=== PATIENT | female | born 1980 | race African-American/Black ===

== ENCOUNTER 2016-10-25 11:09 | Emergency (ER) | payer SELFPAY ==
[~2016-10-25] VITALS: Ht 170.2 cm; Wt 54.4 kg
[2016-10-25] MEDS ORDERED: ASPIRIN 81 MG TAB.CHEW PO ONE (11:30)
[2016-10-25 11:36] LABS: BASO % 1 % (0-3); EOS % 1 % (0-3); HEMATOCRIT 39.7 % (36.0-47.0); HEMOGLOBIN 13.3 g/dL (12.0-15.5); LYMPH # 1.5 x10^3/uL (1.0-4.8); LYMPH % 22 % (24-48); MEAN CORPUSCULAR HEMOGLOBIN 30 pg (25-35); MEAN CORPUSCULAR HGB CONC 34 g/dL (31-37); MEAN CORPUSCULAR VOLUME 88 fL (79-100); MONO % 10 % (0-9); NEUT % 66 % (31-73); PLATELET COUNT 262 x10^3/uL (140-400); RED CELL DISTRIBUTION WIDTH 13.9 % (11.5-14.5); WHITE BLOOD COUNT 6.7 x10^3/uL (4.0-11.0)
--- NOTE | 2016-10-25 11:45 | RAD ---
Exam: AP portable chest. History: Chest pain since previous night. Comparison: None. Findings: The heart and mediastinal structures are within normal limits for size. Lungs are without infiltrate. No pneumothorax or pleural effusion is appreciated. Impression: 1. No acute cardiopulmonary process.
[2016-10-25 11:47] LABS: CALCIUM 8.8 mg/dL (8.5-10.1); CREATININE 0.7 mg/dL (0.6-1.0); GFR 95.2; POTASSIUM 4.3 mmol/L (3.5-5.1)
[2016-10-25 11:58] LABS: ALBUMIN 3.7 g/dL (3.4-5.0); DIRECT BILIRUBIN 0.1 mg/dL (0.0-0.2); TOTAL BILIRUBIN 0.9 mg/dL (0.2-1.0); TOTAL PROTEIN 7.2 g/dL (6.4-8.2)
[2016-10-25] MEDS ORDERED: HYDR-2666 PO (12:19)
--- NOTE | 2016-10-25 12:20 | PHYS DOC ---
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 It is sharp mild, intermittent worse with movement and without diaphoresis nausea or vomiting. She denies a history of hypertension diabetes high cholesterol or family history of heart disease. She denies history of blood clotting disorders, family history of blood clotting disorders or dyspnea. She denies hemoptysis. Review of Systems Review of Systems ROS negative for shortness of breath abdominal pain. She denies unilateral leg swelling. All other review of systems is negative unless otherwise noted in history of present illness. Current Medications Current Medications Current Medications Medications (Trade) Dose Ordered Sig/Garrett Start Time Stop Time Status Last Admin Dose Admin Aspirin (Children'S Aspirin) 324 mg 1X ONCE 10/25/16 11:30 10/25/16 11:39 DC 10/25/16 11:57 324 MG Allergies Allergies Allergies Coded Allergies Type Severity Reaction Last Updated Verified No Known Drug Allergies 10/25/16 No Physical Exam Physical Exam Constitutional: Well developed, well nourished, no acute distress, non-toxic appearance. Patient has spasticity of her upper extremities likely secondary to her spinal cerebellar ataxia. HENT: Normocephalic, atraumatic, bilateral external ears normal, oropharynx moist, no oral exudates, nose normal. Eyes: PERRLA, EOMI, conjunctiva normal, no discharge. [] Neck: Normal range of motion, no tenderness, supple, no stridor. Cardiovascular:Heart rate regular rhythm, no murmur [] Lungs & Thorax: Bilateral breath sounds clear to auscultation Abdomen: Bowel sounds normal, soft, no tenderness, no masses, no pulsatile masses. Skin: Warm, dry, no erythema, no rash. [] Back: No tenderness, no CVA tenderness. [] Extremities: No tenderness, no cyanosis, no clubbing, ROM intact, no edema. No evidence of DVT present. No unilateral swelling. Nontender on the venous system. Neurologic: Alert and oriented X 3, normal motor function, normal sensory function, no focal deficits noted. Psychologic: Affect normal, judgement normal, mood normal. [] Current Patient Data Vital Signs Vital Signs Date Time Temp Pulse Resp B/P Pulse Ox O2 Delivery O2 Flow Rate FiO2 10/25/16 12:58 99 123/59 98 10/25/16 11:10 98.9 11 Room Air 98.9 Lab Values Laboratory Tests Test 10/25/16 11:23 White Blood Count 6.7x10^3/uL (4.0-11.0) Red Blood Count 4.50x10^6/uL (3.50-5.40) Hemoglobin 13.3g/dL (12.0-15.5) Hematocrit 39.7% (36.0-47.0) Mean Corpuscular Volume 88fL (79-100) Mean Corpuscular Hemoglobin 30pg (25-35) Mean Corpuscular Hemoglobin Concent 34g/dL (31-37) Red Cell Distribution Width 13.9% (11.5-14.5) Platelet Count 262x10^3/uL (140-400) Neutrophils (%) (Auto) 66% (31-73) Lymphocytes (%) (Auto) 22% (24-48) L Monocytes (%) (Auto) 10% (0-9) H Eosinophils (%) (Auto) 1% (0-3) Basophils (%) (Auto) 1% (0-3) Neutrophils # (Auto) 4.4x10^3uL (1.8-7.7) Lymphocytes # (Auto) 1.5x10^3/uL (1.0-4.8) Monocytes # (Auto) 0.7x10^3/uL (0.0-1.1) Eosinophils # (Auto) 0.1x10^3/uL (0.0-0.7) Basophils # (Auto) 0.0x10^3/uL (0.0-0.2) Sodium Level 140mmol/L (136-145) Potassium Level 4.3mmol/L (3.5-5.1) Chloride Level 107mmol/L (98-107) Carbon Dioxide Level 29mmol/L (21-32) Anion Gap 4 (6-14) L Blood Urea Nitrogen 14mg/dL (7-20) Creatinine 0.7mg/dL (0.6-1.0) Estimated GFR (Cockcroft-Gault) 95.2 Glucose Level 83mg/dL (70-99) Calcium Level 8.8mg/dL (8.5-10.1) Total Bilirubin 0.9mg/dL (0.2-1.0) Direct Bilirubin 0.1mg/dL (0.0-0.2) Aspartate Amino Transferase (AST) 15U/L (15-37) Alanine Aminotransferase (ALT) 14U/L (14-59) Alkaline Phosphatase 37U/L (46-116) L Troponin I Quantitative < 0.017ng/mL (0.000-0.055) FH-Zvp-W-Type Natriuretic Peptide 8pg/mL (0-124) Total Protein 7.2g/dL (6.4-8.2) Albumin 3.7g/dL (3.4-5.0) Lipase 106U/L (73-393) Laboratory Tests 10/25/16 11:23 Laboratory Tests 10/25/16 11:23 EKG EKG []EKG shows sinus rhythm with regular rate. Normal intervals. Normal axis. ST segments are congruent. Not suggestive of ACS. Reviewed by myself. Radiology/Procedures Radiology/Procedures Chest x-ray shows no acute cardiopulmonary process. [] Course & Med Decision Making Course & Med Decision Making Pertinent Labs and Imaging studies reviewed. (See chart for details) 36-year-old female presenting to the emergency department today with chest pain. On evaluation the patient's vital signs were unremarkable other than mild hypertension. The patient is not hypoxic or tachycardic. She has not had a previous surgery recently. She has not had hemoptysis. She is not currently on exogenous estrogen and she does not have unilateral leg swelling. Physical exam was consistent with her diagnosis of spinal cerebellar ataxia. Otherwise unremarkable. EKG unremarkable. Chest x-ray unremarkable. Blood work and remarkable including a negative troponin. Aspirin given at the time of arrival. She was subsequently discharged home to follow up with her PCP over the next 2- 3 days. Heart score of 0 Dragon Disclaimer Dragon Disclaimer This electronic medical record was generated, in whole or in part, using a voice recognition dictation system. Departure Departure Impression: Primary Impression: Chest pain Disposition: 01 HOME, SELF-CARE Admitting Physician: Other Condition: STABLE Referrals: JEAN-PIERRE EDMONDSON MD (PCP) Patient Instructions: Chest Pain (Nonspecific) Additional Instructions: Thank you for allowing us to participate in your care today. Followup with your primary care physician in 3 days if your symptoms do not improve. If you do not have a primary care provider you can ask for a list of our primary care providers. Return to the emergency department you have any new or concerning findings. This should be evaluated by the primary care physician and any necessary consulting services for continued management within a few days after discharge. Return to emergency room if you have any new or concerning symptoms including but not limited to fever, chills, nausea, vomiting, intractable pain, any new rashes, chest pain, shortness of air, uncontrolled bleeding, difficulty breathing, and/or vision loss. You may have been prescribed medication that can change in your level of thinking and ability to operate machinery. These medications include hydrocodone and Ativan. Also, Benadryl has been known to do this as well. Be sure to check with your pharmacist and ask if the medications you've prescribed can affect your level of consciousness. I recommend not operating heavy machinery or driving while on medication such as these. Scripts Hydrocodone Bit/Acetaminophen (Hydrocodone-Apap 5-325 )1 Each Tablet1 Tab PO PRN Q6HRS PRN PAIN #15 TAB Be careful as this medication may cause you to be drowsy or tired. Do not drive on this medication. Prov:BRODY PARRA MD 10/25/16 BRODY PARRA MD Oct 25, 2016 12:19
[2016-10-25 12:58] VITALS: BP 123/59
== END 2016-10-25 12:58 | disposition home or self-care (01) ==
LOC: EDBD 11:09 → MERGE 11:09 → ER 11:09
DX: R07.9 Chest pain, unspecified (principal); I10 Essential (primary) hypertension
CPT/HCPCS: 36415; 71010; 80048; 80076; 83690; 83880; 84484; 85027; 99285

== ENCOUNTER 2017-12-30 23:57 | Emergency (ER) | payer OTHER ==
[2017-12-31 00:41] LABS: ADD MAN DIFF? NO
[2017-12-31 00:43] LABS: BASO % 1 % (0-3); EOS # 0.1 x10^3/uL (0.0-0.7); EOS % 2 % (0-3); HEMATOCRIT 40.3 % (36.0-47.0); HEMOGLOBIN 13.6 g/dL (12.0-15.5); LYMPH # 2.1 x10^3/uL (1.0-4.8); LYMPH % 35 % (24-48); MEAN CORPUSCULAR HEMOGLOBIN 30 pg (25-35); MEAN CORPUSCULAR HGB CONC 34 g/dL (31-37); MEAN CORPUSCULAR VOLUME 90 fL (79-100); MONO # 0.7 x10^3/uL (0.0-1.1); MONO % 11 % (0-9); NEUT # 3.1 x10^3uL (1.8-7.7); NEUT % 52 % (31-73); PLATELET COUNT 327 x10^3/uL (140-400); RED BLOOD COUNT 4.49 x10^6/uL (3.50-5.40); RED CELL DISTRIBUTION WIDTH 13.7 % (11.5-14.5)
[2017-12-31 00:48] LABS: BILIRUBIN,URINE NEGATIVE (NEG); CLARITY,URINE TURBID; COLOR,URINE YELLOW; GLUCOSE,URINE NEGATIVE (NEG); NITRITE,URINE NEGATIVE (NEG); PH,URINE 5.5; PROTEIN,URINE 30 mg/dL (NEG-TRACE); UROBILINOGEN,URINE 0.2 mg/dL (0.2 mg/dL)
[2017-12-31 00:51] LABS: ANION GAP 8 (6-14); BLOOD UREA NITROGEN 15 mg/dL (7-20); CALCIUM 9.5 mg/dL (8.5-10.1); CARBON DIOXIDE 29 mmol/L (21-32); CHLORIDE 104 mmol/L (98-107); CREATININE 0.9 mg/dL (0.6-1.0); GFR 85.7; GLUCOSE 102 mg/dL (70-99); POTASSIUM 4.2 mmol/L (3.5-5.1); SODIUM 141 mmol/L (136-145)
[2017-12-31 00:54] LABS: BACTERIA,URINE MANY /HPF (0-FEW); RBC,URINE OCC /HPF (0-2); SQUAMOUS EPITHELIAL CELL,UR MANY /LPF
[2017-12-31 00:56] LABS: NEG OBC UR NEG; POS OBC UR POS; U PREG PATIENT NEGATIVE (NEG)
== END 2017-12-31 01:46 | disposition home or self-care (01) ==
LOC: ER 23:57
DX: R68.83 Chills (without fever) (principal)
CPT/HCPCS: 36415; 80048; 81001; 81025; 85025; 87086; 99284

== ENCOUNTER 2018-01-01 01:19 | Emergency (ER) | payer OTHER ==
[2018-01-01] MEDS: ONDANSETRON PF 4 MG/2 ML VIAL. IV (01:45)
[2018-01-01] MEDS: IV NORMAL SALINE 1000ML BAG 1,000 ML IV (02:01)
[2018-01-01 02:02] LABS: ADD MAN DIFF? NO
[2018-01-01 02:04] LABS: BASO % 0 % (0-3); EOS # 0.1 x10^3/uL (0.0-0.7); EOS % 1 % (0-3); HEMATOCRIT 38.9 % (36.0-47.0); HEMOGLOBIN 13.2 g/dL (12.0-15.5); LYMPH # 1.7 x10^3/uL (1.0-4.8); LYMPH % 31 % (24-48); MEAN CORPUSCULAR HEMOGLOBIN 30 pg (25-35); MEAN CORPUSCULAR HGB CONC 34 g/dL (31-37); MEAN CORPUSCULAR VOLUME 90 fL (79-100); MONO # 0.7 x10^3/uL (0.0-1.1); MONO % 12 % (0-9); NEUT % 55 % (31-73); PLATELET COUNT 307 x10^3/uL (140-400); RED BLOOD COUNT 4.34 x10^6/uL (3.50-5.40); RED CELL DISTRIBUTION WIDTH 13.6 % (11.5-14.5); WHITE BLOOD COUNT 5.5 x10^3/uL (4.0-11.0)
[2018-01-01 02:12] LABS: ANION GAP 8 (6-14); BLOOD UREA NITROGEN 13 mg/dL (7-20); BUN/CREATININE RATIO 16 (6-20); CALCIUM 9.9 mg/dL (8.5-10.1); CARBON DIOXIDE 28 mmol/L (21-32); CHLORIDE 105 mmol/L (98-107); CREATININE 0.8 mg/dL (0.6-1.0); GFR 98.2; GLUCOSE 103 mg/dL (70-99); POTASSIUM 3.8 mmol/L (3.5-5.1); SODIUM 141 mmol/L (136-145)
[2018-01-01 02:13] LABS: BILIRUBIN,URINE NEGATIVE (NEG); CLARITY,URINE CLEAR; COLOR,URINE YELLOW; GLUCOSE,URINE NEGATIVE (NEG); NITRITE,URINE NEGATIVE (NEG); PH,URINE 5.5; PROTEIN,URINE NEGATIVE (NEG-TRACE); UROBILINOGEN,URINE 0.2 mg/dL (0.2 mg/dL)
[2018-01-01 02:18] LABS: ALBUMIN 3.7 g/dL (3.4-5.0); ALBUMIN/GLOBULIN RATIO 0.9 (1.0-1.7); ALK PHOS 53 U/L (46-116); ALT (SGPT) 22 U/L (14-59); AST (SGOT) 13 U/L (15-37); TOTAL BILIRUBIN 0.7 mg/dL (0.2-1.0); TOTAL PROTEIN 7.6 g/dL (6.4-8.2)
[2018-01-01 02:21] LABS: INFLUENZA A PATIENT NEGATIVE (NEGATIVE); INFLUENZA B PATIENT NEGATIVE (NEGATIVE); OBC FLU VALID
[2018-01-01 02:24] LABS: BACTERIA,URINE 0 /HPF (0-FEW); RBC,URINE OCC /HPF (0-2); SQUAMOUS EPITHELIAL CELL,UR FEW /LPF
== END 2018-01-01 04:45 | disposition home or self-care (01) ==
LOC: ER 01:19
DX: E86.0 Dehydration (principal); R42 Dizziness and giddiness; R53.1 Weakness; R11.2 Nausea with vomiting, unspecified; R30.0 Dysuria
CPT/HCPCS: 36415; 51701; 71045; 80053; 81001; 85025; 87804; 87804-59; 93005; 96360; 96361; 99285-25; J7030

== ENCOUNTER 2018-04-11 07:58 | Emergency (ER) | payer OTHER ==
[2018-04-11 08:54] LABS: URINE HCG POC HCG NEGATIVE (Negative)
[2018-04-11 09:01] LABS: BILIRUBIN,URINE NEGATIVE (NEG); CLARITY,URINE TURBID; COLOR,URINE AMBER; GLUCOSE,URINE NEGATIVE (NEG); NITRITE,URINE NEGATIVE (NEG); PROTEIN,URINE >=300 mg/dL (NEG-TRACE); UROBILINOGEN,URINE 0.2 mg/dL (0.2 mg/dL)
[2018-04-11 09:11] LABS: BACTERIA,URINE MANY /HPF (0-FEW); SQUAMOUS EPITHELIAL CELL,UR MANY /LPF; WBC,URINE TNTC /HPF (0-4)
[2018-04-11 09:12] LABS: RBC,URINE FOBS /HPF (0-2)
[2018-04-11 09:15] LABS: ADD MAN DIFF? NO
[2018-04-11] MEDS ORDERED: CONTRAST GIVEN. MC (09:15)
[2018-04-11 09:20] LABS: BASO % 1 % (0-3); EOS # 0.1 x10^3/uL (0.0-0.7); EOS % 2 % (0-3); HEMATOCRIT 36.9 % (36.0-47.0); HEMOGLOBIN 12.8 g/dL (12.0-15.5); LYMPH # 1.3 x10^3/uL (1.0-4.8); LYMPH % 26 % (24-48); MEAN CORPUSCULAR HEMOGLOBIN 31 pg (25-35); MEAN CORPUSCULAR HGB CONC 35 g/dL (31-37); MEAN CORPUSCULAR VOLUME 91 fL (79-100); MONO # 0.6 x10^3/uL (0.0-1.1); MONO % 12 % (0-9); NEUT % 60 % (31-73); PLATELET COUNT 256 x10^3/uL (140-400); RED BLOOD COUNT 4.08 x10^6/uL (3.50-5.40); RED CELL DISTRIBUTION WIDTH 13.6 % (11.5-14.5); WHITE BLOOD COUNT 5.1 x10^3/uL (4.0-11.0)
[2018-04-11 09:29] LABS: ANION GAP 3 (6-14); BLOOD UREA NITROGEN 12 mg/dL (7-20); BUN/CREATININE RATIO 15 (6-20); CALCIUM 9.2 mg/dL (8.5-10.1); CARBON DIOXIDE 28 mmol/L (21-32); CHLORIDE 106 mmol/L (98-107); CREATININE 0.8 mg/dL (0.6-1.0); GFR 97.7; GLUCOSE 88 mg/dL (70-99); SODIUM 137 mmol/L (136-145)
[2018-04-11 09:37] LABS: ALBUMIN 3.4 g/dL (3.4-5.0); ALK PHOS 44 U/L (46-116); ALT (SGPT) 28 U/L (14-59); AST (SGOT) 13 U/L (15-37); LIPASE 92 U/L (73-393); TOTAL BILIRUBIN 0.7 mg/dL (0.2-1.0); TOTAL PROTEIN 6.9 g/dL (6.4-8.2)
[2018-04-11] MEDS: IOHEXOL 300 MG/ML 100ML VIAL. IV (10:01)
[2018-04-11] MEDS: fentaNYL PF VIAL 100 MCG/2 ML VIAL IV (13:57)
== END 2018-04-11 13:25 | disposition home or self-care (01) ==
LOC: ER 13:25
DX: N83.202 Unspecified ovarian cyst, left side (principal)
CPT/HCPCS: 36415; 74177; 76856; 80053; 81001; 81025; 83690; 85025; 96365; 96375; 99285-25; J0690; J3010; Q9967

== ENCOUNTER 2018-04-29 20:05 | Emergency (ER) | payer OTHER ==
[2018-04-29 20:49] LABS: ADD MAN DIFF? NO
[2018-04-29 20:51] LABS: BASO % 1 % (0-3); EOS # 0.1 x10^3/uL (0.0-0.7); EOS % 1 % (0-3); HEMOGLOBIN 13.2 g/dL (12.0-15.5); LYMPH # 1.9 x10^3/uL (1.0-4.8); LYMPH % 29 % (24-48); MEAN CORPUSCULAR HEMOGLOBIN 31 pg (25-35); MEAN CORPUSCULAR HGB CONC 34 g/dL (31-37); MEAN CORPUSCULAR VOLUME 91 fL (79-100); MONO # 0.8 x10^3/uL (0.0-1.1); MONO % 12 % (0-9); NEUT # 3.8 x10^3uL (1.8-7.7); NEUT % 58 % (31-73); PLATELET COUNT 291 x10^3/uL (140-400); RED CELL DISTRIBUTION WIDTH 13.6 % (11.5-14.5); WHITE BLOOD COUNT 6.6 x10^3/uL (4.0-11.0)
[2018-04-29 21:02] LABS: ANION GAP 7 (6-14); BLOOD UREA NITROGEN 16 mg/dL (7-20); BUN/CREATININE RATIO 23 (6-20); CALCIUM 9.4 mg/dL (8.5-10.1); CARBON DIOXIDE 28 mmol/L (21-32); CHLORIDE 105 mmol/L (98-107); CREATININE 0.7 mg/dL (0.6-1.0); GFR 113.9; GLUCOSE 99 mg/dL (70-99); POTASSIUM 3.8 mmol/L (3.5-5.1); SODIUM 140 mmol/L (136-145)
[2018-04-29 21:08] LABS: ALBUMIN 3.6 g/dL (3.4-5.0); ALK PHOS 50 U/L (46-116); ALT (SGPT) 17 U/L (14-59); AST (SGOT) 12 U/L (15-37); LIPASE 117 U/L (73-393); TOTAL BILIRUBIN 0.7 mg/dL (0.2-1.0); TOTAL PROTEIN 7.1 g/dL (6.4-8.2)
[2018-04-29] MEDS: IV NORMAL SALINE 1000ML BAG 1,000 ML IV (21:26)
[2018-04-29] MEDS: ACETAMINOPHEN 500 MG TABLET PO (21:27)
[2018-04-29] MEDS: ONDANSETRON PF 4 MG/2 ML VIAL. IV (21:27)
[2018-04-29] MEDS: KETOROLAC 30 MG/ML INJ. IV (21:28)
[2018-04-29] MEDS: MORPHINE SULFATE 10 MG/ML VIAL. IV (21:28)
[2018-04-29 21:48] LABS: BILIRUBIN,URINE NEGATIVE (NEG); CLARITY,URINE CLEAR; COLOR,URINE YELLOW; GLUCOSE,URINE NEGATIVE (NEG); NITRITE,URINE NEGATIVE (NEG); PROTEIN,URINE NEGATIVE (NEG-TRACE)
[2018-04-29 21:58] LABS: BACTERIA,URINE 0 /HPF (0-FEW); SQUAMOUS EPITHELIAL CELL,UR MOD /LPF; WBC,URINE OCC /HPF (0-4)
[2018-04-29] MEDS ORDERED: CONTRAST GIVEN. MC (22:00)
[2018-04-29 22:20] LABS: NEG OBC UR NEG; POS OBC UR POS; U PREG PATIENT NEGATIVE (NEG)
[2018-04-29] MEDS: IOHEXOL 300 MG/ML 100ML VIAL. IV (22:45)
[2018-05-02 15:29] LABS: CHLAMYDIA PROBE Negative (Negative); GC PROBE Negative (Negative)
== END 2018-04-29 23:48 | disposition home or self-care (01) ==
LOC: ER 23:48
DX: R10.31 Right lower quadrant pain (principal); N76.0 Acute vaginitis; B96.89 Other specified bacterial agents as the cause of diseases classified elsewhere
CPT/HCPCS: 36415; 74177; 76830; 76856; 80053; 81001; 81025; 83690; 85025; 87491; 87591; 96374; 96375; 99285-25; J1885; J2270; J2405; J7030; Q0111; Q9967

== ENCOUNTER 2018-06-30 04:45 | Emergency (ER) | payer OTHER ==
[~2018-06-30] VITALS: Ht 170.2 cm; Wt 50.8 kg
[~2018-06-30 04:45] MED LIST: HYDR-2758 PO; HYDR-971 PO; METR500T PO; TRAM50TA PO
--- NOTE | 2018-06-30 05:24 | PHYS DOC ---
Past Medical History Past Medical History: Other Additional Past Medical Histor: SPINOCEREBELLAR ATAXIA Past Surgical History: Alcohol Use: None Drug Use: None Adult General Chief Complaint Chief Complaint: BACK PAIN OR INJURY HPI HPI Patient is a 38 year old female with a past medical history of spinal cerebellar ataxia who presents via EMS after acute onset back pain this morning. Patient notes she was in bed at about 2:30 this morning when she had acute onset of constant burning low thoracic midline back pain with the severity of 8 out of 10. Patient denies any radiation of pain. Patient notes that she might have shifted in bed before the onset of pain that she is not completely sure. Patient notes since the onset of the pain she has had increased weakness in her bilateral lower extremities. Patient denies any loss of bowel or bladder function. Patient denies any dysuria, urinary urgency, urinary frequency, or fevers/chills. Patient is somewhat of a poor historian due to not answering all questions fully and mumbling. Review of Systems Review of Systems Constitutional: Denies fever or chills [] Eyes: Denies change in visual acuity, redness, or eye pain [] HENT: Denies nasal congestion or sore throat [] Respiratory: Denies cough or shortness of breath [] Cardiovascular: Denies chest pain or palpitations[] GI: Denies abdominal pain, nausea, vomiting, bloody stools or diarrhea [] : Denies dysuria or hematuria [] Musculoskeletal: Notes back pain; Denies joint pain [] Integument: Denies rash or skin lesions [] Neurologic: Denies headache, focal weakness or sensory changes [] Complete systems were reviewed and found to be within normal limits, except as documented in this note. Current Medications Current Medications Current Medications Medications (Trade) Dose Ordered Sig/[facility] Start Time Stop Time Status Last Admin Dose Admin Acetaminophen/ Hydrocodone Bitart (Lortab 5/325) 1 tab 1X ONCE 06/30/18 06:30 06/30/18 06:31 DC 06/30/18 06:29 1 TAB Ketorolac Tromethamine (Toradol 30mg Vial) 30 mg 1X ONCE 06/30/18 05:30 06/30/18 05:31 DC 06/30/18 05:30 30 MG Orphenadrine Citrate (Norflex) 60 mg 1X ONCE 06/30/18 05:30 06/30/18 05:31 DC 06/30/18 05:30 60 MG Allergies Allergies Allergies Coded Allergies Type Severity Reaction Last Updated Verified No Known Drug Allergies 09/21/13 No Physical Exam Physical Exam Constitutional: Well developed, well nourished, no acute distress, non-toxic appearance. [] HENT: Normocephalic, atraumatic, oropharynx moist, no oral exudates, nose normal. [] Eyes: PERRL, EOMI, conjunctiva normal, no discharge. [] Neck: Normal range of motion, no tenderness, supple, no meningismus. [] Cardiovascular: Heart rate regular rhythm, no murmur [] Lungs & Thorax: Bilateral breath sounds clear to auscultation [] Abdomen: Bowel sounds normal, soft, nondistended, no tenderness, [] Skin: Warm, dry, no erythema, no rash. [] Back: Midline low thoracic tenderness, paraspinal thoracic tenderness, no CVA tenderness. [] Extremities: No tenderness, no edema. Straight leg raise test positive at 80 both on the left and right[] Neurologic: Alert and oriented X 3, normal motor function Psychologic: Affect normal, judgement normal, mood normal. [] Current Patient Data Vital Signs Vital Signs Date Time Temp Pulse Resp B/P (MAP) Pulse Ox O2 Delivery O2 Flow Rate FiO2 06/30/18 06:29 15 98 Room Air 06/30/18 06:18 92 132/90 (104) 06/30/18 04:45 98.4 98.4 Lab Values Laboratory Tests Test 06/30/18 06:00 06/30/18 06:05 Urine Collection Type Void Urine Color Yellow Urine Clarity Clear Urine pH 6.0 Urine Specific [place] 1.025 Urine Protein Negative mg/dL (NEG-TRACE) Urine Glucose (UA) Negative mg/dL (NEG) Urine Ketones (Stick) 15 mg/dL (NEG) Urine Blood Trace (NEG) Urine Nitrite Negative (NEG) Urine Bilirubin Negative (NEG) Urine Urobilinogen Dipstick 1.0 mg/dL (0.2 mg/dL) Urine Leukocyte Esterase Moderate (NEG) Urine RBC 1-2 /HPF (0-2) Urine WBC 11-20 /HPF (0-4) Urine Squamous Epithelial Cells Occ /LPF Urine Bacteria Few /HPF (0-FEW) Urine Mucus Marked /LPF POC Urine HCG, Qualitative Hcg negative (Negative) EKG EKG [] Radiology/Procedures Radiology/Procedures [] Course & Med Decision Making Course & Med Decision Making 38-year-old female with past medical history of spinal cerebellar ataxia presents with acute onset paraspinal lower thoracic back pain. Patient notes pain has a burning quality to it a severity of 8 out of 10 patient denies radiation of the pain. Patient given dose of IM Toradol and Norflex and dose of norco 5/325mg. UA pending. Sign out given to Dr. Morataya for follow up regarding UA results. Rx for pain meds, muscle relaxer, and anti- inflammatories provided. Discussed current findings and plan with patient, who acknowledges understanding and agreement. f/u on UA. + pyuria. Will treat with macrobid x 5 days. patient encouraged to f/u with her PCP or return to the ER for any new or worsening symptoms. DO. Howie Rich Disclaimer Howie Disclaimer This electronic medical record was generated, in whole or in part, using a voice recognition dictation system. Departure Departure Impression: Primary Impression: Thoracic back pain Disposition: HOME, SELF-CARE Condition: STABLE Referrals: JEAN-PIERRE EDMONDSON MD (PCP) Patient Instructions: Back Pain, Adult, [id number] Scripts Nitrofurantoin Monohyd/M-Cryst (MACROBID 100 MG CAPSULE) 100 Mg Capsule 1 CAP PO BID, #10 CAP Prov: PORSCHE MORATAYA DO 06/30/18 Orphenadrine Citrate (ORPHENADRINE CITRATE) 100 Mg Tablet.er 1 TAB PO BID PRN for MUSCLE PAIN, #20 TAB 0 Refills Prov: DAVI KISER DO 06/30/18 Ibuprofen (MOTRIN IB) 200 Mg Tablet 400 MG PO Q8HRS PRN for PAIN, #20 TAB Prov: DAVI KISER DO 06/30/18 Hydrocodone/Apap 5-325 (NORCO 5-325 TABLET) 1 Each Tablet 0.5 TAB PO PRN Q6HRS PRN for PAIN, #10 TAB 0 Refills Prov: DAVI KISER DO 06/30/18 Problem Qualifiers Primary Impression: Thoracic back pain Chronicity: acute Back pain laterality: bilateral Qualified Codes: M54.6 - Pain in thoracic spine DAVI KISER DO Jun 30, 2018 05:24 PORSCHE MORATAYA DO Jun 30, 2018 07:04
[2018-06-30] MEDS ORDERED: KETOROLAC 30 MG/ML VIAL. IM ONE (05:30)
[2018-06-30] MEDS ORDERED: ORPHENADRINE CITRATE 60 MG/2 ML VIAL. IM ONE (05:30)
[2018-06-30] MEDS ORDERED: IBUP200T44 PO (06:23)
[2018-06-30] MEDS ORDERED: HYDR-971 PO (06:23)
[2018-06-30] MEDS ORDERED: ORPH100T PO (06:29)
[2018-06-30] MEDS ORDERED: HYDROcodone/APAP 5/325MG 1 TAB TABLET PO ONE (06:30)
[2018-06-30 06:45] LABS: BILIRUBIN,URINE NEGATIVE (NEG); CLARITY,URINE CLEAR; COLOR,URINE YELLOW; NITRITE,URINE NEGATIVE (NEG); PROTEIN,URINE NEGATIVE (NEG-TRACE)
[2018-06-30 06:58] LABS: BACTERIA,URINE FEW /HPF (0-FEW); SQUAMOUS EPITHELIAL CELL,UR OCC /LPF
[2018-06-30] MEDS ORDERED: NITR100C62 PO (07:02)
[2018-06-30 07:08] VITALS: BP 140/90
== END 2018-06-30 08:14 | disposition home or self-care (01) ==
LOC: ER 04:45
DX: M54.6 Pain in thoracic spine (principal); Z98.890 Other specified postprocedural states
CPT/HCPCS: 81001; 81025; 87086; 96372; 99284; J1885; J2360

== ENCOUNTER 2018-07-26 00:10 | Emergency (ER) | payer OTHER ==
[~2018-07-26] VITALS: Ht 170.2 cm; Wt 50.8 kg
[~2018-07-26 00:10] MED LIST changes: +IBUP200T44 PO; +NITR100C62 PO; +ORPH100T PO
[2018-07-26] MEDS ORDERED: ORPH100T PO (00:49)
[2018-07-26] MEDS ORDERED: HYDR-971 PO (00:49)
--- NOTE | 2018-07-26 00:49 | PHYS DOC ---
Past Medical History Past Medical History: Other Additional Past Medical Histor: SPINOCEREBELLAR ATAXIA Past Surgical History: Alcohol Use: None Drug Use: None Adult General Chief Complaint Chief Complaint: BACK PAIN - NO INJURY HPI HPI 38-year-old female with past medical history of spinocerebellar ataxia presents with report of exacerbation of chronic left sided mid thoracic back pain. Denies known trauma. Denies fever/chills. Denies rash. Patient reports she has had similar pain in the past. Reports tried over the counter Ibuprofen without improvement. Denies dysuria or hematuria. Denies fever/chills. Patient is bed bound at baseline. Review of Systems Review of Systems Constitutional: Denies fever or chills [] Eyes: Denies change in visual acuity, redness, or eye pain [] HENT: Denies nasal congestion or sore throat [] Respiratory: Denies cough or shortness of breath [] Cardiovascular: Denies chest pain or palpitations GI: Denies abdominal pain, nausea, vomiting, or diarrhea [] : Denies dysuria or hematuria [] Musculoskeletal: Reports left-sided thoracic back pain] Integument: Denies rash or skin lesions [] Neurologic: Denies headache or seizure Complete systems were reviewed and found to be within normal limits, except as documented in this note. Current Medications Current Medications Current Medications Medications (Trade) Dose Ordered Sig/Garrett Start Time Stop Time Status Last Admin Dose Admin Dexamethasone (Decadron) 10 mg 1X ONCE 07/26/18 01:00 07/26/18 01:01 DC 07/26/18 00:58 10 MG Ketorolac Tromethamine (Toradol 30mg Vial) 30 mg 1X ONCE 07/26/18 01:00 07/26/18 01:01 DC 07/26/18 00:58 30 MG Orphenadrine Citrate (Norflex) 60 mg 1X ONCE 07/26/18 01:00 07/26/18 01:01 DC 07/26/18 00:57 60 MG Allergies Allergies Allergies Coded Allergies Type Severity Reaction Last Updated Verified No Known Drug Allergies 09/21/13 No Physical Exam Physical Exam Constitutional: No acute distress, non-toxic appearance. [] HENT: Normocephalic, atraumatic, oropharynx moist Eyes: Conjunctiva normal, no discharge. [] Neck: No tenderness, supple[] Cardiovascular: Heart rate regular rhythm, no murmur [] Lungs & Thorax: Bilateral breath sounds clear to auscultation [] Abdomen: Soft, no suprapubic tenderness, no distention Skin: Warm, dry, no erythema, no rash. [] Back: left mid thoracic paraspinal tenderness Extremities: No tenderness, contractures of bilateral feet and legs, some contractures of the hands right greater than left, decreased muscle tone to all 4 extremities Neurologic: Alert and oriented X 3, speech normal Psychologic: Affect normal, judgement normal, mood normal. [] Current Patient Data Vital Signs Vital Signs Date Time Temp Pulse Resp B/P (MAP) Pulse Ox O2 Delivery O2 Flow Rate FiO2 07/26/18 00:12 98.4 108 20 162/95 (117) 97 Room Air 98.4 EKG EKG [] Radiology/Procedures Radiology/Procedures [] Course & Med Decision Making Course & Med Decision Making Pertinent Labs and Imaging studies reviewed. (See chart for details) Patient with chronic back pain presents with exacerbation and report of trouble sleeping this evening. No history of known trauma. No obvious deformity noted. No rash noted. Afebrile. Denies dysuria, increased urinary frequency, or hematuria. Reports is consistent with her chronic pain. Reports ibuprofen she has been taking is not helping. [employer] prescription drug monitoring report viewed and last narcotic prescription for [place] [id number] tabs was obtained on . Symptomatic treatment provided with IM ketorolac and Norflex as well as oral steroid. Will prescribe small amount of pain medication with instructions to follow closely with her PCP. Patient stable for discharge with outpatient follow-up with PCP. Discussed findings and plan with patient and family, who acknowledge understanding and agreement. Dragon Disclaimer Dragon Disclaimer This electronic medical record was generated, in whole or in part, using a voice recognition dictation system. Departure Departure Impression: Primary Impression: Chronic thoracic back pain Disposition: 01 HOME, SELF-CARE Condition: STABLE Referrals: JEAN-PIERRE EDMONDSON MD (PCP) Patient Instructions: Back Pain, Adult, Atpr-[id number], Chronic Back Pain Scripts Hydrocodone/Apap 5-325 (NORCO 5-325 TABLET) 1 Each Tablet 0.5 TAB PO PRN Q6HRS PRN for PAIN, #6 TAB 0 Refills Prov: DAVI KISER DO 07/26/18 Orphenadrine Citrate (ORPHENADRINE CITRATE) 100 Mg Tablet.er 1 TAB PO BID, #14 TAB 0 Refills Prov: DAVI KISER DO 07/26/18 Problem Qualifiers Primary Impression: Chronic thoracic back pain Back pain laterality: left Qualified Codes: M54.6 - Pain in thoracic spine; G89.29 - Other chronic pain DAVI KISER DO Jul 26, 2018 00:49
[2018-07-26] MEDS ORDERED: DEXAMETHASONE 4 MG TABLET PO ONE (01:00)
[2018-07-26] MEDS ORDERED: ORPHENADRINE CITRATE 60 MG/2 ML VIAL. IM ONE (01:00)
[2018-07-26] MEDS ORDERED: KETOROLAC 30 MG/ML VIAL. IM ONE (01:00)
[2018-07-26 01:09] VITALS: BP 135/67
== END 2018-07-26 01:30 | disposition home or self-care (01) ==
LOC: ER 00:10
DX: G89.29 Other chronic pain (principal); M54.6 Pain in thoracic spine
CPT/HCPCS: 96372; 99284; J1885; J2360; J8540

== ENCOUNTER 2018-09-29 23:14 | Emergency (ER) | payer OTHER ==
[~2018-09-29] VITALS: Ht 170.2 cm; Wt 50.8 kg
[~2018-09-29 23:14] MED LIST changes: -HYDR-2758 PO; +HYDR-2761 PO; +HYDR-3164 PO; -HYDR-971 PO
[2018-09-30 00:06] LABS: BASO % 1 % (0-3); EOS # 0.1 x10^3/uL (0.0-0.7); EOS % 2 % (0-3); HEMATOCRIT 37.3 % (36.0-47.0); HEMOGLOBIN 12.9 g/dL (12.0-15.5); LYMPH # 1.6 x10^3/uL (1.0-4.8); LYMPH % 32 % (24-48); MEAN CORPUSCULAR HEMOGLOBIN 31 pg (25-35); MEAN CORPUSCULAR HGB CONC 35 g/dL (31-37); MEAN CORPUSCULAR VOLUME 89 fL (79-100); MONO # 0.7 x10^3/uL (0.0-1.1); MONO % 13 % (0-9); NEUT # 2.6 x10^3uL (1.8-7.7); NEUT % 52 % (31-73); PLATELET COUNT 300 x10^3/uL (140-400); RED BLOOD COUNT 4.17 x10^6/uL (3.50-5.40); RED CELL DISTRIBUTION WIDTH 13.7 % (11.5-14.5)
[2018-09-30 00:14] LABS: BARBITURATES NEG (NEG); BENZODIAZEPINES NEG (NEG); CANNABINOIDS NEG (NEG); COCAINE NEG (NEG); METHADONE NEG (NEG); OPIATES NEG (NEG); PHENCYCLIDINE NEG (NEG)
[2018-09-30] MEDS ORDERED: IV NORMAL SALINE 1000ML BAG 1,000 ML IV ONE (00:30)
[2018-09-30 00:31] LABS: AMPHETAMINE/METHAMPHETAMINE NEG (NEG)
[2018-09-30 00:37] LABS: BILIRUBIN,URINE NEGATIVE (NEG); CLARITY,URINE CLEAR; COLOR,URINE YELLOW; NITRITE,URINE NEGATIVE (NEG); PROTEIN,URINE NEGATIVE (NEG-TRACE)
[2018-09-30 00:40] LABS: BACTERIA,URINE FEW /HPF (0-FEW); SQUAMOUS EPITHELIAL CELL,UR MOD /LPF
[2018-09-30 00:44] LABS: U PREG PATIENT NEGATIVE (NEG)
[2018-09-30 00:52] LABS: CALCIUM 9.1 mg/dL (8.5-10.1); CREATININE 0.8 mg/dL (0.6-1.0); GFR 97.7; POTASSIUM 3.6 mmol/L (3.5-5.1)
[2018-09-30 00:58] LABS: ALBUMIN 3.3 g/dL (3.4-5.0); ALBUMIN/GLOBULIN RATIO 0.9 (1.0-1.7); MAGNESIUM 1.9 mg/dL (1.8-2.4); TOTAL BILIRUBIN 0.6 mg/dL (0.2-1.0)
[2018-09-30] MEDS ORDERED: CEPH500C PO (01:41)
--- NOTE | 2018-09-30 01:59 | PHYS DOC ---
Past Medical History Past Medical History: Other Additional Past Medical Histor: SPINOCEREBELLAR ATAXIA Past Surgical History: Alcohol Use: None Drug Use: None Adult General Chief Complaint Chief Complaint: NAUSEA/VOMITING/DIARRHA HPI HPI Patient is a 38 year old female presents with chief complaint of nausea and decreased by mouth intake having trouble sleeping for the last several days she has urinary frequency denies any vaginal discharge no abdominal pain she does feel some fullness in her left back she tells me. She does not think she have a fever but she does feel warm she says. Review of Systems Review of Systems Constitutional: Feels warm Eyes: Denies change in visual acuity, redness, or eye pain [] Cardiovascular: No additional information not addressed in HPI [] Musculoskeletal: Denies back pain or joint pain [] Integument: Denies rash or skin lesions [] Neurologic All other systems were reviewed and found to be within normal limits, except as documented in this note. Current Medications Current Medications Current Medications Medications (Trade) Dose Ordered Sig/Garrett Start Time Stop Time Status Last Admin Dose Admin Ceftriaxone Sodium (Rocephin) 1 gm 1X ONCE 09/30/18 02:00 09/30/18 02:01 Sodium Chloride 1,000 ml @ 1,000 mls/hr 1X ONCE 09/30/18 00:30 09/30/18 01:29 DC 09/30/18 00:17 1,000 MLS/HR Allergies Allergies Allergies Coded Allergies Type Severity Reaction Last Updated Verified No Known Drug Allergies 09/21/13 No Physical Exam Physical Exam Constitutional: Well developed, well nourished, no acute distress, non-toxic appearance. [] HENT: Normocephalic, atraumatic, bilateral external ears normal, oropharynx moist, no oral exudates, nose normal. [] Eyes: PERRLA, conjunctia slightly injected Neck: Normal range of motion, no tenderness, supple, no stridor. [] Cardiovascular:Heart rate regular rhythm, no murmur [] Lungs & Thorax: Bilateral breath sounds clear to auscultation [] Abdomen: Bowel sounds normal, soft, no tenderness, no masses, no pulsatile masses. [] Skin: Warm, dry, no erythema, no rash. [] Back: No tenderness, no CVA tenderness. [] Extremities: No tenderness, no cyanosis, no clubbing, ROM intact, no edema. [] Neurologic: Consistent with underlying spinal cerebellar degeneration however eyes are open to voice she is able follow commands her speech is somewhat muted but she is able to answer questions appropriately. Current Patient Data Vital Signs Vital Signs Date Time Temp Pulse Resp B/P (MAP) Pulse Ox O2 Delivery O2 Flow Rate FiO2 09/30/18 00:00 86 18 145/92 (109) 98 Room Air 09/29/18 23:15 98.1 98.1 Lab Values Laboratory Tests Test 09/29/18 23:59 09/30/18 00:01 White Blood Count 5.0 x10^3/uL (4.0-11.0) Red Blood Count 4.17 x10^6/uL (3.50-5.40) Hemoglobin 12.9 g/dL (12.0-15.5) Hematocrit 37.3 % (36.0-47.0) Mean Corpuscular Volume 89 fL (79-100) Mean Corpuscular Hemoglobin 31 pg (25-35) Mean Corpuscular Hemoglobin Concent 35 g/dL (31-37) Red Cell Distribution Width 13.7 % (11.5-14.5) Platelet Count 300 x10^3/uL (140-400) Neutrophils (%) (Auto) 52 % (31-73) Lymphocytes (%) (Auto) 32 % (24-48) Monocytes (%) (Auto) 13 % (0-9) H Eosinophils (%) (Auto) 2 % (0-3) Basophils (%) (Auto) 1 % (0-3) Neutrophils # (Auto) 2.6 x10^3uL (1.8-7.7) Lymphocytes # (Auto) 1.6 x10^3/uL (1.0-4.8) Monocytes # (Auto) 0.7 x10^3/uL (0.0-1.1) Eosinophils # (Auto) 0.1 x10^3/uL (0.0-0.7) Basophils # (Auto) 0.0 x10^3/uL (0.0-0.2) Urine Collection Type Unknown Urine Color Yellow Urine Clarity Clear Urine pH 6.0 Urine Specific [place] 1.020 Urine Protein Negative mg/dL (NEG-TRACE) Urine Glucose (UA) Negative mg/dL (NEG) Urine Ketones (Stick) Negative mg/dL (NEG) Urine Blood Small (NEG) Urine Nitrite Negative (NEG) Urine Bilirubin Negative (NEG) Urine Urobilinogen Dipstick 1.0 mg/dL (0.2 mg/dL) Urine Leukocyte Esterase Small (NEG) Urine RBC 1-2 /HPF (0-2) Urine WBC 11-20 /HPF (0-4) Urine Squamous Epithelial Cells Mod /LPF Urine Bacteria Few /HPF (0-FEW) Urine Mucus Marked /LPF Sodium Level 140 mmol/L (136-145) Potassium Level 3.6 mmol/L (3.5-5.1) Chloride Level 107 mmol/L (98-107) Carbon Dioxide Level 25 mmol/L (21-32) Anion Gap 8 (6-14) Blood Urea Nitrogen 12 mg/dL (7-20) Creatinine 0.8 mg/dL (0.6-1.0) Estimated GFR (Cockcroft-Gault) 97.7 BUN/Creatinine Ratio 15 (6-20) Glucose Level 98 mg/dL (70-99) Calcium Level 9.1 mg/dL (8.5-10.1) Magnesium Level 1.9 mg/dL (1.8-2.4) Total Bilirubin 0.6 mg/dL (0.2-1.0) Aspartate Amino Transferase (AST) 14 U/L (15-37) L Alanine Aminotransferase (ALT) 18 U/L (14-59) Alkaline Phosphatase 42 U/L (46-116) L Total Protein 7.0 g/dL (6.4-8.2) Albumin 3.3 g/dL (3.4-5.0) L Albumin/Globulin Ratio 0.9 (1.0-1.7) L Lipase 90 U/L (73-393) Urine Opiates Screen Neg (NEG) Urine Methadone Screen Neg (NEG) Urine Barbiturates Neg (NEG) Urine Phencyclidine Screen Neg (NEG) Urine Amphetamine/Methamphetamine Neg (NEG) Urine Benzodiazepines Screen Neg (NEG) Urine Cocaine Screen Neg (NEG) Urine Cannabinoids Screen Neg (NEG) Ethyl Alcohol Level < 10 mg/dL (0-10) Urine Ethyl Alcohol Neg (NEG) Urine Test Negative (NEG) Laboratory Tests 09/29/18 23:59 Laboratory Tests 09/29/18 23:59 EKG EKG [] Radiology/Procedures Radiology/Procedures [] Course & Med Decision Making Course & Med Decision Making Pertinent Labs and Imaging studies reviewed. (See chart for details) []38-year-old female with history of spinal cerebellar degeneration is presenting to the emergency room with chief complaint of just not feeling well with some nausea and decreased by mouth intake abdomen is nontender and some urinary frequency U /a suggestive of a UTI patient will get ceftriaxone and Keflex diffuse agreeable to the plan she was understanding of instructions. Return precautions were reviewed Dragon Disclaimer Dragon Disclaimer This electronic medical record was generated, in whole or in part, using a voice recognition dictation system. Departure Departure Impression: Primary Impression: Urinary tract infection Disposition: HOME, SELF-CARE Condition: STABLE Patient Instructions: Urinary Tract Infection, [id number] Scripts Cephalexin (CEPHALEXIN) 500 Mg Capsule 1 CAP PO QID, #40 CAP Prov: LOUIS DOSS MD 09/30/18 LOUIS DOSS MD Sep 30, 2018 01:59
[2018-09-30] MEDS ORDERED: cefTRIAXone IV Push 1 GM VIAL. IVP ONE (02:00)
[2018-09-30 02:07] VITALS: BP 114/65
--- NOTE | 2018-09-30 08:13 | RAD ---
EXAM: AP View of the chest DATE: 09/30/2018 12:08 AM INDICATION: chest pain, cough COMPARISON: 01/01/2018 FINDINGS: The heart is not enlarged. Mediastinal and hilar contours are normal. No focal parenchymal airspace opacity. No pleural effusion or pneumothorax. IMPRESSION: 1. No radiographic evidence for acute cardiopulmonary process. Electronically signed by: Tristan Juan MD (09/30/2018 8:10 AM) [facility]
== END 2018-09-30 03:08 | disposition home or self-care (01) ==
LOC: ER 23:14
DX: N39.0 Urinary tract infection, site not specified (principal); R11.0 Nausea
CPT/HCPCS: 36415; 71045; 80053; 80307; 81001; 81025; 83690; 83735; 85025; 87086; 96374; 99284; G0480; J0696; J7030

== ENCOUNTER 2018-10-25 04:15 | Emergency (ER) | payer OTHER ==
[~2018-10-25] VITALS: Ht 170.2 cm; Wt 50.8 kg
[~2018-10-25 04:15] MED LIST changes: +CEPH500C PO
--- NOTE | 2018-10-25 04:26 | PHYS DOC ---
Past Medical History Past Medical History: Other Additional Past Medical Histor: SPINOCEREBELLAR ATAXIA Past Surgical History: Alcohol Use: None Drug Use: None Adult General HPI HPI Patient is a 38-year-old female who presents with complaint of bilateral upper and lower leg pain that started about 6:00 yesterday. Patient states that she has a history of spinocerebellar ataxia and has frequent bouts of pain. She states that she takes a muscle relaxer for the pain but the muscle relaxer has not been helping and she has not been able to sleep tonight. She denies any chest pain or shortness of breath. Review of Systems Review of Systems Constitutional: Denies fever or chills [] Respiratory: Denies cough or shortness of breath [] Cardiovascular: No additional information not addressed in HPI [] Musculoskeletal: Complains of bilateral leg and thigh pain [] Integument: Denies rash or skin lesions [] Current Medications Current Medications Current Medications Medications (Trade) Dose Ordered Sig/Garrett Start Time Stop Time Status Last Admin Dose Admin Ketorolac Tromethamine (Toradol Im) 60 mg 1X ONCE 10/25/18 04:45 10/25/18 04:46 DC 10/25/18 04:52 60 MG Morphine Sulfate (Morphine Sulfate) 5 mg 1X ONCE 10/25/18 04:45 10/25/18 04:46 DC 10/25/18 04:54 5 MG Allergies Allergies Allergies Coded Allergies Type Severity Reaction Last Updated Verified No Known Drug Allergies 09/21/13 No Physical Exam Physical Exam Constitutional: Well developed, well nourished, no acute distress, non-toxic appearance. [] HENT: Normocephalic, atraumatic. [] Eyes: PERRLA, EOMI, conjunctiva normal, no discharge. [] Neck: Normal range of motion, no tenderness, supple, no stridor. [] Cardiovascular: Regular rate and rhythm [] Lungs & Thorax: Bilateral breath sounds clear to auscultation [] Extremities: No tenderness, no cyanosis, no clubbing, ROM intact, no edema. [] Neurologic: Awake and alert, no focal deficits noted. [] Current Patient Data Vital Signs Vital Signs Date Time Temp Pulse Resp B/P (MAP) Pulse Ox O2 Delivery O2 Flow Rate FiO2 10/25/18 04:54 18 100 Room Air 10/25/18 04:15 98.6 105 142/87 (105) 98.6 EKG EKG [] Radiology/Procedures Radiology/Procedures [] Course & Med Decision Making Course & Med Decision Making Pertinent Labs and Imaging studies reviewed. (See chart for details) [] Dragon Disclaimer Dragon Disclaimer This electronic medical record was generated, in whole or in part, using a voice recognition dictation system. Departure Departure Impression: Primary Impression: Bilateral lower extremity pain Disposition: HOME, SELF-CARE Condition: STABLE Referrals: JEAN-PIERRE EDMONDSON MD (PCP) Patient Instructions: Musculoskeletal Pain Scripts Hydrocodone/Apap 5-325 (NORCO 5-325 TABLET) 1 Each Tablet 1 TAB PO PRN Q6HRS PRN for PAIN, #12 TAB 0 Refills Prov: TYLER GU Jr. DO 10/25/18 TYLER GU Jr. DO Oct 25, 2018 04:26
[2018-10-25] MEDS: KETOROLAC 60 MG/2 ML VIAL. IM ONE (04:52)
[2018-10-25] MEDS: MORPHINE SULFATE 10 MG/ML VIAL. IM ONE (04:54)
[2018-10-25] MEDS ORDERED: HYDR-3164 PO (05:17)
[2018-10-25 05:47] VITALS: BP 143/88
== END 2018-10-25 06:02 | disposition home or self-care (01) ==
LOC: ER 04:15
DX: M79.662 Pain in left lower leg (principal); M79.661 Pain in right lower leg; M79.651 Pain in right thigh; M79.652 Pain in left thigh; Z98.890 Other specified postprocedural states
CPT/HCPCS: 96372; 99283; J1885; J2270

== ENCOUNTER 2018-11-09 03:46 | Emergency (ER) | payer OTHER ==
[~2018-11-09] VITALS: Ht 170.2 cm; Wt 50.8 kg
[2018-11-09 03:46] VITALS: BP 145/84
[2018-11-09] MEDS ORDERED: fentaNYL PF VIAL 100 MCG/2 ML VIAL IM ONE (04:15)
[2018-11-09] MEDS ORDERED: KETOROLAC 30 MG/ML VIAL. IM ONE (04:15)
--- NOTE | 2018-11-09 04:27 | PHYS DOC ---
Past Medical History Past Medical History: Other Additional Past Medical Histor: SPINOCEREBELLAR ATAXIA Past Surgical History: Alcohol Use: Rarely Drug Use: None Adult General Chief Complaint Chief Complaint: BACK PAIN - NO INJURY HPI HPI Patient is a 38-year-old female who presents with complaint of back and bilateral flank pain that is chronic in nature. Patient has a history of mild cerebellar ataxia. Patient has been to this facility numerous times for same complaint. Patient states that her typical pain medications are not managing her pain. She denies any fever, loss of bowel or bladder function or urinary discomfort. Review of Systems Review of Systems Constitutional: Denies fever or chills [] Respiratory: Denies cough or shortness of breath [] Cardiovascular: No additional information not addressed in HPI [] GI: Denies abdominal pain, nausea, vomiting or diarrhea [] : Denies dysuria or hematuria [] Musculoskeletal: Complains of mid to lower pain [] Integument: Denies rash or skin lesions [] Neurologic: Denies headache, focal weakness or sensory changes [] Current Medications Current Medications Current Medications Medications (Trade) Dose Ordered Sig/Garrett Start Time Stop Time Status Last Admin Dose Admin Fentanyl Citrate (Fentanyl 2ml Vial) 50 mcg 1X ONCE 11/09/18 04:15 11/09/18 04:16 DC 11/09/18 04:16 50 MCG Ketorolac Tromethamine (Toradol 30mg Vial) 30 mg 1X ONCE 11/09/18 04:15 11/09/18 04:16 DC 11/09/18 04:15 30 MG Allergies Allergies Allergies Coded Allergies Type Severity Reaction Last Updated Verified No Known Drug Allergies 09/21/13 No Physical Exam Physical Exam Constitutional: Well developed, well nourished, no acute distress, non-toxic appearance. [] Neck: Normal range of motion, no tenderness, supple, no stridor. [] Cardiovascular: Regular rate and rhythm [] Lungs & Thorax: Bilateral breath sounds clear to auscultation [] Skin: Warm, dry, no erythema, no rash. [] Back: Patient reports tenderness to palpation in the bilateral paraspinal musculature in the thoracic and lumbar region. [] Extremities: No tenderness, no cyanosis, no clubbing, ROM intact, no edema. [] Neurologic: Alert and oriented X 3, normal motor function, normal sensory function, no focal deficits noted. [] Current Patient Data Vital Signs Vital Signs Date Time Temp Pulse Resp B/P (MAP) Pulse Ox O2 Delivery O2 Flow Rate FiO2 11/09/18 04:16 16 100 Room Air 11/09/18 03:46 97.5 109 145/84 (104) 97.5 EKG EKG [] Radiology/Procedures Radiology/Procedures [] Course & Med Decision Making Course & Med Decision Making Pertinent Labs and Imaging studies reviewed. (See chart for details) [] Dragon Disclaimer Dragon Disclaimer This electronic medical record was generated, in whole or in part, using a voice recognition dictation system. Departure Departure Impression: Primary Impression: Chronic back pain Disposition: HOME, SELF-CARE Condition: STABLE Referrals: JEAN-PIERRE EDMONDSON MD (PCP) Patient Instructions: Chronic Back Pain Problem Qualifiers Primary Impression: Chronic back pain Back pain location: back pain in unspecified location Back pain laterality: unspecified Qualified Codes: M54.9 - Dorsalgia, unspecified; G89.29 - Other chronic pain TYLER GU Jr. DO Nov 09, 2018 04:27
== END 2018-11-09 04:33 | disposition home or self-care (01) ==
LOC: ER 03:46
DX: G89.29 Other chronic pain (principal); M54.5 Low back pain; M54.6 Pain in thoracic spine; G11.9 Hereditary ataxia, unspecified; Z98.890 Other specified postprocedural states
CPT/HCPCS: 96372; 99284; J1885; J3010

== ENCOUNTER 2018-11-18 03:21 | Emergency (ER) | payer OTHER ==
[~2018-11-18] VITALS: Ht 170.2 cm; Wt 52.6 kg
[2018-11-18 03:25] VITALS: BP 124/96
[2018-11-18 03:52] LABS: BILIRUBIN,URINE NEGATIVE (NEG); CLARITY,URINE CLOUDY; COLOR,URINE YELLOW; NITRITE,URINE NEGATIVE (NEG); PROTEIN,URINE NEGATIVE (NEG-TRACE); UROBILINOGEN,URINE 0.2 mg/dL (0.2 mg/dL)
[2018-11-18 04:00] LABS: BACTERIA,URINE MODERATE /HPF (0-FEW); RBC,URINE OCC /HPF (0-2); SQUAMOUS EPITHELIAL CELL,UR MANY /LPF
[2018-11-18] MEDS: HYDROcodone/APAP 5/325MG 1 TAB TABLET PO ONE (04:00)
[2018-11-18] MEDS ORDERED: SULF1TAB24 PO (04:07)
--- NOTE | 2018-11-18 04:14 | PHYS DOC ---
Past Medical History Past Medical History: Other Additional Past Medical Histor: SPINOCEREBELLAR ATAXIA Past Surgical History: Alcohol Use: Rarely Drug Use: None Adult General Chief Complaint Chief Complaint: BACK PAIN - NO INJURY HPI HPI Patient is a 38 year old AA female with history of spinocerebellar ataxia and chronic back pain, who presents with pearly controlled back pain. Pain located it lower thoracic, lumbar lumbar region, no nausea, vomiting, abdominal pain, hematuria, urinary frequency urgency. No history of kidney stones. No fever chills or sweats. Reports normal menstrual periods last month. Additional takes ibuprofen for back pain, which she states this was not controlling her pain. Review of Systems Review of Systems Review symptoms as per history of present illness. All other review symptoms are negative. All other systems were reviewed and found to be within normal limits, except as documented in this note. Current Medications Current Medications Current Medications Medications (Trade) Dose Ordered Sig/Garrett Start Time Stop Time Status Last Admin Dose Admin Acetaminophen/ Hydrocodone Bitart (Lortab 5/325) 1 tab 1X ONCE 11/18/18 04:00 11/18/18 04:01 DC 11/18/18 04:00 1 TAB Trimethoprim/ Sulfamethoxazole (Bactrim Ds) 1 tab 1X ONCE 11/18/18 04:15 11/18/18 04:16 Allergies Allergies Allergies Coded Allergies Type Severity Reaction Last Updated Verified No Known Drug Allergies 09/21/13 No Physical Exam Physical Exam Constitutional: Well developed, well nourished, no acute distress. [] HENT: Normocephalic, atraumatic, bilateral external ears normal, oropharynx moist, no oral exudates, nose normal. [] Eyes: PERRLA, EOMI, conjunctiva normal. [] Neck: Normal range of motion, no tenderness. [] Cardiovascular:Heart rate regular rhythm, no murmur. [] Lungs & Thorax: Bilateral breath sounds clear to auscultation. [] Abdomen: Bowel sounds normal, soft, no tenderness. [] Skin: Warm, dry. [] Back: Lower thoracic, upper lumbar back pain. [] Extremities: No tenderness, no cyanosis, no clubbing, ROM intact, no edema. [] Neurologic: Alert and oriented X 3, ataxia. [] Current Patient Data Vital Signs Vital Signs Date Time Temp Pulse Resp B/P (MAP) Pulse Ox O2 Delivery O2 Flow Rate FiO2 2/8/19 04:00 16 100 Room Air 11/18/18 03:25 98.3 117 124/96 (105) 98.3 Lab Values Laboratory Tests Test 11/18/18 03:40 11/18/18 03:45 Urine Collection Type Unknown Urine Color Yellow Urine Clarity Cloudy Urine pH 6.0 Urine Specific [place] 1.025 Urine Protein Negative mg/dL (NEG-TRACE) Urine Glucose (UA) Negative mg/dL (NEG) Urine Ketones (Stick) Negative mg/dL (NEG) Urine Blood Negative (NEG) Urine Nitrite Negative (NEG) Urine Bilirubin Negative (NEG) Urine Urobilinogen Dipstick 0.2 mg/dL (0.2 mg/dL) Urine Leukocyte Esterase Moderate (NEG) Urine RBC Occ /HPF (0-2) Urine WBC 11-20 /HPF (0-4) Urine Squamous Epithelial Cells Many /LPF Urine Bacteria Moderate /HPF (0-FEW) Urine Mucus Mod /LPF POC Urine HCG, Qualitative Hcg negative (Negative) EKG EKG [] Radiology/Procedures Radiology/Procedures [] Course & Med Decision Making Course & Med Decision Making Pertinent Labs and Imaging studies reviewed. (See chart for details) [Antibiotics, pain medication provided. PCP follow-up recommended.] Dragon Disclaimer Dragon Disclaimer This electronic medical record was generated, in whole or in part, using a voice recognition dictation system. Departure Departure Impression: Primary Impression: Chronic back pain Additional Impression: Urinary tract infection Disposition: HOME, SELF-CARE Condition: GOOD Patient Instructions: Back Pain, Adult, [id number], Urinary Retention, Acute , Female, [id number] Additional Instructions: Please increase fluids, take antibiotics as directed and follow-up with your PCP for urine culture result and management of chronic back pain. Return to the ED if fever, vomiting, abdominal pain, bloody urine or other concerning symptoms. Scripts Sulfamethoxazole/Trimethoprim (BACTRIM DS TABLET) 1 Each Tablet 1 TAB PO BID, #14 TAB Prov: ARLIN CRAIG DO 11/18/18 Problem Qualifiers ARLIN CRAIG DO Nov 18, 2018 04:14
[2018-11-18] MEDS: SMZ/TMP 800/160MG TABLET. PO ONE (04:17)
== END 2018-11-18 04:34 | disposition home or self-care (01) ==
LOC: ER 03:21
DX: N39.0 Urinary tract infection, site not specified (principal); G89.29 Other chronic pain; M54.5 Low back pain; M54.6 Pain in thoracic spine; Z98.890 Other specified postprocedural states
CPT/HCPCS: 81001; 81025; 87086; 99283

== ENCOUNTER 2018-11-19 10:46 | Emergency (ER) | payer MEDICAID, OTHER ==
[~2018-11-19] VITALS: Ht 170.2 cm; Wt 52.6 kg
[~2018-11-19 10:46] MED LIST changes: +SULF1TAB24 PO
[2018-11-19 11:30] VITALS: BP 131/86
--- NOTE | 2018-11-19 11:42 | PHYS DOC ---
Past Medical History Past Medical History: Other Additional Past Medical Histor: SPINOCEREBELLAR ATAXIA Past Surgical History: Alcohol Use: Rarely Drug Use: None Adult General Chief Complaint Chief Complaint: LOWEREXTREMITY INJURY HPI HPI 38-year-old female presents to ER via POV for complaints of ongoing chronic mid lower back pain. Patient was evaluated in the ER yesterday and diagnosed with a UTI and started on Bactrim. Patient states she has been taking prescription as prescribed. Patient states the pain she is experiencing is the same chronic back pain she has had for years associated with hx of mild cerebellar ataxia- denies any acute change from ER evaluation yest. She reports Dr. Gagnon is her primary care physician who handles her pain management. She reports she hasn't taken any medicine today and reports she has Lidoderm patches at home but hasn't placed them on area of pain as she was coming to the ER for treatment. She denies incontinence of bowel or bladder, saddle anesthesia, or change in urinary pattern since evaluation in ER yesterday. She denies any falls or recent injury. She denies fever or chills. She denies abd pain, N/V/D, swelling, or numbness/tingling. Review of Systems Review of Systems Constitutional: Denies fever or chills [] Eyes: Denies change in visual acuity, redness, or eye pain [] HENT: Denies nasal congestion or sore throat [] Respiratory: Denies cough or shortness of breath [] Cardiovascular: No additional information not addressed in HPI [] GI: Denies abdominal pain, nausea, vomiting, bloody stools or diarrhea [] : Denies dysuria or hematuria. Denies incontinence of bowel or bladder Musculoskeletal: Denies joint pain. Reports mid to low back pain- denies acute change. Reports pain goes into rt lower extremity- denies swelling or inability to ambulate. Reports uses w/c mobilization Integument: Denies rash or skin lesions [] Neurologic: Denies headache, focal weakness or sensory changes [] Endocrine: Denies polyuria or polydipsia [] All other systems were reviewed and found to be within normal limits, except as documented in this note. Current Medications Current Medications Current Medications Medications (Trade) Dose Ordered Sig/Garrett Start Time Stop Time Status Last Admin Dose Admin Ibuprofen (Motrin) 600 mg 1X ONCE 11/19/18 11:45 2/9/19 11:46 DC 11/19/18 11:44 600 MG Lidocaine (Lidoderm) 1 patch 1X ONCE 11/19/18 11:45 11/19/18 11:46 DC 11/19/18 11:44 1 PATCH Allergies Allergies Allergies Coded Allergies Type Severity Reaction Last Updated Verified No Known Drug Allergies 09/21/13 No Physical Exam Physical Exam Constitutional: Well developed, well nourished, no acute distress, non-toxic appearance. [] HENT: Normocephalic, atraumatic, oropharynx moist, nose normal. [] Eyes: Pupils equal, conjunctiva normal, no discharge. [] Neck: Normal range of motion, supple, no stridor. [] Cardiovascular: Heart rate regular rhythm, no murmur [] Lungs & Thorax: Bilateral breath sounds clear to auscultation- resp. equal/nonlabored Abdomen: Bowel sounds normal, soft, no tenderness, no masses, no pulsatile masses. [] Skin: Warm, dry, no erythema, no rash. [] Back: Full ROM- diffuse tenderness mid lower thoracic into lumbar area- no palp. deformity/swelling or skin discoloration; no CVA tenderness. [] Extremities: No tenderness on palp, no cyanosis, no clubbing, ROM intact, no edema. 2+ bilat. posterior tibial/dorsalis pedis Neurologic: Alert and oriented X 3, normal motor function, normal sensory function, no focal deficits noted. [] Psychologic: Affect normal, judgement normal, mood normal. [] Current Patient Data Vital Signs EKG EKG [] Radiology/Procedures Radiology/Procedures [] Course & Med Decision Making Course & Med Decision Making Pt presented to ER for c/o ongoing chronic back pain denying any acute change or recent injury/falls. Pt was evaluated in the ER yest. and was dx'd with UTI and started on Bactrim which she reports she has been taking. She came to ER requesting pain control for her ongoing back pain. She had no CVA tenderness and abd exam NL. She was neurovascularly intact all extremities. Pt reported she hadn't taken any medications [id number] to ER and has Rx'd lidoderm patches which she also hadn't applied. Indepth conversation had with pt regarding chronic pain and management needed to be thru PCP and/or pain management. Pt was offered application of lidoderm patch and dose of ibuprofen and she was agreeable with this tx plan. Discussed her Rx'd meds and use of tylenol/ibuprofen as well as heat/ice application. Discussed need for f/u with her PCP and she plans to f/u with Dr. Gagnon on Wednesday. Discharge instructions were discussed and education provided on s&s to return to ER for. [] Dragon Disclaimer Dragon Disclaimer This electronic medical record was generated, in whole or in part, using a voice recognition dictation system. Departure Departure Impression: Primary Impression: Chronic back pain Disposition: HOME, SELF-CARE Condition: STABLE Referrals: JEAN-PIERRE GAGNON MD (PCP) Patient Instructions: Chronic Back Pain Additional Instructions: Take prescribed medications as directed. Usually Lidoderm patches you have prescribed as directed. Follow-up with your primary care physician on Wednesday for reevaluation and further care for your chronic pain. Continue your prescribed medication for your urinary tract infection as directed. BENSON BRADLEY APRN Nov 19, 2018 11:42
[2018-11-19] MEDS ORDERED: LIDOCAINE (700MG/PATCH) PATCH. TD ONE (11:45)
[2018-11-19] MEDS ORDERED: IBUPROFEN 600 MG TABLET. PO ONE (11:45)
[2019-04-04] MEDS ORDERED: HYDR25TA PO (02:16)
== END 2018-11-19 11:59 | disposition home or self-care (01) ==
LOC: ER 10:46
DX: G89.29 Other chronic pain (principal); M54.5 Low back pain; M79.604 Pain in right leg
CPT/HCPCS: 99284

== ENCOUNTER 2018-11-20 00:58 | Emergency (ER) | payer MEDICAID ==
[~2018-11-20] VITALS: Ht 170.2 cm; Wt 52.6 kg
--- NOTE | 2018-11-20 01:27 | PHYS DOC ---
Past Medical History Past Medical History: Other Additional Past Medical Histor: SPINOCEREBELLAR ATAXIA Past Surgical History: Alcohol Use: Rarely Drug Use: None Adult General HPI HPI Patient is a 38 year old female who presents with back pain. Patient has been seen in the emergency department twice in the past 2 days because of back pain. She is supposed to be on pain management by her primary care physician. She was prescribed ibuprofen which has not been filled yesterday. She reports that she is taking the antibiotics for the urinary tract infection that was found to days ago. Patient denies any fever. Patient wants to be able to sleep. She is denying any suicidal or homicidal ideation. Denies any new loss of bowel or bladder control. [] Review of Systems Review of Systems All other systems were reviewed and found to be within normal limits, except as documented in this note. Allergies Allergies Allergies Coded Allergies Type Severity Reaction Last Updated Verified No Known Drug Allergies 09/21/13 No Physical Exam Physical Exam Constitutional: Well developed, well nourished, sleeping, easily awakened, no acute distress, non-toxic appearance. [] HENT: Normocephalic, atraumatic, bilateral external ears normal, oropharynx moist, no oral exudates, nose normal. [] Eyes: PERRLA, EOMI, conjunctiva normal, no discharge. [] Neck: Normal range of motion, no tenderness, supple, no stridor. [] Cardiovascular:Heart rate regular rhythm, no murmur [] Lungs & Thorax: Bilateral breath sounds clear to auscultation [] Abdomen: Not evaluated. [] Skin: Warm, dry, no erythema, no rash. [] Back: No midline tenderness, no CVA tenderness. [] Extremities: No tenderness, no cyanosis, no clubbing, ROM intact, no edema. [] Neurologic: Alert and oriented X 3, normal motor function, normal sensory function, no focal deficits noted. [] Psychologic: Affect normal, judgement normal, mood normal. [] EKG EKG [] Radiology/Procedures Radiology/Procedures [] Course & Med Decision Making Course & Med Decision Making Pertinent Labs and Imaging studies reviewed. (See chart for details) Medical decision making: Patient was sleeping, resting comfortably, will assist her pain with NSAIDs in the emergency department and have patient follow up with her primary care physician for long-term pain management and have patient' s mother obtain the prescription from her last visit.[] Dragon Disclaimer Dragon Disclaimer This electronic medical record was generated, in whole or in part, using a voice recognition dictation system. Departure Departure Impression: Primary Impression: Chronic back pain Disposition: HOME, SELF-CARE Condition: IMPROVED Referrals: JEAN-PIERRE EDMONDSON MD (PCP) Follow-up in 2 days Patient Instructions: Chronic Back Pain, Chronic Pain Management Additional Instructions: Follow-up with your primary care doctor in 2 days. Take your medication as prescribed. Return to the ER if worsening pain, loss of bowel or bladder control , or any other concerns. Problem Qualifiers Primary Impression: Chronic back pain Back pain location: back pain in unspecified location Back pain laterality: unspecified Qualified Codes: M54.9 - Dorsalgia, unspecified; G89.29 - Other chronic pain OC MOON DO Nov 20, 2018 01:27
[2018-11-20] MEDS ORDERED: KETOROLAC 15 MG/ML VIAL. IM ONE (01:30)
[2018-11-20 01:50] VITALS: BP 124/75
[2019-04-04] MEDS ORDERED: HYDR25TA PO (02:16)
== END 2018-11-20 02:00 | disposition home or self-care (01) ==
LOC: ER 00:58
DX: G89.29 Other chronic pain (principal); M54.9 Dorsalgia, unspecified; N39.0 Urinary tract infection, site not specified; Z98.890 Other specified postprocedural states
CPT/HCPCS: 96372; 99284; J1885

== ENCOUNTER 2018-11-20 23:53 | Emergency (ER) | payer MEDICAID ==
[~2018-11-20] VITALS: Ht 170.2 cm; Wt 52.6 kg
[2018-11-21 00:19] VITALS: BP 129/85
--- NOTE | 2018-11-21 00:44 | PHYS DOC ---
Past Medical History Past Medical History: Other Additional Past Medical Histor: SPINOCEREBELLAR ATAXIA Past Surgical History: No Surgical History Alcohol Use: None Drug Use: None Adult General Chief Complaint Chief Complaint: LOWER EXT PAIN HPI HPI Patient is a 38 year old female with a history of cerebellar ataxia who presents to the ED today complaining of chronic bilateral lower extremity pain. Patient rates the pain is 10 out of 10, describes the pain as sharp and constant. Patient states she has history of chronic low back pain as well. She is in the ED with the mother. The mother states patient follows up with the PCP who has patient on ibuprofen, cyclobenzaprine and Lidoderm patches. Mother states patient is supposed to follow-up with the pain clinic but they do not have an appointment until around Dec 08 2018. Mother states patient is currently on antibiotics for UTI. Patient denies any injuries. Denies any loss of bowel bladder function. Off note patient has been seen in the ED 10/25 2018 for chronic bilateral lower extremity pain, November 18, , November 20, and today Nov 2108/2019. I advised mother to follow-up with patient's primary care doctor tomorrow as well as the pain clinic. Patient was discharged back home. I believe from my evaluation both mother and daughter have a hard time understanding information regarding to following up. Review of Systems Review of Systems Constitutional: Denies fever or chills [] GI: Denies abdominal pain, nausea, vomiting, bloody stools or diarrhea [] : Denies dysuria or hematuria [] Musculoskeletal: Reports chronic low back pain, chronic bilateral lower extremity pain Integument: Denies rash or skin lesions [] Neurologic: Denies headache, focal weakness or sensory changes [] All other systems were reviewed and found to be within normal limits, except as documented in this note. Current Medications Current Medications Current Medications Medications (Trade) Dose Ordered Sig/Garrett Start Time Stop Time Status Last Admin Dose Admin Acetaminophen/ Hydrocodone Bitart (Lortab 5/325) 2 tab 1X ONCE 11/21/18 00:45 11/21/18 00:46 Allergies Allergies Allergies Coded Allergies Type Severity Reaction Last Updated Verified No Known Drug Allergies 09/21/13 No Physical Exam Physical Exam Constitutional: Well developed, well nourished, no acute distress, non-toxic appearance. [] Abdomen: Bowel sounds normal, soft, no tenderness, no masses, no pulsatile masses. [] Skin: Warm, dry, no erythema, no rash. [] Back: No tenderness, no CVA tenderness. Positive bilateral straight leg raises at approximately 30 Extremities: No tenderness, no cyanosis, no clubbing, ROM intact, no edema. [] Neurologic: Alert and oriented X 3, normal motor function, normal sensory function, no focal deficits noted. [] Psychologic: flat affect Current Patient Data Vital Signs Vital Signs Date Time Temp Pulse Resp B/P (MAP) Pulse Ox O2 Delivery O2 Flow Rate FiO2 11/21/18 00:19 98.3 122 14 129/85 (100) 100 Room Air 98.3 EKG EKG [] Radiology/Procedures Radiology/Procedures [] Course & Med Decision Making Course & Med Decision Making Pertinent Labs and Imaging studies reviewed. (See chart for details) See history of present illness Dragon Disclaimer Dragon Disclaimer This electronic medical record was generated, in whole or in part, using a voice recognition dictation system. Departure Departure Impression: Primary Impression: Lumbago with sciatica, left side Additional Impression: Lumbago with sciatica, right side Disposition: HOME, SELF-CARE Condition: STABLE Referrals: JEAN-PIERRE EDMONDSON MD (PCP) Follow-up with your primary care doctor as well as the pain clinic as soon as possible PORSCHE VARGAS MD you can follow up with our pain clinic doctor in 1 week Patient Instructions: Back Pain, Adult, [id number], Sciatica Additional Instructions: You were evaluated in the emergency room for chronic bilateral lower extremity pain. Please follow-up with the primary care doctor as well as the pain clinic as soon as possible. Continue taking your pain medicines at home and using Lidoderm patches. Problem Qualifiers Primary Impression: Lumbago with sciatica, left side Chronicity: chronic Back pain laterality: bilateral Qualified Codes: M54.42 - Lumbago with sciatica, left side; G89.29 - Other chronic pain Additional Impression: Lumbago with sciatica, right side Chronicity: chronic Back pain laterality: bilateral Qualified Codes: M54.41 - Lumbago with sciatica, right side; G89.29 - Other chronic pain LIBIA DELVALLE APRN Nov 21, 2018 00:44
[2018-11-21] MEDS: HYDROcodone/APAP 5/325MG 1 TAB TABLET PO ONE (00:52)
== END 2018-11-21 00:55 | disposition home or self-care (01) ==
LOC: ER 23:53
DX: G89.29 Other chronic pain (principal); M54.41 Lumbago with sciatica, right side; M54.42 Lumbago with sciatica, left side
CPT/HCPCS: 99282

== ENCOUNTER 2018-12-16 00:26 | Emergency (ER) | payer OTHER ==
[~2018-12-16] VITALS: Ht 160 cm; Wt 52.6 kg
--- NOTE | 2018-12-16 01:09 | PHYS DOC ---
Past Medical History Past Medical History: Other Additional Past Medical Histor: SPINOCEREBELLAR ATAXIA Past Surgical History: No Surgical History Alcohol Use: None Drug Use: None Adult General Chief Complaint Chief Complaint: LOWER BACK PAIN OR INJURY HPI HPI Patient is a 38 yo female w/ cerebellar ataxia who is wheelchair dependent presents with complaint of midline low back pain and bilateral leg pain. She reports her pain is similar in nature to before but the pain is worse than before. She took a gabapentin around 1700 without symptomatic relief. She reports that she often has UTIs and was last treated with the last time she was in the ED. She denies any recent trauma or loss of bowel/bladder control. Patient denies nausea, vomiting, abdominal pain. She does report she had physical therapy two days prior. Although patient is here alone she is reports she is able to call her mother for a ride home. Review of Systems Review of Systems Constitutional: Denies fever or chills [] Respiratory: Denies cough or shortness of breath [] Cardiovascular: Denies chest pain, denies palpitations GI: Denies abdominal pain, nausea, vomiting, bloody stools or diarrhea [] : Denies dysuria or hematuria [] Musculoskeletal: Admits midline low back pain and bilateral leg pain. Integument: Denies rash or skin lesions [] Neurologic: Denies headache, focal weakness or sensory changes [] Endocrine: Denies polyuria or polydipsia [] All other systems were reviewed and found to be within normal limits, except as documented in this note. Current Medications Current Medications Current Medications Medications (Trade) Dose Ordered Sig/[facility] Start Time Stop Time Status Last Admin Dose Admin Ketorolac Tromethamine (Toradol 30mg Vial) 30 mg 1X ONCE 12/16/18 01:15 12/16/18 01:16 DC 12/16/18 02:24 30 MG Lorazepam (Ativan) 2 mg 1X ONCE 12/16/18 01:15 12/16/18 01:16 DC 12/16/18 02:25 2 MG Allergies Allergies Allergies Coded Allergies Type Severity Reaction Last Updated Verified No Known Drug Allergies 09/21/13 No Physical Exam Physical Exam Constitutional: Thin patient with upper and lower extremity muscle wasting. HENT: Normocephalic, atraumatic, Cardiovascular:Heart rate regular rhythm, no murmur [] Lungs & Thorax: Bilateral breath sounds clear to auscultation [] Abdomen: Soft, no tenderness, no masses Skin: Warm, dry, no erythema, no rash. [] Back: Midline tenderness, no fluctuations, no lesions. [place] seeds and candy wrappers stuck to patient's back.[] Extremities: No tenderness, AROM limited but equal, muscle strength equal bilateral, Extremities very thin. Toes flexed and legs internall rotated. Neurologic: Alert and oriented X 3 Current Patient Data Vital Signs Vital Signs Date Time Temp Pulse Resp B/P (MAP) Pulse Ox O2 Delivery O2 Flow Rate FiO2 12/16/18 00:26 98.3 105 18 168/103 (124) 99 Room Air 98.3 Lab Values Laboratory Tests Test 12/16/18 02:06 12/16/18 02:10 Urine Collection Type Unknown Urine Color Yellow Urine Clarity Clear Urine pH 5.5 Urine Specific [employer] 1.025 Urine Protein Negative mg/dL (NEG-TRACE) Urine Glucose (UA) Negative mg/dL (NEG) Urine Ketones (Stick) Negative mg/dL (NEG) Urine Blood Trace (NEG) Urine Nitrite Negative (NEG) Urine Bilirubin Negative (NEG) Urine Urobilinogen Dipstick 0.2 mg/dL (0.2 mg/dL) Urine Leukocyte Esterase Negative (NEG) Urine RBC 1-2 /HPF (0-2) Urine WBC 1-4 /HPF (0-4) Urine Squamous Epithelial Cells Mod /LPF Urine Bacteria Few /HPF (0-FEW) Urine Mucus Marked /LPF POC Urine HCG, Qualitative Hcg negative (Negative) EKG EKG [] Radiology/Procedures Radiology/Procedures [] Course & Med Decision Making Course & Med Decision Making Patient is 38 yo wheelchair bound female with cerebellar ataxia who presents with complaint of low back pain. Patient is regularly seen in this ED for this complaint. She reports the pain is similar to previous episodes in nature although more severe. Patient reports she had PT two days prior. She denies any trauma or falls. She denies loss of control of bowel or bladder. On physical exam patient has midline lower lumbar spinal tenderness but good muscle strength. Lower extremities have significant muscle wasting. UA negative for UTI. Patient received toradol with symptomatic resolution. Discussed with patient the plan to discharge home and follow up with PCP. Patient voiced agreement and understanding and said that she could call her mother to pick her up from ED. rx flexeril Dragon Disclaimer Dragon Disclaimer This electronic medical record was generated, in whole or in part, using a voice recognition dictation system. Departure Departure Impression: Primary Impression: Chronic back pain Disposition: HOME, SELF-CARE Condition: STABLE Referrals: JEAN-PIERRE EDMONDSON MD (PCP) Scripts Cyclobenzaprine Hcl (CYCLOBENZAPRINE HCL) 5 Mg Tablet 5 MG PO PRN TID PRN for PAIN, #15 TAB Prov: LOUIS DOSS MD 12/16/18 LOUIS DOSS MD Dec 16, 2018 01:09
[2018-12-16] MEDS ORDERED: KETOROLAC 30 MG/ML VIAL. IM ONE (01:15)
[2018-12-16 02:16] LABS: BILIRUBIN,URINE NEGATIVE (NEG); CLARITY,URINE CLEAR; COLOR,URINE YELLOW; NITRITE,URINE NEGATIVE (NEG); PH,URINE 5.5; PROTEIN,URINE NEGATIVE (NEG-TRACE); UROBILINOGEN,URINE 0.2 mg/dL (0.2 mg/dL)
[2018-12-16 02:33] LABS: BACTERIA,URINE FEW /HPF (0-FEW); SQUAMOUS EPITHELIAL CELL,UR MOD /LPF
[2018-12-16] MEDS ORDERED: CYCL5TAB PO (03:13)
[2018-12-16 03:50] VITALS: BP 103/64
== END 2018-12-16 04:08 | disposition home or self-care (01) ==
LOC: ER 00:26
DX: G89.29 Other chronic pain (principal); M54.5 Low back pain; M79.604 Pain in right leg; M79.605 Pain in left leg
CPT/HCPCS: 81001; 81025; 96372; 99284; J1885; J2060

== ENCOUNTER 2018-12-17 01:11 | Emergency (ER) | payer OTHER ==
[~2018-12-17] VITALS: Ht 177.8 cm; Wt 52.6 kg
[2018-12-17 01:11] VITALS: BP 151/95
[~2018-12-17 01:11] MED LIST changes: +CYCL5TAB PO
[2018-12-17] MEDS ORDERED: DEXAMETHASONE SOD PHOS 20 MG/5 ML VIAL. IM ONE (02:30)
[2018-12-17] MEDS ORDERED: HYDROcodone/APAP 5/325MG 1 TAB TABLET PO ONE (02:30)
--- NOTE | 2018-12-17 03:38 | PHYS DOC ---
Past Medical History Past Medical History: Other Additional Past Medical Histor: SPINOCEREBELLAR ATAXIA Past Surgical History: No Surgical History Alcohol Use: None Drug Use: None Adult General Chief Complaint Chief Complaint: LOWER EXT PAIN HPI HPI Patient is 38 yo female with spinocerebellar ataxia who presents via EMS with complaint of low back pain and burning. Patient was in ED yesterday (12/16/18) with same complaint of low back pain. She says she was unable to fill flexeril rx from yesterday's visit as she did not have a ride. She also reports that yesterday EMS took all of her pain medication and did not give it back, so she is unable to use any home medication. Her last dose of pain medication was here in ED yesterday. She describes today's pain as burning, low back pain, worse on the L side. She says the pain radiates down the legs. She denies pain elsewhere. She denies trauma. She change in bowel/bladder control. Her PCP is Radha but patient does not know when her next appointment is. She also says she has a pain doctor but does not know his name. She says that her mother handles the patient's appointments. The patient reports she does not live with her mother which is why her mother did not come with patient to ED. Patient reports she lives with her 3 sons, ages 19, 17, and 12 who take care of her. She says her sons are home sleeping which is why they did not come with her. When asked if someone at home was abusing her patient reported no. Review of Systems Review of Systems Constitutional: Denies fever or chills [] Respiratory: Denies cough or shortness of breath [] Cardiovascular: Denies chest pain, denies palpitations GI: Denies abdominal pain, nausea, vomiting, bloody stools or diarrhea [] : Denies dysuria or hematuria [] Musculoskeletal: Admits R sided low back pain. Denies joint pain. Neurologic: Denies headache, focal weakness or sensory changes [] All other systems were reviewed and found to be within normal limits, except as documented in this note. Current Medications Current Medications Current Medications Medications (Trade) Dose Ordered Sig/[facility] Start Time Stop Time Status Last Admin Dose Admin Acetaminophen/ Hydrocodone Bitart (Lortab 5/325) 2 tab 1X ONCE 12/17/18 02:30 12/17/18 02:31 DC 12/17/18 02:42 2 TAB Dexamethasone Sodium Phosphate (Decadron) 10 mg 1X ONCE 12/17/18 02:30 12/17/18 02:31 DC 12/17/18 02:42 10 MG Allergies Allergies Allergies Coded Allergies Type Severity Reaction Last Updated Verified No Known Drug Allergies 09/21/13 No Physical Exam Physical Exam Constitutional: Thin, disheveled, in same stained tshirt and diaper as yesterday. HENT: Normocephalic, atraumatic Eyes: PERRLA Cardiovascular:Heart regular rhythm, tachycardic. No murmur Lungs & Thorax: Bilateral breath sounds clear to auscultation [] Abdomen: soft, nontender, no masses, no lesions, no scars. Skin: Warm, dry, no erythema, no rash. [] Back: mild tenderness to palpation L sacroilial region. Extremities: No tenderness, no cyanosis, no clubbing, extremities frail, moderate muscle wasting upper and lower extremities. Neurologic: Alert and oriented X 3, AROM bilateral lower extremities intact and symmetric. Muscle strength lower extremities 3/5. Could not elicit patellar reflexes. Achilles reflexes 5/5 bilaterally. Extremities warm and well perfused. Psychologic: Affect normal, judgement normal, mood normal. [] Current Patient Data Vital Signs Vital Signs Date Time Temp Pulse Resp B/P (MAP) Pulse Ox O2 Delivery O2 Flow Rate FiO2 12/17/18 01:11 98.4 112 20 151/95 (113) 100 Room Air 98.4 EKG EKG [] Radiology/Procedures Radiology/Procedures [] Impressions: xrays negative acute Course & Med Decision Making Course & Med Decision Making Patient is 38 yo female with spinocerebellar ataxia who presents with complaint of burning low back pain. Patient was seen in ED yesterday for same complaint, although she does state today's pain is different from yesterday's in that today 's pain is burning in nature. She reports that she did not have a ride to pharmacy yesterday and was unable to fill flexeril rx. She also reports that EMS took all of her pain medication yesterday and she has no mediation at home. On physical exam patient is mildly tachycardic, disheveled, thin and laying on R side with eyes closed in position. She is mildly TTP in L sacroilial region. Remainder of physical exam unremarkable. Xray low back revealed no acute osseous abnormality, Patient's pain treated in ED w/ 2 PO [place] 5/325. Decadron given to address possible inflammatory component to pain. Discussed with patient that she absolutely needs to follow up with PCP this week because we are not able to prescribe prison pain medication in ED. she has not filled flexeril, encouraged her to do this. Patient gave verbal consent to call her mother for transport home and to share the nature of today's visit and the importance of following up with Dr. Gagnon this week. Dragon Disclaimer Dragon Disclaimer This electronic medical record was generated, in whole or in part, using a voice recognition dictation system. Departure Departure Impression: Primary Impression: Chronic back pain Disposition: HOME, SELF-CARE Condition: STABLE Referrals: JEAN-PIERRE GAGNON MD (PCP) LOUIS DOSS MD Dec 17, 2018 03:38
--- NOTE | 2018-12-17 04:22 | RAD ---
Three-view lumbar spine dated 12/17/2018. No comparison available. Clinical data indication: Back pain. FINDINGS: AP, lateral and coned-down views of lumbosacral junction obtained. Sagittal alignment is anatomic. Vertebral body heights are maintained. No significant endplate hypertrophic changes. Mild hypertrophic change of the lower lumbar apophyseal joints. IMPRESSION: 1. No acute radiographic abnormality. 2. Mild lower lumbar spondylosis. Electronically signed by: Andres Squires MD (12/17/2018 4:18 AM) [facility]
== END 2018-12-17 06:00 | disposition home or self-care (01) ==
LOC: ER 01:11
DX: G89.29 Other chronic pain (principal); M54.5 Low back pain; M53.3 Sacrococcygeal disorders, not elsewhere classified
CPT/HCPCS: 72100; 96372; 99284; J1100

== ENCOUNTER 2018-12-20 22:02 | Emergency (ER) | payer OTHER ==
[~2018-12-20] VITALS: Ht 170.2 cm; Wt 52.6 kg
[2018-12-20 22:05] VITALS: BP 150/90
--- NOTE | 2018-12-20 22:28 | PHYS DOC ---
Past Medical History Past Medical History: Other Additional Past Medical Histor: SPINOCEREBELLAR ATAXIA Past Surgical History: No Surgical History Alcohol Use: None Drug Use: None Adult General Chief Complaint Chief Complaint: LOWER EXT PAIN HPI HPI Patient is a 38 year old presents crusting a shot of pain medication for chronic left leg pain. She denies any new falls or injuries. She has been seen multiple times this past week with similar concerns. Review of Systems Review of Systems Constitutional: Denies fever or chills [] Eyes: Denies change in visual acuity, redness, or eye pain [] HENT: Denies nasal congestion or sore throat [] Respiratory: Denies cough or shortness of breath [] Cardiovascular: No additional information not addressed in HPI [] GI: Denies abdominal pain, nausea, vomiting, bloody stools or diarrhea [] : Denies dysuria or hematuria [] Musculoskeletal: Left leg pain] Integument: Denies rash or skin lesions [] Neurologic: Denies headache, focal weakness or sensory changes [] Endocrine: Denies polyuria or polydipsia [] All other systems were reviewed and found to be within normal limits, except as documented in this note. Current Medications Current Medications Current Medications Medications (Trade) Dose Ordered Sig/[facility] Start Time Stop Time Status Last Admin Dose Admin Ketorolac Tromethamine (Toradol 15mg Vial) 15 mg 1X ONCE 12/20/18 22:30 12/20/18 22:31 Allergies Allergies Allergies Coded Allergies Type Severity Reaction Last Updated Verified No Known Drug Allergies 09/21/13 No Physical Exam Physical Exam Constitutional: Underweight female, no acute distress, non-toxic appearance. [] Cardiovascular:Heart rate regular rhythm, no murmur [] Lungs & Thorax: Bilateral breath sounds clear to auscultation [] Skin: Warm, dry, no erythema, no rash. [] Extremities: Tenderness to left thigh, no contusions or erythema, no wounds noted, no deformities or bony tenderness[] Neurologic: Alert and oriented X 3, normal motor function, normal sensory function, Psychologic: Affect normal, judgement normal, mood normal. [] EKG EKG [] Radiology/Procedures Radiology/Procedures [] Course & Med Decision Making Course & Med Decision Making Pertinent Labs and Imaging studies reviewed. (See chart for details) [] Dragon Disclaimer Dragon Disclaimer This electronic medical record was generated, in whole or in part, using a voice recognition dictation system. Departure Departure Impression: Primary Impression: Chronic leg pain Disposition: 01 HOME, SELF-CARE Condition: STABLE Referrals: JEAN-PIERRE EDMONDSON MD (PCP) Patient Instructions: Chronic Pain RAFAEL GARCIA APRN Dec 20, 2018 22:27
[2018-12-20] MEDS ORDERED: KETOROLAC 15 MG/ML VIAL. IM ONE (22:30)
== END 2018-12-20 23:00 | disposition home or self-care (01) ==
LOC: ER 22:02
DX: G89.29 Other chronic pain (principal); M79.605 Pain in left leg
CPT/HCPCS: 96372; 99283; J1885

== ENCOUNTER 2018-12-22 06:57 | Emergency (ER) | payer OTHER ==
[~2018-12-22] VITALS: Ht 177.8 cm; Wt 52.6 kg
[2018-12-22 06:57] VITALS: BP 143/84
[2018-12-22] MEDS ORDERED: KETOROLAC 60 MG/2 ML VIAL. IM ONE (07:30)
[2018-12-22] MEDS ORDERED: DICL50TA4 PO (07:55)
[2018-12-22] MEDS ORDERED: CYCL10TA2 PO (07:55)
--- NOTE | 2018-12-22 07:55 | PHYS DOC ---
Past Medical History Past Medical History: Other Additional Past Medical Histor: SPINOCEREBELLAR ATAXIA Past Surgical History: Alcohol Use: None Drug Use: None Adult General Chief Complaint Chief Complaint: BACK PAIN OR INJURY HPI HPI Patient is a 38-year-old -[place] female who presents to the emergency department via EMS. She complains of pain in her lower back and her legs bilaterally. She has been seen in this emergency department numerous times for this over the past several weeks. She denies any new complaint or recent injury. She did have an x-ray of her lumbar spine done recently as well, which has been reviewed. 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 She has not had any abdominal pain, nausea, vomiting, fevers, or chills. There are no alleviating or exacerbating factors to her symptoms. She has been prescribed a muscle relaxer in the past, but states that she has not taken it. She states that she has not seen her PCP, Dr. Edmondson, despite her numerous ER visits. Review of Systems Review of Systems Constitutional: Denies fever or chills [] Eyes: Denies change in visual acuity, redness, or eye pain [] HENT: Denies nasal congestion or sore throat [] Respiratory: Denies cough or shortness of breath [] Cardiovascular: The patient denies any shortness of breath, chest pain, palpitations, or orthopnea [] GI: Denies abdominal pain, nausea, vomiting, bloody stools or diarrhea [] : Denies dysuria or hematuria [] Musculoskeletal: Denies neck or upper back pain or joint pain, except as noted in the HPI [] Integument: Denies rash or skin lesions [] Neurologic: Denies headache, focal weakness or sensory changes [] Endocrine: Denies polyuria or polydipsia [] All other systems were reviewed and found to be within normal limits, except as documented in this note. Current Medications Current Medications Current Medications Medications (Trade) Dose Ordered Sig/Garrett Start Time Stop Time Status Last Admin Dose Admin Ketorolac Tromethamine (Toradol Im) 60 mg 1X ONCE 12/22/18 07:30 12/22/18 07:31 DC 12/22/18 07:42 60 MG Allergies Allergies Allergies Coded Allergies Type Severity Reaction Last Updated Verified No Known Drug Allergies 09/21/13 No Physical Exam Physical Exam PHYSICAL EXAM: CONSTITUTIONAL: Well developed, well nourished HEAD: normocephalic, atraumatic EENT: PERRL, EOMI. Conjunctivae normal color, sclerae non-icteric; moist mucous membranes. NECK: Supple, non-tender; no meningismus. LUNGS: Lungs CTA, breathing even and unlabored. Normal air movement. HEART: Regular rate and rhythm, no murmur CHEST: No deformity; non-tender ABDOMEN: The abdomen is soft, and non-tender, no masses or bruits. EXTREM: Normal ROM; no deformity, no calf tenderness. Normal pulses palpable in all extremities. There is no pedal edema. There are normal pulses distally, and the legs, there is mild diffuse tenderness to palpation to the musculature of the lower extremities without focal tenderness to palpation. Tissue compartments are soft. There is intermittent hypertonicity noted in the lower extremities, consistent with the patient's diagnosis of cerebellar ataxia. SKIN: No rash; no diaphoresis NEURO: Alert; normal speech and cognition; CN's grossly intact; strength grossly intact without focal deficit. BACK: No CVA TTP. There is no reproducible lumbar spinal tenderness to palpation. Current Patient Data Vital Signs Vital Signs Date Time Temp Pulse Resp B/P (MAP) Pulse Ox O2 Delivery O2 Flow Rate FiO2 12/22/18 06:57 98.2 113 20 143/84 (103) 96 Room Air 98.2 EKG EKG [] Radiology/Procedures Radiology/Procedures [] Course & Med Decision Making Course & Med Decision Making Evaluation in the emergency Department reveals a 38-year-old with recurrent chronic back and leg pain, with numerous ER visits. She has not obtained outpatient follow-up for this, despite her frequent ER visits. I spoke with Dr. Wise, component prep operator for the patient's PCP, to help facilitate had in the office which to the patient to schedule further office based evaluation and treatment. I do not believe that there is any other workup or diagnostic testing required emergency departments time. Dragon Disclaimer Dragon Disclaimer This electronic medical record was generated, in whole or in part, using a voice recognition dictation system. Departure Departure Impression: Primary Impression: Chronic back pain Additional Impression: Lumbago with sciatica, left side Disposition: 01 HOME, SELF-CARE Condition: STABLE Referrals: JEAN-PIERRE EDMONDSON MD (PCP) Patient Instructions: Chronic Back Pain, Chronic Pain Scripts Diclofenac Sodium (DICLOFENAC SODIUM) 50 Mg Tablet.dr 1 TAB PO BID, #20 TAB 0 Refills Prov: JENARO WHEAT MD 12/22/18 Cyclobenzaprine Hcl (CYCLOBENZAPRINE HCL) 10 Mg Tablet 1 TAB PO TID PRN for PAIN, #30 TAB Prov: JENARO WHEAT MD 12/22/18 Problem Qualifiers JENARO WHEAT MD Dec 22, 2018 07:55
== END 2018-12-22 08:25 | disposition home or self-care (01) ==
LOC: ER 06:57
DX: G89.29 Other chronic pain (principal); M54.42 Lumbago with sciatica, left side; Z98.890 Other specified postprocedural states
CPT/HCPCS: 96372; 99283; J1885

== ENCOUNTER 2018-12-24 16:38 | Emergency (ER) | payer OTHER ==
[~2018-12-24] VITALS: Ht 170.2 cm; Wt 52.6 kg
[~2018-12-24 16:38] MED LIST changes: +CYCL10TA2 PO; +DICL50TA4 PO
[2018-12-24 16:49] VITALS: BP 126/86
[2018-12-24 17:11] LABS: BILIRUBIN,URINE NEGATIVE (NEG); CLARITY,URINE CLEAR; COLOR,URINE YELLOW; NITRITE,URINE NEGATIVE (NEG); PH,URINE 6.5; PROTEIN,URINE NEGATIVE (NEG-TRACE)
[2018-12-24] MEDS ORDERED: KETOROLAC 60 MG/2 ML VIAL. IM ONE (17:15)
[2018-12-24] MEDS ORDERED: HYDR-3164 PO (17:17)
--- NOTE | 2018-12-24 17:18 | PHYS DOC ---
Past Medical History Past Medical History: Other Additional Past Medical Histor: SPINOCEREBELLAR ATAXIA (VICTOR HUGO OWEN APRN) Past Surgical History: (VICTOR HUGO OWEN APRN) Alcohol Use: None Drug Use: None (VICTOR HUGO OWEN APRN) Adult General Chief Complaint Chief Complaint: LOWER BACK PAIN OR INJURY [facility] HPI Patient is a 38 year old female who presents with chronic back pain with sciatica. Patient comes in complaining of left sided low back pain that shoots down through the back of her left buttock and into the upper thigh area. Patient was seen here on December 17 of which she had a lumbar spine x-ray that was normal and then again on December 20, and then again , and then again today on December 24. Patient has the same complaints every time she comes in. Patient denies any new injury or new pain. Patient states this is the same pain that she 's had. Patient states that she has taken muscle relaxers and [place] that then states that all she's taken is ibuprofen. She is alert and oriented. Patient states she has not followed up with her doctor on any of her visits but she has a appointment with her primary care on December 27. (VICTOR HUGO OWEN APRN) Review of Systems Review of Systems Constitutional: Denies fever or chills [] Eyes: Denies change in visual acuity, redness, or eye pain [] HENT: Denies nasal congestion or sore throat [] Respiratory: Denies cough or shortness of breath [] Cardiovascular: No additional information not addressed in [facility] [] GI: Denies abdominal pain, nausea, vomiting, bloody stools or diarrhea [] : Denies dysuria or hematuria [] Musculoskeletal: Left low back pain or joint pain [] Integument: Denies rash or skin lesions [] Neurologic: Denies headache, focal weakness or sensory changes [] All other systems were reviewed and found to be within normal limits, except as documented in this note. (VICTOR HUGO OWEN APRN) Current Medications Current Medications Current Medications Medications (Trade) Dose Ordered Sig/Garrett Start Time Stop Time Status Last Admin Dose Admin Ketorolac Tromethamine (Toradol Im) 60 mg 1X ONCE 12/24/18 17:15 12/24/18 17:40 DC 12/24/18 17:47 60 MG (LUOIS DOSS MD) Allergies Allergies Allergies Coded Allergies Type Severity Reaction Last Updated Verified No Known Drug Allergies 09/21/13 No (LOUIS DOSS MD) Physical Exam Physical Exam Constitutional: Well developed, well nourished, no acute distress, non-toxic appearance. [] HENT: Normocephalic, atraumatic, bilateral external ears normal, oropharynx moist, no oral exudates, nose normal. [] Eyes: PERRLA, EOMI, conjunctiva normal, no discharge. [] Neck: Normal range of motion, no tenderness, supple, no stridor. [] Cardiovascular:Heart rate regular rhythm, no murmur [] Lungs & Thorax: Bilateral breath sounds clear to auscultation [] Abdomen: Bowel sounds normal, soft, no tenderness, no masses, no pulsatile masses. [] Skin: Warm, dry, no erythema, no rash. [] Back: Left lumbar into left buttock tenderness, no CVA tenderness. [] Extremities: No tenderness, no cyanosis, no clubbing, ROM intact, no edema. [] Neurologic: Alert and oriented X 3, normal motor function, normal sensory function, no focal deficits noted. [] Psychologic: Affect normal, judgement normal, mood normal. [] (VICTOR HUGO OWEN APRN) Current Patient Data Vital Signs Vital Signs Date Time Temp Pulse Resp B/P (MAP) Pulse Ox O2 Delivery O2 Flow Rate FiO2 12/24/18 16:49 98.9 99 16 126/86 (99) 99 Room Air 98.9 (LOUIS DOSS MD) Lab Values Laboratory Tests Test 12/24/18 17:00 Urine Collection Type U cath Urine Color Yellow Urine Clarity Clear Urine pH 6.5 Urine Specific [place] 1.020 Urine Protein Negative mg/dL (NEG-TRACE) Urine Glucose (UA) Negative mg/dL (NEG) Urine Ketones (Stick) Negative mg/dL (NEG) Urine Blood Trace (NEG) Urine Nitrite Negative (NEG) Urine Bilirubin Negative (NEG) Urine Urobilinogen Dipstick 1.0 mg/dL (0.2 mg/dL) Urine Leukocyte Esterase Negative (NEG) Urine RBC 6-10 /HPF (0-2) Urine WBC 0 /HPF (0-4) Urine Squamous Epithelial Cells Mod /LPF Urine Bacteria 0 /HPF (0-FEW) Urine Mucus Mod /LPF Urine Test Negative (NEG) Urine Opiates Screen Neg (NEG) Urine Methadone Screen Neg (NEG) Urine Barbiturates Neg (NEG) Urine Phencyclidine Screen Neg (NEG) Urine Amphetamine/Methamphetamine Neg (NEG) Urine Benzodiazepines Screen Neg (NEG) Urine Cocaine Screen Neg (NEG) Urine Cannabinoids Screen Neg (NEG) Urine Ethyl Alcohol Neg (NEG) (LOUIS DOSS MD) Lab Values Laboratory Tests Test 12/24/18 17:00 Urine Collection Type U cath Urine Color Yellow Urine Clarity Clear Urine pH 6.5 Urine Specific [place] 1.020 Urine Protein Negative mg/dL (NEG-TRACE) Urine Glucose (UA) Negative mg/dL (NEG) Urine Ketones (Stick) Negative mg/dL (NEG) Urine Blood Trace (NEG) Urine Nitrite Negative (NEG) Urine Bilirubin Negative (NEG) Urine Urobilinogen Dipstick 1.0 mg/dL (0.2 mg/dL) Urine Leukocyte Esterase Negative (NEG) Urine RBC 6-10 /HPF (0-2) Urine WBC 0 /HPF (0-4) Urine Squamous Epithelial Cells Mod /LPF Urine Bacteria 0 /HPF (0-FEW) Urine Mucus Mod /LPF Urine Test Negative (NEG) Urine Opiates Screen Neg (NEG) Urine Methadone Screen Neg (NEG) Urine Barbiturates Neg (NEG) Urine Phencyclidine Screen Neg (NEG) Urine Amphetamine/Methamphetamine Neg (NEG) Urine Benzodiazepines Screen Neg (NEG) Urine Cocaine Screen Neg (NEG) Urine Cannabinoids Screen Neg (NEG) Urine Ethyl Alcohol Neg (NEG) (VICTOR HUGO OWEN HEAD RESIDENT) EKG EKG [] [facility] Radiology/Procedures Radiology/Procedures [] [facility] Course & Med Decision Making Course & Med Decision Making Patient is a 38 year old female who presents with chronic back pain with sciatica. Patient comes in complaining of left sided low back pain that shoots down through the back of her left buttock and into the upper thigh area. Patient was seen here on December 17 of which she had a lumbar spine x-ray that was normal and then seen again on December 20, and then again December 22, and then again today on December 24. Patient has the same complaints every time she comes in. Patient denies any new injury or new pain. Patient states this is the same pain that she's had. Patient states that she has taken muscle relaxers and [place] that then states that all she's taken is ibuprofen. She is alert and oriented. Patient states she has not followed up with her doctor on any of her visits but she has a appointment with her primary care on December 27. Patient denies dysuria, abdominal pain, nausea, vomiting, diarrhea, fever, shortness of air, chest pain. She has no peripheral edema. She has present strong pulses in all extremities. Patient can move her extremities but states she uses a motorized wheelchair and cannot stand or walk on her own. Patient states her mother is her caregiver. She rates her pain 8 out of 10. Patient has not had loss of bowel or bladder. She denies any numbness or tingling. Lungs are clear to auscultation all lobes. Afebrile and vital signs are within normal limits. Skin pink warm and dry. Mucous membranes are moist. PERRLA. Patient has no CVA tenderness but does have some tenderness to palpation to the left lumbar and into the left buttock with palpation. There is no bruising or deformities or abrasions. Patient denies falling or any new injury or pain. Patient will be given a Toradol IM shot and discharged home to follow up with her primary care provider as planned if not sooner if she can. Patient can continue taking her ibuprofen, [place] and muscle relaxers that she states she has been taking. (VICTOR HUGO OWEN APRN) Course & Med Decision Making Staff Physician Addendum: I was working in the ER during the course of this patient's visit. I was available for consultation as needed, but I was not directly involved in the care of this patient. (LOUIS DOSS MD) Dragon Disclaimer Dragon Disclaimer This electronic medical record was generated, in whole or in part, using a voice recognition dictation system. (VICTOR HUGO OWEN APRN) Departure Departure Impression: Primary Impression: Lumbago with sciatica, left side Disposition: HOME, SELF-CARE Condition: STABLE Referrals: JEAN-PIERRE EDMONDSON MD (PCP) Patient Instructions: Back Pain, Adult, Sciatica Additional Instructions: Follow-up with primary care doctor as planned if not earlier. Take medications as they were prescribed to you. Scripts Hydrocodone/Apap 5-325 (NORCO 5-325 TABLET) 1 Each Tablet 1 TAB PO PRN Q6HRS PRN for PAIN, #5 TAB 0 Refills Prov: VICTOR HUGO OWEN APRN 12/24/18 Problem Qualifiers Primary Impression: Lumbago with sciatica, left side Chronicity: chronic Back pain laterality: left Qualified Codes: M54.42 - Lumbago with sciatica, left side; G89.29 - Other chronic pain VICTOR HUGO OWEN APRN Dec 24, 2018 17:18 LOUIS DOSS MD Dec 27, 2018 20:14
[2018-12-24 17:19] LABS: AMPHETAMINE/METHAMPHETAMINE NEG (NEG); BARBITURATES NEG (NEG); BENZODIAZEPINES NEG (NEG); CANNABINOIDS NEG (NEG); COCAINE NEG (NEG); METHADONE NEG (NEG); OPIATES NEG (NEG); PHENCYCLIDINE NEG (NEG)
[2018-12-24 17:23] LABS: BACTERIA,URINE 0 /HPF (0-FEW); SQUAMOUS EPITHELIAL CELL,UR MOD /LPF; WBC,URINE 0 /HPF (0-4)
[2018-12-24 17:31] LABS: U PREG PATIENT NEGATIVE (NEG)
== END 2018-12-24 17:58 | disposition home or self-care (01) ==
LOC: ER 16:38
DX: G89.29 Other chronic pain (principal); M54.42 Lumbago with sciatica, left side
CPT/HCPCS: 51701; 80307; 81001; 81025; 96372; 99283; J1885

== ENCOUNTER 2019-01-09 04:16 | Emergency (ER) | payer OTHER ==
[~2019-01-09] VITALS: Ht 170.2 cm; Wt 52.6 kg
[2019-01-09 04:25] VITALS: BP 129/83
--- NOTE | 2019-01-09 04:35 | PHYS DOC ---
Past Medical History Past Medical History: Other Additional Past Medical Histor: SPINOCEREBELLAR ATAXIA Past Surgical History: Alcohol Use: None Drug Use: None Adult General Chief Complaint Chief Complaint: LOWER EXT PAIN HPI HPI Patient is a 39 year old female with chronic lower back pain and chronic leg pain was brought here by EMS for evaluation of pain in her legs again. Patient has been evaluated here numerous times for her chronic back pain and legs pain. Patient said she was seen by her pain doctor on 12/30/18, had injection done into her lower back. She said the pain in her back improved from the shot but she still has pain in her legs. No fever, no nausea or vomiting, no abdominal pain. Patient denied any recent injury or accident. She had xray of her back done recently already and shown no acute problem. Patient has family doctor but not sure if she ever followed up with for pain management. She has been in and out of this ER numerous times recently. No chest pain, no shortness of air. Review of Systems Review of Systems Constitutional: Denies fever or chills [] Eyes: Denies change in visual acuity, redness, or eye pain [] HENT: Denies nasal congestion or sore throat [] Respiratory: Denies cough or shortness of breath [] Cardiovascular: No additional information not addressed in HPI [] GI: Denies abdominal pain, nausea, vomiting, bloody stools or diarrhea [] : Denies dysuria or hematuria [] Musculoskeletal: Positive for back pain or joint pain [] Integument: Denies rash or skin lesions [] Neurologic: Denies headache, focal weakness or sensory changes [] Endocrine: Denies polyuria or polydipsia [] All other systems were reviewed and found to be within normal limits, except as documented in this note. Current Medications Current Medications Current Medications Medications (Trade) Dose Ordered Sig/[facility] Start Time Stop Time Status Last Admin Dose Admin Ketorolac Tromethamine (Toradol Im) 60 mg 1X ONCE 01/09/19 05:00 01/09/19 05:01 Methylprednisolone Sodium Succinate (SOLU-Medrol 125MG VIAL) 125 mg 1X ONCE 01/09/19 05:00 01/09/19 05:01 Allergies Allergies Allergies Coded Allergies Type Severity Reaction Last Updated Verified No Known Drug Allergies 09/21/13 No Physical Exam Physical Exam Constitutional: Well developed, well nourished, no acute distress, non-toxic appearance. [] HENT: Normocephalic, atraumatic, bilateral external ears normal, oropharynx moist, no oral exudates, nose normal. [] Eyes: PERRLA, EOMI, conjunctiva normal, no discharge. [] Neck: Normal range of motion, no tenderness, supple, no stridor. [] Cardiovascular:Heart rate regular rhythm, no murmur [] Lungs & Thorax: Bilateral breath sounds clear to auscultation [] Abdomen: Bowel sounds normal, soft, no tenderness, no masses, no pulsatile masses. [] Skin: Warm, dry, no erythema, no rash. [] Back: No tenderness, no CVA tenderness. [] Extremities: LOWER EXTREMITIES APPEARED ATROPHIED (CHRONIC APPEARANCE). SHE IS WHEELCHAIR BOUND. Neurologic: patient is awake, alert, talking very slow which is her baseline. NO CHANGE OF SENSATION IN HER LEGS, NO CALF TENDERNESS OR OR SWELLING. Psychologic: Affect normal, judgement normal, mood normal. [] Current Patient Data Vital Signs Vital Signs Date Time Temp Pulse Resp B/P (MAP) Pulse Ox O2 Delivery O2 Flow Rate FiO2 01/09/19 04:25 98.3 71 20 129/83 (98) 97 Room Air 98.3 EKG EKG [] Radiology/Procedures Radiology/Procedures [] Course & Med Decision Making Course & Med Decision Making Pertinent Labs and Imaging studies reviewed. (See chart for details) Patient will need to follow up with her PCP and her pain management doctor for her chronic back pain and legs pain. THERE IS NO NEED FOR FURTHER WORK UP OR EVALUATION IN THE ER. Dragon Disclaimer Dragon Disclaimer This electronic medical record was generated, in whole or in part, using a voice recognition dictation system. Departure Departure Impression: Primary Impression: Chronic leg pain Additional Impression: Chronic back pain Disposition: 01 HOME, SELF-CARE Condition: STABLE Referrals: JEAN-PIERRE EDMONDSON MD (PCP) FOLLOW UP WITH YOUR DOCTOR FOR FURTHER PAIN TREATMENT Patient Instructions: Chronic Back Pain, Chronic Pain Scripts Tramadol Hcl (TRAMADOL HCL) 50 Mg Tablet 50 MG PO Q6HRS PRN for PAIN, #10 TAB Prov: BENJAMIN DAVIS DO 01/09/19 Problem Qualifiers BENJAMIN DAVIS DO Jan 09, 2019 04:35
[2019-01-09] MEDS ORDERED: TRAM50TA PO (04:39)
[2019-01-09] MEDS ORDERED: KETOROLAC 60 MG/2 ML VIAL. IM ONE (05:00)
[2019-01-09] MEDS ORDERED: methylPREDNISolone SOD SUCC PF 125 MG/2 ML VIAL. IM ONE (05:00)
== END 2019-01-09 06:16 | disposition home or self-care (01) ==
LOC: ER 04:16
DX: G89.29 Other chronic pain (principal); M54.5 Low back pain; M79.604 Pain in right leg; M79.605 Pain in left leg
CPT/HCPCS: 96372; 99283; J1885; J2930

== ENCOUNTER 2019-01-10 05:37 | Emergency (ER) | payer OTHER ==
[~2019-01-10] VITALS: Ht 162.6 cm; Wt 52.6 kg
[2019-01-10 05:49] VITALS: BP 137/82
--- NOTE | 2019-01-10 06:03 | PHYS DOC ---
Past Medical History Past Medical History: Other Additional Past Medical Histor: SPINOCEREBELLAR ATAXIA Past Surgical History: Alcohol Use: None Drug Use: None Adult General Chief Complaint Chief Complaint: LOWER EXT PAIN HPI HPI Patient is a 39 year old female who presents with left upper leg pain. Patient states she is having this pain for multiple years and is taking gabapentin for it. However the gabapentin is not working. As the pain as sharp in nature with no radiation located in her left upper thigh. Patient was seen here yesterday and received steroids and pain medication. Patient states that it has helped but has worn off this morning. Patient is scheduled to follow-up with pain management on January 30. Denies any trauma or injury to the leg.[] Review of Systems Review of Systems Constitutional: Denies fever or chills [] Eyes: Denies redness, or eye pain [] HENT: Denies nasal congestion or sore throat [] Respiratory: Denies cough or shortness of breath [] Cardiovascular: Denies chest pain or palpitations[] GI: Denies abdominal pain, nausea, vomiting.[] : Denies dysuria or hematuria [] Musculoskeletal: Reports left thigh pain, denies back pain or joint pain [] Integument: Denies rash or skin lesions [] Neurologic: Denies headache, focal weakness or sensory changes [] Complete systems were reviewed and found to be within normal limits, except as documented in note. Current Medications Current Medications Current Medications Medications (Trade) Dose Ordered Sig/Garrett Start Time Stop Time Status Last Admin Dose Admin Dexamethasone Sodium Phosphate (Decadron) 10 mg 1X ONCE 01/10/19 06:30 01/10/19 06:31 01/10/19 06:08 10 MG Ketorolac Tromethamine (Toradol 30mg Vial) 30 mg 1X ONCE 01/10/19 06:30 01/10/19 06:31 01/10/19 06:09 30 MG Allergies Allergies Allergies Coded Allergies Type Severity Reaction Last Updated Verified No Known Drug Allergies 09/21/13 No Physical Exam Physical Exam Constitutional: No acute distress, non-toxic appearance. [] HENT: Normocephalic, atraumatic.[] Eyes: EOMI, conjunctiva normal, no discharge. [] Neck: Normal range of motion, no tenderness. [] Cardiovascular:Heart rate regular rhythm, no murmur [] Lungs & Thorax: Bilateral breath sounds clear to auscultation [] Abdomen: Bowel sounds normal, soft, no tenderness. [] Skin: Warm, dry, no erythema, no rash. [] Back: No tenderness, no CVA tenderness. [] Extremities: Left upper leg tenderness to palpation, no weakness, full range of motion. [] Neurologic: Alert and oriented X 3, no focal deficits noted. [] Psychologic: Affect normal, mood normal. [] Current Patient Data Vital Signs Vital Signs Date Time Temp Pulse Resp B/P (MAP) Pulse Ox O2 Delivery O2 Flow Rate FiO2 01/10/19 05:49 98.4 113 20 137/82 (100) 100 Room Air 98.4 EKG EKG [] Radiology/Procedures Radiology/Procedures [] Course & Med Decision Making Course & Med Decision Making 39-year-old female presented with left upper leg pain via EMS. Patient was seen here yesterday and received steroid and pain medication. She states she wants same pain medication today as it provided her relief. Steroid and ketorolac provided with interval improvement. Encouraged patient to keep appointment with pain management. Patient stable for discharge with outpatient follow-up with PCP. Discussed findings and plan with patient and family, who acknowledge understanding and agreement. (See chart for details) [] Dragon Disclaimer Dragon Disclaimer This electronic medical record was generated, in whole or in part, using a voice recognition dictation system. 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 Problem Qualifiers Primary Impression: Chronic leg pain Laterality: left Qualified Codes: M79.605 - Pain in left leg; G89.29 - Other chronic pain DAVI KISER DO Jan 10, 2019 06:03
[2019-01-10] MEDS ORDERED: KETOROLAC 30 MG/ML VIAL. IM ONE (06:30)
[2019-01-10] MEDS ORDERED: DEXAMETHASONE SOD PHOS 20 MG/5 ML VIAL. IM ONE (06:30)
== END 2019-01-10 08:05 | disposition home or self-care (01) ==
LOC: ER 05:37
DX: G89.29 Other chronic pain (principal); M79.605 Pain in left leg; M79.652 Pain in left thigh
CPT/HCPCS: 96372; 99283; J1100; J1885

== ENCOUNTER 2019-02-03 20:37 | Emergency (ER) | payer OTHER ==
[~2019-02-03] VITALS: Ht 170.2 cm; Wt 54.4 kg
[2019-02-03 21:10] VITALS: BP 12/67
[2019-02-03] MEDS ORDERED: MORPHINE SULFATE 10 MG/ML VIAL. SQ ONE (21:15)
--- NOTE | 2019-02-03 21:28 | PHYS DOC ---
Past Medical History Past Medical History: Other Additional Past Medical Histor: SPINOCEREBELLAR ATAXIA Past Surgical History: Alcohol Use: None Drug Use: None Adult General Chief Complaint Chief Complaint: PAIN CONTROL HPI HPI Patient is a 39 year old bed ridden female who was in by EMS because of chronic extremity pain with increasing pain in left thigh. Patient has had frequent emergency room visits with the same complaint and states her pain is worse than her usual today and they sent her pain 10 over 10. Patient denies fever and chills. Review of Systems Review of Systems Constitutional: Denies fever or chills [] Eyes: Denies change in visual acuity, redness, or eye pain [] HENT: Denies nasal congestion or sore throat [] Respiratory: Denies cough or shortness of breath [] Cardiovascular: No additional information not addressed in HPI [] GI: Denies abdominal pain, nausea, vomiting, bloody stools or diarrhea [] : Denies dysuria or hematuria [] Musculoskeletal: Denies back pain or joint pain [] Integument: Denies rash or skin lesions [] Neurologic: Denies headache,new focal weakness or sensory changes [] Endocrine: Denies polyuria or polydipsia [] All other systems were reviewed and found to be within normal limits, except as documented in this note. Current Medications Current Medications Current Medications Medications (Trade) Dose Ordered Sig/Garrett Start Time Stop Time Status Last Admin Dose Admin Morphine Sulfate (Morphine Sulfate) 5 mg 1X ONCE 02/03/19 21:15 02/03/19 21:16 DC 02/03/19 21:24 5 MG Allergies Allergies Allergies Coded Allergies Type Severity Reaction Last Updated Verified No Known Drug Allergies 09/21/13 No Physical Exam Physical Exam Constitutional: Mild distress, non-toxic appearance. [] HENT: Normocephalic, atraumatic Eyes: PERRLA, EOMI, conjunctiva normal, no discharge. [] Neck: Normal range of motion, no tenderness, supple, no stridor. [] Cardiovascular:Heart rate regular rhythm, no murmur [] Lungs & Thorax: Bilateral breath sounds clear to auscultation [] Skin: Warm, dry, no erythema, no rash. [] Back: No tenderness, no CVA tenderness. [] Extremities: Atraumatic Neurologic: Alert and oriented X 3, Current Patient Data Vital Signs Vital Signs Date Time Temp Pulse Resp B/P (MAP) Pulse Ox O2 Delivery O2 Flow Rate FiO2 02/03/19 21:24 18 97 Room Air 02/03/19 21:10 107 02/03/19 20:37 98.6 128/86 (100) 98.6 EKG EKG [] Radiology/Procedures Radiology/Procedures [] Course & Med Decision Making Course & Med Decision Making discharge: I've spoken with the patient and/or caregivers. I've explained the patient's condition, diagnosis and treatment plan based on information available to me at this time. I've answered the patient's and/or caregivers questions and addressed any concerns. The patient and/or caregivers have a good understanding the patient's diagnosis, condition and treatment plan as can be expected at this point. Vital signs have been stabilized. The patient's condition is stable for discharge from the emergency department. The patient will pursue further outpatient evaluation with her primary care provider or other designated consulting physician as outlined in the discharge instructions. Patient and/or caregivers are agreeable to this plan of care and follow-up instructions have been explained in detail. The patient and/or caregivers have received these instructions in written format and expressed understanding of these discharge instructions. The patient and her caregivers are aware that if any significant change in condition or worsening of symptoms should prompt him to immediately return to this of the closest emergency department. If an emergent department is not readily available I would encour age him to call 911. Dragon Disclaimer Dragon Disclaimer This electronic medical record was generated, in whole or in part, using a voice recognition dictation system. Departure Departure Impression: Primary Impression: Chronic leg pain Additional Impression: Spinocerebellar ataxia Disposition: HOME, SELF-CARE (at 2126) Condition: IMPROVED Referrals: JEAN-PIERRE EDMONDSON MD (PCP) Patient Instructions: Chronic Pain, Chronic Pain Management Additional Instructions: Continue home medication Follow-up with your primary care physician in 3-5 days Return to ER if not getting better Problem Qualifiers TULIO SOLANO MD Feb 03, 2019 21:27
[2019-02-04] MEDS ORDERED: CEPH-264 PO (22:45)
== END 2019-02-03 21:35 | disposition home or self-care (01) ==
LOC: ER 20:37
DX: G89.29 Other chronic pain (principal); M79.652 Pain in left thigh; G11.1 Early-onset cerebellar ataxia
CPT/HCPCS: 96372; 99284; J2270

== ENCOUNTER 2019-02-04 20:46 | Emergency (ER) | payer OTHER ==
[~2019-02-04] VITALS: Ht 170.2 cm; Wt 54.4 kg
[2019-02-04 21:46] LABS: BILIRUBIN,URINE NEGATIVE (NEG); CLARITY,URINE CLOUDY; COLOR,URINE YELLOW; NITRITE,URINE NEGATIVE (NEG); PROTEIN,URINE NEGATIVE (NEG-TRACE)
[2019-02-04 21:52] LABS: BACTERIA,URINE MANY /HPF (0-FEW); SQUAMOUS EPITHELIAL CELL,UR MOD /LPF; TRICHOMONAS,URINE PRESENT; U PREG PATIENT NEGATIVE (NEG); WBC,URINE TNTC /HPF (0-4)
[2019-02-04] MEDS ORDERED: HYDROcodone/APAP 5/325MG 1 TAB TABLET PO ONE (22:30)
[2019-02-04] MEDS ORDERED: CEPHALEXIN 250 MG CAPSULE. PO ONE (22:30)
[2019-02-04] MEDS ORDERED: CEPH-264 PO (22:45)
--- NOTE | 2019-02-04 22:46 | PHYS DOC ---
Past Medical History Past Medical History: Other Additional Past Medical Histor: SPINOCEREBELLAR ATAXIA Past Surgical History: Alcohol Use: None Drug Use: None Adult General Chief Complaint Chief Complaint: BACK PAIN OR INJURY HPI HPI Patient is a 39 year old Stateless female with history of paraplegia well-known to this emergency department who presents with usual complain of chronic bilateral leg pain and peripheral neuropathy. Patient was last seen in the emergency department last night for the same. Denies any symptoms or complaints, and states medications unaffected. No fever chills, nausea vomiting or sweats. Previous imaging studies of L-spine CT abdomen pelvis has been been performed in the emergency department the past 6 months. No fever chills, nausea vomiting or sweats. No urinary frequency urgency or dysuria. No other acute symptoms or complaints. Patient is resting comfortably on initial evaluation. [] Review of Systems Review of Systems Review of symptoms as per history of present illness. All other systems were reviewed and found to be within normal limits, except as documented in this note. Current Medications Current Medications Current Medications Medications (Trade) Dose Ordered Sig/Garrett Start Time Stop Time Status Last Admin Dose Admin Acetaminophen/ Hydrocodone Bitart (Lortab 5/325) 1 tab 1X ONCE 02/04/19 22:30 02/04/19 22:31 DC 02/04/19 22:15 1 TAB Cephalexin HCl (Keflex) 500 mg 1X ONCE 02/04/19 22:30 02/04/19 22:31 DC 02/04/19 22:14 500 MG Allergies Allergies Allergies Coded Allergies Type Severity Reaction Last Updated Verified No Known Drug Allergies 09/21/13 No Physical Exam Physical Exam Constitutional: Well developed, well nourished, no acute distress, non-toxic appearance. [] HENT: Normocephalic, atraumatic, bilateral external ears normal, oropharynx moist. [] Eyes: PERRLA, EOMI, conjunctiva normal. [] Neck: Normal range of motion, no tenderness. [] Cardiovascular:Heart rate regular rhythm, no murmur [] Lungs & Thorax: Bilateral breath sounds clear to auscultation [] Abdomen: Bowel sounds normal, soft, no tenderness. [] Skin: Warm, dry. [] Back: No tenderness. [] Extremities: No tenderness, no edema. [] Neurologic: Alert and oriented. [) Current Patient Data Vital Signs Vital Signs Date Time Temp Pulse Resp B/P (MAP) Pulse Ox O2 Delivery O2 Flow Rate FiO2 02/04/19 22:15 16 97 Room Air 02/04/19 21:41 104 117/70 (86) 02/04/19 20:54 98.4 98.4 Lab Values Laboratory Tests Test 02/04/19 21:36 Urine Collection Type U cath Urine Color Yellow Urine Clarity Cloudy Urine pH 6.0 Urine Specific [place] >=1.030 Urine Protein Negative mg/dL (NEG-TRACE) Urine Glucose (UA) Negative mg/dL (NEG) Urine Ketones (Stick) Negative mg/dL (NEG) Urine Blood Small (NEG) Urine Nitrite Negative (NEG) Urine Bilirubin Negative (NEG) Urine Urobilinogen Dipstick 1.0 mg/dL (0.2 mg/dL) Urine Leukocyte Esterase Large (NEG) Urine RBC 3-5 /HPF (0-2) Urine WBC Tntc /HPF (0-4) Urine Squamous Epithelial Cells Mod /LPF Urine Bacteria Many /HPF (0-FEW) Urine Mucus Mod /LPF Urine Trichomonas Present Urine Test Negative (NEG) EKG EKG [] Radiology/Procedures Radiology/Procedures [] Course & Med Decision Making Course & Med Decision Making Pertinent Labs and Imaging studies reviewed. (See chart for details) [Physical exam benign. Vital signs stable. Possible UTI. Antibiotics and single dose oral pain medication given. Case discussed with PCP who are recommends not prescribing home narcotic pain medications.] Dragon Disclaimer Dragon Disclaimer This electronic medical record was generated, in whole or in part, using a voice recognition dictation system. Departure Departure Impression: Primary Impression: Lumbago with sciatica, left side Disposition: 01 HOME, SELF-CARE Condition: GOOD Referrals: JEAN-PIERRE EDMONDSON MD (PCP) Patient Instructions: Chronic Back Pain, Urinary Tract Infection, [id number] Additional Instructions: Please increase fluids, take antibiotics as directed and follow-up with your PCP in 5-7 days for reevaluation Scripts Cephalexin (KEFLEX) 500 Mg Capsule 1 CAP PO TID, #21 CAP Prov: ARLIN CRAIG DO 02/04/19 ARLIN CRAIG DO Feb 04, 2019 22:46
[2019-02-04 22:48] VITALS: BP 88/52
== END 2019-02-05 00:19 | disposition home or self-care (01) ==
LOC: ER 20:46
DX: M54.42 Lumbago with sciatica, left side (principal); G89.29 Other chronic pain; M79.604 Pain in right leg; M79.605 Pain in left leg; G62.89 Other specified polyneuropathies; Z98.890 Other specified postprocedural states
CPT/HCPCS: 81001; 81025; 87086; 99284

== ENCOUNTER 2019-02-17 22:58 | Emergency (ER) | payer OTHER ==
[~2019-02-17] VITALS: Ht 170.2 cm; Wt 52.6 kg
[~2019-02-17 22:58] MED LIST changes: +CEPH-264 PO
[2019-02-17 23:08] VITALS: BP 155/82
--- NOTE | 2019-02-17 23:11 | PHYS DOC ---
Past Medical History Past Medical History: Other Additional Past Medical Histor: SPINOCEREBELLAR ATAXIA Past Surgical History: Alcohol Use: None Drug Use: None Adult General Chief Complaint Chief Complaint: BACK PAIN - NO INJURY HPI HPI Patient is a 39 year old female with history of Cerebellar ataxia with muscle weakness and deterioration of muscles especially lower extremities that presents today with chronic low back pain radiating to the left lower extremity. Patient denies any known injury. She states she has tried taking her gabapentin with no relief. Denies any urgency, frequency or dysuria. Denies any chance she is . Denies any fever. Denies any loss of bowel bladder function. Review of Systems Review of Systems Constitutional: Denies fever or chills [] Eyes: Denies change in visual acuity, redness, or eye pain [] HENT: Denies nasal congestion or sore throat [] Respiratory: Denies cough or shortness of breath [] Cardiovascular: No additional information not addressed in HPI [] GI: Denies abdominal pain, nausea, vomiting, bloody stools or diarrhea [] : Denies dysuria or hematuria [] Musculoskeletal: Reports chronic low back pain radiating to the left lower extremity Integument: Denies rash or skin lesions [] Neurologic: Denies headache, focal weakness or sensory changes [] All other systems were reviewed and found to be within normal limits, except as documented in this note. Current Medications Current Medications Current Medications Medications (Trade) Dose Ordered Sig/Garrett Start Time Stop Time Status Last Admin Dose Admin Acetaminophen/ Hydrocodone Bitart (Lortab 5/325) 1 tab 1X ONCE 02/17/19 23:30 02/17/19 23:31 DC 02/17/19 23:20 1 TAB Prednisone (Prednisone) 60 mg 1X ONCE 02/17/19 23:30 02/17/19 23:31 DC 02/17/19 23:20 60 MG Allergies Allergies Allergies Coded Allergies Type Severity Reaction Last Updated Verified No Known Drug Allergies 09/21/13 No Physical Exam Physical Exam Constitutional: Well developed, well nourished, no acute distress, non-toxic appearance. [] HENT: Normocephalic, atraumatic, bilateral external ears normal, oropharynx moist, no oral exudates, nose normal. [] Eyes: PERRLA, EOMI, conjunctiva normal, no discharge. [] Neck: Normal range of motion, no tenderness, supple, no stridor. [] Cardiovascular:Heart rate regular rhythm, no murmur [] Lungs & Thorax: Bilateral breath sounds clear to auscultation [] Abdomen: Bowel sounds normal, soft, no tenderness, no masses, no pulsatile masses. [] Skin: Warm, dry, no erythema, no rash. [] Back: Diffuse paraspinal muscle tenderness to bilateral lumbar spine, no midline tenderness, no CVA tenderness. [] Extremities: No tenderness, no cyanosis, no clubbing, ROM intact, no edema. Neurologic: Alert and oriented X 3, normal motor function, normal sensory function, no focal deficits noted. [] Psychologic: Affect normal, judgement normal, mood normal. [] Current Patient Data Vital Signs Vital Signs Date Time Temp Pulse Resp B/P (MAP) Pulse Ox O2 Delivery O2 Flow Rate FiO2 02/17/19 23:20 99 02/17/19 23:08 98.3 101 16 155/82 (106) Room Air 98.3 Lab Values Laboratory Tests Test 02/17/19 23:30 Urine Collection Type U cath Urine Color Yellow Urine Clarity Clear Urine pH 5.5 Urine Specific [place] >=1.030 Urine Protein Negative mg/dL (NEG-TRACE) Urine Glucose (UA) Negative mg/dL (NEG) Urine Ketones (Stick) Negative mg/dL (NEG) Urine Blood Small (NEG) Urine Nitrite Negative (NEG) Urine Bilirubin Small (NEG) Urine Urobilinogen Dipstick 1.0 mg/dL (0.2 mg/dL) Urine Leukocyte Esterase Negative (NEG) Urine RBC 0 /HPF (0-2) Urine WBC Occ /HPF (0-4) Urine Squamous Epithelial Cells Few /LPF Urine Bacteria 0 /HPF (0-FEW) Urine Mucus Marked /LPF EKG EKG [] Radiology/Procedures Radiology/Procedures [] Course & Med Decision Making Course & Med Decision Making Pertinent Labs and Imaging studies reviewed. (See chart for details) This is a 39-year-old female patient well known to this ED for Cerebellar ataxia presenting to the ED today for chronic back pain. No known injury. There is nothing unusual about patient's back pain today. Urine analysis is negative for infection, patient was given pain relief in the ED. Previous documentation states patient should not be given any narcotic pain medicine at discharge per PCPs request. She was discharged to home and instructed to continue taking her gabapentin [id number] pain relievers. Dragon Disclaimer Diyaon Disclaimer This electronic medical record was generated, in whole or in part, using a voice recognition dictation system. Departure Departure Impression: Primary Impression: Lumbago with sciatica, left side Additional Impression: Chronic back pain Disposition: HOME, SELF-CARE Condition: STABLE Referrals: JEAN-PIERRE EDMONDSON MD (PCP) Follow up next week Patient Instructions: Back Pain, Adult, Sciatica with Rehab[facility] Additional Instructions: You were evaluated in the emergency room for chronic back pain/leg pain. Continue taking your pain medicines at home. You can also take Tylenol or Motrin as needed for pain. Follow-up with your doctor next week. Problem Qualifiers Primary Impression: Lumbago with sciatica, left side Chronicity: chronic Back pain laterality: left Qualified Codes: M54.42 - Lumbago with sciatica, left side; G89.29 - Other chronic pain Additional Impression: Chronic back pain Back pain location: low back pain Back pain laterality: bilateral Sciatica presence: with sciatica Sciatica laterality: sciatica of left side Qualified Codes: M54.42 - Lumbago with sciatica, left side; G89.29 - Other chronic pain LIBIA DELVALLE APRN February 17, 2019 23:11
[2019-02-17] MEDS ORDERED: predniSONE 20 MG TABLET PO ONE (23:30)
[2019-02-17] MEDS ORDERED: HYDROcodone/APAP 5/325MG 1 TAB TABLET PO ONE (23:30)
[2019-02-17 23:39] LABS: BILIRUBIN,URINE SMALL (NEG); CLARITY,URINE CLEAR; COLOR,URINE YELLOW; NITRITE,URINE NEGATIVE (NEG); PH,URINE 5.5; PROTEIN,URINE NEGATIVE (NEG-TRACE)
[2019-02-17 23:46] LABS: RBC,URINE 0 /HPF (0-2); WBC,URINE OCC /HPF (0-4)
[2019-02-17 23:47] LABS: BACTERIA,URINE 0 /HPF (0-FEW); SQUAMOUS EPITHELIAL CELL,UR FEW /LPF
== END 2019-02-18 00:45 | disposition home or self-care (01) ==
LOC: ER 02-18 00:01
DX: G89.29 Other chronic pain (principal); M54.42 Lumbago with sciatica, left side; G11.9 Hereditary ataxia, unspecified; M62.81 Muscle weakness (generalized)
CPT/HCPCS: 81001; 99284; J7512

== ENCOUNTER 2019-02-19 02:19 | Emergency (ER) | payer OTHER ==
[~2019-02-19] VITALS: Ht 170.2 cm; Wt 52.6 kg
[2019-02-19 02:19] VITALS: BP 127/82
[2019-02-19] MEDS ORDERED: HYDROcodone/APAP 10/325 1 TAB TABLET PO ONE (03:30)
--- NOTE | 2019-02-19 04:12 | PHYS DOC ---
Past Medical History Past Medical History: Other Additional Past Medical Histor: SPINOCEREBELLAR ATAXIA Past Surgical History: Alcohol Use: Occasionally Drug Use: None Adult General Chief Complaint Chief Complaint: LOWER EXT PAIN HPI HPI Patient is a 39 year old Vincentian female with history of pallor ataxia and chronic leg pain who is well-known to this facility has been treated multiple times including last evening for chronic leg pain who presents with complaints of chronic leg pain. Patient denies complaint. No urinary frequency urgency or dysuria. No other acute symptoms or complaints. Patient arrives by EMS and is sleeping upon entering the room. Review of Systems Review of Systems Review of symptoms as per history of present illness. All other review symptoms are negative. All other systems were reviewed and found to be within normal limits, except as documented in this note. Current Medications Current Medications Current Medications Medications (Trade) Dose Ordered Sig/Garrett Start Time Stop Time Status Last Admin Dose Admin Acetaminophen/ Hydrocodone Bitart (Lortab 10/325) 1 tab 1X ONCE 02/19/19 03:30 02/19/19 03:30 DC 02/19/19 03:24 1 TAB Allergies Allergies Allergies Coded Allergies Type Severity Reaction Last Updated Verified No Known Drug Allergies 09/21/13 No Physical Exam Physical Exam Constitutional: Well developed, well nourished, no acute distress. [] HENT: Normocephalic, atraumatic, bilateral external ears normal, nose normal. [] Eyes: PERRLA, EOMI, conjunctiva normal, no discharge. [] Neck: Normal range of motion, no midline tenderness. [] Cardiovascular:Heart rate regular rhythm. [] Lungs & Thorax: Bilateral breath sounds clear to auscultation [] Abdomen: Bowel sounds normal. [] Skin: Warm, dry, no erythema. [] Back: No CVA tenderness. [] Extremities: No tenderness. [] Neurologic: Alert and oriented X 3, lower ext weakness . [] Psychologic: Affect flat, judgement normal, mood normal. [] Current Patient Data Vital Signs Vital Signs Date Time Temp Pulse Resp B/P (MAP) Pulse Ox O2 Delivery O2 Flow Rate FiO2 02/19/19 03:24 16 100 Room Air 02/19/19 02:19 98.2 114 127/82 (97) 98.2 EKG EKG [] Radiology/Procedures Radiology/Procedures [] Course & Med Decision Making Course & Med Decision Making Pertinent Labs and Imaging studies reviewed. (See chart for details) [Chronic back pain. PCP follow up. ] Dragon Disclaimer Dragon Disclaimer This electronic medical record was generated, in whole or in part, using a voice recognition dictation system. Departure Departure Impression: Primary Impression: Lumbago with sciatica, left side Disposition: HOME, SELF-CARE Condition: GOOD Referrals: JEAN-PIERRE EDMONDSON MD (PCP) Patient Instructions: Chronic Back Pain Additional Instructions: Please with your PCP for management of chronic back pain. ARLIN CRAIG DO February 19, 2019 04:12
== END 2019-02-19 03:27 | disposition home or self-care (01) ==
LOC: ER 02:19
DX: M54.42 Lumbago with sciatica, left side (principal); G89.29 Other chronic pain; Z98.890 Other specified postprocedural states
CPT/HCPCS: 99284

== ENCOUNTER 2019-02-22 19:39 | Emergency (ER) | payer OTHER ==
[~2019-02-22] VITALS: Ht 170.2 cm; Wt 52.6 kg
[2019-02-22 19:43] VITALS: BP 129/83
[2019-02-22] MEDS ORDERED: KETOROLAC 30 MG/ML VIAL. ONE (20:13)
[2019-02-22] MEDS ORDERED: KETOROLAC 30 MG/ML VIAL. IM ONE (20:15)
--- NOTE | 2019-02-22 21:41 | PHYS DOC ---
Past Medical History Past Medical History: Other Additional Past Medical Histor: SPINOCEREBELLAR ATAXIA; chronic back pain Past Surgical History: Additional Information: pt denies 02/22/19 Alcohol Use: Occasionally Drug Use: None Adult General Chief Complaint Chief Complaint: BACK PAIN - NO INJURY HPI HPI Patient is a 39 year old female who presents with back pain chronic pain every day worse last couple days she requested a Toradol shot in triage no fever no change in neurologic function she doesn't have any numbness or tingling she told me. She was dropped off by her mother and will get him transported home similar to previous ER visits. No trauma, NO Bowel or bladder incontinence. Review of Systems Review of Systems Constitutional: Denies fever or chills [] Eyes: Denies change in visual acuity, redness, or eye pain [] HENT: Denies nasal congestion or sore throat [] Respiratory: Denies cough or shortness of breath [] Integument: Denies rash or skin lesions [] Neurologic: Denies headache, focal weakness or sensory changes [] Endocrine: Denies polyuria or polydipsia [] All other systems were reviewed and found to be within normal limits, except as documented in this note. Current Medications Current Medications Current Medications Medications (Trade) Dose Ordered Sig/Garrett Start Time Stop Time Status Last Admin Dose Admin Ketorolac Tromethamine (Toradol 30mg Vial) 30 mg STK-MED ONCE 02/22/19 20:13 02/22/19 20:14 DC Allergies Allergies Allergies Coded Allergies Type Severity Reaction Last Updated Verified No Known Drug Allergies 09/21/13 No Physical Exam Physical Exam Constitutional: Well developed, stigmata of cerebellar degeneration at baseline HENT: Normocephalic, atraumatic, bilateral external ears normal, oropharynx moist, no oral exudates, nose normal. [] Eyes: PERRLA, EOMI, conjunctiva normal, no discharge. [] Neck: Normal range of motion, no tenderness, supple, no stridor. [] Pulmonary: Normal respiratory effort no increased work of breathing no obvious chest wall trauma Abdomen: Bowel sounds normal, soft, no tenderness, no masses, no pulsatile masses. [] Skin: Warm, dry, no erythema, no rash. [] Extremities: No tenderness, no cyanosis, no clubbing, ROM intact, no edema. [] Neurologic: Alert and oriented X 3, evidence of cerebellar degeneration ot herwise distal strength is grossly intact sensation is intact to light touch. Psychologic: Affect normal, judgement normal, mood normal. [] Current Patient Data Vital Signs Vital Signs Date Time Temp Pulse Resp B/P (MAP) Pulse Ox O2 Delivery O2 Flow Rate FiO2 02/22/19 19:43 98.8 106 16 129/83 (98) 97 Room Air 98.8 EKG EKG [] Radiology/Procedures Radiology/Procedures [] Course & Med Decision Making Course & Med Decision Making Pertinent Labs and Imaging studies reviewed. (See chart for details) []Toradol was given follow-up with primary doctor BACK PAIN SIMILAR TO MULTIPLE PRIOR ER VISITS NO RED FLAGS Dragon Disclaimer Dragon Disclaimer This electronic medical record was generated, in whole or in part, using a voice recognition dictation system. Departure Departure Impression: Primary Impression: Chronic back pain Disposition: 01 HOME, SELF-CARE Condition: STABLE Referrals: JEAN-PIERRE EDMONDSON MD (PCP) Patient Instructions: Back Pain, Adult, [id number] LOUIS DOSS MD February 22, 2019 21:41
[2019-02-23] MEDS ORDERED: PRED20TA PO (07:57)
== END 2019-02-22 20:19 | disposition home or self-care (01) ==
LOC: ER 19:39
DX: G89.29 Other chronic pain (principal); M54.9 Dorsalgia, unspecified; G31.9 Degenerative disease of nervous system, unspecified
CPT/HCPCS: 96372; 99283; J1885

== ENCOUNTER 2019-02-23 05:22 | Emergency (ER) | payer OTHER ==
[~2019-02-23] VITALS: Ht 170.2 cm; Wt 52.6 kg
[2019-02-23] MEDS ORDERED: PRED20TA PO (07:57)
--- NOTE | 2019-02-23 07:57 | PHYS DOC ---
Past Medical History Past Medical History: Other Additional Past Medical Histor: SPINOCEREBELLAR ATAXIA; chronic back pain Past Surgical History: Alcohol Use: Occasionally Drug Use: None Adult General Chief Complaint Chief Complaint: BACK PAIN - NO INJURY HPI HPI Patient is a 39 year old female with PMH of spinocerebellar ataxia and chronic pain who presents with thoracic back and bilateral, proximal, leg pain that woke her up this morning at approximately 5 AM. The pain is sharp and shoots from her back down the lateral aspect of her legs b/l. Patient was seen here at approximately 1 AM this morning. She received a shot of Toradol at that time which she states helped with the pain but now wore off. She reports chronic urinary incontinence. Patient denies any nausea, vomiting, fever, or chills. No other complaints at this time. Review of Systems Review of Systems Constitutional: Denies fever or chills [] Eyes: Denies change in visual acuity, redness, or eye pain [] HENT: Denies nasal congestion or sore throat [] Respiratory: Reports cough present for 1-2 weeks. No SOB. Cardiovascular: Denies any chest pain or palpitations. GI: Denies abdominal pain, nausea, vomiting, or diarrhea [] : Chronic urinary incontinence. Musculoskeletal: Thoracic back pain. B/L proximal leg pain. Integument: Denies rash or skin lesions [] Neurologic: Denies headache, reports b/l hand numbness. Complete systems were reviewed and found to be within normal limits, except as documented in this note. Current Medications Current Medications Current Medications Medications (Trade) Dose Ordered Sig/[facility] Start Time Stop Time Status Last Admin Dose Admin Ketorolac Tromethamine (Toradol 30mg Vial) 30 mg 1X ONCE 02/23/19 08:30 02/23/19 08:31 DC 02/23/19 08:26 30 MG Allergies Allergies Allergies Coded Allergies Type Severity Reaction Last Updated Verified No Known Drug Allergies 09/21/13 No Physical Exam Physical Exam Constitutional: Mild somnolence. no acute distress, non-toxic appearance. [] HENT: Normocephalic, atraumatic, oropharynx moist Eyes: EOMI, conjunctiva normal, no discharge. [] Cardiovascular: Heart rate regular rhythm, no murmur [] Lungs & Thorax: Bilateral breath sounds clear to auscultation [] Abdomen: Soft, no tenderness Skin: Warm, dry, no erythema, no rash. [] Back: Mild tenderness thoracic spine. [] Extremities: Mild tenderness to both legs on proximal, lateral portions; muscle atrophy noted to bilateral legs (chronic) Neurologic: Impaired ambulation, strength. decreased sensory in hands b/l. normal sensation in both legs. [] Psychologic: Flat affect, judgement normal, mood normal. [] Current Patient Data Vital Signs Vital Signs Date Time Temp Pulse Resp B/P (MAP) Pulse Ox O2 Delivery O2 Flow Rate FiO2 02/23/19 08:45 86 16 110/74 (86) 99 Room Air 02/23/19 05:30 98.4 98.4 EKG EKG [] Radiology/Procedures Radiology/Procedures [] Course & Med Decision Making Course & Med Decision Making Mrs. Craven is a 39-year-old female with past medical history of spinal cerebellar ataxia and chronic pain. She was seen here at 1 AM and administered a shot of Toradol. She returns with increased pain again this morning. Pt requesting another shot of Toradol. No red flag symptoms were identified. Imaging was deemed unnecessary. 30mg 1x IM dose of Toradol was administered and follow-up with pain specialist advised. Patient stable for discharge with outpatient follow-up with PCP. Rx for empiric steroid burst provided. Discussed findings and plan with patient, who acknowledges understanding and agreement. Dragon Disclaimer Dragon Disclaimer This electronic medical record was generated, in whole or in part, using a voice recognition dictation system. Departure Departure Impression: Primary Impression: Chronic back pain Disposition: 01 HOME, SELF-CARE Condition: STABLE Referrals: JEAN-PIERRE EDMONDSON MD (PCP) Patient Instructions: Chronic Back Pain, Chronic Pain Management, Sciatica, [id number] Scripts Prednisone (PREDNISONE) 20 Mg Tablet 2 TAB PO DAILY, #10 TAB Prov: DAVI KISER DO 02/23/19 Problem Qualifiers Primary Impression: Chronic back pain Back pain location: low back pain Back pain laterality: bilateral Sciatica presence: with sciatica Sciatica laterality: bilateral sciatica Qualified Codes: M54.42 - Lumbago with sciatica, left side; M54.41 - Lumbago with sciatica, right side; G89.29 - Other chronic pain DAVI KISER DO February 23, 2019 07:57
[2019-02-23] MEDS ORDERED: KETOROLAC 30 MG/ML VIAL. IM ONE (08:30)
[2019-02-23 08:45] VITALS: BP 110/74
== END 2019-02-23 09:00 | disposition home or self-care (01) ==
LOC: ER 05:22
DX: G89.29 Other chronic pain (principal); M54.41 Lumbago with sciatica, right side; M54.42 Lumbago with sciatica, left side; M54.6 Pain in thoracic spine; R32 Unspecified urinary incontinence
CPT/HCPCS: 96372; 99284; J1885

== ENCOUNTER 2019-02-25 11:26 | Emergency (ER) | payer OTHER ==
[~2019-02-25] VITALS: Ht 170.2 cm; Wt 52.6 kg
[~2019-02-25 11:26] MED LIST changes: +PRED20TA PO
[2019-02-25 11:36] VITALS: BP 134/78
--- NOTE | 2019-02-25 11:50 | PHYS DOC ---
Past Medical History Past Medical History: Other Additional Past Medical Histor: SPINOCEREBELLAR ATAXIA; chronic back pain Past Surgical History: Alcohol Use: None Drug Use: None Adult General Chief Complaint Chief Complaint: LOWER EXT PAIN HPI HPI Patient is a 39 year old female with history of spinocerebellar ataxia, chronic low back pain and chronic bilateral lower extremity pain who presents with 10 out of 10 bilateral low back pain radiating to bilateral lower extremities that began this morning. She states the pain is consistent with her regular pain. She is currently on her cellphone playing on the phone. She is in no distress. Denies anything specifically exacerbating or relieving the pain. She is well known to this ED for chronic pain. Patient denies any known injury. Denies any loss of bowel bladder function. PCP Dr. Garcia Review of Systems Review of Systems Constitutional: Denies fever or chills [] GI: Denies abdominal pain, nausea, vomiting, bloody stools or diarrhea [] : Denies dysuria or hematuria [] Musculoskeletal: Reports bilateral low back pain radiating to bilateral lower extremities Integument: Denies rash or skin lesions [] Neurologic: Denies headache, focal weakness or sensory changes [] All other systems were reviewed and found to be within normal limits, except as documented in this note. Current Medications Current Medications Current Medications Medications (Trade) Dose Ordered Sig/[facility] Start Time Stop Time Status Last Admin Dose Admin Ketorolac Tromethamine (Toradol Im) 60 mg 1X ONCE 02/25/19 12:00 02/25/19 12:01 UNV Prednisone (Prednisone) 50 mg 1X ONCE 02/25/19 12:00 02/25/19 12:01 UNV Allergies Allergies Allergies Coded Allergies Type Severity Reaction Last Updated Verified No Known Drug Allergies 09/21/13 No Physical Exam Physical Exam Constitutional: Well developed, well nourished, no acute distress, non-toxic appearance. [] Abdomen: Bowel sounds normal, soft, no tenderness, no masses, no pulsatile masses. [] Skin: Warm, dry, no erythema, no rash. [] Back: Tenderness diffusely to bilateral lower mild, no midline lumbar spine tenderness, no CVA tenderness. [] Extremities: No tenderness, no cyanosis, no clubbing, ROM intact, no edema. [] Neurologic: Alert and oriented X 3, normal motor function, normal sensory function, no focal deficits noted. [] Psychologic: Affect normal, judgement normal, mood normal. [] Current Patient Data Vital Signs Vital Signs Date Time Temp Pulse Resp B/P (MAP) Pulse Ox O2 Delivery O2 Flow Rate FiO2 02/25/19 11:36 98.2 109 18 134/78 (96) 98 98.2 EKG EKG [] Radiology/Procedures Radiology/Procedures [] Course & Med Decision Making Course & Med Decision Making Pertinent Labs and Imaging studies reviewed. (See chart for details) This is a 39-year-old female patient presented to the ED today with chronic low back pain radiating to bilateral lower extremities. Patient has history of spinocerebellar ataxia, chronic low back pain and chronic bilateral lower ex tremity pain and is well known to this ED. She is given a shot of Toradol and 50 mg of prednisone and discharged. From previous documentations her PCP has requested we do not give this patient a prescription narcotic medications. Dragon Disclaimer Dragon Disclaimer This electronic medical record was generated, in whole or in part, using a voice recognition dictation system. Departure Departure Impression: Primary Impression: Chronic leg pain Additional Impressions: Lumbago with sciatica, right side Lumbago with sciatica, left side Disposition: HOME, SELF-CARE Condition: STABLE Referrals: JEAN-PIERRE EDMONDSON MD (PCP) follow up in 1 week Patient Instructions: Back Pain, Adult Additional Instructions: You were evaluated in the emergency room for chronic pain. Please follow-up with your doctor on Wednesday. Problem Qualifiers Primary Impression: Chronic leg pain Laterality: bilateral Qualified Codes: M79.604 - Pain in right leg; M79 .605 - Pain in left leg; G89.29 - Other chronic pain Additional Impressions: Lumbago with sciatica, right side Chronicity: chronic Back pain laterality: bilateral Qualified Codes: M54.41 - Lumbago with sciatica, right side; G89.29 - Other chronic pain Lumbago with sciatica, left side Chronicity: chronic Back pain laterality: bilateral Qualified Codes: M54.42 - Lumbago with sciatica, left side; G89.29 - Other chronic pain LIBIA DELVALLE APRN February 25, 2019 11:50
[2019-02-25] MEDS ORDERED: predniSONE 10 MG TABLET PO ONE (12:00)
[2019-02-25] MEDS ORDERED: KETOROLAC 60 MG/2 ML VIAL. IM ONE (12:00)
== END 2019-02-25 12:04 | disposition home or self-care (01) ==
LOC: ER 11:26
DX: G89.29 Other chronic pain (principal); M54.41 Lumbago with sciatica, right side; M54.42 Lumbago with sciatica, left side; M79.605 Pain in left leg; M79.604 Pain in right leg
CPT/HCPCS: 96372; 99284; J1885; J7512

== ENCOUNTER 2019-03-10 23:07 | Emergency (ER) | payer OTHER ==
[~2019-03-10] VITALS: Ht 170.2 cm; Wt 52.6 kg
[2019-03-10] MEDS ORDERED: KETOROLAC 30 MG/ML VIAL. IM ONE (23:30)
[2019-03-11] MEDS ORDERED: NAPR-695 PO (00:17)
--- NOTE | 2019-03-11 00:17 | PHYS DOC ---
Past Medical History Past Medical History: Other Additional Past Medical Histor: SPINOCEREBELLAR ATAXIA; chronic back pain Past Surgical History: Alcohol Use: None Drug Use: None Adult General Chief Complaint Chief Complaint: LOWER EXT PAIN HPI HPI Patient is a 39 year old [f__sex] who presents with [] Review of Systems Review of Systems Constitutional: Denies fever or chills [] Eyes: Denies change in visual acuity, redness, or eye pain [] HENT: Denies nasal congestion or sore throat [] Respiratory: Denies cough or shortness of breath [] Cardiovascular: No additional information not addressed in HPI [] GI: Denies abdominal pain, nausea, vomiting, bloody stools or diarrhea [] : Denies dysuria or hematuria [] Musculoskeletal: Denies back pain or joint pain [] Integument: Denies rash or skin lesions [] Neurologic: Denies headache, focal weakness or sensory changes [] Endocrine: Denies polyuria or polydipsia [] All other systems were reviewed and found to be within normal limits, except as documented in this note. Current Medications Current Medications Current Medications Medications (Trade) Dose Ordered Sig/Garrett Start Time Stop Time Status Last Admin Dose Admin Ketorolac Tromethamine (Toradol 30mg Vial) 30 mg 1X ONCE 03/10/19 23:30 03/10/19 23:31 DC 03/10/19 23:37 30 MG Allergies Allergies Allergies Coded Allergies Type Severity Reaction Last Updated Verified No Known Drug Allergies 09/21/13 No Physical Exam Physical Exam Constitutional: Well developed, well nourished, no acute distress, non-toxic appearance. [] HENT: Normocephalic, atraumatic, bilateral external ears normal, oropharynx moist, no oral exudates, nose normal. [] Eyes: PERRLA, EOMI, conjunctiva normal, no discharge. [] Neck: Normal range of motion, no tenderness, supple, no stridor. [] Cardiovascular:Heart rate regular rhythm, no murmur [] Lungs & Thorax: Bilateral breath sounds clear to auscultation [] Abdomen: Bowel sounds normal, soft, no tenderness, no masses, no pulsatile masses. [] Skin: Warm, dry, no erythema, no rash. [] Back: No tenderness, no CVA tenderness. [] Extremities: No tenderness, no cyanosis, no clubbing, ROM intact, no edema. [] Neurologic: Alert and oriented X 3, normal motor function, normal sensory function, no focal deficits noted. [] Psychologic: Affect normal, judgement normal, mood normal. [] Current Patient Data Vital Signs Vital Signs Date Time Temp Pulse Resp B/P (MAP) Pulse Ox O2 Delivery O2 Flow Rate FiO2 03/10/19 23:13 97.9 92 14 128/93 (105) 99 Room Air 97.9 EKG EKG [] Radiology/Procedures Radiology/Procedures [] Course & Med Decision Making Course & Med Decision Making Pertinent Labs and Imaging studies reviewed. (See chart for details) [] Dragon Disclaimer Dragon Disclaimer This electronic medical record was generated, in whole or in part, using a voice recognition dictation system. Departure Departure Impression: Primary Impression: Chronic leg pain Disposition: HOME, SELF-CARE Condition: STABLE Referrals: JEAN-PIERRE EDMONDSON MD (PCP) PORSCHE VARGAS MD Patient Instructions: Chronic Pain, Chronic Pain Management Scripts Naproxen (NAPROXEN) 375 Mg Tablet 375 MG PO TID PRN PRN for PAIN, #60 TAB Prov: DAVI KISER DO 03/11/19 Problem Qualifiers Primary Impression: Chronic leg pain Laterality: bilateral Qualified Codes: M79.604 - Pain in right leg; M79.605 - Pain in left leg; G89.29 - Other chronic pain DAVI KISER DO Mar 11, 2019 00:17
== END 2019-03-11 00:23 | disposition home or self-care (01) ==
LOC: ER 23:07
DX: G89.29 Other chronic pain (principal); M79.604 Pain in right leg; M79.605 Pain in left leg
CPT/HCPCS: 96372; 99284; J1885

== ENCOUNTER 2019-03-17 00:33 | Emergency (ER) | payer OTHER ==
[~2019-03-17] VITALS: Ht 170.2 cm; Wt 52.6 kg
[~2019-03-17 00:33] MED LIST changes: +NAPR-695 PO
[2019-03-17 00:35] VITALS: BP 137/88
--- NOTE | 2019-03-17 00:48 | PHYS DOC ---
Past Medical History Past Medical History: Other Additional Past Medical Histor: SPINOCEREBELLAR ATAXIA; chronic back/leg pain Past Surgical History: Alcohol Use: None Drug Use: None Adult General Chief Complaint Chief Complaint: LOWER EXTREMITY SWELLING HPI HPI Patient is a 39-year-old female with history of spine are cerebellar ataxia who is wheelchair-bound. She has chronic pain for which she takes pain medicine at home. She presents tonight because both lower extremities are showing increased swelling and have more pain. She denies any fever chills or sweats. She states she took her pain medicine at home but it did not help.[] Review of Systems Review of Systems Constitutional: Denies fever or chills [] Eyes: Denies change in visual acuity, redness, or eye pain [] HENT: Denies nasal congestion or sore throat [] Respiratory: Denies cough or shortness of breath [] Cardiovascular: No additional information not addressed in HPI [] GI: Denies abdominal pain, nausea, vomiting, bloody stools or diarrhea [] : Denies dysuria or hematuria [] Musculoskeletal: Reports chronic back pain and leg swelling[] Integument: Denies rash or skin lesions [] Neurologic: Neurologic deficits associated with spinal cerebellar[] Endocrine: Denies polyuria or polydipsia [] All other systems were reviewed and found to be within normal limits, except as documented in this note. Allergies Allergies Allergies Coded Allergies Type Severity Reaction Last Updated Verified No Known Drug Allergies 09/21/13 No Physical Exam Physical Exam Constitutional: Well developed, well nourished, no acute distress, non-toxic appearance. [] HENT: Normocephalic, atraumatic, bilateral external ears normal, oropharynx moist, no oral exudates, nose normal. [] Eyes: PERRLA, EOMI, conjunctiva normal, no discharge. [] Neck: Normal range of motion, no tenderness, supple, no stridor. [] Cardiovascular:Heart rate regular rhythm, no murmur [] Lungs & Thorax: Bilateral breath sounds clear to auscultation [] Abdomen: Bowel sounds normal, soft, no tenderness, no masses, no pulsatile masses. [] Skin: Warm, dry, no erythema, no rash. [] Back: No tenderness, no CVA tenderness. [] Extremities: No tenderness, no cyanosis, no clubbing, ROM intact, no edema. [] Neurologic: Alert and oriented X 3, normal motor function, normal sensory function, no focal deficits noted. [] Psychologic: Affect normal, judgement normal, mood normal. [] Current Patient Data Vital Signs Vital Signs Date Time Temp Pulse Resp B/P (MAP) Pulse Ox O2 Delivery O2 Flow Rate FiO2 03/17/19 00:35 98.3 90 18 137/88 (104) 97 Room Air 98.3 EKG EKG [] Radiology/Procedures Radiology/Procedures [] Impressions: REASON: B/L LE Swelling/Pain PROCEDURE: VENOUS LOWER EXT BILATERAL INDICATION: Leg swelling COMPARISON: None. TECHNIQUE: Grayscale, color and doppler ultrasound images were obtained of the bilateral lower extremity venous vasculature. RIGHT: No thrombus identified in the common femoral vein, femoral vein, popliteal vein or visualized calf veins. LEFT: No thrombus identified in the common femoral vein, femoral vein, popliteal vein or visualized calf veins. IMPRESSION: 1. No thrombus identified in deep venous system of bilateral lower extremities. Course & Med Decision Making Course & Med Decision Making Pertinent Labs and Imaging studies reviewed. (See chart for details) [] Dragon Disclaimer Dragon Disclaimer This electronic medical record was generated, in whole or in part, using a voice recognition dictation system. Departure Departure Impression: Primary Impression: Swelling of lower extremity Additional Impression: Chronic back pain Disposition: 01 HOME, SELF-CARE Condition: STABLE Referrals: JEAN-PIERRE EDMONDSON MD (PCP) Patient Instructions: Peripheral Edema Additional Instructions: Follow with her primary care physician this week for recheck. Return to the emergency department with any new or concerning symptoms Problem Qualifiers Additional Impression: Chronic back pain Back pain location: low back pain Back pain laterality: bilateral Sciatica presence: without sciatica Qualified Codes: M54.5 - Low back pain; G89.29 - Other chronic pain RYAN MARIE DO Mar 17, 2019 00:48
--- NOTE | 2019-03-17 02:03 | RAD ---
INDICATION: Leg swelling COMPARISON: None. TECHNIQUE: Grayscale, color and doppler ultrasound images were obtained of the bilateral lower extremity venous vasculature. RIGHT: No thrombus identified in the common femoral vein, femoral vein, popliteal vein or visualized calf veins. LEFT: No thrombus identified in the common femoral vein, femoral vein, popliteal vein or visualized calf veins. IMPRESSION: 1. No thrombus identified in deep venous system of bilateral lower extremities. Electronically signed by: Rom Morris MD (03/17/2019 2:00 AM) [facility] [place]
== END 2019-03-17 04:00 | disposition home or self-care (01) ==
LOC: ER 00:33
DX: G89.29 Other chronic pain (principal); M79.89 Other specified soft tissue disorders; R29.818 Other symptoms and signs involving the nervous system; M54.5 Low back pain; Z98.890 Other specified postprocedural states
CPT/HCPCS: 93970; 99284-25

== ENCOUNTER 2019-04-19 03:58 | Emergency (ER) | payer OTHER ==
[~2019-04-19] VITALS: Ht 170.2 cm; Wt 52.6 kg
[2019-04-19 03:58] VITALS: BP 144/67
[~2019-04-19 03:58] MED LIST changes: +HYDR25TA PO
--- NOTE | 2019-04-19 04:38 | PHYS DOC ---
Past Medical History Past Medical History: Other Additional Past Medical Histor: SPINOCEREBELLAR ATAXIA; chronic back/leg pain Past Surgical History: Alcohol Use: None Drug Use: None Adult General Chief Complaint Chief Complaint: LOWER EXT PAIN HPI HPI Patient is a 39-year-old female with chronic back and leg pain presents with leg pain. She's been seen here 30+ times this year already. Patient states the pain is very typical of her previous chronic pain. She states the Neurontin that she takes is not helping.[] Review of Systems Review of Systems Constitutional: Denies fever or chills [] Eyes: Denies change in visual acuity, redness, or eye pain [] HENT: Denies nasal congestion or sore throat [] Respiratory: Denies cough or shortness of breath [] Cardiovascular: No additional information not addressed in HPI [] GI: Denies abdominal pain, nausea, vomiting, bloody stools or diarrhea [] : Denies dysuria or hematuria [] Musculoskeletal: Complains of back and leg pain[] Integument: Denies rash or skin lesions [] Neurologic: Denies headache, focal weakness or sensory changes [] Endocrine: Denies polyuria or polydipsia [] All other systems were reviewed and found to be within normal limits, except as documented in this note. Allergies Allergies Allergies Coded Allergies Type Severity Reaction Last Updated Verified No Known Drug Allergies 09/21/13 No Physical Exam Physical Exam Constitutional: Well developed, well nourished, moderate distress, non-toxic appearance. [] HENT: Normocephalic, atraumatic, bilateral external ears normal, oropharynx moist, no oral exudates, nose normal. [] Eyes: PERRLA, EOMI, conjunctiva normal, no discharge. [] Neck: Normal range of motion, no tenderness, supple, no stridor. [] Cardiovascular:Heart rate regular rhythm, no murmur [] Lungs & Thorax: Bilateral breath sounds clear to auscultation [] Abdomen: Bowel sounds normal, soft, no tenderness, no masses, no pulsatile masses. [] Skin: Warm, dry, no erythema, no rash. [] Back: No tenderness, no CVA tenderness. [] Extremities: No tenderness, no cyanosis, no clubbing, ROM intact, no edema. [] [] Psychologic: Anxious with depressed affect. [] Current Patient Data Vital Signs Vital Signs Date Time Temp Pulse Resp B/P (MAP) Pulse Ox O2 Delivery O2 Flow Rate FiO2 04/19/19 03:58 98.4 113 16 144/67 (92) 97 Room Air 98.4 EKG EKG [] Radiology/Procedures Radiology/Procedures [] Course & Med Decision Making Course & Med Decision Making Pertinent Labs and Imaging studies reviewed. (See chart for details) [] Dragon Disclaimer Dragon Disclaimer This electronic medical record was generated, in whole or in part, using a voice recognition dictation system. Departure Departure Impression: Primary Impression: Chronic leg pain Additional Impression: Narcotic dependency, continuous Disposition: 01 HOME, SELF-CARE Condition: STABLE Referrals: JEAN-PIERRE EDMONDSON MD (PCP) Patient Instructions: Chronic Back Pain, Chronic Pain Management Additional Instructions: Return emergency department with any new or concerning symptoms Problem Qualifiers Primary Impression: Chronic leg pain Laterality: unspecified laterality Qualified Codes: M79.606 - Pain in leg, unspecified; G89.29 - Other chronic pain RYAN MARIE DO Apr 19, 2019 04:38
[2019-04-19] MEDS ORDERED: HYDROcodone/APAP 5/325MG 1 TAB TABLET PO ONE (05:00)
[2019-04-19] MEDS ORDERED: NAPR-695 PO (12:29)
== END 2019-04-19 05:15 | disposition home or self-care (01) ==
LOC: ER 03:58
DX: G89.29 Other chronic pain (principal); M79.604 Pain in right leg; M79.605 Pain in left leg; F11.20 Opioid dependence, uncomplicated; M54.9 Dorsalgia, unspecified; F41.9 Anxiety disorder, unspecified; F32.9 Major depressive disorder, single episode, unspecified
CPT/HCPCS: 99282; 99284

== ENCOUNTER 2019-04-19 12:02 | Emergency (ER) | payer OTHER ==
[~2019-04-19] VITALS: Ht 162.6 cm; Wt 52.6 kg
[2019-04-19 12:09] VITALS: BP 128/82
[2019-04-19] MEDS ORDERED: NAPR-695 PO (12:29)
--- NOTE | 2019-04-19 12:29 | PHYS DOC ---
Past Medical History Past Medical History: Other Additional Past Medical Histor: SPINOCEREBELLAR ATAXIA; chronic back/leg pain Past Surgical History: Alcohol Use: None Drug Use: Other Social History Narrative: Narcotic dependent Adult General Chief Complaint Chief Complaint: PAIN CONTROL HPI HPI Patient is a 39 year old [f__sex] who presents with [] Review of Systems Review of Systems Constitutional: Denies fever or chills [] Eyes: Denies change in visual acuity, redness, or eye pain [] HENT: Denies nasal congestion or sore throat [] Respiratory: Denies cough or shortness of breath [] Cardiovascular: No additional information not addressed in HPI [] GI: Denies abdominal pain, nausea, vomiting, bloody stools or diarrhea [] : Denies dysuria or hematuria [] Musculoskeletal: Denies back pain or joint pain [] Integument: Denies rash or skin lesions [] Neurologic: Denies headache, focal weakness or sensory changes [] Endocrine: Denies polyuria or polydipsia [] All other systems were reviewed and found to be within normal limits, except as documented in this note. Allergies Allergies Allergies Coded Allergies Type Severity Reaction Last Updated Verified No Known Drug Allergies 09/21/13 No Physical Exam Physical Exam Constitutional: Well developed, well nourished, no acute distress, non-toxic appearance. [] HENT: Normocephalic, atraumatic, bilateral external ears normal, oropharynx mo ist, no oral exudates, nose normal. [] Eyes: PERRLA, EOMI, conjunctiva normal, no discharge. [] Neck: Normal range of motion, no tenderness, supple, no stridor. [] Cardiovascular:Heart rate regular rhythm, no murmur [] Lungs & Thorax: Bilateral breath sounds clear to auscultation [] Abdomen: Bowel sounds normal, soft, no tenderness, no masses, no pulsatile masses. [] Skin: Warm, dry, no erythema, no rash. [] Back: No tenderness, no CVA tenderness. [] Extremities: No tenderness, no cyanosis, no clubbing, ROM intact, no edema. [] Neurologic: Alert and oriented X 3, normal motor function, normal sensory function, no focal deficits noted. [] Psychologic: Affect normal, judgement normal, mood normal. [] Current Patient Data Vital Signs Vital Signs Date Time Temp Pulse Resp B/P (MAP) Pulse Ox O2 Delivery O2 Flow Rate FiO2 04/19/19 12:09 98.7 109 12 128/82 (97) 98 Room Air 98.7 EKG EKG [] Radiology/Procedures Radiology/Procedures [] Course & Med Decision Making Course & Med Decision Making Pertinent Labs and Imaging studies reviewed. (See chart for details) [] Dragon Disclaimer Dragon Disclaimer This electronic medical record was generated, in whole or in part, using a voice recognition dictation system. Departure Departure Impression: Primary Impression: Chronic leg pain Disposition: HOME, SELF-CARE Condition: STABLE Referrals: JEAN-PIERRE EDMONDSON MD (PCP) Patient Instructions: Chronic Pain Management-Brief Additional Instructions: Please follow with your doctor for further pain management. Scripts Naproxen (NAPROXEN) 375 Mg Tablet 1 TAB PO BID PRN for PAIN, #30 TAB Prov: DAVI KISER DO 04/19/19 Problem Qualifiers Primary Impression: Chronic leg pain Laterality: unspecified laterality Qualified Codes: M79.606 - Pain in leg, unspecified; G89.29 - Other chronic pain DAVI KISER DO Apr 19, 2019 12:29
[2019-04-19] MEDS ORDERED: KETOROLAC 30 MG/ML VIAL. IM ONE (12:30)
[2019-04-19] MEDS ORDERED: DEXAMETHASONE 4 MG TABLET PO ONE (13:00)
== END 2019-04-19 12:59 | disposition home or self-care (01) ==
LOC: ER 12:02
DX: G89.29 Other chronic pain (principal); M79.605 Pain in left leg; F11.20 Opioid dependence, uncomplicated
CPT/HCPCS: 96372; 99284; J1885; J8540; 99283

== ENCOUNTER 2019-04-23 00:41 | Emergency (ER) | payer OTHER ==
[~2019-04-23] VITALS: Ht 162.6 cm; Wt 52.6 kg
[2019-04-23 00:48] VITALS: BP 134/80
[2019-04-23] MEDS ORDERED: HYDROcodone/APAP 5/325MG 1 TAB TABLET PO ONE (01:00)
--- NOTE | 2019-04-23 01:12 | PHYS DOC ---
Past Medical History Past Medical History: Other Additional Past Medical Histor: SPINOCEREBELLAR ATAXIA; chronic back/leg pain Past Surgical History: Alcohol Use: None Drug Use: Other Adult General Chief Complaint Chief Complaint: BACK PAIN OR INJURY HPI HPI Patient is a 39 year old -K[place] female with history of polysubstance abuse, chronic narcotic dependence and chronic back pain is well-known to this ED who presents by ambulance complaining of chronic back pain. Denies radicular symptoms, pain complaints motor or loss of sensation Patient's emergency department multiple times for the same in the past month. She has not follow-up with her primary care physician. Patient smells heavily of marijuana and ED arrival.[] Review of Systems Review of Systems Review symptoms as per history of present illness. All other systems were reviewed and found to be within normal limits, except as documented in this note. Current Medications Current Medications Current Medications Medications (Trade) Dose Ordered Sig/Garrett Start Time Stop Time Status Last Admin Dose Admin Acetaminophen/ Hydrocodone Bitart (Lortab 5/325) 1 tab 1X ONCE 04/23/19 01:00 04/23/19 01:01 DC 04/23/19 01:04 1 TAB Allergies Allergies Allergies Coded Allergies Type Severity Reaction Last Updated Verified No Known Drug Allergies 09/21/13 No Physical Exam Physical Exam Constitutional: Well developed, well nourished, no acute distress. [] HENT: Normocephalic, atraumatic, bilateral external ears normal, oropharynx moist, no oral exudates, nose normal. [] Eyes: PERRLA, EOMI, conjunctiva normal, no discharge. [] Neck: Normal range of motion, no tenderness, supple, no stridor. [] Back: No lung pain, diffuse low back pain. [] Neurologic: Alert and oriented X 3, normal motor function, normal sensory function, no focal deficits noted. [] Psychologic: Affect normal, judgement normal, mood normal. [] Current Patient Data Vital Signs Vital Signs Date Time Temp Pulse Resp B/P (MAP) Pulse Ox O2 Delivery O2 Flow Rate FiO2 04/23/19 01:04 18 98 04/23/19 00:48 98.5 91 134/80 (98) Room Air 98.5 EKG EKG [] Radiology/Procedures Radiology/Procedures [] Course & Med Decision Making Course & Med Decision Making Pertinent Labs and Imaging studies reviewed. (See chart for details) [Patient instructed not to the ED for treatment of chronic back pain. Patient gi yanelis single oral dose of pain medication discharge to waiting area for family members.] Dragon Disclaimer Dragon Disclaimer This electronic medical record was generated, in whole or in part, using a voice recognition dictation system. Departure Departure Impression: Primary Impression: Marijuana use, continuous Additional Impression: Narcotic dependency, continuous Disposition: 01 HOME, SELF-CARE Condition: GOOD Patient Instructions: Chronic Back Pain Additional Instructions: Please alternate PCP for management of chronic back pain. Problem Qualifiers ARLIN CRAIG DO Apr 23, 2019 01:12
== END 2019-04-23 01:10 | disposition home or self-care (01) ==
LOC: ER 01:02
DX: F11.20 Opioid dependence, uncomplicated (principal); F12.90 Cannabis use, unspecified, uncomplicated; G89.29 Other chronic pain; M54.5 Low back pain
CPT/HCPCS: 99284

== ENCOUNTER 2019-04-27 13:02 | Emergency (ER) | payer OTHER ==
[~2019-04-27] VITALS: Ht 170.2 cm; Wt 52.6 kg
[2019-04-27 14:23] LABS: HEMATOCRIT 39.6 % (36.0-47.0); HEMOGLOBIN 13.2 g/dL (12.0-15.5); MEAN CORPUSCULAR HEMOGLOBIN 31 pg (25-35); MEAN CORPUSCULAR HGB CONC 33 g/dL (31-37); MEAN CORPUSCULAR VOLUME 92 fL (79-100); RED CELL DISTRIBUTION WIDTH 14.9 % (11.5-14.5); WHITE BLOOD COUNT 4.8 x10^3/uL (4.0-11.0)
[2019-04-27 14:24] LABS: BASO % 1 % (0-3); EOS # 0.1 x10^3/uL (0.0-0.7); EOS % 1 % (0-3); LYMPH # 1.3 x10^3/uL (1.0-4.8); LYMPH % 27 % (24-48); MONO # 0.6 x10^3/uL (0.0-1.1); MONO % 13 % (0-9); NEUT # 2.8 x10^3/uL (1.8-7.7); NEUT % 58 % (31-73); PLATELET COUNT 303 x10^3/uL (140-400); RED BLOOD COUNT 4.32 x10^6/uL (3.50-5.40)
[2019-04-27 14:43] LABS: TOTAL PROTEIN 7.4 g/dL (6.4-8.2)
[2019-04-27 14:44] LABS: ALBUMIN 3.8 g/dL (3.4-5.0); ALBUMIN/GLOBULIN RATIO 1.1 (1.0-1.7); CALCIUM 9.7 mg/dL (8.5-10.1); CREATININE 0.8 mg/dL (0.6-1.0); GFR 97.1; POTASSIUM 4.1 mmol/L (3.5-5.1); TOTAL BILIRUBIN 0.6 mg/dL (0.2-1.0)
[2019-04-27 14:49] LABS: BACTERIA,URINE 0 /HPF (0-FEW); BILIRUBIN,URINE NEGATIVE (NEG); CLARITY,URINE CLOUDY; COLOR,URINE YELLOW; NITRITE,URINE NEGATIVE (NEG); PH,URINE 7.5; PROTEIN,URINE NEGATIVE (NEG-TRACE)
[2019-04-27 14:50] LABS: AMORPHOUS SEDIMENT,UR PRESENT /HPF; SQUAMOUS EPITHELIAL CELL,UR OCC /LPF
[2019-04-27 14:52] LABS: AMPHETAMINE/METHAMPHETAMINE NEG (NEG); BARBITURATES NEG (NEG)
--- NOTE | 2019-04-27 14:52 | RAD ---
PQRS Compliance statement: One or more of the following individualized dose reduction techniques were utilized for this examination: 1. Automated exposure control. 2. Adjustment of the mA and/or kV according to patient size. 3. Use of iterative reconstruction technique. Indication:Numbness. TECHNIQUE: CT head without IV contrast COMPARISON:12/22/2012. FINDINGS: No pathologic extra-axial or intra-axial fluid collection. The ventricles and basal cisterns are within normal limits. No acute intracranial bleed. Mild cerebellar atrophy. No focal loss of quintero-white differentiation. Visualized Orbits are within normal limits. No suspicious calvarial lesion. Visualized paranasal sinuses and mastoid air cells are clear. IMPRESSION: No acute intracranial bleed. If concern for acute ischemic stroke is high, please consider MRI brain. Electronically signed by: Jose R Anderson DO (04/27/2019 2:49 PM) [facility]
[2019-04-27 14:53] LABS: BENZODIAZEPINES NEG (NEG); CANNABINOIDS NEG (NEG); COCAINE NEG (NEG); METHADONE NEG (NEG); OPIATES NEG (NEG); PHENCYCLIDINE NEG (NEG)
--- NOTE | 2019-04-27 15:53 | PHYS DOC ---
Past Medical History Past Medical History: Other Additional Past Medical Histor: SPINOCEREBELLAR ATAXIA; chronic back/leg pain Past Surgical History: Alcohol Use: None Drug Use: Other Adult General Chief Complaint Chief Complaint: OVERDOSE HPI HPI Patient is a 39 year old AA female well known to the department, who presents to the ER via EMS after calling 911 because she felt like her whole body was numb after taking 2 baclofen, 1.5 naproxen, and a gabapentin this morning. Pt denies any shortness of breath, chest pain, nausea, vomiting, diarrhea, or head pain. She states that she takes the medications for relief of her chronic back and leg pain. She currently rated her pain as a 10/10 on the pain scale to nursing staff but denies any pain complaints to myself. PT is noted to have bilateral foot swelling with moderate erythema no warmth of right foot, and chronic foot drop. Pt states that the swelling and redness began over a month ago. Review of Systems Review of Systems Constitutional: Denies fever or chills [] Eyes: Denies change in visual acuity, redness, or eye pain [] HENT: Denies nasal congestion or sore throat [] Respiratory: Denies cough or shortness of breath [] Cardiovascular: No additional information not addressed in HPI [] GI: Denies abdominal pain, nausea, vomiting, bloody stools or diarrhea [] : Denies dysuria or hematuria [] Musculoskeletal: Denies back pain or joint pain; see HPI [] Integument: see HPI [] Neurologic: Denies headache or focal weakness; see HPI Endocrine: Denies polyuria or polydipsia [] Complete systems were reviewed and found to be within normal limits, except as documented in this note. Allergies Allergies Allergies Coded Allergies Type Severity Reaction Last Updated Verified No Known Drug Allergies 09/21/13 No Physical Exam Physical Exam Constitutional: Well developed, well nourished, no acute distress, non-toxic appearance. [] HENT: Normocephalic, atraumatic, bilateral external ears normal, nose normal. [] Eyes: PERRLA, conjunctiva normal, no discharge. [] Neck: Normal range of motion, no stridor. [] Cardiovascular:Heart rate regular rhythm, no murmur [] Lungs & Thorax: Bilateral breath sounds clear to auscultation [] Abdomen: Bowel sounds normal, soft, no tenderness, no masses, no pulsatile masses. [] Skin: Warm, dry, no rash; moderate erythema noted to R foot and R ankle, no weeping, no warmth Extremities: No cyanosis; 1+ edema of bilateral feet with foot drop noted, no deformity, no signs of trauma Neurologic: Alert and oriented X 3, no focal deficits noted. [] Psychologic: Affect normal, judgement normal, mood normal. [] Current Patient Data Vital Signs Vital Signs Date Time Temp Pulse Resp B/P (MAP) Pulse Ox O2 Delivery O2 Flow Rate FiO2 04/27/19 16:02 91 17 140/78 (98) 96 Room Air 04/27/19 13:02 99.1 99.1 Lab Values Laboratory Tests Test 04/27/19 14:09 04/27/19 14:20 04/27/19 14:24 White Blood Count 4.8 x10^3/uL (4.0-11.0) Red Blood Count 4.32 x10^6/uL (3.50-5.40) Hemoglobin 13.2 g/dL (12.0-15.5) Hematocrit 39.6 % (36.0-47.0) Mean Corpuscular Volume 92 fL (79-100) Mean Corpuscular Hemoglobin 31 pg (25-35) Mean Corpuscular Hemoglobin Concent 33 g/dL (31-37) Red Cell Distribution Width 14.9 % (11.5-14.5) H Platelet Count 303 x10^3/uL (140-400) Neutrophils (%) (Auto) 58 % (31-73) Lymphocytes (%) (Auto) 27 % (24-48) Monocytes (%) (Auto) 13 % (0-9) H Eosinophils (%) (Auto) 1 % (0-3) Basophils (%) (Auto) 1 % (0-3) Neutrophils # (Auto) 2.8 x10^3/uL (1.8-7.7) Lymphocytes # (Auto) 1.3 x10^3/uL (1.0-4.8) Monocytes # (Auto) 0.6 x10^3/uL (0.0-1.1) Eosinophils # (Auto) 0.1 x10^3/uL (0.0-0.7) Basophils # (Auto) 0.0 x10^3/uL (0.0-0.2) Sodium Level 141 mmol/L (136-145) Potassium Level 4.1 mmol/L (3.5-5.1) Chloride Level 105 mmol/L (98-107) Carbon Dioxide Level 30 mmol/L (21-32) Anion Gap 6 (6-14) Blood Urea Nitrogen 18 mg/dL (7-20) Creatinine 0.8 mg/dL (0.6-1.0) Estimated GFR (Cockcroft-Gault) 97.1 BUN/Creatinine Ratio 23 (6-20) H Glucose Level 89 mg/dL (70-99) Calcium Level 9.7 mg/dL (8.5-10.1) Total Bilirubin 0.6 mg/dL (0.2-1.0) Aspartate Amino Transferase (AST) 15 U/L (15-37) Alanine Aminotransferase (ALT) 30 U/L (14-59) Alkaline Phosphatase 47 U/L (46-116) Total Protein 7.4 g/dL (6.4-8.2) Albumin 3.8 g/dL (3.4-5.0) Albumin/Globulin Ratio 1.1 (1.0-1.7) Urine Collection Type Unknown Urine Color Yellow Urine Clarity Cloudy Urine pH 7.5 Urine Specific [place] 1.020 Urine Protein Negative mg/dL (NEG-TRACE) Urine Glucose (UA) Negative mg/dL (NEG) Urine Ketones (Stick) Negative mg/dL (NEG) Urine Blood Large (NEG) Urine Nitrite Negative (NEG) Urine Bilirubin Negative (NEG) Urine Urobilinogen Dipstick 1.0 mg/dL (0.2 mg/dL) Urine Leukocyte Esterase Negative (NEG) Urine RBC 6-10 /HPF (0-2) Urine WBC 1-4 /HPF (0-4) Urine Squamous Epithelial Cells Occ /LPF Urine Amorphous Sediment Present /HPF Urine Bacteria 0 /HPF (0-FEW) Urine Opiates Screen Neg (NEG) Urine Methadone Screen Neg (NEG) Urine Barbiturates Neg (NEG) Urine Phencyclidine Screen Neg (NEG) Urine Amphetamine/Methamphetamine Neg (NEG) Urine Benzodiazepines Screen Neg (NEG) Urine Cocaine Screen Neg (NEG) Urine Cannabinoids Screen Neg (NEG) Urine Ethyl Alcohol Neg (NEG) POC Urine HCG, Qualitative Hcg negative (Negative) Laboratory Tests 04/27/19 14:09 Laboratory Tests 04/27/19 14:09 EKG EKG [] Radiology/Procedures Radiology/Procedures PROCEDURE: CT HEAD WO CONTRAST PQRS Compliance statement: One or more of the following individualized dose reduction techniques were utilized for this examination: 1. Automated exposure control. 2. Adjustment of the mA and/or kV according to patient size. 3. Use of iterative reconstruction technique. Indication:Numbness. TECHNIQUE: CT head without IV contrast COMPARISON:12/22/2012. FINDINGS: No pathologic extra-axial or intra-axial fluid collection. The ventricles and basal cisterns are within normal limits. No acute intracranial bleed. Mild cerebellar atrophy. No focal loss of quintero-white differentiation. Visualized Orbits are within normal limits. No suspicious calvarial lesion. Visualized paranasal sinuses and mastoid air cells are clear. IMPRESSION: No acute intracranial bleed. If concern for acute ischemic stroke is high, please consider MRI brain. [] Course & Med Decision Making Course & Med Decision Making Pertinent Labs and Imaging studies reviewed. (See chart for details) dx: encounter for medical screening exam, medication side effect ddx: cellulitis, overdose, CBC unremarkable, CMP unremarkable, UDS negative for drugs of abuse, UA 6-10 RBCs 1-4 WBCs pt denies any urinary sx or complaints CT head was negative for any acute findings. Pt reports feeling better after observation in the ER and states she would like to go home. She was advised that she needs to take her medications as directed and notified that the sx experienced today are likely due to a medication side effect. Pt verbalized an understanding of findings, instructions, follow-up, and return to ER instructions and was in agreement with POC. [] Dragon Disclaimer Dragon Disclaimer This electronic medical record was generated, in whole or in part, using a voice recognition dictation system. Departure Departure Impression: Primary Impression: Encounter for medical screening examination Additional Impression: Medication side effect Disposition: HOME, SELF-CARE Condition: STABLE Referrals: JEAN-PIERRE EDMONDSON MD (PCP) Patient Instructions: Medical Screening Exam Additional Instructions: YOUR TEST RESULTS TODAY ARE NORMAL. FOLLOW UP WITH YOUR PRIMARY CARE DOCTOR IF SYMPTOMS PERSIST, RETURN TO THE ER IF SYMPTOMS WORSEN. Problem Qualifiers DEE HAMMER [employer]EM[employer] Apr 27, 2019 15:53
[2019-04-27 16:02] VITALS: BP 140/78
== END 2019-04-27 16:15 | disposition home or self-care (01) ==
LOC: ER 13:02
DX: T42.8X5A Adverse effect of antiparkinsonism drugs and other central muscle-tone depressants, initial encounter (principal); T39.315A Adverse effect of propionic acid derivatives, initial encounter; T42.6X5A Adverse effect of other antiepileptic and sedative-hypnotic drugs, initial encounter; Z00.00 Encounter for general adult medical examination without abnormal findings; G89.29 Other chronic pain; R20.0 Anesthesia of skin; R60.0 Localized edema; M79.604 Pain in right leg; M79.605 Pain in left leg; M54.9 Dorsalgia, unspecified; R51 Headache; Y92.89 Other specified places as the place of occurrence of the external cause
CPT/HCPCS: 36415; 70450; 80053; 80307; 81001; 81025; 85025; 99285-25

== ENCOUNTER 2019-06-04 17:11 | Inpatient (IN) | payer OTHER ==
[~2019-06-04] VITALS: Ht 170.2 cm; Wt 49.4 kg
--- NOTE | 2019-06-04 17:55 | PHYS DOC ---
Past Medical History Past Medical History: Other Additional Past Medical Histor: SPINOCEREBELLAR ATAXIA; chronic back/leg pain (DAVI BRIONES APRN) Past Surgical History: (DAVI BRIONES APRN) Alcohol Use: None Drug Use: Other (DAVI BRIONES APRN) Adult General Chief Complaint Chief Complaint: ABDOMINAL PAIN HPI HPI Patient is a 39 year old female that presents with generalized body aches has been ongoing for years. Also states she has been having diarrhea for several weeks. The patient states her pain is 10 out of 10 in severity. Patient has not taken any medicine prior to arrival. (DAVI BRIONES APRN) Review of Systems Review of Systems Constitutional: Denies fever or chills [] Eyes: Denies change in visual acuity, redness, or eye pain [] HENT: Denies nasal congestion or sore throat [] Respiratory: Denies cough or shortness of breath [] Cardiovascular: No additional information not addressed in HPI [] GI: Denies abdominal pain, nausea, vomiting, bloody stools or diarrhea [] : Denies dysuria or hematuria [] Musculoskeletal: reports generalized pain. Integument: Denies rash or skin lesions [] Neurologic: Denies headache, focal weakness or sensory changes [] Endocrine: Denies polyuria or polydipsia [] Complete systems were reviewed and found to be within normal limits, except as documented in this note. (DAVI BRIONES APRN) Current Medications Current Medications Current Medications Medications (Trade) Dose Ordered Sig/Garrett Start Time Stop Time Status Last Admin Dose Admin Clindamycin Phosphate 50 ml @ 100 mls/hr 1X ONCE 06/04/19 20:15 06/04/19 20:44 DC 06/04/19 20:28 100 MLS/HR Ketorolac Tromethamine (Toradol 15mg Vial) 15 mg 1X ONCE 06/04/19 18:00 06/04/19 18:01 DC 06/04/19 18:27 15 MG Lorazepam (Ativan Inj) 2 mg 1X ONCE 06/04/19 20:15 06/04/19 20:24 DC Morphine Sulfate (Morphine Sulfate) 4 mg 1X ONCE 06/04/19 20:15 06/04/19 20:35 DC 06/04/19 20:38 4 MG Sodium Chloride 1,000 ml @ 1,000 mls/hr 1X ONCE 06/04/19 19:00 06/04/19 19:59 DC 06/04/19 21:58 1,000 MLS/HR (DAVI KISER DO) Allergies Allergies Allergies Coded Allergies Type Severity Reaction Last Updated Verified No Known Drug Allergies 09/21/13 No (DAVI KISER DO) Physical Exam Physical Exam Constitutional: Well developed, well nourished, no acute distress, non-toxic appearance. [] HENT: Normocephalic, atraumatic, bilateral external ears normal, oropharynx moist, no oral exudates, nose normal. [] Eyes: PERRLA, EOMI, conjunctiva normal, no discharge. [] Neck: Normal range of motion, no tenderness, supple, no stridor. [] Cardiovascular:Heart rate regular rhythm, no murmur [] Lungs & Thorax: Bilateral breath sounds clear to auscultation [] Abdomen: Bowel sounds normal, soft, no tenderness, no masses, no pulsatile masses. [] Skin: Warm, dry, no erythema, no rash. [] Back: No tenderness, no CVA tenderness. [] Extremities: Bilateral tenderness lower extremity, hot to touch with edema and erythema. Neurologic: Alert and oriented X 3, normal motor function, normal sensory function, no focal deficits noted. [] Psychologic: Affect normal, judgement normal, mood normal. [] (DAVI BRIONES APRN) Current Patient Data Vital Signs Vital Signs Date Time Temp Pulse Resp B/P (MAP) Pulse Ox O2 Delivery O2 Flow Rate FiO2 06/04/19 20:19 118 18 138/74 (95) 97 Nasal Cannula 06/04/19 17:40 98.5 98.5 (DAVI KISER DO) Lab Values Laboratory Tests Test 06/04/19 18:10 06/04/19 18:25 White Blood Count 6.9 x10^3/uL (4.0-11.0) Red Blood Count 4.22 x10^6/uL (3.50-5.40) Hemoglobin 12.9 g/dL (12.0-15.5) Hematocrit 38.5 % (36.0-47.0) Mean Corpuscular Volume 91 fL (79-100) Mean Corpuscular Hemoglobin 31 pg (25-35) Mean Corpuscular Hemoglobin Concent 33 g/dL (31-37) Red Cell Distribution Width 14.1 % (11.5-14.5) Platelet Count 290 x10^3/uL (140-400) Neutrophils (%) (Auto) 78 % (31-73) H Lymphocytes (%) (Auto) 12 % (24-48) L Monocytes (%) (Auto) 10 % (0-9) H Eosinophils (%) (Auto) 1 % (0-3) Basophils (%) (Auto) 0 % (0-3) Neutrophils # (Auto) 5.4 x10^3/uL (1.8-7.7) Lymphocytes # (Auto) 0.8 x10^3/uL (1.0-4.8) L Monocytes # (Auto) 0.7 x10^3/uL (0.0-1.1) Eosinophils # (Auto) 0.0 x10^3/uL (0.0-0.7) Basophils # (Auto) 0.0 x10^3/uL (0.0-0.2) Sodium Level 143 mmol/L (136-145) Potassium Level 3.9 mmol/L (3.5-5.1) Chloride Level 106 mmol/L (98-107) Carbon Dioxide Level 27 mmol/L (21-32) Anion Gap 10 (6-14) Blood Urea Nitrogen 11 mg/dL (7-20) Creatinine 0.8 mg/dL (0.6-1.0) Estimated GFR (Cockcroft-Gault) 97.1 BUN/Creatinine Ratio 14 (6-20) Glucose Level 106 mg/dL (70-99) H Calcium Level 9.5 mg/dL (8.5-10.1) Total Bilirubin 0.6 mg/dL (0.2-1.0) Aspartate Amino Transferase (AST) 13 U/L (15-37) L Alanine Aminotransferase (ALT) 16 U/L (14-59) Alkaline Phosphatase 50 U/L (46-116) Total Protein 7.4 g/dL (6.4-8.2) Albumin 3.9 g/dL (3.4-5.0) Albumin/Globulin Ratio 1.1 (1.0-1.7) Thyroid Stimulating Hormone (TSH) 0.491 uIU/mL (0.358-3.74) Free Thyroxine 1.01 ng/dL (0.76-1.46) Ethyl Alcohol Level < 10 mg/dL (0-10) Urine Collection Type Unknown Urine Color Yellow Urine Clarity Clear Urine pH 6.0 Urine Specific [place] 1.025 Urine Protein Negative mg/dL (NEG-TRACE) Urine Glucose (UA) Negative mg/dL (NEG) Urine Ketones (Stick) Negative mg/dL (NEG) Urine Blood Negative (NEG) Urine Nitrite Negative (NEG) Urine Bilirubin Small (NEG) Urine Urobilinogen Dipstick 1.0 mg/dL (0.2 mg/dL) Urine Leukocyte Esterase Negative (NEG) Urine RBC 3-5 /HPF (0-2) Urine WBC 1-4 /HPF (0-4) Urine Squamous Epithelial Cells Many /LPF Urine Bacteria Few /HPF (0-FEW) Urine Mucus Marked /LPF Urine Opiates Screen Neg (NEG) Urine Methadone Screen Neg (NEG) Urine Barbiturates Neg (NEG) Urine Phencyclidine Screen Neg (NEG) Urine Amphetamine/Methamphetamine Neg (NEG) Urine Benzodiazepines Screen Neg (NEG) Urine Cocaine Screen Neg (NEG) Urine Cannabinoids Screen Neg (NEG) Urine Ethyl Alcohol Neg (NEG) Laboratory Tests 06/04/19 18:10 Laboratory Tests 06/04/19 18:10 (DAVI KISER DO) Lab Values Laboratory Tests Test 06/04/19 18:10 06/04/19 18:25 White Blood Count 6.9 x10^3/uL (4.0-11.0) Red Blood Count 4.22 x10^6/uL (3.50-5.40) Hemoglobin 12.9 g/dL (12.0-15.5) Hematocrit 38.5 % (36.0-47.0) Mean Corpuscular Volume 91 fL (79-100) Mean Corpuscular Hemoglobin 31 pg (25-35) Mean Corpuscular Hemoglobin Concent 33 g/dL (31-37) Red Cell Distribution Width 14.1 % (11.5-14.5) Platelet Count 290 x10^3/uL (140-400) Neutrophils (%) (Auto) 78 % (31-73) H Lymphocytes (%) (Auto) 12 % (24-48) L Monocytes (%) (Auto) 10 % (0-9) H Eosinophils (%) (Auto) 1 % (0-3) Basophils (%) (Auto) 0 % (0-3) Neutrophils # (Auto) 5.4 x10^3/uL (1.8-7.7) Lymphocytes # (Auto) 0.8 x10^3/uL (1.0-4.8) L Monocytes # (Auto) 0.7 x10^3/uL (0.0-1.1) Eosinophils # (Auto) 0.0 x10^3/uL (0.0-0.7) Basophils # (Auto) 0.0 x10^3/uL (0.0-0.2) Sodium Level 143 mmol/L (136-145) Potassium Level 3.9 mmol/L (3.5-5.1) Chloride Level 106 mmol/L (98-107) Carbon Dioxide Level 27 mmol/L (21-32) Anion Gap 10 (6-14) Blood Urea Nitrogen 11 mg/dL (7-20) Creatinine 0.8 mg/dL (0.6-1.0) Estimated GFR (Cockcroft-Gault) 97.1 BUN/Creatinine Ratio 14 (6-20) Glucose Level 106 mg/dL (70-99) H Calcium Level 9.5 mg/dL (8.5-10.1) Total Bilirubin 0.6 mg/dL (0.2-1.0) Aspartate Amino Transferase (AST) 13 U/L (15-37) L Alanine Aminotransferase (ALT) 16 U/L (14-59) Alkaline Phosphatase 50 U/L (46-116) Total Protein 7.4 g/dL (6.4-8.2) Albumin 3.9 g/dL (3.4-5.0) Albumin/Globulin Ratio 1.1 (1.0-1.7) Urine Collection Type Unknown Urine Color Yellow Urine Clarity Clear Urine pH 6.0 Urine Specific [place] 1.025 Urine Protein Negative mg/dL (NEG-TRACE) Urine Glucose (UA) Negative mg/dL (NEG) Urine Ketones (Stick) Negative mg/dL (NEG) Urine Blood Negative (NEG) Urine Nitrite Negative (NEG) Urine Bilirubin Small (NEG) Urine Urobilinogen Dipstick 1.0 mg/dL (0.2 mg/dL) Urine Leukocyte Esterase Negative (NEG) Urine RBC 3-5 /HPF (0-2) Urine WBC 1-4 /HPF (0-4) Urine Squamous Epithelial Cells Many /LPF Urine Bacteria Few /HPF (0-FEW) Urine Mucus Marked /LPF Laboratory Tests 06/04/19 18:10 Laboratory Tests 06/04/19 18:10 (DAVI BRIONES APRN) EKG EKG [] (DAVI BRIONES APRN) Radiology/Procedures Radiology/Procedures [] (DAVI BRIONES APRN) Radiology/Procedures PROCEDURE: VENOUS LOWER EXT BILATERAL EXAM: Bilateral lower extremity venous Doppler. HISTORY: Bilateral lower extremity redness, pain and swelling. COMPARISON: None. FINDINGS: Grayscale and Doppler analysis of the both lower extremity deep venous systems was performed with graded compression and augmentation. The common femoral, greater saphenous, superficial femoral, popliteal and calf veins were assessed. There is no evidence of deep venous thrombosis. IMPRESSION: 1. No evidence of deep venous thrombosis. Electronically signed by: Juan Luis Blue MD (06/04/2019 8:50 PM) [facility] (DAVI KISER DO) Course & Med Decision Making Course & Med Decision Making Pertinent Labs and Imaging studies reviewed. (See chart for details) Patient is well known to me and come frequently for pain management. Will give Toradol. Patient has been having diarrhea for several weeks and her HR is 116. Will get labs and give 1 L of fluids. Nursing asked for pain medication for patient and anxiety medication to help complete ultrasound. Ordered 4 mg of morphine and Ativan. Labs are unremarkable will get c-diff, venous bilateral ultrasound (bilateral legs are edematous and hot to touch) and admit to Dr. Gagnon. Discussed with Dr. Gagnon who agrees to admission (2029). Dr. Gagnon requests no narcotics. Went to nursing to ask not to give morphine and Ativan that had been ordered and I will cancel however nursing states it had already given morphine. Cancelled Ativan as it had not been given. Discussed with nursing patient is to have no more narcotics. (DAVI BRIONES APRN) Dragon Disclaimer Dragon Disclaimer This electronic medical record was generated, in whole or in part, using a voice recognition dictation system. (DAVI BRIONES APRN) Departure Departure Impression: Primary Impression: Cellulitis Additional Impression: Diarrhea Disposition: 09 ADMITTED INPATIENT Admitting Physician: Dede Gagnon (DAVI BRIONES APRN) Condition: STABLE Referrals: DEDE GAGNON MD (PCP) Attending Signature Attending Signature I have reviewed the PA/SHUTTLER CAR's note and plan of care. I was available for consultation as needed during the patient's visit in the emergency department. I agree with the clinical impression, plan, and disposition. (DAVI KISER DO) Problem Qualifiers Primary Impression: Cellulitis Site of cellulitis: extremity Site of cellulitis of extremity: lower extremity Laterality: unspecified laterality Qualified Codes: L03.119 - Cellulitis of unspecified part of limb DAVI BRIONES APRN Jun 04, 2019 17:55 DAVI KISER DO Jun 05, 2019 21:31
[2019-06-04] MEDS ORDERED: IV NORMAL SALINE 1000ML BAG 1,000 ML IV ONE ×2 (18:00→19:00)
[2019-06-04] MEDS ORDERED: KETOROLAC 15 MG/ML VIAL. IV ONE (18:00)
[2019-06-04 18:30] LABS: BASO % 0 % (0-3); EOS % 1 % (0-3); HEMATOCRIT 38.5 % (36.0-47.0); HEMOGLOBIN 12.9 g/dL (12.0-15.5); LYMPH # 0.8 x10^3/uL (1.0-4.8); LYMPH % 12 % (24-48); MEAN CORPUSCULAR HEMOGLOBIN 31 pg (25-35); MEAN CORPUSCULAR HGB CONC 33 g/dL (31-37); MEAN CORPUSCULAR VOLUME 91 fL (79-100); MONO # 0.7 x10^3/uL (0.0-1.1); MONO % 10 % (0-9); NEUT # 5.4 x10^3/uL (1.8-7.7); NEUT % 78 % (31-73); PLATELET COUNT 290 x10^3/uL (140-400); RED BLOOD COUNT 4.22 x10^6/uL (3.50-5.40); RED CELL DISTRIBUTION WIDTH 14.1 % (11.5-14.5); WHITE BLOOD COUNT 6.9 x10^3/uL (4.0-11.0)
[2019-06-04 18:37] LABS: CALCIUM 9.5 mg/dL (8.5-10.1); CREATININE 0.8 mg/dL (0.6-1.0); GFR 97.1; POTASSIUM 3.9 mmol/L (3.5-5.1)
[2019-06-04 18:44] LABS: ALBUMIN 3.9 g/dL (3.4-5.0); ALBUMIN/GLOBULIN RATIO 1.1 (1.0-1.7); TOTAL BILIRUBIN 0.6 mg/dL (0.2-1.0); TOTAL PROTEIN 7.4 g/dL (6.4-8.2)
[2019-06-04 18:55] LABS: BILIRUBIN,URINE SMALL (NEG); CLARITY,URINE CLEAR; COLOR,URINE YELLOW; NITRITE,URINE NEGATIVE (NEG); PROTEIN,URINE NEGATIVE (NEG-TRACE)
[2019-06-04 19:01] LABS: BACTERIA,URINE FEW /HPF (0-FEW); SQUAMOUS EPITHELIAL CELL,UR MANY /LPF
[2019-06-04] MEDS ORDERED: CLINDAMYCIN 600MG PREMIX 50 ML IV ONE (20:15)
[2019-06-04] MEDS ORDERED: MORPHINE SULFATE 4 MG/ML VIAL. IV ONE ×2 (20:15)
[2019-06-04] MEDS ORDERED: ONDANSETRON PF 4 MG/2 ML VIAL. IV PRN (20:30)
[2019-06-04] MEDS ORDERED: ACETAMINOPHEN 325 MG TABLET. PO PRN (20:30)
[2019-06-04 20:43] LABS: AMPHETAMINE/METHAMPHETAMINE NEG (NEG); BARBITURATES NEG (NEG); BENZODIAZEPINES NEG (NEG); CANNABINOIDS NEG (NEG); COCAINE NEG (NEG); METHADONE NEG (NEG); OPIATES NEG (NEG); PHENCYCLIDINE NEG (NEG)
--- NOTE | 2019-06-04 20:53 | RAD ---
EXAM: Bilateral lower extremity venous Doppler. HISTORY: Bilateral lower extremity redness, pain and swelling. COMPARISON: None. FINDINGS: Grayscale and Doppler analysis of the both lower extremity deep venous systems was performed with graded compression and augmentation. The common femoral, greater saphenous, superficial femoral, popliteal and calf veins were assessed. There is no evidence of deep venous thrombosis. IMPRESSION: 1. No evidence of deep venous thrombosis. Electronically signed by: Juan Luis Blue MD (06/04/2019 8:50 PM) [facility]
[2019-06-04] MEDS ORDERED: CLONAZEPAM1 MG PO (23:04)
[2019-06-04] MEDS ORDERED: DULO60CA45 PO (23:04)
[2019-06-04] MEDS ORDERED: DICL100G18 TP (23:04)
[2019-06-04] MEDS ORDERED: LIDO700A21 TP (23:04)
[2019-06-04] MEDS ORDERED: GABA300C18 PO (23:04)
[2019-06-04] MEDS ORDERED: BACL10TA PO (23:04)
[2019-06-04] MEDS ORDERED: PREG75CA PO (23:04)
[2019-06-04] MEDS ORDERED: IBUP-1007 PO (23:04)
[2019-06-04 23:53] VITALS: BP 111/63
[2019-06-05] MEDS: clonazePAM 0.5 MG TABLET PO SCH ×2 (00:29→21:11)
[2019-06-05] MEDS: CYCLOBENZAPRINE 10 MG TABLET. PO SCH ×4 (00:30→21:12)
[2019-06-05] MEDS: IBUPROFEN 200 MG TABLET. PO SCH ×3 (00:30→21:11)
[2019-06-05 03:29] VITALS: BP 122/85
[2019-06-05 07:52] VITALS: BP 137/95
--- NOTE | 2019-06-05 08:20 | PDOC ---
PROGRESS NOTES Subjective Subjective Patient denies abdominal pain at this time, hungry for breakfast. Objective Objective Vital Signs Date Time Temp Pulse Resp B/P (MAP) Pulse Ox O2 Delivery O2 Flow Rate FiO2 06/05/19 07:52 97.6 98 18 137/95 (109) 100 Nasal Cannula 2.0 97.6 Intake and Output 06/05/19 07:00 Intake Total 1050 ml Output Total 250 ml Balance 800 ml Intake Oral 0 ml IV Total 1050 ml Output Urine Total 250 ml Physical Exam Abdomen: Normal bowel sounds, Soft, No tenderness Heart: Regular rate (mildly tachycardic) Extremities: Other (scant edema and erythema bilateral LE's below knees. Small shallow scabbed wound on L knee, skin otherwise intact) General: Alert, Oriented X3, No acute distress Lungs: Clear to auscultation Neuro: Other (spasticity throughout extremeties) Assessment Assessment Problems Medical Problems: (1) Cellulitis Status: Acute (2) Diarrhea Status: Acute Plan Plan of Care 1. Cellulitis bilateral LE's - patient apparently had significant erythema of legs in ER yesterday. Venous dopplers negative. Exam improved today after Clindamycin x1. Will start Keflex and follow. 2. diarrhea - patient reports she had been experiencing this for several weeks. None since admission, C diff ordered. 3. tachycardia - patient with intermittent sinus tachycardia. No CP. Has had this on office chart at times but not consistently. UDS negative. Not hypoxic or anemic. Check thyroid lab. Patient not symptomatic. 4. 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 Continue pain medications and Cymbalta. Avoiding narcotic pain medication due to risk of habituation for her and also not indicated for this type of pain. Comment Review of Relevant I have reviewed the following items filemon (where applicable) has been applied. Labs Laboratory Tests Test 06/04/19 18:10 06/04/19 18:25 White Blood Count 6.9 x10^3/uL (4.0-11.0) Red Blood Count 4.22 x10^6/uL (3.50-5.40) Hemoglobin 12.9 g/dL (12.0-15.5) Hematocrit 38.5 % (36.0-47.0) Mean Corpuscular Volume 91 fL (79-100) Mean Corpuscular Hemoglobin 31 pg (25-35) Mean Corpuscular Hemoglobin Concent 33 g/dL (31-37) Red Cell Distribution Width 14.1 % (11.5-14.5) Platelet Count 290 x10^3/uL (140-400) Neutrophils (%) (Auto) 78 % (31-73) Lymphocytes (%) (Auto) 12 % (24-48) Monocytes (%) (Auto) 10 % (0-9) Eosinophils (%) (Auto) 1 % (0-3) Basophils (%) (Auto) 0 % (0-3) Neutrophils # (Auto) 5.4 x10^3/uL (1.8-7.7) Lymphocytes # (Auto) 0.8 x10^3/uL (1.0-4.8) Monocytes # (Auto) 0.7 x10^3/uL (0.0-1.1) Eosinophils # (Auto) 0.0 x10^3/uL (0.0-0.7) Basophils # (Auto) 0.0 x10^3/uL (0.0-0.2) Sodium Level 143 mmol/L (136-145) Potassium Level 3.9 mmol/L (3.5-5.1) Chloride Level 106 mmol/L (98-107) Carbon Dioxide Level 27 mmol/L (21-32) Anion Gap 10 (6-14) Blood Urea Nitrogen 11 mg/dL (7-20) Creatinine 0.8 mg/dL (0.6-1.0) Estimated GFR (Cockcroft-Gault) 97.1 BUN/Creatinine Ratio 14 (6-20) Glucose Level 106 mg/dL (70-99) Calcium Level 9.5 mg/dL (8.5-10.1) Total Bilirubin 0.6 mg/dL (0.2-1.0) Aspartate Amino Transf (AST/SGOT) 13 U/L (15-37) Alanine Aminotransferase (ALT/SGPT) 16 U/L (14-59) Alkaline Phosphatase 50 U/L (46-116) Total Protein 7.4 g/dL (6.4-8.2) Albumin 3.9 g/dL (3.4-5.0) Albumin/Globulin Ratio 1.1 (1.0-1.7) Ethyl Alcohol Level < 10 mg/dL (0-10) Urine Collection Type Unknown Urine Color Yellow Urine Clarity Clear Urine pH 6.0 Urine Specific [place] 1.025 Urine Protein Negative mg/dL (NEG-TRACE) Urine Glucose (UA) Negative mg/dL (NEG) Urine Ketones (Stick) Negative mg/dL (NEG) Urine Blood Negative (NEG) Urine Nitrite Negative (NEG) Urine Bilirubin Small (NEG) Urine Urobilinogen Dipstick 1.0 mg/dL (0.2 mg/dL) Urine Leukocyte Esterase Negative (NEG) Urine RBC 3-5 /HPF (0-2) Urine WBC 1-4 /HPF (0-4) Urine Squamous Epithelial Cells Many /LPF Urine Bacteria Few /HPF (0-FEW) Urine Mucus Marked /LPF Urine Opiates Screen Neg (NEG) Urine Methadone Screen Neg (NEG) Urine Barbiturates Neg (NEG) Urine Phencyclidine Screen Neg (NEG) Urine Amphetamine/Methamphetamine Neg (NEG) Urine Benzodiazepines Screen Neg (NEG) Urine Cocaine Screen Neg (NEG) Urine Cannabinoids Screen Neg (NEG) Urine Ethyl Alcohol Neg (NEG) Laboratory Tests Test 06/04/19 18:10 06/04/19 18:25 White Blood Count 6.9 x10^3/uL (4.0-11.0) Red Blood Count 4.22 x10^6/uL (3.50-5.40) Hemoglobin 12.9 g/dL (12.0-15.5) Hematocrit 38.5 % (36.0-47.0) Mean Corpuscular Volume 91 fL (79-100) Mean Corpuscular Hemoglobin 31 pg (25-35) Mean Corpuscular Hemoglobin Concent 33 g/dL (31-37) Red Cell Distribution Width 14.1 % (11.5-14.5) Platelet Count 290 x10^3/uL (140-400) Neutrophils (%) (Auto) 78 % (31-73) Lymphocytes (%) (Auto) 12 % (24-48) Monocytes (%) (Auto) 10 % (0-9) Eosinophils (%) (Auto) 1 % (0-3) Basophils (%) (Auto) 0 % (0-3) Neutrophils # (Auto) 5.4 x10^3/uL (1.8-7.7) Lymphocytes # (Auto) 0.8 x10^3/uL (1.0-4.8) Monocytes # (Auto) 0.7 x10^3/uL (0.0-1.1) Eosinophils # (Auto) 0.0 x10^3/uL (0.0-0.7) Basophils # (Auto) 0.0 x10^3/uL (0.0-0.2) Sodium Level 143 mmol/L (136-145) Potassium Level 3.9 mmol/L (3.5-5.1) Chloride Level 106 mmol/L (98-107) Carbon Dioxide Level 27 mmol/L (21-32) Anion Gap 10 (6-14) Blood Urea Nitrogen 11 mg/dL (7-20) Creatinine 0.8 mg/dL (0.6-1.0) Estimated GFR (Cockcroft-Gault) 97.1 BUN/Creatinine Ratio 14 (6-20) Glucose Level 106 mg/dL (70-99) Calcium Level 9.5 mg/dL (8.5-10.1) Total Bilirubin 0.6 mg/dL (0.2-1.0) Aspartate Amino Transf (AST/SGOT) 13 U/L (15-37) Alanine Aminotransferase (ALT/SGPT) 16 U/L (14-59) Alkaline Phosphatase 50 U/L (46-116) Total Protein 7.4 g/dL (6.4-8.2) Albumin 3.9 g/dL (3.4-5.0) Albumin/Globulin Ratio 1.1 (1.0-1.7) Ethyl Alcohol Level < 10 mg/dL (0-10) Urine Collection Type Unknown Urine Color Yellow Urine Clarity Clear Urine pH 6.0 Urine Specific [place] 1.025 Urine Protein Negative mg/dL (NEG-TRACE) Urine Glucose (UA) Negative mg/dL (NEG) Urine Ketones (Stick) Negative mg/dL (NEG) Urine Blood Negative (NEG) Urine Nitrite Negative (NEG) Urine Bilirubin Small (NEG) Urine Urobilinogen Dipstick 1.0 mg/dL (0.2 mg/dL) Urine Leukocyte Esterase Negative (NEG) Urine RBC 3-5 /HPF (0-2) Urine WBC 1-4 /HPF (0-4) Urine Squamous Epithelial Cells Many /LPF Urine Bacteria Few /HPF (0-FEW) Urine Mucus Marked /LPF Urine Opiates Screen Neg (NEG) Urine Methadone Screen Neg (NEG) Urine Barbiturates Neg (NEG) Urine Phencyclidine Screen Neg (NEG) Urine Amphetamine/Methamphetamine Neg (NEG) Urine Benzodiazepines Screen Neg (NEG) Urine Cocaine Screen Neg (NEG) Urine Cannabinoids Screen Neg (NEG) Urine Ethyl Alcohol Neg (NEG) Medications Current Medications Ketorolac Tromethamine (Toradol 15mg Vial) 15 mg 1X ONCE IV Last administered on 06/04/19at 18:27; Start 06/04/19 at 18:00; Stop 06/04/19 at 18:01; Status DC Sodium Chloride 1,000 ml @ 1,000 mls/hr 1X ONCE IV Last administered on 06/04/19at 18:27; Start 06/04/19 at 18:00; Stop 06/04/19 at 18:59; Status DC Sodium Chloride 1,000 ml @ 1,000 mls/hr 1X ONCE IV Last administered on 06/04/19at 21:58; Start 06/04/19 at 19:00; Stop 06/04/19 at 19:59; Status DC Morphine Sulfate (Morphine Sulfate) 4 mg 1X ONCE IV ; Start 06/04/19 at 20:15; Stop 06/04/19 at 20:22; Status DC Lorazepam (Ativan Inj) 2 mg 1X ONCE IV ; Start 06/04/19 at 20:15; Stop 06/04/19 at 20:24; Status DC Clindamycin Phosphate 50 ml @ 100 mls/hr 1X ONCE IV Last administered on 06/04/19at 20:28; Start 06/04/19 at 20:15; Stop 06/04/19 at 20:44; Status DC Ondansetron HCl (Zofran) 4 mg PRN Q8HRS PRN IV NAUSEA/VOMITING; Start 06/04/19 at 20:30; Stop 06/05/19 at 20:29 Acetaminophen (Tylenol) 650 mg PRN Q4HRS PRN PO FEVER; Start 06/04/19 at 20:30; Stop 06/05/19 at 20:29 Morphine Sulfate (Morphine Sulfate) 4 mg 1X ONCE IV Last administered on 06/04/19at 20:38; Start 06/04/19 at 20:15; Stop 06/04/19 at 20:35; Status DC Diclofenac Sodium (Voltaren) 1 óscar QID TP ; Start 06/05/19 at 09:00 Lidocaine (Lidoderm) 1 patch DAILY TP ; Start 06/05/19 at 09:00 Cyclobenzaprine HCl (Flexeril) 10 mg TID PO Last administered on 06/05/19at 00:35; Start 06/04/19 at 23:30 Clonazepam (KlonoPIN) 1 mg QHS PO Last administered on 06/05/19at 00:35; Start 06/04/19 at 23:30 Duloxetine HCl (Cymbalta) 60 mg DAILY PO ; Start 06/05/19 at 09:00 Ibuprofen (Motrin) 600 mg BID PO Last administered on 06/05/19at 00:35; Start 06/04/19 at 23:30 Miscellaneous (Lidoderm Patch Removal) 1 ea QHS MC ; Start 06/05/19 at 21:00 Active Scripts Active Naproxen 375 Mg Tablet 1 Tab PO BID PRN Reported Gabapentin (Gabapentin) 300 Mg Capsule 300 Mg PO Q8HRS Baclofen 10 Mg Tablet 1 Tab PO TID Voltaren (Diclofenac Sodium) 100 Gm Gel..gram. 1 Gm TP QID Duloxetine Hcl 60 Mg Capsule.dr 60 Mg PO DAILY Lidocaine PATCH (Lidocaine) 1 Each Adh..patch 1 Each TP DAILY REMOVE AFTER 12 HOURS Ibuprofen 600 Mg Tablet 600 Mg PO BID Lyrica (Pregabalin) 75 Mg Capsule 1 Cap PO DAILY tapering dose; pt has not picked up medication waiting for prior authorization 75mg daily for 5 days 75mg BID for 5days then 75mg three times a day Clonazepam 1 Mg Tablet 1 Tab PO QHS Vitals/I & O Vital Sign - Last 24 Hours 06/04/19 06/04/19 06/04/19 06/04/19 17:40 19:50 20:19 20:38 Temp 98.5 98.5 Pulse 117 112 118 Resp 18 19 18 18 B/P (MAP) 136/79 (98) 130/80 (97) 138/74 (95) Pulse Ox 96 97 97 98 O2 Delivery Room Air Nasal Cannula Nasal Cannula Room Air 06/04/19 06/04/19 06/05/19 06/05/19 20:55 23:53 03:29 06:13 Temp 98.6 97.8 98.6 97.8 Pulse 119 112 91 Resp 19 18 20 B/P (MAP) 142/70 (94) 111/63 (79) 122/85 (97) Pulse Ox 97 97 100 O2 Delivery Nasal Cannula Nasal Cannula Nasal Cannula O2 Flow Rate 2.0 2.0 06/05/19 07:52 Temp 97.6 97.6 Pulse 98 Resp 18 B/P (MAP) 137/95 (109) Pulse Ox 100 O2 Delivery Nasal Cannula O2 Flow Rate 2.0 Intake and Output 06/04/19 06/04/19 06/05/19 15:00 23:00 07:00 Intake Total 1050 ml 0 ml Output Total 250 ml Balance 1050 ml -250 ml JEAN-PIERRE EDMONDSON MD Jun 05, 2019 08:20
[2019-06-05] MEDS: LIDOCAINE (700MG/PATCH) PATCH. TP SCH (08:30)
[2019-06-05] MEDS: DULoxetine HCL 30 MG CAPSULE.DR PO SCH (08:31)
[2019-06-05] MEDS: CEPHALEXIN 250 MG CAPSULE. PO SCH ×2 (08:36→21:12)
[2019-06-05] MEDS: DICLOFENAC SODIUM 1% TOPICAL GEL 100GM TUBE. TP SCH ×4 (08:37→21:58)
--- NOTE | 2019-06-05 09:00 | HP ---
ADMIT DATE: CHIEF COMPLAINT: Abdominal pain and diarrhea. HISTORY OF PRESENT ILLNESS: The patient is a 39-year-old female with a history of spinal cerebellar ataxia, who is seen in our Emergency Room frequently for complaints of chronic back and extremity pain. She came to the Emergency Room yesterday reporting abdominal pain and diarrhea. She stated she had been having diarrhea for several weeks. Evaluation showed that she was mildly tachycardic with a heart rate of 117 on presentation. Lab was unremarkable, but the patient's legs were found to be edematous and erythematous. Treatment was started and she was admitted for further care. 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 PAST SURGICAL HISTORY: . ALLERGIES: The patient has no known drug allergies. HOME MEDICATIONS: Baclofen 10 mg t.i.d., clonazepam 1 mg at bedtime, Voltaren gel p.r.n., duloxetine 60 mg daily, gabapentin 300 mg every 8 hours, ibuprofen 600 mg b.i.d., lidocaine patch p.r.n. The patient's medication list includes Lyrica, but she had not picked this prescription up from the pharmacy so is apparently not taking this. FAMILY HISTORY: Positive for spinal cerebellar ataxia in at least 2 other family members. SOCIAL HISTORY: The patient is single. She is disabled and lives with her mother. She does not smoke cigarettes or drink alcohol to excess. REVIEW OF SYSTEMS: The patient has not had fever or chills. She denies cough or shortness of breath. She denies chest pain or palpitations. She has some intermittent lower abdominal pain with the diarrhea. She is chronically incontinent of urine. She has chronic pain in her legs and her back and has been taking the medication from Neurology for this, but states that her pain is never well controlled. PHYSICAL EXAMINATION: GENERAL: The patient is alert and oriented, resting in bed, in no acute distress. HEENT: PERRL, EOMI, sclerae clear. Oropharynx: Mucous membranes moist. NECK: Supple, without lymphadenopathy. CHEST: Clear to auscultation. CARDIOVASCULAR: Regular rhythm, mildly tachycardic. ABDOMEN: Soft, nontender, normoactive bowel sounds are present. LOWER EXTREMITIES: There is scant edema and erythema to the bilateral lower extremities below the knee. There is one small scabbed healing wound on the left knee without erythema or exudate, skin is otherwise intact. NEUROLOGIC: The patient has spasticity throughout her extremities and her speech is slurred, which is usual for her. ASSESSMENT AND PLAN: 1. Cellulitis, bilateral lower extremities. The patient's exam has apparently improved overnight after receiving one dose of clindamycin in the Emergency Room. Venous Dopplers were negative for deep vein thrombosis. We will start the patient on Keflex and follow this. 2. Diarrhea. The patient has not had a stool since admission. Lab for Clostridium difficile is ordered. 3. Tachycardia. The patient has had intermittent sinus tachycardia since admission. She does not have chest pain or other symptoms with this. She has had a mildly elevated heart rate on her office visits at times, but not consistently. The patient's urine drug screen is negative. She is not hypoxic or anemic and does not appear to be in significant discomfort. We will check her thyroid lab and follow her on telemetry. 4. Spinal cerebellar ataxia. The patient is followed by Dr. Keith at Neurology for this. We will continue pain medications and Cymbalta per his recommendations. We are avoiding narcotic pain medication due to the risk of habituation for her and also the lack of indication for this type of pain. She has been referred to physical therapy in the past, but states that it only made her back pain worse. JEAN-PIERRE EDMONDSON MD DR: JESSI/magui JOB#: [id number] / [id number] ERIN
[2019-06-05 09:17] LABS: FREE T4 1.01 ng/dL (0.76-1.46); THYROID STIM HORMONE (TSH) 0.491 uIU/mL (0.358-3.74)
[2019-06-05 11:37] VITALS: BP 123/81
[2019-06-05 15:59] VITALS: BP 121/83
[2019-06-05 19:05] VITALS: BP 127/95
[2019-06-05] MEDS ORDERED: PATCH REMOVAL. MC SCH (21:00)
[2019-06-05 23:31] VITALS: BP 116/72
[2019-06-06 03:10] VITALS: BP 137/97
[2019-06-06 07:30] VITALS: BP 152/102
--- NOTE | 2019-06-06 07:39 | PDOC ---
PROGRESS NOTES Subjective Subjective Patient reports some back pain this AM, no other complaint. Objective Objective Vital Signs Date Time Temp Pulse Resp B/P (MAP) Pulse Ox O2 Delivery O2 Flow Rate FiO2 06/06/19 03:10 97.6 103 16 137/97 (110) 97 Room Air 97.6 06/05/19 15:59 2.0 Intake and Output 06/06/19 06:59 Intake Total 400 ml Balance 400 ml Intake Oral 400 ml # Voids 11 Physical Exam Abdomen: Normal bowel sounds, Soft, No tenderness Heart: Regular rate Extremities: No edema (, no erythema) General: Alert, Oriented X3, No acute distress Lungs: Clear to auscultation Assessment Assessment Problems Medical Problems: (1) Cellulitis Status: Acute (2) Cellulitis of both lower extremities Status: Acute (3) Cerebellar ataxia Status: Chronic (4) Diarrhea Status: Acute (5) Tachycardia Status: Acute Plan Plan of Care 1. Cellulitis bilateral LE's - resolved, home today, no further abx presently indicated. 2. diarrhea - apparently resolved, no stools since admission so C diff very unlikely. 3. spinal cerebellar ataxia with chronic pain - stable, patient at baseline. Continue medication per Neurology. 4. depression - stable, continue Cymbalta. 5. Tachycardia - patient's heart rate remains mildly elevated at times. Asymptomatic. Thyroid lab WNL. No tx presently indicated. BP good without medication. Comment Review of Relevant I have reviewed the following items filemon (where applicable) has been applied. Labs Laboratory Tests Test 06/04/19 18:10 06/04/19 18:25 White Blood Count 6.9 x10^3/uL (4.0-11.0) Red Blood Count 4.22 x10^6/uL (3.50-5.40) Hemoglobin 12.9 g/dL (12.0-15.5) Hematocrit 38.5 % (36.0-47.0) Mean Corpuscular Volume 91 fL (79-100) Mean Corpuscular Hemoglobin 31 pg (25-35) Mean Corpuscular Hemoglobin Concent 33 g/dL (31-37) Red Cell Distribution Width 14.1 % (11.5-14.5) Platelet Count 290 x10^3/uL (140-400) Neutrophils (%) (Auto) 78 % (31-73) Lymphocytes (%) (Auto) 12 % (24-48) Monocytes (%) (Auto) 10 % (0-9) Eosinophils (%) (Auto) 1 % (0-3) Basophils (%) (Auto) 0 % (0-3) Neutrophils # (Auto) 5.4 x10^3/uL (1.8-7.7) Lymphocytes # (Auto) 0.8 x10^3/uL (1.0-4.8) Monocytes # (Auto) 0.7 x10^3/uL (0.0-1.1) Eosinophils # (Auto) 0.0 x10^3/uL (0.0-0.7) Basophils # (Auto) 0.0 x10^3/uL (0.0-0.2) Sodium Level 143 mmol/L (136-145) Potassium Level 3.9 mmol/L (3.5-5.1) Chloride Level 106 mmol/L (98-107) Carbon Dioxide Level 27 mmol/L (21-32) Anion Gap 10 (6-14) Blood Urea Nitrogen 11 mg/dL (7-20) Creatinine 0.8 mg/dL (0.6-1.0) Estimated GFR (Cockcroft-Gault) 97.1 BUN/Creatinine Ratio 14 (6-20) Glucose Level 106 mg/dL (70-99) Calcium Level 9.5 mg/dL (8.5-10.1) Total Bilirubin 0.6 mg/dL (0.2-1.0) Aspartate Amino Transf (AST/SGOT) 13 U/L (15-37) Alanine Aminotransferase (ALT/SGPT) 16 U/L (14-59) Alkaline Phosphatase 50 U/L (46-116) Total Protein 7.4 g/dL (6.4-8.2) Albumin 3.9 g/dL (3.4-5.0) Albumin/Globulin Ratio 1.1 (1.0-1.7) Thyroid Stimulating Hormone (TSH) 0.491 uIU/mL (0.358-3.74) Free Thyroxine 1.01 ng/dL (0.76-1.46) Ethyl Alcohol Level < 10 mg/dL (0-10) Urine Collection Type Unknown Urine Color Yellow Urine Clarity Clear Urine pH 6.0 Urine Specific [place] 1.025 Urine Protein Negative mg/dL (NEG-TRACE) Urine Glucose (UA) Negative mg/dL (NEG) Urine Ketones (Stick) Negative mg/dL (NEG) Urine Blood Negative (NEG) Urine Nitrite Negative (NEG) Urine Bilirubin Small (NEG) Urine Urobilinogen Dipstick 1.0 mg/dL (0.2 mg/dL) Urine Leukocyte Esterase Negative (NEG) Urine RBC 3-5 /HPF (0-2) Urine WBC 1-4 /HPF (0-4) Urine Squamous Epithelial Cells Many /LPF Urine Bacteria Few /HPF (0-FEW) Urine Mucus Marked /LPF Urine Opiates Screen Neg (NEG) Urine Methadone Screen Neg (NEG) Urine Barbiturates Neg (NEG) Urine Phencyclidine Screen Neg (NEG) Urine Amphetamine/Methamphetamine Neg (NEG) Urine Benzodiazepines Screen Neg (NEG) Urine Cocaine Screen Neg (NEG) Urine Cannabinoids Screen Neg (NEG) Urine Ethyl Alcohol Neg (NEG) Medications Current Medications Ketorolac Tromethamine (Toradol 15mg Vial) 15 mg 1X ONCE IV Last administered on 06/04/19at 18:27; Start 06/04/19 at 18:00; Stop 06/04/19 at 18:01; Status DC Sodium Chloride 1,000 ml @ 1,000 mls/hr 1X ONCE IV Last administered on 06/04/19at 18:27; Start 06/04/19 at 18:00; Stop 06/04/19 at 18:59; Status DC Sodium Chloride 1,000 ml @ 1,000 mls/hr 1X ONCE IV Last administered on 06/04/19at 21:58; Start 06/04/19 at 19:00; Stop 06/04/19 at 19:59; Status DC Morphine Sulfate (Morphine Sulfate) 4 mg 1X ONCE IV ; Start 06/04/19 at 20:15; Stop 06/04/19 at 20:22; Status DC Lorazepam (Ativan Inj) 2 mg 1X ONCE IV ; Start 06/04/19 at 20:15; Stop 06/04/19 at 20:24; Status DC Clindamycin Phosphate 50 ml @ 100 mls/hr 1X ONCE IV Last administered on 06/04/19at 20:28; Start 06/04/19 at 20:15; Stop 06/04/19 at 20:44; Status DC Ondansetron HCl (Zofran) 4 mg PRN Q8HRS PRN IV NAUSEA/VOMITING; Start 06/04/19 at 20:30; Stop 06/05/19 at 20:29; Status DC Acetaminophen (Tylenol) 650 mg PRN Q4HRS PRN PO FEVER; Start 06/04/19 at 20:30; Stop 06/05/19 at 20:29; Status DC Morphine Sulfate (Morphine Sulfate) 4 mg 1X ONCE IV Last administered on 06/04/19 20:38; Start 06/04/19 at 20:15; Stop 06/04/19 at 20:35; Status DC Diclofenac Sodium (Voltaren) 1 óscar QID TP Last administered on 06/05/19 21:58; Start 06/05/19 at 09:00 Lidocaine (Lidoderm) 1 patch DAILY TP Last administered on 06/05/19 08:37; Start 06/05/19 at 09:00 Cyclobenzaprine HCl (Flexeril) 10 mg TID PO Last administered on 06/05/19 21:12; Start 06/04/19 at 23:30 Clonazepam (KlonoPIN) 1 mg QHS PO Last administered on 06/05/19 21:12; Start 06/04/19 at 23:30 Duloxetine HCl (Cymbalta) 60 mg DAILY PO Last administered on 06/05/19 08:37; Start 06/05/19 at 09:00 Ibuprofen (Motrin) 600 mg BID PO Last administered on 06/05/19 21:12; Start 06/04/19 at 23:30 Miscellaneous (Lidoderm Patch Removal) 1 ea QHS MC Last administered on 06/05/19 21:12; Start 06/05/19 at 21:00 Cephalexin HCl (Keflex) 1,000 mg BID PO Last administered on 06/05/19 21:12; Start 06/05/19 at 09:00 Active Scripts Active Naproxen 375 Mg Tablet 1 Tab PO BID PRN Reported Gabapentin (Gabapentin) 300 Mg Capsule 300 Mg PO Q8HRS Baclofen 10 Mg Tablet 1 Tab PO TID Voltaren (Diclofenac Sodium) 100 Gm Gel..gram. 1 Gm TP QID Duloxetine Hcl 60 Mg Capsule.dr 60 Mg PO DAILY Lidocaine PATCH (Lidocaine) 1 Each Adh..patch 1 Each TP DAILY REMOVE AFTER 12 HOURS Ibuprofen 600 Mg Tablet 600 Mg PO BID Lyrica (Pregabalin) 75 Mg Capsule 1 Cap PO DAILY tapering dose; pt has not picked up medication waiting for prior authorization 75mg daily for 5 days 75mg BID for 5days then 75mg three times a day Clonazepam 1 Mg Tablet 1 Tab PO QHS Vitals/I & O Vital Sign - Last 24 Hours 06/05/19 06/05/19 06/05/19 06/05/19 07:52 08:00 11:37 15:59 Temp 97.6 98.2 98.3 97.6 98.2 98.3 Pulse 98 108 100 Resp 18 18 18 B/P (MAP) 137/95 (109) 123/81 (95) 121/83 (96) Pulse Ox 100 99 95 O2 Delivery Nasal Cannula Room Air Nasal Cannula Nasal Cannula O2 Flow Rate 2.0 2.0 2.0 06/05/19 06/05/19 06/05/19 06/06/19 19:05 20:00 23:31 03:10 Temp 98.6 98.3 97.6 98.6 98.3 97.6 Pulse 106 96 103 Resp 16 16 16 B/P (MAP) 127/95 (106) 116/72 (87) 137/97 (110) Pulse Ox 97 98 97 O2 Delivery Room Air Room Air Room Air Room Air Intake and Output 06/05/19 06/05/19 06/06/19 14:59 22:59 06:59 Intake Total 200 ml 200 ml Balance 200 ml 200 ml JEAN-PIERRE EDMONDSON MD Jun 06, 2019 07:39
[2019-06-06] MEDS ORDERED: ACET500T68 PO (07:42)
[2019-06-06] MEDS ORDERED: ACETAMINOPHEN 500 MG TABLET PO PRN (07:45)
--- NOTE | 2019-06-06 08:01 | DS ---
DATE OF DISCHARGE: 06/06/2019 CHIEF COMPLAINT: Abdominal pain and diarrhea. HISTORY OF PRESENT ILLNESS: The patient is a 37-year-old female with a history of spinal cerebellar ataxia, who is seen in our Emergency Room frequently for complaints of chronic back and extremity pain. She came to the Emergency Room on the day of admission with complaint of abdominal pain and diarrhea. She stated that she had been having diarrhea for several weeks. Evaluation showed that she was mildly tachycardic with a heart rate of 117 on presentation. Lab was unremarkable, but the patient's legs were found to be edematous and erythematous. Treatment was started and she was admitted for further care. HOSPITAL COURSE: The patient was admitted and placed on telemetry where she remained in sinus rhythm. She continued to have a mildly elevated heart rate intermittently, but was without chest pain or shortness of breath. The patient was started on antibiotics for treatment of her lower extremity cellulitis. Venous Dopplers were without acute DVT bilaterally. The patient had a prompt improvement in her exam and the erythema and edema have now completely resolved. No further antibiotic treatment is needed at this time. The patient had also complained of diarrhea, which had been occurring for the past several weeks. Stool for Clostridium difficile toxin was ordered, but the patient has had no bowel movement since admission, and therefore, C. difficile is highly unlikely at this time. She does have intermittent mild sinus tachycardia and this had been seen on her office visits also. Her urine drug screen was negative. She was not hypoxic or anemic and did not appear to be in significant discomfort; therefore, tachycardia did not appear to be due to these conditions. Her thyroid lab was checked and was normal. The patient has spinal cerebellar ataxia and has significant debility due to this. She sees Dr. Vickers at Neurology and the medications that she is on are per his recommendations. He has also started her on Cymbalta for some chronic depression and the patient is certainly advised to continue this and to follow up with him. She has been referred to physical therapy in the past, but stated it only made her back pain worse and therefore therapy was not ordered during this stay. The patient is agreeable to discharge home today. She is presently staying with her mother. FINAL DIAGNOSES: 1. Cellulitis, bilateral lower extremities. 2. History of diarrhea. 3. Spinal cerebellar ataxia with chronic pain. 4. Depression. 5. Sinus tachycardia. DISCHARGE MEDICATIONS: Remain the same as at admission. The patient is also advised Tylenol p.r.n. pain. FOLLOWUP: Follow up is with Dr. Edmondson as needed. Follow up with Neurology as advised. JEAN-PIERRE EDMONDSON MD DR: JESSI/magui JOB#: [id number] / [id number] ERIN
--- NOTE | 2019-06-06 08:53 | NUR ---
SW following pt for dc planning. Chart reviewed and pt lives at home with family, is self pay. Pt discharging with self care today.
[2019-06-06] MEDS: IBUPROFEN 200 MG TABLET. PO SCH (09:35)
[2019-06-06] MEDS: CEPHALEXIN 250 MG CAPSULE. PO SCH (09:36)
[2019-06-06] MEDS: DULoxetine HCL 30 MG CAPSULE.DR PO SCH (09:36)
[2019-06-06] MEDS: CYCLOBENZAPRINE 10 MG TABLET. PO SCH ×2 (09:36→12:35)
[2019-06-06] MEDS: DICLOFENAC SODIUM 1% TOPICAL GEL 100GM TUBE. TP SCH ×2 (09:36→12:35)
[2019-06-06] MEDS: LIDOCAINE (700MG/PATCH) PATCH. TP SCH (09:36)
[2019-06-06 11:04] VITALS: BP 139/93
--- NOTE | 2019-06-06 13:30 | NUR ---
Discharge Note: SANCHEZ BULLOCK [facility] Discharge instructions and discharge home medications reviewed with Patient and a copy given. All questions have been answered and understanding verbalized. The following instructions and handouts were given: F/U with Dr. Garcia as needed. Patient discharged to Home or Self Care with Family Member via Wheelchair.
== END 2019-06-06 13:30 | disposition home or self-care (01) | DRG 603 ==
LOC: ER 17:11 → 6 SOUTH 20:20
PROVIDERS: ADMIT Family Medicine; ATTEND Family Medicine
DX: L03.115 Cellulitis of right lower limb (principal); G11.9 Hereditary ataxia, unspecified; L03.116 Cellulitis of left lower limb; R19.7 Diarrhea, unspecified; F32.9 Major depressive disorder, single episode, unspecified; G89.29 Other chronic pain; Z98.891 History of uterine scar from previous surgery; G47.00 Insomnia, unspecified; R00.0 Tachycardia, unspecified
CPT/HCPCS: 36415; 80053; 80307; 81001; 84439; 84443; 85025; 93970; 96361; 96374; 96375; G0480; J1885; J2270; J3490; J7030; 99285-25; G0378

== ENCOUNTER 2019-06-08 18:22 | Emergency (ER) | payer OTHER ==
[~2019-06-08] VITALS: Ht 172.7 cm; Wt 49.4 kg
[~2019-06-08 18:22] MED LIST changes: +ACET500T68 PO; +BACL10TA PO; +CLONAZEPAM1 MG PO; +DICL100G18 TP; +DULO60CA45 PO; +GABA300C18 PO; +IBUP-1007 PO; +LIDO700A21 TP; +PREG75CA PO
--- NOTE | 2019-06-08 20:53 | PHYS DOC ---
Past Medical History Past Medical History: Other Additional Past Medical Histor: SPINOCEREBELLAR ATAXIA; chronic back/leg pain Past Surgical History: No Surgical History, Alcohol Use: Occasionally Drug Use: Other Adult General Chief Complaint Chief Complaint: MULTIPLE COMPLAINTS HPI HPI Patient is a 39-year-old female who presents with complaint of lower back pain as well as lower extremity pain and swelling. Patient was admitted the day before yesterday and discharged home yesterday after being admitted for the same complaints. 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 She states that she continues to have the pain and is looking for pain relief.[] Review of Systems Review of Systems Constitutional: Denies fever or chills [] Respiratory: Denies cough or shortness of breath [] Cardiovascular: No additional information not addressed in HPI [] GI: Denies abdominal pain, nausea or vomiting.[] Musculoskeletal: Edison of chronic lower back pain [] All other systems were reviewed and found to be within normal limits, except as documented in this note. Current Medications Current Medications Current Medications Medications (Trade) Dose Ordered Sig/Garrett Start Time Stop Time Status Last Admin Dose Admin Fentanyl Citrate (Fentanyl 2ml Vial) 50 mcg 1X ONCE 06/08/19 21:15 06/08/19 21:16 DC 06/08/19 21:14 50 MCG Allergies Allergies Allergies Coded Allergies Type Severity Reaction Last Updated Verified No Known Drug Allergies 09/21/13 No Physical Exam Physical Exam Constitutional: Well developed, well nourished, no acute distress, non-toxic appearance. [] HENT: Normocephalic, atraumatic, bilateral external ears normal, oropharynx moist, no oral exudates, nose normal. [] Eyes: PERRLA, EOMI, conjunctiva normal, no discharge. [] Neck: Normal range of motion, no tenderness, supple, no stridor. [] Cardiovascular:Heart rate regular rhythm, no murmur [] Lungs & Thorax: Bilateral breath sounds clear to auscultation [] Abdomen: Bowel sounds normal, soft, no tenderness. [] Skin: Warm, dry, no erythema, no rash. [] Extremities: No tenderness, no cyanosis, no clubbing, ROM intact, with 1+ pitting edema. [] Neurologic: Awake and alert, no focal deficits noted. [] Current Patient Data Vital Signs Vital Signs Date Time Temp Pulse Resp B/P (MAP) Pulse Ox O2 Delivery O2 Flow Rate FiO2 06/08/19 20:15 97.9 101 18 124/89 (101) 99 Room Air 97.9 Lab Values Laboratory Tests Test 06/08/19 21:10 06/08/19 21:20 White Blood Count 5.8 x10^3/uL (4.0-11.0) Red Blood Count 4.46 x10^6/uL (3.50-5.40) Hemoglobin 13.7 g/dL (12.0-15.5) Hematocrit 40.8 % (36.0-47.0) Mean Corpuscular Volume 91 fL (79-100) Mean Corpuscular Hemoglobin 31 pg (25-35) Mean Corpuscular Hemoglobin Concent 34 g/dL (31-37) Red Cell Distribution Width 14.4 % (11.5-14.5) Platelet Count 263 x10^3/uL (140-400) Neutrophils (%) (Auto) 54 % (31-73) Lymphocytes (%) (Auto) 29 % (24-48) Monocytes (%) (Auto) 13 % (0-9) H Eosinophils (%) (Auto) 2 % (0-3) Basophils (%) (Auto) 1 % (0-3) Neutrophils # (Auto) 3.1 x10^3/uL (1.8-7.7) Lymphocytes # (Auto) 1.7 x10^3/uL (1.0-4.8) Monocytes # (Auto) 0.8 x10^3/uL (0.0-1.1) Eosinophils # (Auto) 0.1 x10^3/uL (0.0-0.7) Basophils # (Auto) 0.1 x10^3/uL (0.0-0.2) Sodium Level 140 mmol/L (136-145) Potassium Level 4.7 mmol/L (3.5-5.1) Chloride Level 105 mmol/L (98-107) Carbon Dioxide Level 30 mmol/L (21-32) Anion Gap 5 (6-14) L Blood Urea Nitrogen 25 mg/dL (7-20) H Creatinine 0.9 mg/dL (0.6-1.0) Estimated GFR (Cockcroft-Gault) 84.8 BUN/Creatinine Ratio 28 (6-20) H Glucose Level 87 mg/dL (70-99) Calcium Level 9.9 mg/dL (8.5-10.1) Total Bilirubin 0.5 mg/dL (0.2-1.0) Aspartate Amino Transferase (AST) 16 U/L (15-37) Alanine Aminotransferase (ALT) 20 U/L (14-59) Alkaline Phosphatase 47 U/L (46-116) BH-Qdm-Y-Type Natriuretic Peptide 5 pg/mL (0-124) Total Protein 7.5 g/dL (6.4-8.2) Albumin 3.7 g/dL (3.4-5.0) Albumin/Globulin Ratio 1.0 (1.0-1.7) Urine Collection Type Void Urine Color Yellow Urine Clarity Clear Urine pH 5.5 Urine Specific [place] 1.020 Urine Protein Negative mg/dL (NEG-TRACE) Urine Glucose (UA) Negative mg/dL (NEG) Urine Ketones (Stick) Negative mg/dL (NEG) Urine Blood Negative (NEG) Urine Nitrite Negative (NEG) Urine Bilirubin Negative (NEG) Urine Urobilinogen Dipstick 1.0 mg/dL (0.2 mg/dL) Urine Leukocyte Esterase Negative (NEG) Urine RBC Occ /HPF (0-2) Urine WBC Occ /HPF (0-4) Urine Squamous Epithelial Cells Mod /LPF Urine Bacteria Moderate /HPF (0-FEW) Urine Mucus Marked /LPF Laboratory Tests 06/08/19 21:10 Laboratory Tests 06/08/19 21:10 EKG EKG [] Radiology/Procedures Radiology/Procedures [] Course & Med Decision Making Course & Med Decision Making Pertinent Labs and Imaging studies reviewed. (See chart for details) [] Dragon Disclaimer Dragon Disclaimer This electronic medical record was generated, in whole or in part, using a voice recognition dictation system. Departure Departure Impression: Primary Impression: Chronic back pain Additional Impressions: Chronic leg pain Lower leg edema Disposition: 01 HOME, SELF-CARE Condition: STABLE Referrals: JEAN-PIERRE EDMONDSON MD (PCP) Patient Instructions: Chronic Back Pain, Edema Scripts Hydrocodone/Apap 5-325 (NORCO 5-325 TABLET) 1 Each Tablet 1-2 EACH PO PRN Q6HRS PRN for PAIN, #12 as needed for pain Prov: TYLER GU Jr. DO 06/08/19 Problem Qualifiers Primary Impression: Chronic back pain Back pain location: back pain in unspecified location Back pain laterality: unspecified Qualified Codes: M54.9 - Dorsalgia, unspecified; G89.29 - Other chronic pain Additional Impressions: Chronic leg pain Laterality: unspecified laterality Qualified Codes: M79.606 - Pain in leg, unspecified; G89.29 - Other chronic pain TYLER GU Jr. DO Jun 08, 2019 20:53
[2019-06-08] MEDS ORDERED: fentaNYL PF VIAL 100 MCG/2 ML VIAL IV ONE (21:15)
[2019-06-08 21:20] LABS: BASO # 0.1 x10^3/uL (0.0-0.2); BASO % 1 % (0-3); EOS # 0.1 x10^3/uL (0.0-0.7); EOS % 2 % (0-3); HEMATOCRIT 40.8 % (36.0-47.0); HEMOGLOBIN 13.7 g/dL (12.0-15.5); LYMPH # 1.7 x10^3/uL (1.0-4.8); LYMPH % 29 % (24-48); MEAN CORPUSCULAR HEMOGLOBIN 31 pg (25-35); MEAN CORPUSCULAR HGB CONC 34 g/dL (31-37); MEAN CORPUSCULAR VOLUME 91 fL (79-100); MONO # 0.8 x10^3/uL (0.0-1.1); MONO % 13 % (0-9); NEUT # 3.1 x10^3/uL (1.8-7.7); NEUT % 54 % (31-73); PLATELET COUNT 263 x10^3/uL (140-400); RED BLOOD COUNT 4.46 x10^6/uL (3.50-5.40); RED CELL DISTRIBUTION WIDTH 14.4 % (11.5-14.5); WHITE BLOOD COUNT 5.8 x10^3/uL (4.0-11.0)
[2019-06-08 21:28] LABS: CALCIUM 9.9 mg/dL (8.5-10.1); CREATININE 0.9 mg/dL (0.6-1.0); GFR 84.8; POTASSIUM 4.7 mmol/L (3.5-5.1)
[2019-06-08 21:31] LABS: BILIRUBIN,URINE NEGATIVE (NEG); CLARITY,URINE CLEAR; COLOR,URINE YELLOW; NITRITE,URINE NEGATIVE (NEG); PH,URINE 5.5; PROTEIN,URINE NEGATIVE (NEG-TRACE)
[2019-06-08 21:34] LABS: ALBUMIN 3.7 g/dL (3.4-5.0); TOTAL BILIRUBIN 0.5 mg/dL (0.2-1.0); TOTAL PROTEIN 7.5 g/dL (6.4-8.2)
[2019-06-08 21:41] LABS: BACTERIA,URINE MODERATE /HPF (0-FEW); RBC,URINE OCC /HPF (0-2); SQUAMOUS EPITHELIAL CELL,UR MOD /LPF; WBC,URINE OCC /HPF (0-4)
[2019-06-08] MEDS ORDERED: HYDR-3164 PO (21:53)
[2019-06-08 21:55] VITALS: BP 109/63
== END 2019-06-08 22:04 | disposition home or self-care (01) ==
LOC: ER 18:22
DX: G89.29 Other chronic pain (principal); M54.5 Low back pain; R60.0 Localized edema; Z98.890 Other specified postprocedural states
CPT/HCPCS: 36415; 80053; 81001; 83880; 85025; 87086; 96374; 99284; J3010

== ENCOUNTER 2019-06-10 16:01 | Emergency (ER) | payer OTHER ==
[~2019-06-10] VITALS: Ht 167.6 cm; Wt 48.5 kg
--- NOTE | 2019-06-10 16:28 | PHYS DOC ---
Past Medical History Past Medical History: Other Additional Past Medical Histor: SPINOCEREBELLAR ATAXIA; chronic back/leg pain Past Surgical History: No Surgical History, Alcohol Use: Occasionally Drug Use: Other Adult General Chief Complaint Chief Complaint: ABDOMINAL PAIN HPI HPI Patient is a 39 year old [female] who presents with [pain to her bilateral feet. Patient reports she has a history of spinal cerebellar ataxia, had been seen at this facility 2 days prior, had been admitted to the hospital 2 days prior to that, for continued pain to her feet, saline. Patient had been prescribed Keflex for her sialitis and has reported she has not been able to fill it because the pharmacy will not let her. States she continues to have pain in her feet. Reports she always has pain in her feet. Also reports she is concerned she has an STD, as she reports she had unprotected intercourse 2 days ago. ] Review of Systems Review of Systems Constitutional: Denies fever or chills [] Eyes: Denies change in visual acuity, redness, or eye pain [] HENT: Denies nasal congestion or sore throat [] Respiratory: Denies cough or shortness of breath [] Cardiovascular: No additional information not addressed in HPI [] GI: Denies abdominal pain, nausea, vomiting, bloody stools or diarrhea reports she is concerned she might have an STD[] : Denies dysuria or hematuria [] Musculoskeletal: Denies back pain or joint pain. Reports continued pain to his feet [] Integument: Denies rash or skin lesions [] Neurologic: Denies headache, focal weakness or sensory changes [] Endocrine: Denies polyuria or polydipsia [] All other systems were reviewed and found to be within normal limits, except as documented in this note. Allergies Allergies Allergies Coded Allergies Type Severity Reaction Last Updated Verified No Known Drug Allergies 09/21/13 No Physical Exam Physical Exam Constitutional: Well developed, well nourished, no acute distress, non-toxic appearance. [] HENT: Normocephalic, atraumatic, bilateral external ears normal, oropharynx moist, no oral exudates, nose normal. [] Eyes: PERRLA, EOMI, conjunctiva normal, no discharge. [] Neck: Normal range of motion, no tenderness, supple, no stridor. [] Cardiovascular:Heart rate regular rhythm, no murmur [] Lungs & Thorax: Bilateral breath sounds clear to auscultation [] Abdomen: Bowel sounds normal, soft, no tenderness, no masses, no pulsatile masses. [] Skin: Warm, dry, no erythema, no rash. [] Back: No tenderness, no CVA tenderness. [] Extremities: No tenderness, no cyanosis, no clubbing, ROM intact, no edema. Minimal erythema noted to the, minimal swelling noted to bilateral feet. No lesions noted.[] Neurologic: Alert and oriented X 3, normal motor function, normal sensory function, no focal deficits noted. [] Psychologic: Affect normal, judgement normal, mood normal. [] Current Patient Data Vital Signs Vital Signs Date Time Temp Pulse Resp B/P (MAP) Pulse Ox O2 Delivery O2 Flow Rate FiO2 06/10/19 16:47 98 18 140/91 (107) 97 Room Air 06/10/19 16:04 98.4 98.4 EKG EKG [] Radiology/Procedures Radiology/Procedures [] Course & Med Decision Making Course & Med Decision Making Pertinent Labs and Imaging studies reviewed. (See chart for details) [] Dragon Disclaimer Dragon Disclaimer This electronic medical record was generated, in whole or in part, using a voice recognition dictation system. Departure Departure Impression: Primary Impression: Chronic leg pain Additional Impression: Concern about sexually transmitted disease in female without diagnosis Disposition: 01 HOME, SELF-CARE Condition: STABLE Referrals: JEAN-PIERRE EDMONDSON MD (PCP) Patient Instructions: Chronic Pain, Sexually Transmitted Disease, [id number] Problem Qualifiers Primary Impression: Chronic leg pain Laterality: bilateral Qualified Codes: M79.604 - Pain in right leg; M79.605 - Pain in left leg; G89.29 - Other chronic pain DAVY LANTIGUA APRN Jun 10, 2019 16:27
[2019-06-10 16:47] VITALS: BP 140/91
== END 2019-06-10 16:50 | disposition home or self-care (01) ==
LOC: ER 16:01
DX: G89.29 Other chronic pain (principal); M79.604 Pain in right leg; M79.605 Pain in left leg; Z20.2 Contact with and (suspected) exposure to infections with a predominantly sexual mode of transmission
CPT/HCPCS: 87491; 87591; 99284

== ENCOUNTER 2019-06-13 16:32 | Emergency (ER) | payer OTHER ==
[~2019-06-13] VITALS: Ht 170.2 cm; Wt 48.5 kg
[2019-06-13 17:50] VITALS: BP 131/75
[2019-06-13] MEDS ORDERED: KETOROLAC 60 MG/2 ML VIAL. IM ONE (18:15)
--- NOTE | 2019-06-13 18:26 | PHYS DOC ---
Past Medical History Past Medical History: Other Additional Past Medical Histor: SPINOCEREBELLAR ATAXIA; chronic back/leg pain Past Surgical History: No Surgical History, Alcohol Use: Occasionally Drug Use: Other Adult General Chief Complaint Chief Complaint: PAIN CONTROL HPI HPI Patient is a 39 year old AA female who presents to the emergency room with complaints of needing pain control. Patient has a history of chronic leg and back pain. She admits to being to the emergency room several times recently for pain medication prescriptions. She denies any new injury, numbness, tingling, weakness, or falls. Currently her pain is a 10 out of 10 on the pain scale and nothing helps to reduce the pain. Review of Systems Review of Systems Constitutional: Denies fever or chills [] Eyes: Denies change in visual acuity, redness, or eye pain [] HENT: Denies nasal congestion or sore throat [] Respiratory: Denies cough or shortness of breath [] Cardiovascular: No additional information not addressed in HPI [] GI: Denies abdominal pain, nausea, vomiting, bloody stools or diarrhea [] Musculoskeletal: Reports chronic leg and knee pain Integument: Denies rash or skin lesions [] Neurologic: Denies headache, focal weakness or sensory changes [] Complete systems were reviewed and found to be within normal limits, except as documented in this note. Current Medications Current Medications Current Medications Medications (Trade) Dose Ordered Sig/Garrett Start Time Stop Time Status Last Admin Dose Admin Ketorolac Tromethamine (Toradol Im) 30 mg 1X ONCE 06/13/19 18:15 06/13/19 18:16 Allergies Allergies Allergies Coded Allergies Type Severity Reaction Last Updated Verified No Known Drug Allergies 09/21/13 No Physical Exam Physical Exam Constitutional: Well developed, well nourished, no acute distress, non-toxic appearance. [] HENT: Normocephalic, atraumatic, bilateral external ears normal, nose normal. [] Eyes: conjunctiva normal, no discharge. [] Neck: Normal range of motion, no stridor. [] Cardiovascular:Heart rate regular rhythm Lungs & Thorax: Respirations even and unlabored, no retractions, no respiratory distress Skin: Warm, dry, no erythema, no rash. [] Extremities: No tenderness, no cyanosis, no clubbing, ROM intact, 1+ edema.to bilateral feet Neurologic: Alert and oriented X 3, no focal deficits noted. [] Psychologic: Affect normal, judgement normal, mood normal. [] Current Patient Data Vital Signs Vital Signs Date Time Temp Pulse Resp B/P (MAP) Pulse Ox O2 Delivery O2 Flow Rate FiO2 06/13/19 17:50 98.9 58 16 131/75 (93) 97 Room Air 98.9 EKG EKG [] Radiology/Procedures Radiology/Procedures [] Course & Med Decision Making Course & Med Decision Making Pertinent Labs and Imaging studies reviewed. (See chart for details) Dx: Chronic pain. Discussed chronic pain with patient advised that no hydrocodone will be prescribed. Offered patient an IM injection of toradol. Pt agrees with plan. Advised pt to follow up with her pain management doctor for chronic pain management. Patient verbalized an understanding of home care, medications, follow-up, and return to ED instructions and was in agreement with the plan of care. [] Dragon Disclaimer Dragon Disclaimer This electronic medical record was generated, in whole or in part, using a voice recognition dictation system. Departure Departure Impression: Primary Impression: Chronic leg pain Disposition: 01 HOME, SELF-CARE Condition: STABLE Referrals: JEAN-PIERRE EDMONDSON MD (PCP) PORSCHE MCKINNEY MD Patient Instructions: Chronic Pain Management-Brief Additional Instructions: Follow up with your pain management doctor or Dr. Mckinney for further pain management. Problem Qualifiers Primary Impression: Chronic leg pain Laterality: bilateral Qualified Codes: M79.604 - Pain in right leg; M79.605 - Pain in left leg; G89.29 - Other chronic pain DEE HAMMER APRN Jun 13, 2019 18:26
== END 2019-06-13 18:36 | disposition home or self-care (01) ==
LOC: ER 16:32
DX: G89.29 Other chronic pain (principal); M79.605 Pain in left leg; M79.604 Pain in right leg; M25.561 Pain in right knee; M25.562 Pain in left knee; Z98.890 Other specified postprocedural states
CPT/HCPCS: 96372; 99283; J1885

== ENCOUNTER 2019-07-06 00:25 | Emergency (ER) | payer OTHER ==
[~2019-07-06] VITALS: Ht 170.2 cm; Wt 54.4 kg
[2019-07-06] MEDS ORDERED: METR500T PO (00:37)
--- NOTE | 2019-07-06 00:57 | PHYS DOC ---
Past Medical History Past Medical History: Other Additional Past Medical Histor: SPINOCEREBELLAR ATAXIA; chronic back/leg pain Past Surgical History: No Surgical History, Alcohol Use: Occasionally Drug Use: Other Adult General Chief Complaint Chief Complaint: BACK INJURY HPI HPI Patient is a 39 year old [female brought in by ambulance with a chief complaint of she says she passed out while she was watching TV she has a long history of chronic back pain she has spinal cerebellar ataxia she has had frequent ER visits she actually was seen earlier today for dysuria noted to have a urinary tract infection prescribed Bactrim also noted to have bacterial vaginosis as well as not clear whether or not she received prescription for Flagyl but also Trichomonas was noted on the urinalysis to. Patient states that she just basically either almost passed out or passed out she is not exactly sure while watching TV. She says this has happened before. She denies fever she denies drinking alcohol she states that she started back pain similar to previous she takes baclofen as well as Advil with minimal relief of her symptoms. She did not have any new trauma today she tells me. Review of Systems Review of Systems Constitutional: Denies fever or chills [] Eyes: Denies change in visual acuity, redness, or eye pain [] HENT: Denies nasal congestion or sore throat [] Respiratory: Denies cough or shortness of breath [] Cardiovascular: No additional information not addressed in HPI [] Musculoskeletal Integument: Denies rash or skin lesions [] Neurologic: All other systems were reviewed and found to be within normal limits, except as documented in this note. Current Medications Current Medications Current Medications Medications (Trade) Dose Ordered Sig/[facility] Start Time Stop Time Status Last Admin Dose Admin Ceftriaxone Sodium (Rocephin Im) 1 gm 1X ONCE 07/06/19 01:00 07/06/19 01:01 Allergies Allergies Allergies Coded Allergies Type Severity Reaction Last Updated Verified No Known Drug Allergies 09/21/13 No Physical Exam Physical Exam Constitutional: Well developed, chronically ill appearing mild cachexia HENT: Normocephalic, atraumatic, bilateral external ears normal, oropharynx moist, no oral exudates, nose normal. [] Eyes: PERRLA, EOMI, conjunctiva normal, no discharge. [] Neck: Normal range of motion, no tenderness, supple, no stridor. [] Cardiovascular:Heart rate regular rhythm, no murmur [] Lungs & Thorax: Bilateral breath sounds clear to auscultation [] Abdomen: Bowel sounds normal, soft, no tenderness, no masses, no pulsatile masses. [] Skin: Warm, dry, no erythema, no rash. [] Backdiffuse nonfocal ttp noted Extremities: contracture stable similar to prior Neurologic: Alert and oriented X 3, normal motor function, normal sensory function, no focal deficits noted. [] except for significant ataxia and some muscle wasting known baselien Psychologic: Affect normal, judgement normal, mood normal. [] EKG EKG [] Radiology/Procedures Radiology/Procedures [] Course & Med Decision Making Course & Med Decision Making Pertinent Labs and Imaging studies reviewed. (See chart for details) []39-year-old female with a history of chronic pain spinal cerebellar ataxia multiple ER visits frequent urinary tract infections presenting with a self- reported history of possible syncope while watching television. His ejection unclear whether she had a near syncope or an actual syncope but here in the e mergency room her vital signs are normal she was given a prescription for Bactrim earlier today I will add a perception for Flagyl for the bacterial vaginosis and Trichomonas that was seen earlier. Also dose of IM ceftriaxone as I'm not sure of her recent compliance with a prescription given earlier today. EKG will be done patient is observed in the emergency room appears to be at baseline neurologic status and my evaluation given multiple previous evaluations as well. At this point in time given her presentation and the chronicity of complaints I do not think that she warrants a significant lab workup or further evaluation. Dragon Disclaimer Dragon Disclaimer This electronic medical record was generated, in whole or in part, using a voice recognition dictation system. Departure Departure Impression: Primary Impression: Chronic back pain Disposition: HOME, SELF-CARE Condition: STABLE Referrals: JEAN-PIERRE EDMONDSON MD (PCP) Patient Instructions: Bacterial Vaginosis, [id number] Scripts Metronidazole (FLAGYL) 500 Mg Tablet 1 TAB PO BID, #14 TAB Prov: LOUIS DOSS MD 07/06/19 LOUIS DOSS MD Jul 06, 2019 00:57
[2019-07-06 01:00] VITALS: BP 152/74
[2019-07-06] MEDS ORDERED: cefTRIAXone IM 1 GM VIAL IM ONE (01:00)
[2019-07-06] MEDS ORDERED: traMADol 50 MG TABLET PO ONE (02:30)
--- NOTE | 2019-07-06 07:44 | EKG ---
[facility] [address] [place] [address] Test Date: 2019-07-06 Test Time: 00:57:04 Pat Name: SANCHEZ BULLOCK Department: Room: Gender: F Radiology Manager: : 1980 Requested By: LOUIS DOSS Order Number: [id number] Reading MD: Hayden Miller MD Measurements Intervals [place] Rate: 104 P: 64 ID: 96 QRS: 2 QRSD: 74 T: 35 QT: 324 QTc: 426 Interpretive Statements SINUS TACHYCARDIA Electronically Signed On 07-17-2019 14:23:32 CDT by Hayden Miller MD
== END 2019-07-06 01:32 | disposition home or self-care (01) ==
LOC: ER 00:25
DX: G89.29 Other chronic pain (principal); M54.89 Other dorsalgia; R30.0 Dysuria; R00.0 Tachycardia, unspecified
CPT/HCPCS: 93005; 96372; 99284; J0696

== ENCOUNTER 2019-09-20 14:54 | Emergency (ER) | payer OTHER ==
[~2019-09-20] VITALS: Ht 170.2 cm; Wt 52.2 kg
[2019-09-20] MEDS ORDERED: ACETAMINOPHEN 500 MG TABLET PO ONE (15:45)
[2019-09-20] MEDS ORDERED: CYCLOBENZAPRINE 10 MG TABLET. PO ONE (15:45)
[2019-09-20 15:57] VITALS: BP 164/104
[2019-09-20] MEDS ORDERED: BACL10TA PO (16:14)
--- NOTE | 2019-09-20 16:14 | PHYS DOC ---
Past Medical History Past Medical History: Other Additional Past Medical Histor: SPINOCEREBELLAR ATAXIA; chronic back/leg pain Past Surgical History: No Surgical History, Alcohol Use: Occasionally Drug Use: None Adult General Chief Complaint Chief Complaint: BACK PAIN - NO INJURY HPI HPI Patient is a 39 year old female with history of cerebellar ataxia with upper and lower extremity deformities who presents to the ED today complaining of intermittent mild low back pain that has been going on since Wednesday but states she has chronic back pain. Patient denies any known injury. Patient reports pain radiating to bilateral lower extremities which is chronic. Denies any loss of alexy wel bladder function. She has been seen in our ED multiple times for her pain. Today she is requesting something for pain and also something to help her sleep. Today patient denies any urgency, frequency, dysuria, or any vaginal discharge. Review of Systems Review of Systems Constitutional: Denies fever or chills [] Eyes: Denies change in visual acuity, redness, or eye pain [] HENT: Denies nasal congestion or sore throat [] Respiratory: Denies cough or shortness of breath [] Cardiovascular: No additional information not addressed in HPI [] GI: Denies abdominal pain, nausea, vomiting, bloody stools or diarrhea [] : Denies dysuria or hematuria [] Musculoskeletal: Reports low back pain Integument: Denies rash or skin lesions [] Neurologic: Denies headache, focal weakness or sensory changes [] All other systems were reviewed and found to be within normal limits, except as documented in this note. Current Medications Current Medications Current Medications Medications (Trade) Dose Ordered Sig/[facility] Start Time Stop Time Status Last Admin Dose Admin Acetaminophen (Tylenol) 1,000 mg 1X ONCE 09/20/19 15:45 09/20/19 15:46 DC Cyclobenzaprine HCl (Flexeril) 10 mg 1X ONCE 09/20/19 15:45 09/20/19 15:46 DC Allergies Allergies Allergies Coded Allergies Type Severity Reaction Last Updated Verified No Known Drug Allergies 09/21/13 No Physical Exam Physical Exam Constitutional: Well developed, well nourished, no acute distress, non-toxic appearance. [] HENT: Normocephalic, atraumatic, bilateral external ears normal, oropharynx moist, no oral exudates, nose normal. [] Eyes: PERRLA, EOMI, conjunctiva normal, no discharge. [] Neck: Normal range of motion, no tenderness, supple, no stridor. [] Cardiovascular:Heart rate regular rhythm, no murmur [] Lungs & Thorax: Bilateral breath sounds clear to auscultation [] Abdomen: Bowel sounds normal, soft, no tenderness, no masses, no pulsatile masses. [] Skin: Warm, dry, no erythema, no rash. [] Back: No tenderness, no CVA tenderness. [] Extremities: Contracted upper and lower extremities, no tenderness, no cyanosis, no clubbing, ROM intact for her condition, no edema. [] Neurologic: Alert and oriented X 3, normal motor function, normal sensory function, no focal deficits noted. [] Psychologic: Flat affect Current Patient Data Vital Signs Vital Signs Date Time Temp Pulse Resp B/P (MAP) Pulse Ox O2 Delivery O2 Flow Rate FiO2 09/20/19 14:58 98.2 88 16 159/110 (126) 98 Room Air 98.2 EKG EKG [] Radiology/Procedures Radiology/Procedures [] Course & Med Decision Making Course & Med Decision Making Pertinent Labs and Imaging studies reviewed. (See chart for details) This is a 39-year-old female patient well known to this ED presenting today complaining of chronic mid and low back pain since Wednesday and requesting something for pain and something to help her sleep. Patient has no injury. Given prescription for baclofen. Follow-up with PCP next week. Dragon Disclaimer Dragon Disclaimer This electronic medical record was generated, in whole or in part, using a voice recognition dictation system. Departure Departure Impression: Primary Impression: Chronic back pain Disposition: 01 HOME, SELF-CARE Condition: STABLE Referrals: JEAN-PIERRE EDMONDSON MD (PCP) follow up in 1-3 days Patient Instructions: Back Pain, Adult Additional Instructions: You were seen for chronic back pain. Take the prescribed medication as ordered. Follow-up with your doctor in the next 1-3 days. Scripts Baclofen (BACLOFEN) 10 Mg Tablet 1 TAB PO TID, #15 TAB 0 Refills Prov: LIBIA DELVALLE CONDEMNATION ENGINEER 09/20/19 Problem Qualifiers Primary Impression: Chronic back pain Back pain location: low back pain Back pain laterality: bilateral Sciatica presence: with sciatica Sciatica laterality: bilateral sciatica Qualified Codes: M54.42 - Lumbago with sciatica, left side; M54.41 - Lumbago with sciatica, right side; G89.29 - Other chronic pain LIBIA DELVALLE APRN Sep 20, 2019 16:14
== END 2019-09-20 16:42 | disposition home or self-care (01) ==
LOC: ER 14:54
DX: G89.29 Other chronic pain (principal); M54.41 Lumbago with sciatica, right side; M54.42 Lumbago with sciatica, left side
CPT/HCPCS: 99284

== ENCOUNTER 2019-09-23 02:23 | Emergency (ER) | payer OTHER ==
[~2019-09-23] VITALS: Ht 170.2 cm; Wt 52.2 kg
--- NOTE | 2019-09-23 02:49 | PHYS DOC ---
Past Medical History Past Medical History: Other Additional Past Medical Histor: SPINOCEREBELLAR ATAXIA; chronic back/leg pain Past Surgical History: No Surgical History, Alcohol Use: Occasionally Drug Use: None Adult General Chief Complaint Chief Complaint: LOWER EXT PAIN HPI HPI 39-year-old female with underlying history of some spinal cerebellar ataxia. Patient states she was here on the with acute on chronic pain at that time she was given baclofen prescription per the nurse practitioner. She states she never received prescription however clearly documented in chart. Patient has acute on chronic pain she complains primarily today of back pain. Patient denies any fever, nausea, vomiting. She states she has had some diarrhea. Review of Systems Review of Systems Constitutional: Denies fever or chills [] Respiratory: Denies cough or shortness of breath [] Cardiovascular: No additional information not addressed in HPI [] GI: Denies abdominal pain, nausea, vomiting, bloody stools, + diarrhea [] : Denies dysuria or hematuria [] Musculoskeletal: back pain, leg pain Integument: Denies rash or skin lesions [] Neurologic: Denies headache, focal weakness or sensory changes [] All other systems were reviewed and found to be within normal limits, except as documented in this note. Current Medications Current Medications Current Medications Medications (Trade) Dose Ordered Sig/[facility] Start Time Stop Time Status Last Admin Dose Admin Cyclobenzaprine HCl (Flexeril) 5 mg 1X ONCE 09/23/19 03:00 09/23/19 03:01 DC 09/23/19 03:01 5 MG Ketorolac Tromethamine (Toradol Im) 60 mg 1X ONCE 09/23/19 03:00 09/23/19 03:01 DC 09/23/19 03:02 60 MG Allergies Allergies Allergies Coded Allergies Type Severity Reaction Last Updated Verified No Known Drug Allergies 09/21/13 No Physical Exam Physical Exam Constitutional: Well developed, well nourished, no acute distress, non-toxic appearance. [] HENT: Normocephalic, atraumatic, bilateral external ears normal, oropharynx moist, no oral exudates, nose normal. [] Eyes: PERRLA, EOMI, conjunctiva normal, no discharge. [] Cardiovascular: tachycardia Lungs & Thorax: Bilateral breath sounds clear to auscultation [] Abdomen: Bowel sounds normal, soft, no tenderness, no masses, no pulsatile masses. [] Skin: Warm, dry, no erythema, no rash. [] Back: No tenderness, no CVA tenderness. [] Extremities: No tenderness, no edema. [] Neurologic: Alert and oriented X 3, no focal deficits noted. [] Psychologic: Affect normal, judgement normal, mood normal. [] Current Patient Data Vital Signs Vital Signs Date Time Temp Pulse Resp B/P (MAP) Pulse Ox O2 Delivery O2 Flow Rate FiO2 09/23/19 02:23 98.0 98 16 148/74 (98) 98 Room Air 98.0 EKG EKG [] Radiology/Procedures Radiology/Procedures [] Course & Med Decision Making Course & Med Decision Making Pertinent Labs and Imaging studies reviewed. (See chart for details) []39-year-old female with underlying history of some spinal cerebellar ataxia. Patient states she was here on the with acute on chronic pain at that time she was given baclofen prescription per the nurse practitioner. She states she never received prescription however clearly documented in chart. Patient has acute on chronic pain she complains primarily today of back pain. Patient denies any fever, nausea, vomiting. She states she has had some diarrhea. Toradol 60mg IM Flexeril 5mg po x 1 Recommend dc home and follow up with PCP as outpatient Patient needs to establish care with pain management for continued monitoring of chronic pain No narcotics given in the ER Dragon Disclaimer Dragon Disclaimer This electronic medical record was generated, in whole or in part, using a voice recognition dictation system. Departure Departure Impression: Primary Impression: Chronic leg pain Additional Impression: Cerebellar ataxia Disposition: HOME, SELF-CARE Condition: STABLE Referrals: JEAN-PIERRE EDMONDSON MD (PCP) Patient Instructions: Chronic Pain Additional Instructions: Recommend follow up with PCP 3 - 5 days Return to the ER with worsening symptoms, intractable pain, fever, altered mental status Tylenol/Motrin as needed for pain Problem Qualifiers Primary Impression: Chronic leg pain Laterality: bilateral Qualified Codes: M79.604 - Pain in right leg; M79.605 - Pain in left leg; G89.29 - Other chronic pain RUDDY LOCKE MD Sep 23, 2019 02:49
[2019-09-23 02:58] VITALS: BP 147/86
[2019-09-23] MEDS ORDERED: CYCLOBENZAPRINE 10 MG TABLET. PO ONE (03:00)
[2019-09-23] MEDS ORDERED: KETOROLAC 60 MG/2 ML VIAL. IM ONE (03:00)
== END 2019-09-23 03:20 | disposition home or self-care (01) ==
LOC: ER 02:23
DX: G89.29 Other chronic pain (principal); M79.605 Pain in left leg; M79.604 Pain in right leg; G11.9 Hereditary ataxia, unspecified; M54.9 Dorsalgia, unspecified; R19.7 Diarrhea, unspecified
CPT/HCPCS: 96372; 99284; J1885

== ENCOUNTER 2019-09-29 06:16 | Emergency (ER) | payer OTHER ==
[~2019-09-29] VITALS: Ht 170.2 cm; Wt 53.1 kg
[2019-09-29 06:16] VITALS: BP 156/86
--- NOTE | 2019-09-29 06:45 | PHYS DOC ---
Past Medical History Past Medical History: Other Additional Past Medical Histor: SPINOCEREBELLAR ATAXIA; chronic back/leg pain Past Surgical History: No Surgical History, Alcohol Use: Occasionally Drug Use: None Adult General Chief Complaint Chief Complaint: [facility] PA[facility] HPI Patient is a 39 year old wheelchair bound female patient with history of spinal cerebellar ataxia and chronic back pain and frequent emergency room visits who presents per EMS with complaining of back pain and leg pain. Patient complaining of sudden supple of increasing chronic low back pain about 2 hours ago with left leg pain without new focal neuro deficit, nausea and vomiting, fever and chills. Patient states the pain is the same as her previous episodes of acute pain. Patient was seen in this emergency room in 2 other occasions in the last 1 week with the same complaint. Review of Systems Review of Systems Constitutional: Denies fever or chills [] Eyes: Denies change in visual acuity, redness, or eye pain [] HENT: Denies nasal congestion or sore throat [] Respiratory: Denies cough or shortness of breath [] Cardiovascular: No additional information not addressed in HPI [] GI: Denies abdominal pain, nausea, vomiting, bloody stools or diarrhea [] : Denies dysuria or hematuria [] Musculoskeletal: Back pain and neck pain Integument: Denies rash or skin lesions [] Neurologic: Denies headache, focal weakness or sensory changes [] Endocrine: Denies polyuria or polydipsia [] All other systems were reviewed and found to be within normal limits, except as documented in this note. Current Medications Current Medications Current Medications Medications (Trade) Dose Ordered Sig/[facility] Start Time Stop Time Status Last Admin Dose Admin Ketorolac Tromethamine (Toradol Im) 60 mg 1X ONCE 09/29/19 07:00 09/29/19 07:01 DC 09/29/19 06:45 60 MG Orphenadrine Citrate (Norflex) 60 mg 1X ONCE 09/29/19 07:00 09/29/19 07:01 DC 09/29/19 06:45 60 MG Allergies Allergies Allergies Coded Allergies Type Severity Reaction Last Updated Verified No Known Drug Allergies 09/21/13 No Physical Exam Physical Exam Constitutional: Thin patient , mild distress, non-toxic appearance. [] HENT: Normocephalic, atraumatic. Eyes: PERRLA, EOMI, conjunctiva normal, no discharge. [] Neck: Normal range of motion, no tenderness, supple, no stridor. [] Cardiovascular:Heart rate regular rhythm, no murmur [] Lungs & Thorax: Bilateral breath sounds clear to auscultation [] Abdomen: Bowel sounds normal, soft, no tenderness, no masses, no pulsatile masses. [] Skin: Warm, dry, no erythema, no rash. [] Back: No midline tenderness, no CVA tenderness. [] Extremities: Spastic upper and lower extremity movement and deformity of hands and foot decrease of movement Neurologic: Alert and oriented X 3, no focal deficits noted. [] Current Patient Data Vital Signs Vital Signs Date Time Temp Pulse Resp B/P (MAP) Pulse Ox O2 Delivery O2 Flow Rate FiO2 09/29/19 06:16 98.5 105 16 156/86 (109) 97 Room Air 98.5 EKG EKG [] Radiology/Procedures Radiology/Procedures [] Course & Med Decision Making Course & Med Decision Making Evaluation of patient in ER showed 39-year-old female patient with history of chronic low back pain and several ataxia and frequent emergency room visits brought in to ER with chronic low back pain exacerbation. Patient treated with Toradol and Norflex IM and felt better and discharged home and was advised to follow-up with her primary care physician and continue home medication. Dragon Disclaimer Dragon Disclaimer This electronic medical record was generated, in whole or in part, using a voice recognition dictation system. Departure Departure Impression: Primary Impression: Acute exacerbation of chronic low back pain Additional Impression: Cerebral ataxia Disposition: 01 HOME, SELF-CARE (at 0 644) Condition: IMPROVED Referrals: JEAN-PIERRE EDMONDSON MD (PCP) Patient Instructions: Chronic Back Pain Additional Instructions: Continue current medication Follow-up with your primary care physician in 2-3 days Return to ER if not getting better Problem Qualifiers TULIO SOLANO MD Sep 29, 2019 06:45
[2019-09-29] MEDS ORDERED: KETOROLAC 60 MG/2 ML VIAL. IM ONE (07:00)
[2019-09-29] MEDS ORDERED: ORPHENADRINE CITRATE 60 MG/2 ML VIAL. IM ONE (07:00)
[2019-09-29] MEDS ORDERED: DICLOFENAC SODIUM 25 MG TABLET.DR PO ONE (08:15)
== END 2019-09-29 08:21 | disposition home or self-care (01) ==
LOC: ER 06:16
DX: G89.29 Other chronic pain (principal); M54.5 Low back pain; G11.9 Hereditary ataxia, unspecified
CPT/HCPCS: 96372; 99284; J1885; J2360

== ENCOUNTER 2019-10-23 17:43 | Emergency (ER) | payer OTHER ==
[~2019-10-23] VITALS: Ht 165.1 cm; Wt 53.1 kg
[2019-10-23 17:58] VITALS: BP 122/80
[2019-10-23] MEDS ORDERED: NAPROXEN 500 MG TABLET PO STA (18:29)
[2019-10-23] MEDS ORDERED: CYCLOBENZAPRINE 10 MG TABLET. PO ONE (18:30)
--- NOTE | 2019-10-23 18:43 | PHYS DOC ---
Past Medical History Past Medical History: Other Additional Past Medical Histor: SPINOCEREBELLAR ATAXIA; chronic back/leg pain Past Surgical History: No Surgical History, Alcohol Use: Occasionally Drug Use: None Adult General Chief Complaint Chief Complaint: LOWER EXT PAIN HPI HPI Patient is a 39 year old female with history of cerebellar takes with chronic lower extremity muscle wasting who presents to the ED today complaining of chronic bilateral lower extremity pain as well as lower extremity pain that has gotten worse in the last 3 hours. Patient denies any known injury. She is well known to this ED for the symptoms. Denies any exacerbating or relieving factors. Review of Systems Review of Systems Constitutional: Denies fever or chills [] GI: Denies abdominal pain, nausea, vomiting, bloody stools or diarrhea [] : Denies dysuria or hematuria [] Musculoskeletal: Reports chronic bilateral lower extremity pain and low back pain Integument: Denies rash or skin lesions [] Neurologic: Denies headache, focal weakness or sensory changes [] All other systems were reviewed and found to be within normal limits, except as documented in this note. Current Medications Current Medications Current Medications Medications (Trade) Dose Ordered Sig/[facility] Start Time Stop Time Status Last Admin Dose Admin Cyclobenzaprine HCl (Flexeril) 10 mg 1X ONCE 10/23/19 18:30 10/23/19 18:31 DC Naproxen (Naprosyn) 500 mg 1X STAT 10/23/19 18:29 10/23/19 18:31 DC Allergies Allergies Allergies Coded Allergies Type Severity Reaction Last Updated Verified No Known Drug Allergies 09/21/13 No Physical Exam Physical Exam Constitutional: Well developed, well nourished, no acute distress, non-toxic appearance. [] Abdomen: Bowel sounds normal, soft, no tenderness, no masses, no pulsatile masses. [] Skin: Warm, dry, no erythema, no rash. [] Back: No tenderness, no CVA tenderness. [] Extremities: No tenderness, no cyanosis, no clubbing, ROM intact, no edema. Muscle wasting noted to bilateral lower extremities Neurologic: Alert and oriented X 3, normal motor function, normal sensory function, no focal deficits noted. [] Psychologic: Affect normal, judgement normal, mood normal. [] Current Patient Data Vital Signs Vital Signs Date Time Temp Pulse Resp B/P (MAP) Pulse Ox O2 Delivery O2 Flow Rate FiO2 10/23/19 17:58 98.9 110 14 122/80 (94) 95 Room Air 98.9 EKG EKG [] Radiology/Procedures Radiology/Procedures [] Course & Med Decision Making Course & Med Decision Making Pertinent Labs and Imaging studies reviewed. (See chart for details) This is a 39-year-old female patient well known to this ED for chronic Celebrex ataxia presented for chronic back pain and lower extremity pain. Patient will be given cyclobenzaprine and naproxen and discharged to home. Dragon Disclaimer Dragon Disclaimer This electronic medical record was generated, in whole or in part, using a voice recognition dictation system. Departure Departure Impression: Primary Impression: Chronic back pain Additional Impression: Lower extremity pain, bilateral Disposition: 01 HOME, SELF-CARE Condition: STABLE Referrals: JEAN-PIERRE EDMONDSON MD (PCP) follow up in the course of this week Patient Instructions: Back Pain, Adult, [id number] Additional Instructions: You were evaluated in the emergency room for chronic back pain and lower extremity pain. Follow-up with your doctor in the course of this week. Problem Qualifiers Primary Impression: Chronic back pain Back pain location: low back pain Back pain laterality: bilateral Sciatica presence: without sciatica Qualified Codes: M54.5 - Low back pain; G89.29 - Other chronic pain LIBIA DELVALLE APRN Oct 23, 2019 18:43
== END 2019-10-23 18:49 | disposition home or self-care (01) ==
LOC: ER 17:43
DX: G89.29 Other chronic pain (principal); M54.5 Low back pain; M79.604 Pain in right leg; M79.605 Pain in left leg
CPT/HCPCS: 99283

== ENCOUNTER 2019-10-26 20:17 | Emergency (ER) | payer OTHER ==
[~2019-10-26] VITALS: Ht 170.2 cm; Wt 53.1 kg
[2019-10-26 20:30] VITALS: BP 122/80
[2019-10-26] MEDS ORDERED: NAPROXEN 500 MG TABLET PO STA (20:35)
[2019-10-26] MEDS ORDERED: CYCLOBENZAPRINE 10 MG TABLET. PO ONE (20:45)
[2019-10-26] MEDS ORDERED: ACETAMINOPHEN 500 MG TABLET PO ONE (20:45)
--- NOTE | 2019-10-26 20:49 | PHYS DOC ---
Past Medical History Past Medical History: Other Additional Past Medical Histor: SPINOCEREBELLAR ATAXIA; chronic back/leg pain Past Surgical History: No Surgical History, Alcohol Use: Occasionally Drug Use: None Adult General Chief Complaint Chief Complaint: PAIN CONTROL HPI HPI Patient is a 39 year old with history of cerebellar ataxia presenting to the ED today complaining of chronic bilateral lower extremity pain since this evening. Patient denies any injury. She is requesting pain medicine. Patient was in the ED a couple days ago for the same complaint. Review of Systems Review of Systems Constitutional: Denies fever or chills [] : Denies dysuria or hematuria [] Musculoskeletal: Reports lower extremity pain Integument: Denies rash or skin lesions [] Neurologic: Denies headache, focal weakness or sensory changes [] All other systems were reviewed and found to be within normal limits, except as documented in this note. Current Medications Current Medications Current Medications Medications (Trade) Dose Ordered Sig/[facility] Start Time Stop Time Status Last Admin Dose Admin Acetaminophen (Tylenol) 500 mg 1X ONCE 10/26/19 20:45 10/26/19 20:46 10/26/19 20:41 500 MG Cyclobenzaprine HCl (Flexeril) 10 mg 1X ONCE 10/26/19 20:45 10/26/19 20:46 10/26/19 20:41 10 MG Naproxen (Naprosyn) 500 mg 1X STAT 10/26/19 20:35 10/26/19 20:39 DC 10/26/19 20:35 500 MG Allergies Allergies Allergies Coded Allergies Type Severity Reaction Last Updated Verified No Known Drug Allergies 09/21/13 No Physical Exam Physical Exam Constitutional: Well developed, well nourished, no acute distress, non-toxic appearance. [] Skin: Warm, dry, no erythema, no rash. [] Back: No tenderness, no CVA tenderness. [] Extremities: No tenderness, no cyanosis, no clubbing, ROM intact, no edema. Muscle wasting noted to bilateral lower extremities with contractures Neurologic: Alert and oriented X 3, normal motor function, normal sensory function, no focal deficits noted. [] Psychologic: Affect normal, judgement normal, mood normal. [] Current Patient Data Vital Signs Vital Signs Date Time Temp Pulse Resp B/P (MAP) Pulse Ox O2 Delivery O2 Flow Rate FiO2 10/26/19 20:30 98.6 71 16 122/80 (94) 99 Room Air 98.6 EKG EKG [] Radiology/Procedures Radiology/Procedures [] Course & Med Decision Making Course & Med Decision Making Pertinent Labs and Imaging studies reviewed. (See chart for details) This is a 39-year-old female patient with history of cerebellar ataxia presenting to the ED today with chronic lower extremity pain. No known injury. Patient is well known to this ED for similar complaints. Was discharged to home and encouraged to follow up with her own PCP. Dragon Disclaimer Dragon Disclaimer This electronic medical record was generated, in whole or in part, using a voice recognition dictation system. Departure Departure Impression: Primary Impression: Lower extremity pain, bilateral Disposition: 01 HOME, SELF-CARE Condition: STABLE Referrals: JEAN-PIERRE EDMONDSON MD (PCP) Follow up in the next 1-2 weeks Patient Instructions: Musculoskeletal Pain Additional Instructions: You were evaluated in the emergency room for chronic lower extremity pain. Please follow-up with your own doctor in the next 1-2 weeks. LIBIA DELVALLE APRN Oct 26, 2019 20:49
== END 2019-10-26 20:56 | disposition home or self-care (01) ==
LOC: ER 20:17
DX: G89.29 Other chronic pain (principal); M79.604 Pain in right leg; M79.605 Pain in left leg
CPT/HCPCS: 99284

== ENCOUNTER 2019-11-06 14:26 | Emergency (ER) | payer OTHER ==
[~2019-11-06] VITALS: Ht 170.2 cm; Wt 55.0 kg
[2019-11-06] MEDS ORDERED: KETOROLAC 60 MG/2 ML VIAL. IM ONE (14:45)
--- NOTE | 2019-11-06 14:48 | PHYS DOC ---
Past Medical History Past Medical History: Other Additional Past Medical Histor: SPINOCEREBELLAR ATAXIA; chronic back/leg pain Past Surgical History: No Surgical History, Alcohol Use: Occasionally Drug Use: None Adult General Chief Complaint Chief Complaint: BACK PAIN - NO INJURY HPI HPI Patient is a 39 year old wheelchair-bound female with history of spinal several ataxia and chronic back and neck pain and frequent emergency room visits who presents EMS with complaining of left leg pain. Patient complaining of left leg pain that started an hour ago as a constant pain and rated her pain a 10 over 10 like her previous episodes of leg pain.Patient denies new focal neuro deficit, fever, chills, injury. Review of Systems Review of Systems Constitutional: Denies fever or chills [] Eyes: Denies change in visual acuity, redness, or eye pain [] HENT: Denies nasal congestion or sore throat [] Respiratory: Denies cough or shortness of breath [] Cardiovascular: No additional information not addressed in HPI [] GI: Denies abdominal pain, nausea, vomiting, bloody stools or diarrhea [] : Denies dysuria or hematuria [] Musculoskeletal: Reports back pain, reports joint pain [] Integument: Denies rash or skin lesions [] Neurologic: Denies headache Endocrine: Denies polyuria or polydipsia [] All other systems were reviewed and found to be within normal limits, except as documented in this note. Current Medications Current Medications Current Medications Medications (Trade) Dose Ordered Sig/[facility] Start Time Stop Time Status Last Admin Dose Admin Ketorolac Tromethamine (Toradol Im) 60 mg 1X ONCE 11/06/19 14:45 11/06/19 14:46 DC 11/06/19 14:56 60 MG Orphenadrine Citrate (Norflex) 60 mg 1X ONCE 11/06/19 15:00 11/06/19 15:01 DC 11/06/19 14:55 60 MG Allergies Allergies Allergies Coded Allergies Type Severity Reaction Last Updated Verified No Known Drug Allergies 09/21/13 No Physical Exam Physical Exam Constitutional: Well nourished, no distress, non-toxic appearance, patient texing on her but rated her pain 10 over 10. [] HENT: Normocephalic, atraumatic. Eyes: PERRLA, EOMI, conjunctiva normal, no discharge. [] Neck: Normal range of motion, no tenderness, supple, no stridor. [] Cardiovascular:Heart rate regular rhythm, no murmur [] Lungs & Thorax: Bilateral breath sounds clear to auscultation [] Extremities: No tenderness or deformity, holding left lower extremity in flexion position, normal range of motion, no edema. [] Neurologic: Alert and oriented X 3 Psychologic: Affect normal, mood normal. [] Current Patient Data Vital Signs Vital Signs Date Time Temp Pulse Resp B/P (MAP) Pulse Ox O2 Delivery O2 Flow Rate FiO2 11/06/19 14:26 99.3 105 16 137/83 (101) 98 99.3 EKG EKG [] Radiology/Procedures Radiology/Procedures [] Course & Med Decision Making Course & Med Decision Making Evaluation of patient in ER of patient in ER showed 39-year-old male patient with frequent emergency room visits by ambulance, complaining of leg pain that started an hour prior to arrival. Patient treated with Toradol and Norflex and was advised to continue her home medication. Dragon Disclaimer Dragon Disclaimer This electronic medical record was generated, in whole or in part, using a voice recognition dictation system. Departure Departure Impression: Primary Impression: Pain of left lower extremity Disposition: HOME, SELF-CARE (at 1522) Condition: STABLE Referrals: JEAN-PIERRE EDMONDSON MD (PCP) Patient Instructions: Leg Cramps Additional Instructions: Continue current medication Follow-up with your primary care physician in 3-5 days Return to ER if not getting better Thank you for visiting [facility]. We appreciate you trusting us with your care. If any additional problems come up don't hesitate to return to visit us. Please follow up with your primary care provider so they can plan additional care if needed and know about the problem that you had. If symptoms worsen come back to the Emergency Department. Any concerning symptoms that start such as chest pain, shortness of air, weakness or numbness on one side of the body, running high fevers or any other concerning symptoms return to the ER. TULIO SOLANO MD Nov 06, 2019 14:48
[2019-11-06] MEDS ORDERED: ORPHENADRINE CITRATE 60 MG/2 ML VIAL. IM ONE (15:00)
[2019-11-06 15:57] VITALS: BP 151/82
== END 2019-11-06 16:22 | disposition home or self-care (01) ==
LOC: ER 14:26
DX: M79.605 Pain in left leg (principal); G89.29 Other chronic pain; M54.9 Dorsalgia, unspecified; M54.2 Cervicalgia
CPT/HCPCS: 96372; 99284; J1885; J2360

== ENCOUNTER 2019-11-12 19:01 | Emergency (ER) | payer OTHER ==
[~2019-11-12] VITALS: Ht 170.2 cm; Wt 54.5 kg
[2019-11-12 19:43] VITALS: BP 110/76
--- NOTE | 2019-11-12 20:08 | PHYS DOC ---
Past Medical History Past Medical History: Other Additional Past Medical Histor: SPINOCEREBELLAR ATAXIA; chronic back/leg pain Past Surgical History: No Surgical History, Alcohol Use: Occasionally Drug Use: None Adult General Chief Complaint Chief Complaint: PAIN CONTROL HPI HPI Patient is a 39 year old female with history of spinal cerebellar ataxia and chronic back and leg pain and frequent emergency room visits who presents via EMS with complaint of left leg pain. Patient complaining of left leg pain that started 3 hours ago as a constant and sharp pain and rated her pain 10 over 10. Patient denies taking any pain medication. Patient has frequent emergency room with the same complaint usually asking for a shot of Toradol. Review of Systems Review of Systems Constitutional: Denies fever or chills [] Eyes: Denies change in visual acuity, redness, or eye pain [] HENT: Denies nasal congestion or sore throat [] Respiratory: Denies cough or shortness of breath [] Cardiovascular: No additional information not addressed in HPI [] GI: Denies abdominal pain, nausea, vomiting, bloody stools or diarrhea [] : Denies dysuria or hematuria [] Musculoskeletal: Reports back pain and joint pain Integument: Denies rash or skin lesions [] Neurologic: Denies headache, focal weakness or sensory changes [] Endocrine: Denies polyuria or polydipsia [] All other systems were reviewed and found to be within normal limits, except as documented in this note. Current Medications Current Medications Current Medications Medications (Trade) Dose Ordered Sig/Garrett Start Time Stop Time Status Last Admin Dose Admin Acetaminophen (Tylenol) 1,000 mg 1X ONCE 11/12/19 20:15 11/12/19 20:16 DC 11/12/19 20:12 1,000 MG Cyclobenzaprine HCl (Flexeril) 10 mg 1X ONCE 11/12/19 20:15 11/12/19 20:16 DC 11/12/19 20:11 10 MG Allergies Allergies Allergies Coded Allergies Type Severity Reaction Last Updated Verified No Known Drug Allergies 09/21/13 No Physical Exam Physical Exam Constitutional: Mild distress, non-toxic appearance. [] HENT: Normocephalic, atraumatic. Eyes: PERRLA, EOMI, conjunctiva normal, no discharge. [] Neck: Normal range of motion, no tenderness, supple, no stridor. [] Cardiovascular:Heart rate regular rhythm, no murmur [] Lungs & Thorax: Bilateral breath sounds clear to auscultation [] Back: No tenderness, no CVA tenderness. [] Extremities: No tenderness, no cyanosis, no clubbing, ROM intact, no edema. [] Neurologic: Alert , moves all extremities] Psychologic: Affect anxious, mood normal. [] Current Patient Data Vital Signs Vital Signs Date Time Temp Pulse Resp B/P (MAP) Pulse Ox O2 Delivery O2 Flow Rate FiO2 11/12/19 19:43 98.2 89 14 110/76 (87) 98 Room Air 98.2 EKG EKG [] Radiology/Procedures Radiology/Procedures [] Course & Med Decision Making Course & Med Decision Making discharge: I've spoken with the patient and/or caregivers. I've explained the patient's condition, diagnosis and treatment plan based on information available to me at this time. I've answered the patient's and/or caregivers questions and addressed any concerns. The patient and/or caregivers have a good understanding the patient's diagnosis, condition and treatment plan as can be expected at this point. Vital signs have been stabilized. The patient's condition is stable for discharge from the emergency department. The patient will pursue further outpatient evaluation with her primary care provider or other designated consulting physician as outlined in the discharge instructions. Patient and/or caregivers are agreeable to this plan of care and follow-up instructions have been explained in detail. The patient and/or caregivers have received these instructions in written format and expressed understanding of these discharge instructions. The patient and her caregivers are aware that if any significant change in condition or worsening of symptoms should prompt him to immediately return to this of the closest emergency department. If an emergent department is not readily available I would encourage him to call 911. Howei Disclaimer Dragon Disclaimer This electronic medical record was generated, in whole or in part, using a voice recognition dictation system. Departure Departure Impression: Primary Impression: Chronic leg pain Additional Impression: Cerebellar ataxia Disposition: HOME, SELF-CARE (at 2019) Condition: STABLE Referrals: JEAN-PIERRE EDMONDSON MD (PCP) Patient Instructions: Chronic Pain, Chronic Pain Management Additional Instructions: Continue current medication Follow-up with your primary care physician in 3-5 days Return to ER if not getting better Thank you for visiting [facility]. We appreciate you trusting us with your care. If any additional problems come up don't hesitate to return to visit us. Please follow up with your primary care provider so they can plan additional care if needed and know about the problem that you had. If symptoms worsen come back to the Emergency Department. Any concerning symptoms that start such as chest pain, shortness of air, weakness or numbness on one side of the body, running high fevers or any other concerning symptoms return to the ER. Problem Qualifiers Primary Impression: Chronic leg pain Laterality: left Qualified Codes: M79.605 - Pain in left leg; G89.29 - Other chronic pain TULIO SOLANO MD Nov 12, 2019 20:08
[2019-11-12] MEDS ORDERED: CYCLOBENZAPRINE 10 MG TABLET. PO ONE (20:15)
[2019-11-12] MEDS ORDERED: ACETAMINOPHEN 500 MG TABLET PO ONE (20:15)
== END 2019-11-12 21:45 | disposition home or self-care (01) ==
LOC: ER 19:01
DX: G89.29 Other chronic pain (principal); M79.605 Pain in left leg; G11.9 Hereditary ataxia, unspecified; M54.5 Low back pain
CPT/HCPCS: 99284

== ENCOUNTER 2019-11-15 00:15 | Emergency (ER) | payer OTHER ==
[~2019-11-15] VITALS: Ht 170.2 cm; Wt 120.0 kg
[2019-11-15 00:20] VITALS: BP 150/94
--- NOTE | 2019-11-15 00:39 | PHYS DOC ---
Past Medical History Past Medical History: Other Additional Past Medical Histor: SPINOCEREBELLAR ATAXIA; chronic back/leg pain Past Surgical History: No Surgical History, Alcohol Use: Occasionally Drug Use: None Adult General Chief Complaint Chief Complaint: BACK PAIN - NO INJURY HPI HPI Patient is a 39 year old AA female with history of cerebellar ataxia and chronic back and leg pain who is well-known to this emergency department who presents with chronic leg and back pain. Denies fall, injury or new pain complaint. No abdominal pain, urinary frequency or burning Patient is prescribed baclofen, Lyrica, and Lidoderm patches. She has been seen here multiple, multiple times in the past 12 months for the same. No change in the patient's condition. Patient did take lorazepam along with a sleep aid to 3 hours prior to ED arrival and is having difficulty staying awake with residual sternum words. [] Review of Systems Review of Systems History of symptoms as per history of present illness. All other review symptoms are negative. All other systems were reviewed and found to be within normal limits, except as documented in this note. Allergies Allergies Allergies Coded Allergies Type Severity Reaction Last Updated Verified No Known Drug Allergies 09/21/13 No Physical Exam Physical Exam Constitutional: Moderate, alerts to voice. [] HENT: Normocephalic, atraumatic, bilateral external ears normal, oropharynx moist, nose normal. [] Eyes: PERRLA, EOMI, conjunctiva normal, no discharge. [] Neck: Normal range of motion, no tenderness, supple. [] Cardiovascular:Heart rate regular rhythm, no murmur [] Lungs & Thorax: Bilateral breath sounds clear to auscultation [] Abdomen: Bowel sounds normal, soft, no tenderness. [] Skin: Warm, dry [] Back: No tenderness, no CVA tenderness. [] Extremities: No tenderness, no edema. [] Neurologic: Alert and oriented X 3, dysarthria, cranial nerves II through XII otherwise intact, bilateral lower extremity weakness.. [] Psychologic: Affect flatl, judgement normal, mood normal. [] EKG EKG [] Radiology/Procedures Radiology/Procedures [] Course & Med Decision Making Course & Med Decision Making Pertinent Labs and Imaging studies reviewed. (See chart for details) [Patient difficulty staying alert during exam. Will discharge from the ED instructions to follow-up with PCP for chronic pain management.] Dragon Disclaimer Dragon Disclaimer This electronic medical record was generated, in whole or in part, using a voice recognition dictation system. 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 Problem Qualifiers ARLIN CRAIG DO Nov 15, 2019 00:39
== END 2019-11-15 01:00 | disposition home or self-care (01) ==
LOC: ER 00:15
DX: G89.29 Other chronic pain (principal); M54.9 Dorsalgia, unspecified; M79.604 Pain in right leg; M79.605 Pain in left leg; Z98.890 Other specified postprocedural states
CPT/HCPCS: 99284

== ENCOUNTER 2019-11-22 22:45 | Emergency (ER) | payer OTHER ==
[~2019-11-22] VITALS: Ht 170.2 cm; Wt 54.5 kg
--- NOTE | 2019-11-23 00:05 | PHYS DOC ---
Past Medical History Past Medical History: Other Additional Past Medical Histor: SPINOCEREBELLAR ATAXIA; chronic back/leg pain Past Surgical History: No Surgical History, Smoking Status: Never Smoker Alcohol Use: Occasionally Drug Use: None Adult General Chief Complaint Chief Complaint: PAIN CONTROL HPI HPI Patient is a 39 year old female presents with the chief complaint of bilateral lower extremity pain. Patient denies any falls. States home medication--- naprosyn not helping. Per nursing staff-- patient well known. Mental status baseline. Review of Systems Review of Systems Constitutional: Denies fever or chills [] Eyes: Denies change in visual acuity, redness, or eye pain [] HENT: Denies nasal congestion or sore throat [] Respiratory: Denies cough or shortness of breath [] Cardiovascular: No additional information not addressed in HPI [] GI: Denies abdominal pain, nausea, vomiting, bloody stools or diarrhea [] : Denies dysuria or hematuria [] Musculoskeletal: leg pain Integument: Denies rash or skin lesions [] Neurologic: Denies headache, focal weakness or sensory changes [] Endocrine: Denies polyuria or polydipsia [] All other systems were reviewed and found to be within normal limits, except as documented in this note. Current Medications Current Medications Current Medications Medications (Trade) Dose Ordered Sig/Garrett Start Time Stop Time Status Last Admin Dose Admin Oxycodone/ Acetaminophen (Percocet 5/325) 1 tab 1X ONCE 11/23/19 00:15 11/23/19 00:16 DC 11/23/19 00:12 1 TAB Allergies Allergies Allergies Coded Allergies Type Severity Reaction Last Updated Verified No Known Drug Allergies 09/21/13 No Physical Exam Physical Exam Constitutional: Well developed, well nourished, no acute distress, non-toxic appearance. [] HENT: Normocephalic, atraumatic, bilateral external ears normal, oropharynx moist, no oral exudates, nose normal. [] Eyes: PERRLA, EOMI, conjunctiva normal, no discharge. [] Neck: Normal range of motion, no tenderness, supple, no stridor. [] Cardiovascular:Heart rate regular rhythm, no murmur [] Lungs & Thorax: Bilateral breath sounds clear to auscultation [] Abdomen: Bowel sounds normal, soft, no tenderness, no masses, no pulsatile masses. [] Skin: Warm, dry, no erythema, no rash. [] Back: No tenderness, no CVA tenderness. [] Extremities: No tenderness, no cyanosis, no clubbing, ROM intact, no edema. [] Neurologic: Alert and oriented X 3, normal motor function, normal sensory function, no focal deficits noted. [] Psychologic: Affect normal, judgement normal, mood normal. [] Current Patient Data Vital Signs Vital Signs Date Time Temp Pulse Resp B/P (MAP) Pulse Ox O2 Delivery O2 Flow Rate FiO2 11/22/19 22:50 98.5 105 18 136/99 (111) 95 Room Air 98.5 EKG EKG [] Radiology/Procedures Radiology/Procedures [] Course & Med Decision Making Course & Med Decision Making Pertinent Labs and Imaging studies reviewed. (See chart for details) [] Dragon Disclaimer Dragon Disclaimer This electronic medical record was generated, in whole or in part, using a voice recognition dictation system. Departure Departure Impression: Primary Impression: Chronic leg pain Disposition: HOME, SELF-CARE Referrals: JEAN-PIERRE EDMONDSON MD (PCP) Patient Instructions: Musculoskeletal Pain TAMMIE CORDOVA DO Nov 23, 2019 00:05
[2019-11-23] MEDS ORDERED: oxyCODONE/APAP 5/325 1 TAB TABLET PO ONE (00:15)
[2019-11-23 01:47] VITALS: BP 116/69
== END 2019-11-23 01:50 | disposition home or self-care (01) ==
LOC: ER 22:45
DX: G89.29 Other chronic pain (principal); M79.604 Pain in right leg; M79.605 Pain in left leg
CPT/HCPCS: 99283

== ENCOUNTER 2019-11-27 03:47 | Emergency (ER) | payer OTHER ==
[~2019-11-27] VITALS: Ht 172.7 cm; Wt 63.6 kg
[2019-11-27 03:50] VITALS: BP 145/101
--- NOTE | 2019-11-27 04:04 | PHYS DOC ---
Past Medical History Past Medical History: Other Additional Past Medical Histor: SPINOCEREBELLAR ATAXIA; chronic back/leg pain Past Surgical History: No Surgical History, Smoking Status: Never Smoker Alcohol Use: Occasionally Drug Use: None Adult General Chief Complaint Chief Complaint: LOWER EXT PAIN HPI HPI 39-year-old female presents to emergency department with chronic leg pain. Patient has Naprosyn at home however states is not working. She was just here 4 days ago with same complaints. Her primary care physician does not want to have narcotic medications or prescriptions for narcotic medications. She is at baseline for her mental status. Patient denies any fever, chest pain, shortness of breath. No new injury appreciated. This is chronic pain All other ROS negative unless documented in HPI Review of Systems Review of Systems See Above Allergies Allergies Allergies Coded Allergies Type Severity Reaction Last Updated Verified No Known Drug Allergies 09/21/13 No Physical Exam Physical Exam See Above Constitutional: Well developed, well nourished, no acute distress, non-toxic appearance. [] Cardiovascular:Heart rate regular rhythm, no murmur [] Lungs & Thorax: Bilateral breath sounds clear to auscultation [] Abdomen: Bowel sounds normal, soft, no tenderness, no masses, no pulsatile masses. [] Skin: Warm, dry, no erythema, no rash. [] Extremities: No tenderness, no edema. [] Neurologic: Alert and oriented X 3 [] Psychologic: Affect normal, judgement normal, mood normal. [] EKG EKG [] Radiology/Procedures Radiology/Procedures [] Course & Med Decision Making Course & Med Decision Making Pertinent Labs and Imaging studies reviewed. (See chart for details) []39-year-old female presents to emergency department with chronic leg pain. Patient has Naprosyn at home however states is not working. She was just here 4 days ago with same complaints. Her primary care physician does not want to have narcotic medications or prescriptions for narcotic medications. She is at baseline for her mental status. Patient denies any fever, chest pain, shortness of breath. No new injury appreciated. This is chronic pain Tylenol/Flexeril provided in ER No narcotic medications per patient's PCP Patient planned for dc home and follow up with her PCP Recommend addressing pain control with PCP Howie Disclaimer Dragon Disclaimer This electronic medical record was generated, in whole or in part, using a voice recognition dictation system. Departure Departure Impression: Primary Impression: Chronic leg pain Disposition: HOME, SELF-CARE Condition: STABLE Referrals: JEAN-PIERRE EDMONDSON MD (PCP) Patient Instructions: Chronic Pain Additional Instructions: Recommend following up with PCP regarding pain management PCP does not want narcotic medications prescribed No imaging obtained given chronic pain Problem Qualifiers Primary Impression: Chronic leg pain Laterality: left Qualified Codes: M79.605 - Pain in left leg; G89.29 - Other chronic pain RUDDY LOCKE MD Nov 27, 2019 04:04
[2019-11-27] MEDS ORDERED: ACETAMINOPHEN 500 MG TABLET PO ONE (04:30)
[2019-11-27] MEDS ORDERED: CYCLOBENZAPRINE 10 MG TABLET. PO ONE (04:30)
== END 2019-11-27 04:40 | disposition home or self-care (01) ==
LOC: ER 03:47
DX: G89.29 Other chronic pain (principal); M79.605 Pain in left leg
CPT/HCPCS: 99284

== ENCOUNTER 2019-12-07 00:01 | Emergency (ER) | payer OTHER ==
[~2019-12-07] VITALS: Ht 172.7 cm; Wt 55.0 kg
[2019-12-07] MEDS ORDERED: CYCL10TA2 PO (00:11)
--- NOTE | 2019-12-07 00:11 | PHYS DOC ---
Past Medical History Past Medical History: Other Additional Past Medical Histor: SPINOCEREBELLAR ATAXIA; chronic back/leg pain Past Surgical History: No Surgical History, Smoking Status: Never Smoker Alcohol Use: Occasionally Drug Use: None Adult General Chief Complaint Chief Complaint: LOWER EXT PAIN HPI HPI 39-year-old female presents emergency department chronic leg pain. Patient states she's in pain. Nothing is new based upon her complaints. She is bedridden, wheelchair-bound. Patient has noted his pain, shortness breath, na usea, vomiting, abdominal pain. This patient has multiple is to the emergency department with similar complaints, her primary care physician as instructed no narcotic medications to be administered. All other ROS negative unless documented in HPI Review of Systems Review of Systems See Above Allergies Allergies Allergies Coded Allergies Type Severity Reaction Last Updated Verified No Known Drug Allergies 09/21/13 No Physical Exam Physical Exam See Above Constitutional: Well developed, well nourished, no acute distress, non-toxic appearance. [] Cardiovascular:Heart rate regular rhythm, no murmur [] Lungs & Thorax: Bilateral breath sounds clear to auscultation [] Abdomen: Bowel sounds normal, soft, no tenderness, no masses, no pulsatile masses. [] Skin: Warm, dry, no erythema, no rash. [] Extremities: No tenderness, no edema. [] Neurologic: Alert and oriented X 3, [] Psychologic: Affect normal, judgement normal, mood normal. [] EKG EKG [] Radiology/Procedures Radiology/Procedures [] Course & Med Decision Making Course & Med Decision Making Pertinent Labs and Imaging studies reviewed. (See chart for details) [] 39-year-old female presents emergency department chronic leg pain. Patient states she's in pain. Nothing is new based upon her complaints. She is bedridden, wheelchair-bound. Patient has noted his pain, shortness breath, nausea, vomiting, abdominal pain. This patient has multiple is to the emergency department with similar complaints, her primary care physician as instructed no narcotic medications to be administered. Tylenol and flexeril provided in the ER Flexeril prescription provided which will hopefully help prevent her multiple visits to the ER weekly Recommend dc home Dragon Disclaimer Dragon Disclaimer This electronic medical record was generated, in whole or in part, using a voice recognition dictation system. Departure Departure Impression: Primary Impression: Chronic leg pain Disposition: HOME, SELF-CARE Condition: STABLE Referrals: JEAN-PIERRE EDMONDSON MD (PCP) Patient Instructions: Chronic Pain Management-Brief Additional Instructions: Tylenol/Motrin as needed for pain Flexeril rx provided upon discharge which may help prevent frequent ER visits NO imaging given this is chronic Scripts Cyclobenzaprine Hcl (CYCLOBENZAPRINE HCL) 10 Mg Tablet 1 TAB PO TID PRN for PAIN, #21 TAB Prov: RUDDY LOCKE MD 12/07/19 Problem Qualifiers Primary Impression: Chronic leg pain Laterality: unspecified laterality Qualified Codes: M79.606 - Pain in leg, unspecified; G89.29 - Other chronic pain RUDDY LOCKE MD Dec 07, 2019 00:11
[2019-12-07 00:27] VITALS: BP 141/97
[2019-12-07] MEDS ORDERED: CYCLOBENZAPRINE 10 MG TABLET. PO ONE (00:30)
[2019-12-07] MEDS ORDERED: ACETAMINOPHEN 500 MG TABLET PO ONE (00:30)
== END 2019-12-07 00:29 | disposition home or self-care (01) ==
LOC: ER 00:01
DX: G89.29 Other chronic pain (principal); M79.604 Pain in right leg; M79.605 Pain in left leg; R11.2 Nausea with vomiting, unspecified; R06.02 Shortness of breath; Z98.890 Other specified postprocedural states
CPT/HCPCS: 99284

== ENCOUNTER 2019-12-17 04:27 | Emergency (ER) | payer OTHER ==
[~2019-12-17] VITALS: Ht 170.2 cm; Wt 54.5 kg
[2019-12-17] MEDS ORDERED: HYDROcodone/APAP 10/325 1 TAB TABLET PO ONE (04:45)
--- NOTE | 2019-12-17 05:13 | PHYS DOC ---
Past Medical History Past Medical History: Other Additional Past Medical Histor: SPINOCEREBELLAR ATAXIA; chronic back/leg pain Past Surgical History: No Surgical History, Smoking Status: Never Smoker Alcohol Use: Occasionally Drug Use: None Adult General Chief Complaint Chief Complaint: LOWER EXT PAIN HPI HPI Patient is a 39 year old female with history of SPINOCEREBELLAR ATAXIA; chronic back/leg pain, EMS were called to take her here for leg cramping. Patient is on baclofen and [place] at home for chronic leg pain. Patient states she forgot to take her medication tonight so she started having leg cramping this morning. Patient has been evaluated here multiple times for the same thing. No report of injury. Review of Systems Review of Systems Constitutional: Denies fever or chills [] Eyes: Denies change in visual acuity, redness, or eye pain [] HENT: Denies nasal congestion or sore throat [] Respiratory: Denies cough or shortness of breath [] Cardiovascular: No additional information not addressed in HPI [] GI: Denies abdominal pain, nausea, vomiting, bloody stools or diarrhea [] : Denies dysuria or hematuria [] Musculoskeletal: Denies back pain, Positive for legs pain. Integument: Denies rash or skin lesions [] Neurologic: Denies headache, focal weakness or sensory changes [] Endocrine: Denies polyuria or polydipsia [] All other systems were reviewed and found to be within normal limits, except as documented in this note. Current Medications Current Medications Current Medications Medications (Trade) Dose Ordered Sig/Garrett Start Time Stop Time Status Last Admin Dose Admin Acetaminophen/ Hydrocodone Bitart (Lortab 10/325) 1 tab 1X ONCE 12/17/19 04:45 12/17/19 04:46 DC 12/17/19 04:50 1 TAB Allergies Allergies Allergies Coded Allergies Type Severity Reaction Last Updated Verified No Known Drug Allergies 09/21/13 No Physical Exam Physical Exam Constitutional: Well developed, well nourished, no acute distress, non-toxic appearance. [] HENT: Normocephalic, atraumatic, bilateral external ears normal, oropharynx moist, no oral exudates, nose normal. [] Eyes: PERRLA, EOMI, conjunctiva normal, no discharge. [] Neck: Normal range of motion, no tenderness, supple, no stridor. [] Cardiovascular:Heart rate regular rhythm, no murmur [] Lungs & Thorax: Bilateral breath sounds clear to auscultation [] Abdomen: Bowel sounds normal, soft, no tenderness, no masses, no pulsatile masses. [] Skin: Warm, dry, no erythema, no rash. [] Back: No tenderness, no CVA tenderness. [] Extremities: No tenderness, no cyanosis, no clubbing, ROM intact, no edema. [] Neurologic: awake, alert. ] Psychologic: Affect normal, judgement normal, mood normal. [] Current Patient Data Vital Signs Vital Signs Date Time Temp Pulse Resp B/P (MAP) Pulse Ox O2 Delivery O2 Flow Rate FiO2 12/17/19 04:50 16 98 Room Air EKG EKG [] Radiology/Procedures Radiology/Procedures [] Course & Med Decision Making Course & Med Decision Making Pertinent Labs and Imaging studies reviewed. (See chart for details) [] Dragon Disclaimer Dragon Disclaimer This electronic medical record was generated, in whole or in part, using a voice recognition dictation system. Departure Departure Impression: Primary Impression: Chronic leg pain Disposition: HOME, SELF-CARE Condition: STABLE Referrals: JEAN-PIERRE EDMONDSON MD (PCP) follow up with your doctor next week Patient Instructions: Leg Cramps BENJAMIN DAVIS DO Dec 17, 2019 05:13
[2019-12-17 06:02] VITALS: BP 133/77
== END 2019-12-17 06:36 | disposition home or self-care (01) ==
LOC: ER 04:27
DX: G89.29 Other chronic pain (principal); M79.604 Pain in right leg; M79.605 Pain in left leg
CPT/HCPCS: 99285-25

== ENCOUNTER 2019-12-17 22:50 | Emergency (ER) | payer OTHER ==
[~2019-12-17] VITALS: Ht 170.2 cm; Wt 54.5 kg
[2019-12-17] MEDS ORDERED: KETOROLAC 60 MG/2 ML VIAL. IM ONE (23:30)
[2019-12-17] MEDS ORDERED: HYDROcodone/APAP 5/325MG 1 TAB TABLET PO ONE (23:30)
[2019-12-17] MEDS ORDERED: diazePAM 5 MG TABLET PO ONE (23:30)
--- NOTE | 2019-12-18 | PHYS DOC ---
Past Medical History Past Medical History: Other Additional Past Medical Histor: SPINOCEREBELLAR ATAXIA; chronic back/leg pain Past Surgical History: No Surgical History, Smoking Status: Never Smoker Alcohol Use: Occasionally Drug Use: None Adult General Chief Complaint Chief Complaint: MUSCLE SPASM/CR[facility] HPI Patient is a 39 year old female with a history of cerebellar ataxia, contractures of upper and lower extremities, chronic back pain, chronic upper and lower extremity pain with muscle spasms, who presents to the ED today complaining of 10 out of 10 muscle spasms with pain to bilateral upper and lower extremities. Patient reports symptoms have been going on since this morning. Patient denies any injury. She arrives in the ED by EMS and crying out loud Review of Systems Review of Systems Constitutional: Denies fever or chills [] Eyes: Denies change in visual acuity, redness, or eye pain [] HENT: Denies nasal congestion or sore throat [] Respiratory: Denies cough or shortness of breath [] Cardiovascular: No additional information not addressed in HPI [] GI: Denies abdominal pain, nausea, vomiting, bloody stools or diarrhea [] : Denies dysuria or hematuria [] Musculoskeletal: Reports spasms to upper and lower extremities, pain to upper and lower extremities Integument: Denies rash or skin lesions [] Neurologic: Denies headache, focal weakness or sensory changes [] All other systems were reviewed and found to be within normal limits, except as documented in this note. Current Medications Current Medications Current Medications Medications (Trade) Dose Ordered Sig/[facility] Start Time Stop Time Status Last Admin Dose Admin Acetaminophen/ Hydrocodone Bitart (Lortab 5/325) 1 tab 1X ONCE 12/17/19 23:30 12/17/19 23:31 DC 12/17/19 23:28 1 TAB Diazepam (Valium) 5 mg 1X ONCE 12/17/19 23:30 12/17/19 23:31 DC 12/17/19 23:28 5 MG Ketorolac Tromethamine (Toradol Im) 60 mg 1X ONCE 12/17/19 23:30 12/17/19 23:31 DC 12/17/19 23:29 60 MG Allergies Allergies Allergies Coded Allergies Type Severity Reaction Last Updated Verified No Known Drug Allergies 09/21/13 No Physical Exam Physical Exam Constitutional: Well developed, well nourished, no acute distress, non-toxic appearance. [] HENT: Normocephalic, atraumatic, bilateral external ears normal, oropharynx moist, no oral exudates, nose normal. [] Eyes: PERRLA, EOMI, conjunctiva normal, no discharge. [] Neck: Normal range of motion, no tenderness, supple, no stridor. [] Cardiovascular: Tachycardic Lungs & Thorax: Bilateral breath sounds clear to auscultation [] Abdomen: Bowel sounds normal, soft, no tenderness, no masses, no pulsatile masses. [] Skin: Warm, dry, no erythema, no rash. [] Back: No tenderness, no CVA tenderness. [] Extremities: Contracted upper and lower extremities Neurologic: Alert and oriented X 3, normal motor function, normal sensory function, no focal deficits noted. [] Psychologic: Flat affect and crying out loud Current Patient Data Vital Signs Vital Signs Date Time Temp Pulse Resp B/P (MAP) Pulse Ox O2 Delivery O2 Flow Rate FiO2 12/17/19 23:28 18 96 Room Air 12/17/19 22:50 98.0 118 158/98 (118) 98.0 EKG EKG [] Radiology/Procedures Radiology/Procedures [] Course & Med Decision Making Course & Med Decision Making Pertinent Labs and Imaging studies reviewed. (See chart for details) This is a 39-year-old female patient well-known to this ED presenting today complaining of spasms and pain to bilateral upper and lower extremities. Symptoms have been going on since this morning. Patient was seen earlier in the ED and discharge. She states she has not taken any of her muscle relaxers. She took Tylenol and tramadol sometime today. She arrives in the ED crying out loud which is unusual for most of us, she typically is quiet. She denies any abuse at home. She is denying any abdominal pain, urgency frequency dysuria. Patient was given Valium, Toradol injection and 1 hydrocodone. She calmed down and was discharged via EMS. Dragon Disclaimer Dragon Disclaimer This electronic medical record was generated, in whole or in part, using a voice recognition dictation system. Departure Departure Impression: Primary Impression: Cerebellar ataxia Additional Impressions: Lower extremity pain, bilateral Muscle spasm Disposition: 01 HOME, SELF-CARE Condition: STABLE Referrals: JEAN-PIERRE EDMONDSON MD (PCP) follow up in the course of this week Patient Instructions: Musculoskeletal Pain Additional Instructions: You were evaluated in the emergency room for muscle spasms and pain. Continue taking your muscle relaxers and pain medicine at home. Please follow-up with your own doctor in the course of this week. Problem Qualifiers LIBIA DELVALLE APRN Dec 18, 2019 00:00
[2019-12-18 00:22] VITALS: BP 135/79
== END 2019-12-18 00:36 | disposition home or self-care (01) ==
LOC: ER 22:50
DX: G11.9 Hereditary ataxia, unspecified (principal); M79.604 Pain in right leg; M79.605 Pain in left leg; M62.838 Other muscle spasm; G89.29 Other chronic pain; Z98.890 Other specified postprocedural states
CPT/HCPCS: 96372; 99284; J1885

== ENCOUNTER 2019-12-18 04:01 | Emergency (ER) | payer OTHER ==
[~2019-12-18] VITALS: Ht 167.6 cm; Wt 54.5 kg
--- NOTE | 2019-12-18 04:43 | PHYS DOC ---
Past Medical History Past Medical History: Other Additional Past Medical Histor: SPINOCEREBELLAR ATAXIA; chronic back/leg pain Past Surgical History: No Surgical History, Smoking Status: Never Smoker Alcohol Use: Occasionally Drug Use: None Adult General Chief Complaint Chief Complaint: LOWER EXT PAIN [facility] HPI Patient is a 39 year old female with history of spinal cerebellar ataxia, chronic back and neck pain, frequent emergency room visits who presents via EMS for details time in the last 24 hours with straining of back pain. Patient complaining of right flank and back pain that started prior to arrival to ER as a constant sharp pain without radiation. Patient denies nausea and vomiting, urinary symptoms, fever and chills, injury. Patient was seen in this emergency room regarding pain in her leg and states that her leg pain resolved. Review of Systems Review of Systems Constitutional: Denies fever or chills [] Eyes: Denies change in visual acuity, redness, or eye pain [] HENT: Denies nasal congestion or sore throat [] Respiratory: Denies cough or shortness of breath [] Cardiovascular: No additional information not addressed in HPI [] GI: Denies abdominal pain, nausea, vomiting, bloody stools or diarrhea [] : Denies dysuria or hematuria [] Musculoskeletal: Reports back pain and neck pain] Integument: Denies rash or skin lesions [] Neurologic: Denies headache, focal weakness or sensory changes [] Endocrine: Denies polyuria or polydipsia [] All other systems were reviewed and found to be within normal limits, except as documented in this note. Current Medications Current Medications Current Medications Medications (Trade) Dose Ordered Sig/[facility] Start Time Stop Time Status Last Admin Dose Admin Orphenadrine Citrate (Norflex) 60 mg 1X ONCE 12/18/19 04:45 12/18/19 04:46 DC 12/18/19 04:52 60 MG Allergies Allergies Allergies Coded Allergies Type Severity Reaction Last Updated Verified No Known Drug Allergies 09/21/13 No Physical Exam Physical Exam Constitutional: Mild distress, non-toxic appearance. [] HENT: Normocephalic, atraumatic. Eyes: PERRLA, EOMI, conjunctiva normal, no discharge. [] Neck: Normal range of motion, no tenderness, supple, no stridor. [] Cardiovascular:Heart rate regular rhythm, no murmur [] Lungs & Thorax: Bilateral breath sounds clear to auscultation [] Abdomen: Bowel sounds normal, soft, no tenderness, no masses, no pulsatile masses. [] Skin: Warm, dry, no erythema, no rash. [] Back: No midline tenderness, no CVA tenderness. [] Extremities: Atrophic muscle and flexed position of lower extremities and upper extremities No tenderness, no cyanosis, no clubbing, ROM intact, no edema. [] Neurologic: Alert and oriented Psychologic: Affect anxious Current Patient Data Vital Signs Vital Signs Date Time Temp Pulse Resp B/P (MAP) Pulse Ox O2 Delivery O2 Flow Rate FiO2 12/18/19 04:02 98.6 112 12 163/103 (123) 98 Room Air 98.6 Lab Values Laboratory Tests Test 12/18/19 04:45 White Blood Count 8.1 x10^3/uL (4.0-11.0) Red Blood Count 4.09 x10^6/uL (3.50-5.40) Hemoglobin 12.1 g/dL (12.0-15.5) Hematocrit 36.4 % (36.0-47.0) Mean Corpuscular Volume 89 fL (79-100) Mean Corpuscular Hemoglobin 30 pg (25-35) Mean Corpuscular Hemoglobin Concent 33 g/dL (31-37) Red Cell Distribution Width 13.7 % (11.5-14.5) Platelet Count 246 x10^3/uL (140-400) Neutrophils (%) (Auto) 73 % (31-73) Lymphocytes (%) (Auto) 13 % (24-48) L Monocytes (%) (Auto) 13 % (0-9) H Eosinophils (%) (Auto) 1 % (0-3) Basophils (%) (Auto) 0 % (0-3) Neutrophils # (Auto) 5.9 x10^3/uL (1.8-7.7) Lymphocytes # (Auto) 1.1 x10^3/uL (1.0-4.8) Monocytes # (Auto) 1.0 x10^3/uL (0.0-1.1) Eosinophils # (Auto) 0.1 x10^3/uL (0.0-0.7) Basophils # (Auto) 0.0 x10^3/uL (0.0-0.2) Prothrombin Time 13.9 SEC (11.7-14.0) Prothrombin Time INR 1.1 (0.8-1.1) Urine Color Yellow Urine Clarity Clear Urine pH 5.5 Urine Specific [place] 1.025 Urine Protein Negative mg/dL (NEG-TRACE) Urine Glucose (UA) Negative mg/dL (NEG) Urine Ketones (Stick) 15 mg/dL (NEG) Urine Blood Small (NEG) Urine Nitrite Negative (NEG) Urine Bilirubin Negative (NEG) Urine Urobilinogen Dipstick 0.2 mg/dL (0.2 mg/dL) Urine Leukocyte Esterase Negative (NEG) Urine RBC 11-20 /HPF (0-2) Urine WBC 1-4 /HPF (0-4) Urine Squamous Epithelial Cells Many /LPF Urine Bacteria 0 /HPF (0-FEW) Urine Mucus Marked /LPF Urine Test Negative (NEG) Sodium Level 137 mmol/L (136-145) Potassium Level 4.0 mmol/L (3.5-5.1) Chloride Level 101 mmol/L (98-107) Carbon Dioxide Level 27 mmol/L (21-32) Anion Gap 9 (6-14) Blood Urea Nitrogen 14 mg/dL (7-20) Creatinine 0.8 mg/dL (0.6-1.0) Estimated GFR (Cockcroft-Gault) 97.1 BUN/Creatinine Ratio 18 (6-20) Glucose Level 84 mg/dL (70-99) Calcium Level 9.4 mg/dL (8.5-10.1) Total Bilirubin 0.9 mg/dL (0.2-1.0) Aspartate Amino Transferase (AST) 21 U/L (15-37) Alanine Aminotransferase (ALT) 25 U/L (14-59) Alkaline Phosphatase 52 U/L (46-116) Creatine Kinase 268 U/L (26-192) H Total Protein 7.4 g/dL (6.4-8.2) Albumin 3.9 g/dL (3.4-5.0) Albumin/Globulin Ratio 1.1 (1.0-1.7) Lipase 43 U/L (73-393) L Urine Opiates Screen Pos (NEG) Urine Methadone Screen Neg (NEG) Urine Barbiturates Neg (NEG) Urine Phencyclidine Screen Neg (NEG) Urine Amphetamine/Methamphetamine Neg (NEG) Urine Benzodiazepines Screen Pos (NEG) Urine Cocaine Screen Neg (NEG) Urine Cannabinoids Screen Neg (NEG) Urine Ethyl Alcohol Neg (NEG) Laboratory Tests 12/18/19 04:45 Laboratory Tests 12/18/19 04:45 EKG EKG [] Radiology/Procedures Radiology/Procedures [][facility] [address] [place] [address] IMAGING REPORT Signed PATIENT: SANCHEZ BULLOCK PACCOUNT: [id number] : 1980 LOCATION: ER AGE: 39 SEX: F EXAM STATUS: REG ER ORD. PHYSICIAN: TULIO SOLANO MD REASON: flank pain PROCEDURE: CT ABDOMEN PELVIS WO CONTRAST CT abdomen pelvis without contrast. HISTORY: Flank pain CT scan the abdomen pelvis was done without contrast. There are mild infiltrates in the lung bases. There is no effusion. Liver is normal in appearance. Gallbladder is distended but without a calcified gallstone or gallbladder wall thickening. Spleen is unremarkable. Adrenal glands are normal. There is no mass or hydronephrosis or calculus in the kidneys. There is no small bowel obstruction. There is increased stool and gas in the colon and rectum. Appendix is normal. There are phleboliths in the pelvis. IMPRESSION: 1. No intrarenal calculus or hydronephrosis noted. 2. Increased gas and stool in the colon rectum. 3. No bowel obstruction. 4. Mild basilar infiltrates. PQRS Compliance Statement: One or more of the following individualized dose reduction techniques were utilized for this examination: 1. Automated exposure control 2. Adjustment of the mA and/or kV according to patient size 3. Use of iterative reconstruction technique Electronically signed by: Ti Rosa MD (12/18/2019 5:48 AM) [id number] DICTATED and SIGNED BY: TI ROSA MD DATE: 12/18/19 0548 Course & Med Decision Making Course & Med Decision Making Pertinent Labs and Imaging studies reviewed. (See chart for details) discharge: I've spoken with the patient and/or caregivers. I've explained the patient's condition, diagnosis and treatment plan based on information available to me at this time. I've answered the patient's and/or caregivers questions and addressed any concerns. The patient and/or caregivers have a good understanding the patient's diagnosis, condition and treatment plan as can be expected at this point. Vital signs have been stabilized. The patient's condition is stable for discharge from the emergency department. The patient will pursue further outpatient evaluation with her primary care provider or other designated consulting physician as outlined in the discharge instructions. Patient and/or caregivers are agreeable to this plan of care and follow-up instructions have been explained in detail. The patient and/or caregivers have received these instructions in written format and expressed understanding of these discharge instructions. The patient and her caregivers are aware that if any significant change in condition or worsening of symptoms should prompt him to immediately return to this of the closest emergency department. If an emergent department is not readily available I would encourage him to call 911. Dragon Disclaimer Dragon Disclaimer This electronic medical record was generated, in whole or in part, using a voice recognition dictation system. Departure Departure Impression: Primary Impression: Exacerbation of chronic back pain Disposition: HOME, SELF-CARE (at 0559) Condition: IMPROVED Referrals: JEAN-PIERRE EDMONDSON MD (PCP) Patient Instructions: Chronic Back Pain Additional Instructions: Continue current medication Follow-up with your primary care physician in 3-5 days Return to ER if not getting better TULIO SOLANO MD Dec 18, 2019 04:42
[2019-12-18] MEDS ORDERED: ORPHENADRINE CITRATE 60 MG/2 ML VIAL. IV ONE (04:45)
[2019-12-18 04:52] LABS: BASO % 0 % (0-3); EOS # 0.1 x10^3/uL (0.0-0.7); EOS % 1 % (0-3); HEMATOCRIT 36.4 % (36.0-47.0); HEMOGLOBIN 12.1 g/dL (12.0-15.5); LYMPH # 1.1 x10^3/uL (1.0-4.8); LYMPH % 13 % (24-48); MEAN CORPUSCULAR HEMOGLOBIN 30 pg (25-35); MEAN CORPUSCULAR HGB CONC 33 g/dL (31-37); MEAN CORPUSCULAR VOLUME 89 fL (79-100); MONO % 13 % (0-9); NEUT # 5.9 x10^3/uL (1.8-7.7); NEUT % 73 % (31-73); PLATELET COUNT 246 x10^3/uL (140-400); RED BLOOD COUNT 4.09 x10^6/uL (3.50-5.40); RED CELL DISTRIBUTION WIDTH 13.7 % (11.5-14.5); WHITE BLOOD COUNT 8.1 x10^3/uL (4.0-11.0)
[2019-12-18 04:55] LABS: BILIRUBIN,URINE NEGATIVE (NEG); CLARITY,URINE CLEAR; COLOR,URINE YELLOW; NITRITE,URINE NEGATIVE (NEG); PH,URINE 5.5; PROTEIN,URINE NEGATIVE (NEG-TRACE); UROBILINOGEN,URINE 0.2 mg/dL (0.2 mg/dL)
[2019-12-18 04:59] LABS: CALCIUM 9.4 mg/dL (8.5-10.1); CREATININE 0.8 mg/dL (0.6-1.0); GFR 97.1
[2019-12-18 05:01] LABS: PROTHROMBIN TIME PATIENT 13.9 SEC (11.7-14.0)
[2019-12-18 05:02] LABS: BARBITURATES NEG (NEG); BENZODIAZEPINES POS (NEG); CANNABINOIDS NEG (NEG); COCAINE NEG (NEG); METHADONE NEG (NEG); OPIATES POS (NEG); PHENCYCLIDINE NEG (NEG)
[2019-12-18 05:04] LABS: AMPHETAMINE/METHAMPHETAMINE NEG (NEG)
[2019-12-18 05:06] LABS: ALBUMIN 3.9 g/dL (3.4-5.0); ALBUMIN/GLOBULIN RATIO 1.1 (1.0-1.7); TOTAL BILIRUBIN 0.9 mg/dL (0.2-1.0); TOTAL PROTEIN 7.4 g/dL (6.4-8.2)
[2019-12-18 05:17] LABS: SQUAMOUS EPITHELIAL CELL,UR MANY /LPF
[2019-12-18 05:18] LABS: BACTERIA,URINE 0 /HPF (0-FEW)
[2019-12-18 05:21] LABS: U PREG PATIENT NEGATIVE (NEG)
--- NOTE | 2019-12-18 05:51 | RAD ---
CT abdomen pelvis without contrast. HISTORY: Flank pain CT scan the abdomen pelvis was done without contrast. There are mild infiltrates in the lung bases. There is no effusion. Liver is normal in appearance. Gallbladder is distended but without a calcified gallstone or gallbladder wall thickening. Spleen is unremarkable. Adrenal glands are normal. There is no mass or hydronephrosis or calculus in the kidneys. There is no small bowel obstruction. There is increased stool and gas in the colon and rectum. Appendix is normal. There are phleboliths in the pelvis. IMPRESSION: 1. No intrarenal calculus or hydronephrosis noted. 2. Increased gas and stool in the colon rectum. 3. No bowel obstruction. 4. Mild basilar infiltrates. PQRS Compliance Statement: One or more of the following individualized dose reduction techniques were utilized for this examination: 1. Automated exposure control 2. Adjustment of the mA and/or kV according to patient size 3. Use of iterative reconstruction technique Electronically signed by: Ti Rosa MD (12/18/2019 5:48 AM) [id number]
[2019-12-18 06:35] VITALS: BP 170/102
== END 2019-12-18 06:07 | disposition home or self-care (01) ==
LOC: ER 04:01
DX: G89.29 Other chronic pain (principal); M54.9 Dorsalgia, unspecified; M54.2 Cervicalgia; F41.9 Anxiety disorder, unspecified
CPT/HCPCS: 36415; 74176; 80053; 80307; 81001; 81025; 82550; 83690; 85025; 85610; 96374; 99285; J2360

== ENCOUNTER 2019-12-24 14:06 | Emergency (ER) | payer OTHER ==
[~2019-12-24] VITALS: Ht 167.6 cm; Wt 65.0 kg
[2019-12-24 14:15] LABS: BILIRUBIN,URINE SMALL (NEG); CLARITY,URINE CLEAR; COLOR,URINE AMBER; NITRITE,URINE NEGATIVE (NEG); PH,URINE 5.5 (<5.0-8.0); PROTEIN,URINE 30 mg/dL (NEG-TRACE)
[2019-12-24 14:23] LABS: SQUAMOUS EPITHELIAL CELL,UR FEW /LPF
[2019-12-24 14:24] LABS: BACTERIA,URINE 0 /HPF (0-FEW); WBC,URINE 0 /HPF (0-4)
[2019-12-24 14:25] VITALS: BP 186/118
[2019-12-24] MEDS ORDERED: ORPHENADRINE CITRATE 60 MG/2 ML VIAL. IM ONE (14:30)
--- NOTE | 2019-12-24 14:34 | PHYS DOC ---
Past Medical History Past Medical History: Other Additional Past Medical Histor: SPINOCEREBELLAR ATAXIA; chronic back/leg pain Past Surgical History: No Surgical History, Smoking Status: Never Smoker Alcohol Use: Occasionally Drug Use: None Adult General Chief Complaint Chief Complaint: PAIN ON URINATION HPI HPI Patient is a 39 year old female well-known to this ED with history of Celebra ataxia who presents to the ED today complaining of chronic spasms to the lower extremities and upper extremities as well as chronic back and lower extremity pain. Patient is also requesting to be tested for UTI. Patient denies any fever. Review of Systems Review of Systems Constitutional: Denies fever or chills [] Eyes: Denies change in visual acuity, redness, or eye pain [] HENT: Denies nasal congestion or sore throat [] Respiratory: Denies cough or shortness of breath [] Cardiovascular: No additional information not addressed in HPI [] GI: Denies abdominal pain, nausea, vomiting, bloody stools or diarrhea [] :Request UTI testing. Denies dysuria or hematuria [] Musculoskeletal: Reports chronic lower extremity spasms, chronic back pain Integument: Denies rash or skin lesions [] Neurologic: Denies headache, focal weakness or sensory changes [] All other systems were reviewed and found to be within normal limits, except as documented in this note. Current Medications Current Medications Current Medications Medications (Trade) Dose Ordered Sig/[facility] Start Time Stop Time Status Last Admin Dose Admin Orphenadrine Citrate (Norflex) 60 mg 1X ONCE 12/24/19 14:30 12/24/19 14:31 DC Allergies Allergies Allergies Coded Allergies Type Severity Reaction Last Updated Verified No Known Drug Allergies 09/21/13 No Physical Exam Physical Exam Constitutional: Well developed, well nourished, no acute distress, non-toxic appearance. [] HENT: Normocephalic, atraumatic, bilateral external ears normal, oropharynx moist, no oral exudates, nose normal. [] Eyes: PERRLA, EOMI, conjunctiva normal, no discharge. [] Neck: Normal range of motion, no tenderness, supple, no stridor. [] Cardiovascular:Heart rate regular rhythm, no murmur [] Lungs & Thorax: Bilateral breath sounds clear to auscultation [] Abdomen: Bowel sounds normal, soft, no tenderness, no masses, no pulsatile masses. [] Skin: Warm, dry, no erythema, no rash. [] Back: No tenderness, no CVA tenderness. [] Extremities: No tenderness, no cyanosis, no clubbing, ROM intact, no edema. Chronic contractures upper and lower extremities. Neurologic: Alert and oriented X 3, normal motor function, normal sensory function, no focal deficits noted. [] Psychologic: Flat affect Current Patient Data Vital Signs Vital Signs Date Time Temp Pulse Resp B/P (MAP) Pulse Ox O2 Delivery O2 Flow Rate FiO2 12/24/19 14:25 98.4 64 16 186/118 (140) 98 Room Air 98.4 Lab Values Laboratory Tests Test 12/24/19 14:05 Urine Collection Type U cath Urine Color Nicky Urine Clarity Clear Urine pH 5.5 (<5.0-8.0) Urine Specific [place] >=1.030 (1.000-1.030) Urine Protein 30 mg/dL (NEG-TRACE) Urine Glucose (UA) Negative mg/dL (NEG) Urine Ketones (Stick) 40 mg/dL (NEG) Urine Blood Negative (NEG) Urine Nitrite Negative (NEG) Urine Bilirubin Small (NEG) Urine Urobilinogen Dipstick 1.0 mg/dL (0.2 mg/dL) Urine Leukocyte Esterase Negative (NEG) Urine RBC 1-2 /HPF (0-2) Urine WBC 0 /HPF (0-4) Urine Squamous Epithelial Cells Few /LPF Urine Bacteria 0 /HPF (0-FEW) Urine Mucus Marked /LPF EKG EKG [] Radiology/Procedures Radiology/Procedures [] Course & Med Decision Making Course & Med Decision Making Pertinent Labs and Imaging studies reviewed. (See chart for details) This is a 39-year-old female patient with a history of cerebellar ataxia presenting to the ED today complaining of chronic back pain, chronic lower extremity pain with spasms. Urine analysis is negative, given Norflex and discharged back to home. Dragon Disclaimer Dragon Disclaimer This electronic medical record was generated, in whole or in part, using a voice recognition dictation system. Departure Departure Impression: Primary Impression: Cerebellar ataxia Additional Impression: Lower extremity pain, bilateral Disposition: HOME, SELF-CARE Condition: STABLE Referrals: JEAN-PIERRE EDMONDSON MD (PCP) follow up in 1-2 weeks Patient Instructions: Back Pain, Adult, [id number] Additional Instructions: Your urine was negative for infection Please follow up with your doctor in the course of this week Problem Qualifiers LIBIA DELVALLE APRN Dec 24, 2019 14:34
== END 2019-12-24 15:40 | disposition home or self-care (01) ==
LOC: ER 14:06
DX: M79.604 Pain in right leg (principal); M79.605 Pain in left leg; G11.9 Hereditary ataxia, unspecified; G89.29 Other chronic pain; M54.9 Dorsalgia, unspecified; M24.542 Contracture, left hand; M24.541 Contracture, right hand
CPT/HCPCS: 81001; 96372; 99283; J2360

== ENCOUNTER 2020-01-16 07:16 | Emergency (ER) | payer OTHER ==
[~2020-01-16] VITALS: Ht 170.2 cm; Wt 55.0 kg
[2020-01-16] MEDS ORDERED: HYDROcodone/APAP 5/325MG 1 TAB TABLET PO ONE (07:45)
[2020-01-16 07:51] VITALS: BP 162/90
--- NOTE | 2020-01-16 07:57 | PHYS DOC ---
Past Medical History Past Medical History: No Pertinent History, Other Additional Past Medical Histor: SPINOCEREBELLAR ATAXIA; chronic back/leg pain Past Surgical History: No Surgical History, Smoking Status: Never Smoker Alcohol Use: Occasionally Drug Use: None Adult General Chief Complaint Chief Complaint: LOWER EXT PAIN HPI HPI Patient is a 40 year old female who is well-known to this department, was taken by EMS here due to pain in her left leg. Patient has chronic leg pain. Patient has been evaluated multiple times for the same problem. Patient denies any trauma. Patient denies any chest pain or any trouble breathing, no leg swelling, no leg numbness. Review of Systems Review of Systems Constitutional: Denies fever or chills [] Eyes: Denies change in visual acuity, redness, or eye pain [] HENT: Denies nasal congestion or sore throat [] Respiratory: Denies cough or shortness of breath [] Cardiovascular: No additional information not addressed in HPI [] GI: Denies abdominal pain, nausea, vomiting, bloody stools or diarrhea [] : Denies dysuria or hematuria [] Musculoskeletal: Denies back pain or joint pain. Positive for left leg pain Integument: Denies rash or skin lesions [] Neurologic: Denies headache, focal weakness or sensory changes [] Endocrine: Denies polyuria or polydipsia [] All other systems were reviewed and found to be within normal limits, except as documented in this note. Current Medications Current Medications Current Medications Medications (Trade) Dose Ordered Sig/[facility] Start Time Stop Time Status Last Admin Dose Admin Acetaminophen/ Hydrocodone Bitart (Lortab 5/325) 1 tab 1X ONCE 01/16/20 07:45 01/16/20 07:46 DC 01/16/20 07:44 1 TAB Allergies Allergies Allergies Coded Allergies Type Severity Reaction Last Updated Verified No Known Drug Allergies 09/21/13 No Physical Exam Physical Exam Constitutional: Well developed, well nourished, no acute distress, non-toxic appearance. [] HENT: Normocephalic, atraumatic, bilateral external ears normal, oropharynx moist, no oral exudates, nose normal. [] Eyes: PERRLA, EOMI, conjunctiva normal, no discharge. [] Neck: Normal range of motion, no tenderness, supple, no stridor. [] Cardiovascular:Heart rate regular rhythm, no murmur [] Lungs & Thorax: Bilateral breath sounds clear to auscultation [] Abdomen: Bowel sounds normal, soft, no tenderness, no masses, no pulsatile mas ses. [] Skin: Warm, dry, no erythema, no rash. [] Back: No tenderness, no CVA tenderness. [] Extremities: No tenderness, no cyanosis, no clubbing, ROM intact, no edema. [] Neurologic: Alert and oriented X 3, moving all extremities, chronic extremities contracture Psychologic: Affect normal, judgement normal, mood normal. [] Current Patient Data Vital Signs Vital Signs Date Time Temp Pulse Resp B/P (MAP) Pulse Ox O2 Delivery O2 Flow Rate FiO2 01/16/20 07:23 98.4 103 16 170/109 (129) 97 Room Air 98.4 EKG EKG [] Radiology/Procedures Radiology/Procedures [] Course & Med Decision Making Course & Med Decision Making Pertinent Labs and Imaging studies reviewed. (See chart for details) [] Dragon Disclaimer Dragon Disclaimer This electronic medical record was generated, in whole or in part, using a voice recognition dictation system. Departure Departure Impression: Primary Impression: Chronic leg pain Disposition: HOME, SELF-CARE Condition: STABLE Referrals: JEAN-PIERRE EDMONDSON MD (PCP) follow up with your doctor as needed for pain Patient Instructions: Chronic Pain, Chronic Pain Management-Brief BENJAMIN DAVIS DO Jan 16, 2020 07:57
== END 2020-01-16 08:49 | disposition home or self-care (01) ==
LOC: ER 07:16
DX: G89.29 Other chronic pain (principal); M79.672 Pain in left foot; Z98.890 Other specified postprocedural states
CPT/HCPCS: 99283

== ENCOUNTER 2020-01-17 06:35 | Emergency (ER) | payer OTHER ==
[~2020-01-17] VITALS: Ht 177.8 cm; Wt 54.5 kg
[2020-01-17 06:35] VITALS: BP 155/107
[2020-01-17] MEDS ORDERED: ORPHENADRINE CITRATE 60 MG/2 ML VIAL. IM ONE (07:00)
--- NOTE | 2020-01-17 07:09 | PHYS DOC ---
Past Medical History Past Medical History: Other Additional Past Medical Histor: SPINOCEREBELLAR ATAXIA; chronic back/leg pain Past Surgical History: No Surgical History, Smoking Status: Never Smoker Alcohol Use: Occasionally Drug Use: None General Adult EDM: Chief Complaint: BACK PAIN - NO INJURY HPI: HPI: Patient is a 40 year old female with history of spinocerebellar ataxia, chronic back and leg pain, frequent emergency room visit who presents via EMS with complaining of buttock pain. Patient complaining of left lower back and hip pain since this morning likely previous episode of back pain and leg pain and rated her pain 10/10. Patient denies fever and chills, new focal neuro deficit, urinary symptoms, injury. Patient was seen in this emergency room yesterday for the same problem and treated with [place]. Review of Systems: Review of Systems: Constitutional: Denies fever or chills. [] Eyes: Denies change in visual acuity. [] HENT: Denies nasal congestion or sore throat. [] Respiratory: Denies cough or shortness of breath. [] Cardiovascular: Denies chest pain or edema. [] GI: Denies abdominal pain, nausea, vomiting, bloody stools or diarrhea. [] : Denies dysuria. [] Musculoskeletal: Reports back and joint pain Integument: Denies rash. [] Neurologic: Denies headache, new focal weakness or sensory changes. [] Endocrine: Denies polyuria or polydipsia. [] Lymphatic: Denies swollen glands. [] Psychiatric: Denies depression or anxiety. [] Heart Score: Risk Factors: Risk Factors: DM, Current or recent (<one month) smoker, HTN, HLP, family history of CAD, obesity. Risk Scores: Score 0 - 3: 2.5% MACE over next 6 weeks - Discharge Home Score 4 - 6: 20.3% MACE over next 6 weeks - Admit for Clinical Observation Score 7 - 10: 72.7% MACE over next 6 weeks - Early Invasive Strategies Current Medications: Current Medications Medications (Trade) Dose Ordered Sig/Garrett Start Time Stop Time Status Last Admin Dose Admin Orphenadrine Citrate (Norflex) 60 mg 1X ONCE 01/17/20 07:00 01/17/20 07:01 DC 01/17/20 07:03 60 MG Allergies: Allergies: Allergies Coded Allergies Type Severity Reaction Last Updated Verified No Known Drug Allergies 09/21/13 No Physical Exam: PE: Constitutional: Well nourished, mild distress, non-toxic appearance. [] HENT: Normocephalic, atraumatic. Eyes: PERRLA, EOMI, conjunctiva normal, no discharge. [] Neck: Normal range of motion, no tenderness, supple, no stridor. [] Cardiovascular: Tachycardia (chronic), no murmur [] Lungs & Thorax: Bilateral breath sounds clear to auscultation [] Abdomen: Bowel sounds normal, soft, no tenderness, no masses, no pulsatile masses. [] Skin: Warm, dry. Back: No midline tenderness, no CVA tenderness. [] Extremities: Decrease of movement of bilateral lower extremities related to cerebral spinal ataxia, grade 1 pressure sore in sacral area,no edema. [] Neurologic: Alert and oriented X 3 Psychologic: Anxious, mood normal. [] Current Patient Data: Vital Signs: Vital Signs Date Time Temp Pulse Resp B/P (MAP) Pulse Ox O2 Delivery O2 Flow Rate FiO2 01/17/20 06:35 98.5 108 18 155/107 (123) 100 Room Air 98.5 EKG: EKG: [] Radiology/Procedures: Radiology/Procedures: [] Course & Med Decision Making: Course & Med Decision Making Evaluation of patient inertial 40-year-old bedridden female patient with cerebrospinal ataxia and frequent emergency room visit for muscle spasm and back and leg pain presented with EMS with complaining of increasing pain in left hip without injury. Patient was able to move her extremities. Patient treated w ith Norflex and felt better. Patient was advised to follow-up with her primary care physician for chronic pain management. Dragon Disclaimer: Howie Disclaimer: This electronic medical record was generated, in whole or in part, using a voice recognition dictation system. Departure Departure Impression: Primary Impression: Chronic leg pain Qualified Codes: M79.605 - Pain in left leg; G89.29 - Other chronic pain Additional Impressions: Chronic back pain Qualified Codes: M54.9 - Dorsalgia, unspecified; G89.29 - Other chronic pain Muscle spasm Disposition: HOME, SELF-CARE (At 0708) Condition: STABLE Referrals: JEAN-PIERRE EDMONDSON MD (PCP) Patient Instructions: Chronic Pain, Chronic Pain Management Additional Instructions: Continue current medication Follow-up with your primary care physician in 3-5 days Return to ER if not getting better Thank you for visiting [facility]. We appreciate you trusting us with your care. If any additional problems come up don't hesitate to return to visit us. Please follow up with your primary care provider so they can plan additional care if needed and know about the problem that you had. If symptoms worsen come back to the Emergency Department. Any concerning symptoms that start such as chest pain, shortness of air, weakness or numbness on one side of the body, running high fevers or any other concerning symptoms return to the ER. TULIO SOLANO MD Jan 17, 2020 07:09
== END 2020-01-17 08:50 | disposition home or self-care (01) ==
LOC: ER 06:35
DX: G89.29 Other chronic pain (principal); M79.605 Pain in left leg; M54.5 Low back pain; M25.552 Pain in left hip; Z98.890 Other specified postprocedural states
CPT/HCPCS: 96372; 99284; J2360

== ENCOUNTER 2020-01-18 05:52 | Emergency (ER) | payer OTHER ==
[~2020-01-18] VITALS: Ht 165.1 cm; Wt 55.0 kg
[2020-01-18 06:24] VITALS: BP 142/86
[2020-01-18] MEDS ORDERED: ORPHENADRINE CITRATE 60 MG/2 ML VIAL. IM ONE (07:00)
--- NOTE | 2020-01-18 07:09 | PHYS DOC ---
Past Medical History Past Medical History: No Pertinent History, Other Additional Past Medical Histor: SPINOCEREBELLAR ATAXIA; chronic back/leg pain Past Surgical History: No Surgical History, Smoking Status: Never Smoker Alcohol Use: Occasionally Drug Use: None General Adult EDM: Chief Complaint: PAIN CONTROL HPI: HPI: Patient is a 40 year old female with history of spinocerebellar ataxia and frequent emergency room visit for muscle spasm who presents via EMS with complaint of left leg pain. Patient states she has had left leg and hip pain for the last 10 hours as a sharp pain and rated her pain 10/10. Patient denies injury and fall and states she had the same pain previously. Patient was seen in this emergency room about 24 hours ago with the same complaint and treated with Norflex injection with improvement of her condition. Review of Systems: Review of Systems: Constitutional: Denies fever or chills. [] Eyes: Denies change in visual acuity. [] HENT: Denies nasal congestion or sore throat. [] Respiratory: Denies cough or shortness of breath. [] Cardiovascular: Denies chest pain or edema. [] GI: Denies abdominal pain, nausea, vomiting, bloody stools or diarrhea. [] : Denies dysuria. [] Musculoskeletal: Reports back and joint pain Integument: Denies rash. [] Neurologic: Denies headache, new focal weakness or sensory changes. [] Endocrine: Denies polyuria or polydipsia. [] Lymphatic: Denies swollen glands. [] Psychiatric: Denies depression or anxiety. [] Heart Score: Risk Factors: Risk Factors: DM, Current or recent (<one month) smoker, HTN, HLP, family history of CAD, obesity. Risk Scores: Score 0 - 3: 2.5% MACE over next 6 weeks - Discharge Home Score 4 - 6: 20.3% MACE over next 6 weeks - Admit for Clinical Observation Score 7 - 10: 72.7% MACE over next 6 weeks - Early Invasive Strategies Current Medications: Current Medications Medications (Trade) Dose Ordered Sig/Garrett Start Time Stop Time Status Last Admin Dose Admin Orphenadrine Citrate (Norflex) 60 mg 1X ONCE 01/18/20 07:00 01/18/20 07:01 DC 01/18/20 06:44 60 MG Allergies: Allergies: Allergies Coded Allergies Type Severity Reaction Last Updated Verified No Known Drug Allergies 09/21/13 No Physical Exam: PE: Constitutional: Mild distress, non-toxic appearance. [] HENT: Normocephalic, atraumatic. Eyes: PERRLA, EOMI, conjunctiva normal, no discharge. [] Neck: Normal range of motion, no tenderness, supple, no stridor. [] Cardiovascular:Heart rate regular rhythm, no murmur [] Lungs & Thorax: Bilateral breath sounds clear to auscultation [] Back: No tenderness, no CVA tenderness. [] Extremities: No tenderness, no cyanosis, no clubbing, no edema. [] Neurologic: Alert and oriented, decrease of movement of upper and lower extremities with some contracture Psychologic: Affect anxious Current Patient Data: Vital Signs: Vital Signs Date Time Temp Pulse Resp B/P (MAP) Pulse Ox O2 Delivery O2 Flow Rate FiO2 01/18/20 06:24 109 01/18/20 05:55 98.8 14 147/96 (113) 96 Room Air 98.8 EKG: EKG: [] Radiology/Procedures: Radiology/Procedures: [] Course & Med Decision Making: Course & Med Decision Making Evaluation of patient inertial 40-year-old female patient with history of spinocerebellar ataxia and frequent emergency room visit for muscle spasm brought in by EMS with complaining of left leg pain and muscle spasm. Patient had Norflex shot with improvement of her condition. Patient was advised to follow-up with her primary care physician for chronic problem. I've spoken with the patient and/or caregivers. I've explained the patient's condition, diagnosis and treatment plan based on information available to me at this time. I've answered the patient's and/or caregivers questions and addressed any concerns. The patient and/or caregivers have a good understanding the patient's diagnosis, condition and treatment plan as can be expected at this point. Vital signs have been stabilized. The patient's condition is stable for discharge from the emergency department. The patient will pursue further outpatient evaluation with her primary care provider or other designated consulting physician as outlined in the discharge instructions. Patient and/or caregivers are agreeable to this plan of care and follow-up instructions have been explained in detail. The patient and/or caregivers have received these instructions in written format and expressed understanding of these discharge instructions. The patient and her caregivers are aware that if any significant change in condition or worsening of symptoms should prompt him to immediately return to this of the closest emergency department. If an emergent department is not readily available I would encou rage him to call 911. Howie Disclaimer: Howie Disclaimer: This electronic medical record was generated, in whole or in part, using a voice recognition dictation system. Departure Departure Impression: Primary Impression: Chronic leg pain Qualified Codes: M79.605 - Pain in left leg; G89.29 - Other chronic pain Additional Impressions: Muscle spasm Cerebellar ataxia Disposition: 01 HOME, SELF-CARE (At 0706) Condition: STABLE Referrals: JEAN-PIERRE EDMONDSON MD (PCP) Patient Instructions: Chronic Back Pain Additional Instructions: Continue current medication Follow-up with your primary care physician in 3-5 days Return to ER if not getting better TULIO SOLANO MD Jan 18, 2020 07:09
[2020-01-19] MEDS ORDERED: POLY119P4 PO (05:57)
[2020-01-19] MEDS ORDERED: DOCU-109 PO (05:57)
== END 2020-01-18 07:52 | disposition home or self-care (01) ==
LOC: ER 05:52
DX: G89.29 Other chronic pain (principal); M79.605 Pain in left leg; M62.838 Other muscle spasm; G11.9 Hereditary ataxia, unspecified
CPT/HCPCS: 96372; 99283; J2360

== ENCOUNTER 2020-01-19 05:30 | Emergency (ER) | payer OTHER ==
[~2020-01-19] VITALS: Ht 157.5 cm; Wt 46.0 kg
[2020-01-19 05:39] VITALS: BP 163/87
--- NOTE | 2020-01-19 05:40 | PHYS DOC ---
Past Medical History Past Medical History: No Pertinent History, Other Additional Past Medical Histor: SPINOCEREBELLAR ATAXIA; chronic back/leg pain Past Surgical History: No Surgical History, Smoking Status: Never Smoker Alcohol Use: Occasionally Drug Use: None General Adult EDM: Chief Complaint: CONSTIPATION HPI: HPI: Patient is a 40 year old -[place] female who presents secondary to complaint of constipation and is brought by EMS. She reports no bowel movement x8 days. Complains of some lower abdominal discomfort that appears to be mild on examination. She has not tried anything for her constipation. Of note the patient has been in the ER the last 3 days with chronic leg pain. Review of Systems: Review of Systems: All other systems negative except as documented in HPI Heart Score: Risk Factors: Risk Factors: DM, Current or recent (<one month) smoker, HTN, HLP, family history of CAD, obesity. Risk Scores: Score 0 - 3: 2.5% MACE over next 6 weeks - Discharge Home Score 4 - 6: 20.3% MACE over next 6 weeks - Admit for Clinical Observation Score 7 - 10: 72.7% MACE over next 6 weeks - Early Invasive Strategies Allergies: Allergies: Allergies Coded Allergies Type Severity Reaction Last Updated Verified No Known Drug Allergies 09/21/13 No Physical Exam: PE: Constitutional: No acute distress, non-toxic appearance. [] HENT: Normocephalic, atraumatic, bilateral external ears normal, oropharynx moist, no oral exudates, nose normal. [] Eyes: PERRLA, EOMI, conjunctiva normal, no discharge. [] Neck: Normal range of motion, no tenderness, supple, no stridor. [] Cardiovascular:Heart rate regular rhythm, no murmur [] Lungs & Thorax: Bilateral breath sounds clear to auscultation [] Abdomen: Bowel sounds normal, soft, mild lower abdominal tenderness, no masses, no pulsatile masses. [] Skin: Warm, dry, no erythema, no rash. [] Back: No tenderness, no CVA tenderness. [] Extremities: No acute changes Neurologic: No acute changes EKG: EKG: [] Radiology/Procedures: Radiology/Procedures: Abdominal x-ray shows a large amount of fecal matter without overt obstruction [] Course & Med Decision Making: Course & Med Decision Making Pertinent Labs and Imaging studies reviewed. (See chart for details) Patient seen for constipation. Will give abdominal x-ray for further evaluatio n. She is in no acute distress at this time and her abdomen is soft with normal bowel sounds. 0555: Abdominal x-ray shows constipation. Patient reports that she is unable to fill prescriptions so she will be given magnesium citrate in the ER. I will al so recommend that she get Colace and MiraLAX and will write prescriptions for these and hopefully she can get them filled. Dragon Disclaimer: Dragon Disclaimer: This electronic medical record was generated, in whole or in part, using a voice recognition dictation system. Departure Departure Impression: Primary Impression: Constipation Disposition: HOME, SELF-CARE Condition: STABLE Referrals: JEAN-PIERRE EDMONDSON MD (PCP) Patient Instructions: Constipation, Adult Scripts Docusate Sodium (COLACE) 100 Mg Capsule 1 CAP PO BID for 15 Days, #30 CAP 0 Refills Prov: SUDHEER CHACKO DO 01/19/20 Polyethylene Glycol 3350 (MIRALAX) 119 Gm Powder 17 GM PO BID for constipation, #255 GM 0 Refills dissolve in water Prov: SUDHEER CHACKO DO 01/19/20 SUDHEER CHACKO DO Jan 19, 2020 05:40
[2020-01-19] MEDS ORDERED: DOCU-109 PO (05:57)
[2020-01-19] MEDS ORDERED: POLY119P4 PO (05:57)
--- NOTE | 2020-01-19 06:15 | RAD ---
EXAM: ABDOMEN ONE VIEW. HISTORY: Constipation. COMPARISON: None. FINDINGS: A frontal view of the abdomen is obtained. There are no distended small bowel loops. There is gas distally. Stool throughout right colon is consistent with mild constipation. IMPRESSION: 1. Findings consistent with mild constipation. No evidence of obstruction. Electronically signed by: Juan Luis Blue MD (01/19/2020 6:12 AM) [facility]
[2020-01-19] MEDS ORDERED: MAGNESIUM CITRATE 296 ML SOLUTION. PO ONE (06:30)
== END 2020-01-19 06:04 | disposition home or self-care (01) ==
LOC: ER 05:30
DX: K59.00 Constipation, unspecified (principal); G89.29 Other chronic pain
CPT/HCPCS: 74018; 99284

== ENCOUNTER 2020-02-11 14:29 | Emergency (ER) | payer OTHER ==
[~2020-02-11] VITALS: Ht 170.2 cm; Wt 56.0 kg
[~2020-02-11 14:29] MED LIST changes: -DICL100G18 TP; +DICL100G54 TP; +DOCU-109 PO; +POLY119P4 PO; +PREG-9 PO; -PREG75CA PO
[2020-02-11 14:33] VITALS: BP 143/95
[2020-02-11] MEDS ORDERED: HYDROcodone/APAP 5/325MG 1 TAB TABLET PO ONE (15:15)
--- NOTE | 2020-02-11 16:00 | PHYS DOC ---
Past Medical History Past Medical History: Other Additional Past Medical Histor: SPINOCEREBELLAR ATAXIA; chronic back/leg pain Past Surgical History: No Surgical History, Smoking Status: Never Smoker Alcohol Use: None Drug Use: None General Adult EDM: Chief Complaint: LOWER EXT PAIN HPI: HPI: Patient is a 40 year old female who is well-known to this department and this physician, was brought here by EMS due to chronic left leg pain. Patient has history of SPINOCEREBELLAR ATAXIA; chronic back/leg pain. She came here every week for the same pain. Patient denies any injury. Patient denies any cough or fever, no chest pain, no trouble breathing. Review of Systems: Review of Systems: Constitutional: Denies fever or chills. [] Eyes: Denies change in visual acuity. [] HENT: Denies nasal congestion or sore throat. [] Respiratory: Denies cough or shortness of breath. [] Cardiovascular: Denies chest pain or edema. [] GI: Denies abdominal pain, nausea, vomiting, bloody stools or diarrhea. [] : Denies dysuria. [] Musculoskeletal: Denies back pain , positive for left leg pain. Integument: Denies rash. [] Neurologic: Denies headache, focal weakness or sensory changes. [] Endocrine: Denies polyuria or polydipsia. [] Lymphatic: Denies swollen glands. [] Psychiatric: Denies depression or anxiety. [] Heart Score: Risk Factors: Risk Factors: DM, Current or recent (<one month) smoker, HTN, HLP, family history of CAD, obesity. Risk Scores: Score 0 - 3: 2.5% MACE over next 6 weeks - Discharge Home Score 4 - 6: 20.3% MACE over next 6 weeks - Admit for Clinical Observation Score 7 - 10: 72.7% MACE over next 6 weeks - Early Invasive Strategies Current Medications: Current Medications Medications (Trade) Dose Ordered Sig/Garrett Start Time Stop Time Status Last Admin Dose Admin Acetaminophen/ Hydrocodone Bitart (Lortab 5/325) 1 tab 1X ONCE 02/11/20 15:15 02/11/20 15:16 DC 02/11/20 15:15 1 TAB Allergies: Allergies: Allergies Coded Allergies Type Severity Reaction Last Updated Verified No Known Drug Allergies 09/21/13 No Physical Exam: PE: Constitutional: Well developed, well nourished, no acute distress, non-toxic appearance. [] HENT: Normocephalic, atraumatic, bilateral external ears normal, oropharynx moist, no oral exudates, nose normal. [] Eyes: PERRLA, EOMI, conjunctiva normal, no discharge. [] Neck: Normal range of motion, no tenderness, supple, no stridor. [] Cardiovascular:Heart rate regular rhythm, no murmur [] Lungs & Thorax: Bilateral breath sounds clear to auscultation [] Abdomen: Bowel sounds normal, soft, no tenderness, no masses, no pulsatile masses. [] Skin: Warm, dry, no erythema, no rash. [] Back: No tenderness, no CVA tenderness. [] Extremities: There is no swelling or evidence of injury to the left leg. There is no redness. Neurologic: Alert and oriented X 3, Psychologic: Affect normal, judgement normal, mood normal. [] Current Patient Data: Vital Signs: Vital Signs Date Time Temp Pulse Resp B/P (MAP) Pulse Ox O2 Delivery O2 Flow Rate FiO2 02/11/20 15:15 16 99 02/11/20 14:33 98.4 80 143/95 (111) Room Air 95.0 98.4 EKG: EKG: [] Radiology/Procedures: Radiology/Procedures: [] Course & Med Decision Making: Course & Med Decision Making Pertinent Labs and Imaging studies reviewed. (See chart for details) [] Dragon Disclaimer: Dragon Disclaimer: This electronic medical record was generated, in whole or in part, using a voice recognition dictation system. Departure Departure Impression: Primary Impression: Chronic leg pain Disposition: HOME, SELF-CARE Condition: STABLE Referrals: JEAN-PIERRE EDMONDSON MD (PCP) Follow-up with your doctor Patient Instructions: Chronic Pain BENJAMIN DAVIS DO February 11, 2020 16:00
== END 2020-02-11 16:47 | disposition home or self-care (01) ==
LOC: ER 14:29
DX: G89.29 Other chronic pain (principal); M79.605 Pain in left leg
CPT/HCPCS: 99284

== ENCOUNTER 2020-05-30 19:48 | Emergency (ER) | payer OTHER ==
[2020-05-31] MEDS ORDERED: NITR100C62 PO (03:53)
== END 2020-05-30 21:47 | disposition left against medical advice (07) ==
LOC: ER 19:48
DX: M54.9 Dorsalgia, unspecified (principal); Z53.21 Procedure and treatment not carried out due to patient leaving prior to being seen by health care provider

== ENCOUNTER 2020-05-31 03:00 | Emergency (ER) | payer OTHER ==
[~2020-05-31] VITALS: Ht 200.7 cm; Wt 56.0 kg
[2020-05-31 03:36] LABS: BILIRUBIN,URINE NEGATIVE (NEG); CLARITY,URINE CLOUDY; COLOR,URINE AMBER; NITRITE,URINE NEGATIVE (NEG); PH,URINE 5.5 (<5.0-8.0); PROTEIN,URINE NEGATIVE (NEG-TRACE)
--- NOTE | 2020-05-31 03:40 | PHYS DOC ---
Past Medical History Past Medical History: Other Additional Past Medical Histor: SPINOCEREBELLAR ATAXIA; chronic back/leg pain Past Surgical History: No Surgical History, Smoking Status: Never Smoker Alcohol Use: None Drug Use: None General Adult EDM: Chief Complaint: LOWER EXT PAIN HPI: HPI: Patient is a 40-year-old female who presents the emergency room complaining of chronic leg pain. This is very similar to her leg pain she has had in the past. She states it feels exactly like previous time she has been to the emergency room. She denies any injury. She is requesting something for pain. She has not tried anything for pain at home. History is very limited as patient is playing a game on her phone during history and examination. Review of Systems: Review of Systems: General: Denies fever, chills, sweats, fatigue Eyes: Denies drainage, blurred vision, eye redness HENT: Denies rhinorrhea, sore throat, earache Respiratory: Denies cough, shortness of breath, wheezing Cardiac: Denies edema, palpitations, chest pain GI: Denies abdominal pain, Nausea, vomiting MSK: Denies back pain, neck pain Skin: Denies rash, jaundice Neuro: Denies headache, dizziness Psychiatric: Denies SI/HI Heart Score: Risk Factors: Risk Factors: DM, Current or recent (<one month) smoker, HTN, HLP, family history of CAD, obesity. Risk Scores: Score 0 - 3: 2.5% MACE over next 6 weeks - Discharge Home Score 4 - 6: 20.3% MACE over next 6 weeks - Admit for Clinical Observation Score 7 - 10: 72.7% MACE over next 6 weeks - Early Invasive Strategies Current Medications: Current Medications Medications (Trade) Dose Ordered Sig/Garrett Start Time Stop Time Status Last Admin Dose Admin Methocarbamol (Robaxin) 750 mg 1X ONCE 05/31/20 03:45 05/31/20 03:46 UNV Allergies: Allergies: Allergies Coded Allergies Type Severity Reaction Last Updated Verified No Known Drug Allergies 09/21/13 No Physical Exam: PE: General: Awake, alert, NAD. Well Nourished, well hydrated. Cooperative HEENT: Atraumatic, airway patent, moist oral mucosa Neck: Supple, trachea midline Respiratory: CTA bilaterally, normal effort, no wheezing/crackles CV: Tachycardic, no murmur, cap refill <2 GI: Soft, nondistended, nontender, no masses MSK: No obvious deformities Skin: Warm, dry, intact Neuro: A&O x3, speech NL, sensory and motor grossly intact, no focal deficits Psych: Normal affect, normal mood, not suicidal or homicidal Current Patient Data: Labs: Laboratory Tests Test 05/31/20 03:33 POC Urine HCG, Qualitative Hcg negative (Negative) EKG: EKG: [] Radiology/Procedures: Radiology/Procedures: [] Course & Med Decision Making: Course & Med Decision Making Pertinent Labs and Imaging studies reviewed. (See chart for details) Patient is a 40-year-old female presents to the emergency room with chronic leg pain. This pain is very similar to the pain she has had previously. She has not had any acute injury. There is no signs of infection. She has full range of motion on exam. Patient is in no acute distress on my examination. She is actively playing a game on her phone which she does not look up from during history. At this time it appears that patient's pain is chronic and no work-up is necessary here in the emergency room. She will be given a one-time dose of Robaxin. She has baclofen at home. Will avoid narcotic pain medicine here in the emergency room for chronic pain. Patient's test results and vitals while in the ED were fully reviewed and discussed with the patient. Patient is stable and at this time does not need admission to the hospital. We have discussed strict return precautions and the importance of following up with their Primary Care Physician. Patient stated understanding and was given an opportunity to ask any questions. Patient is in agreement with plan. Howie Disclaimer: Howie Disclaimer: This electronic medical record was generated, in whole or in part, using a voice recognition dictation system. Departure Departure Impression: Primary Impression: Chronic leg pain Disposition: HOME, SELF-CARE Condition: STABLE Referrals: JEAN-PIERRE EDMONDSON MD (PCP) Patient Instructions: Chronic Pain Scripts Nitrofurantoin Monohyd/M-Cryst (MACROBID 100 MG CAPSULE) 100 Mg Capsule 1 CAP PO BID for 7 Days, #14 CAP 0 Refills Prov: DARCY HUMPHREYS MD 05/31/20 Justicifation of Admission Dx: Justifications for Admission: Justification of Admission Dx: No DARCY HUMPHREYS MD May 31, 2020 03:40
[2020-05-31 03:42] LABS: BACTERIA,URINE MANY /HPF (0-FEW); SQUAMOUS EPITHELIAL CELL,UR MOD /LPF
[2020-05-31] MEDS ORDERED: METHOCARBAMOL 750 MG TABLET PO ONE (03:45)
[2020-05-31] MEDS ORDERED: NITR100C62 PO (03:53)
[2020-05-31 04:45] VITALS: BP 155/89
== END 2020-05-31 05:05 | disposition home or self-care (01) ==
LOC: ER 03:00
DX: G89.29 Other chronic pain (principal); M79.606 Pain in leg, unspecified; Z98.890 Other specified postprocedural states
CPT/HCPCS: 81001; 81025; 99284

== ENCOUNTER 2020-06-01 06:39 | Emergency (ER) | payer OTHER ==
[~2020-06-01] VITALS: Ht 170.2 cm; Wt 56.0 kg
--- NOTE | 2020-06-01 06:53 | PHYS DOC ---
Past Medical History Past Medical History: Other Additional Past Medical Histor: SPINOCEREBELLAR ATAXIA; chronic back/leg pain Past Surgical History: No Surgical History, Smoking Status: Never Smoker Alcohol Use: None Drug Use: None General Adult EDM: Chief Complaint: BACK PAIN OR INJURY HPI: HPI: Patient is a 40 year old female who presents with chief complaint of back pain. Patient has a history of spina bifida and evidently was transferring between bed and wheelchair may have passed out now has back pain. Patient says she is got pain in her lumbar thoracic area that is severe in intensity and worse with palpation. Patient arrives via EMS. Patient also complains of left leg pain that is chronic in nature. Patient denies any fever chest pain or shortness of breath. Per nursing staff patient has chronic tachycardia. History and physical is limited by poor cooperation Review of Systems: Review of Systems: Constitutional: Denies fever or chills. [] Eyes: Denies change in visual acuity. [] HENT: Denies nasal congestion or sore throat. [] Respiratory: Denies cough or shortness of breath. [] Cardiovascular: Denies chest pain or edema. [] GI: Denies abdominal pain, nausea, vomiting, bloody stools or diarrhea. [] : Denies dysuria. [] Musculoskeletal: Complains of back pain and left leg pain Integument: Denies rash. [] Neurologic: Denies headache, focal weakness or sensory changes. [] Endocrine: Denies polyuria or polydipsia. [] Lymphatic: Denies swollen glands. [] Psychiatric: Denies depression or anxiety. [] Heart Score: Risk Factors: Risk Factors: DM, Current or recent (<one month) smoker, HTN, HLP, family history of CAD, obesity. Risk Scores: Score 0 - 3: 2.5% MACE over next 6 weeks - Discharge Home Score 4 - 6: 20.3% MACE over next 6 weeks - Admit for Clinical Observation Score 7 - 10: 72.7% MACE over next 6 weeks - Early Invasive Strategies Allergies: Allergies: Allergies Coded Allergies Type Severity Reaction Last Updated Verified No Known Drug Allergies 09/21/13 No Physical Exam: PE: Constitutional: Well developed, cachectic, anxious HENT: Normocephalic, atraumatic, bilateral external ears normal, , nose normal. [] Eyes: PERRLA, EOMI, conjunctiva normal, no discharge. [] Neck: Normal range of motion, no tenderness, supple, no stridor. [] Cardiovascular: Tachycardia, peripheral pulses intact, cap refill brisk Lungs & Thorax: Bilateral breath sounds clear Abdomen: Bowel sounds normal, soft, no tenderness, no masses, no pulsatile masses. [] Skin: Warm, dry, mild sacral breakdown Back: Mild diffuse tenderness Extremities: Frail, no obvious deformities, chronic contractures Neurologic: Alert and oriented X 3, chronic weakness decreased sensation in the legs Psychologic: Anxious Current Patient Data: Labs: Laboratory Tests Test 06/01/20 07:18 White Blood Count 7.1 x10^3/uL Red Blood Count 4.60 x10^6/uL Hemoglobin 13.6 g/dL Hematocrit 41.4 % Mean Corpuscular Volume 90 fL Mean Corpuscular Hemoglobin 30 pg Mean Corpuscular Hemoglobin Concent 33 g/dL Red Cell Distribution Width 15.5 % Platelet Count 318 x10^3/uL Neutrophils (%) (Auto) 79 % Lymphocytes (%) (Auto) 11 % Monocytes (%) (Auto) 9 % Eosinophils (%) (Auto) 0 % Basophils (%) (Auto) 0 % Neutrophils # (Auto) 5.7 x10^3/uL Lymphocytes # (Auto) 0.8 x10^3/uL Monocytes # (Auto) 0.6 x10^3/uL Eosinophils # (Auto) 0.0 x10^3/uL Basophils # (Auto) 0.0 x10^3/uL Sodium Level 141 mmol/L Potassium Level 3.4 mmol/L Chloride Level 103 mmol/L Carbon Dioxide Level 28 mmol/L Anion Gap 10 Blood Urea Nitrogen 20 mg/dL Creatinine 0.9 mg/dL Estimated GFR (Cockcroft-Gault) 84.3 Glucose Level 109 mg/dL Calcium Level 9.8 mg/dL Current Medications Medications (Trade) Dose Ordered Sig/Garrett Route PRN Reason Start Time Stop Time Status Last Admin Dose Admin Lorazepam (Ativan Inj) 1 mg 1X ONCE IVP 06/01/20 07:00 06/01/20 07:37 DC Lorazepam (Ativan) 1 mg 1X ONCE PO 06/01/20 07:45 06/01/20 07:46 DC 06/01/20 07:44 Vital Signs: Vital Signs Date Time Temp Pulse Resp B/P (MAP) Pulse Ox O2 Delivery O2 Flow Rate FiO2 06/01/20 06:48 98.3 126 24 166/106 (126) 97 Room Air 98.3 06/01/20 06:40 102 166/106 (126) EKG: EKG: [] EKG interpreted by me sinus tach with a rate of 121 normal axis normal intervals normal ST segments Radiology/Procedures: Radiology/Procedures: [][address] [address] IMAGING REPORT Signed PATIENT: SANCHEZ BULLOCK PACCOUNT: [id number] : 1980 LOCATION: ER AGE: 40 SEX: F EXAM STATUS: REG ER ORD. PHYSICIAN: ADEOLA SNOWDEN MD REASON: fall, WAITING ON LAB AND EKG PROCEDURE: THORACIC SPINE 3V EXAM: 1. THORACIC SPINE 3V, 2. LUMBAR SPINE 2-3V. HISTORY: Fall, back pain. COMPARISON: None. FINDINGS: The alignment of the thoracic spine is maintained. Vertebral body heights are maintained, and no fractures are identified. Intervertebral disc heights are maintained. There are projectional limitations in the lumbar spine. Alignment appears maintained. No fractures are identified. Intervertebral disc heights are maintained. A large amount of stool throughout the colon is consistent with constipation. IMPRESSION: 1. No fracture or malalignment. 2. Correlate for relatively severe constipation. Electronically signed by: Juan Luis Blue MD (06/01/2020 7:54 AM) [id number] DICTATED and SIGNED BY: MARIAELENA BLUE MD DATE: 06/01/20 0754 Impression: [facility] [address] [place], [place] [id number] IMAGING REPORT Signed PATIENT: SANCHEZ BULLOCK PACCOUNT: [id number] : 1980 LOCATION: ER AGE: 40 SEX: F EXAM STATUS: REG ER ORD. PHYSICIAN: ADEOLA SNOWDEN MD REASON: fall; PAIN PROCEDURE: VENOUS LOWER EXTREMITY LEFT INDICATION: Reason: fall; PAIN / Spl. Instructions: / History: COMPARISON: May 2019 TECHNIQUE: Grayscale, color and doppler ultrasound images were obtained of the left lower extremity venous vasculature. LEFT: No thrombus identified in the common femoral vein, femoral vein, popliteal vein or visualized calf veins. IMPRESSION: * No thrombus identified in deep venous system of the left lower extremity. Electronically signed by: Magnolia Walker MD (06/01/2020 8:21 AM) [id number] DICTATED and SIGNED BY: MAGNOLIA WALKER MD DATE: 06/01/20820 Course & Med Decision Making: Course & Med Decision Making Pertinent Labs and Imaging studies reviewed. (See chart for details) [] 40-year-old female presents with a mechanical fall and a possible syncopal event. EKG is unremarkable. Patient has known chronic tachycardia but with her history of decreased mobility and left leg pain ultrasound was done which ruled out a DVT. Patient is not hypoxic I do not think she is had a pulmonary embolism. X-rays are negative for acute fractures of her back. Patient is clinically stable. Patient was very anxious on arrival but Ativan on reassessment she is improved. Patient be stable for discharge back home. Dragon Disclaimer: [place] Disclaimer: This electronic medical record was generated, in whole or in part, using a voice recognition dictation system. Departure Departure Impression: Primary Impression: Back pain Additional Impressions: Syncope Left leg pain Disposition: 01 HOME, SELF-CARE Condition: STABLE Referrals: JEAN-PIERRE EDMONDSON MD (PCP) Patient Instructions: Back Pain, Adult, Leg Cramps, Syncope Additional Instructions: EMERGENCY DEPARTMENT GENERAL DISCHARGE INSTRUCTIONS THANK YOU for coming to [facility] Emergency Department (ED) today and trusting us with your care. We trust that you had a positive experience in our Emergency Department. If you wish to speak to the department Management you can contact the maintenance department technician at . YOUR FOLLOW UP INSTRUCTIONS ARE FOLLOWS: Do you have a private doctor? If you do not have a private doctor, please ask for a resource list of physicians or clinics that may be able to assist you with follow up care. The Emergency Physician has interpreted your x-rays. The X-ray specialist will also review them. If there is a change in the findings you will be notified in 48 hours when at all possible. A lab test or lab culture may have been done, your results will be reviewed and you will be notified if you need a change in treatment. ADDITIONAL INSTRUCTIONS AND INFORMATION Your care today has been supervised by a physician who is specially trained in emergency care. Many problems require more than one evaluation for a complete diagnosis and treatment. We recommend that you schedule your follow up appointment as recommended to ensure complete treatment of your illness or injury. If you are unable to obtain follow up care and continue to have a problem, or if your condition worsens we recommend that you return to the ED. We are not able to safely determine your condition over the phone nor are we able to give sound medical advice over the phone. For these safety reasons, if you call for medical advice we will ask you to come to the ED for further evaluation If you have any questions regarding these discharge instructions please call the ED at . SAFETY INFORMATION In the interest of safety, wellness, and injury prevention; we encourage you to wear your seatbelt, if you smoke; quit smoking, and we encourage your family to use protective helmet for bicycling and other sporting events that present an increased risk for head injury. IF YOUR SYMPTOMS WORSEN OR NEW SYMPTOMS DEVELOP, OR YOU HAVE CONCERNS ABOUT YOUR CONDITION; OR IF YOUR CONDITION WORSENS WHILE YOU ARE WAITING FOR YOUR FOLLOW UP APPOINTMENT; EITHER CONTACT YOUR PRIMARY CARE DOCTOR, THE PHYSICIAN WHOSE NAME AND NUMBER YOU WERE GIVEN, OR RETURN TO THE ED IMMEDIATELY. Justicifation of Admission Dx: Justifications for Admission: Justification of Admission Dx: N/A ADEOLA SNOWDEN MD Jun 01, 2020 06:53
[2020-06-01 07:29] LABS: BASO % 0 % (0-3); EOS % 0 % (0-3); HEMATOCRIT 41.4 % (36.0-47.0); HEMOGLOBIN 13.6 g/dL (12.0-15.5); LYMPH # 0.8 x10^3/uL (1.0-4.8); LYMPH % 11 % (24-48); MEAN CORPUSCULAR HEMOGLOBIN 30 pg (25-35); MEAN CORPUSCULAR HGB CONC 33 g/dL (31-37); MEAN CORPUSCULAR VOLUME 90 fL (79-100); MONO # 0.6 x10^3/uL (0.0-1.1); MONO % 9 % (0-9); NEUT # 5.7 x10^3/uL (1.8-7.7); NEUT % 79 % (31-73); PLATELET COUNT 318 x10^3/uL (140-400); RED CELL DISTRIBUTION WIDTH 15.5 % (11.5-14.5); WHITE BLOOD COUNT 7.1 x10^3/uL (4.0-11.0)
[2020-06-01 07:39] LABS: CALCIUM 9.8 mg/dL (8.5-10.1); CREATININE 0.9 mg/dL (0.6-1.0); GFR 84.3; POTASSIUM 3.4 mmol/L (3.5-5.1)
[2020-06-01] MEDS ORDERED: LORazepam 1 MG TABLET PO ONE (07:45)
--- NOTE | 2020-06-01 07:57 | RAD ---
EXAM: 1. THORACIC SPINE 3V, 2. LUMBAR SPINE 2-3V. HISTORY: Fall, back pain. COMPARISON: None. FINDINGS: The alignment of the thoracic spine is maintained. Vertebral body heights are maintained, and no fractures are identified. Intervertebral disc heights are maintained. There are projectional limitations in the lumbar spine. Alignment appears maintained. No fractures are identified. Intervertebral disc heights are maintained. A large amount of stool throughout the colon is consistent with constipation. IMPRESSION: 1. No fracture or malalignment. 2. Correlate for relatively severe constipation. Electronically signed by: Juan Luis Blue MD (06/01/2020 7:54 AM) [id number]
--- NOTE | 2020-06-01 08:23 | RAD ---
INDICATION: Reason: fall; PAIN / Spl. Instructions: / History: COMPARISON: May 2019 TECHNIQUE: Grayscale, color and doppler ultrasound images were obtained of the left lower extremity venous vasculature. LEFT: No thrombus identified in the common femoral vein, femoral vein, popliteal vein or visualized calf veins. IMPRESSION: * No thrombus identified in deep venous system of the left lower extremity. Electronically signed by: Rom Morris MD (06/01/2020 8:21 AM) [id number]
[2020-06-01 09:43] VITALS: BP 112/63
--- NOTE | 2020-06-01 15:53 | EKG ---
[facility] [address] [place] [address] Test Date: 2020-06-01 Test Time: 07:09:20 Pat Name: SANCHEZ BULLOCK Department: Room: Gender: F Bilingual Operator: : 1980 Requested By: ADEOLA SNOWDEN Order Number: [id number] Reading MD: Measurements Intervals [place] Rate: 121 P: 90 WA: 98 QRS: 5 QRSD: 76 T: 43 QT: 310 QTc: 443 Interpretive Statements SINUS TACHYCARDIA LEFT ATRIAL ABNORMALITY ABNORMAL ECG RI6.02 No previous ECG available for comparison
== END 2020-06-01 10:01 | disposition home or self-care (01) ==
LOC: ER 06:39
DX: M54.5 Low back pain (principal); M79.605 Pain in left leg; R55 Syncope and collapse; Z98.890 Other specified postprocedural states
CPT/HCPCS: 36415; 72072; 72100; 80048; 85025; 93005; 93971; 99285

== ENCOUNTER 2020-06-03 02:26 | Emergency (ER) | payer OTHER ==
[~2020-06-03] VITALS: Ht 170.2 cm; Wt 56.0 kg
[2020-06-03 02:34] VITALS: BP 131/88
--- NOTE | 2020-06-03 02:38 | PHYS DOC ---
Past Medical History Past Medical History: Other Additional Past Medical Histor: SPINOCEREBELLAR ATAXIA; chronic back/leg pain Past Surgical History: No Surgical History, Smoking Status: Never Smoker Alcohol Use: None Drug Use: None General Adult EDM: Chief Complaint: LOWER BACK PAIN OR INJURY HPI: HPI: Patient is a 40-year-old female who is well-known to this emergency room who presents the emergency room complaining of chronic back pain. She states that it is worse than usual but is otherwise the same. She denies any trauma. She has not had any dysuria. She has not had any fever. Review of Systems: Review of Systems: General: Denies fever, chills, sweats, fatigue Eyes: Denies drainage, blurred vision, eye redness HENT: Denies rhinorrhea, sore throat, earache Respiratory: Denies cough, shortness of breath, wheezing Cardiac: Denies edema, palpitations, chest pain GI: Denies abdominal pain, Nausea, vomiting MSK: Denies neck pain reports back pain Skin: Denies rash, jaundice Neuro: Denies headache, dizziness Psychiatric: Denies SI/HI Heart Score: Risk Factors: Risk Factors: DM, Current or recent (<one month) smoker, HTN, HLP, family history of CAD, obesity. Risk Scores: Score 0 - 3: 2.5% MACE over next 6 weeks - Discharge Home Score 4 - 6: 20.3% MACE over next 6 weeks - Admit for Clinical Observation Score 7 - 10: 72.7% MACE over next 6 weeks - Early Invasive Strategies Allergies: Allergies: Allergies Coded Allergies Type Severity Reaction Last Updated Verified No Known Drug Allergies 09/21/13 No Physical Exam: PE: General: Awake, alert, NAD. Well Nourished, well hydrated. Cooperative HEENT: Atraumatic, airway patent, moist oral mucosa Neck: Supple, trachea midline Respiratory: CTA bilaterally, normal effort, no wheezing/crackles CV: RRR, no murmur, cap refill <2 GI: Soft, nondistended, nontender, no masses MSK: No obvious deformities Skin: Warm, dry, intact Neuro: A&O x3, speech NL, no focal deficits Psych: Normal affect, normal mood, not suicidal or homicidal EKG: EKG: [] Radiology/Procedures: Radiology/Procedures: [] Course & Med Decision Making: Course & Med Decision Making Pertinent Labs and Imaging studies reviewed. (See chart for details) Patient is a 40-year-old female who presents to the emergency room with chronic back pain. I have evaluated the patient for similar pain complaints earlier this week. This is the patient's fourth visit to the emergency room for chronic pain over the weekend. I have discussed with the patient again that the emergency room is not the appropriate place to address chronic pain and that she should follow-up with a primary care physician who can help her control her pain. Patient is stable at this time and will be given Tylenol and Flexeril. She will be discharged home and will follow-up with her primary care physician. Patient's test results and vitals while in the ED were fully reviewed and discussed with the patient. Patient is stable and at this time does not need admission to the hospital. We have discussed strict return precautions and the importance of following up with their Primary Care Physician. Patient stated understanding and was given an opportunity to ask any questions. Patient is in agreement with plan. Howie Disclaimer: Howie Disclaimer: This electronic medical record was generated, in whole or in part, using a voice recognition dictation system. Departure Departure Impression: Primary Impression: Narcotic dependency, continuous Additional Impression: Chronic back pain Disposition: 01 HOME, SELF-CARE Condition: STABLE Referrals: JEAN-PIERRE EDMONDSON MD (PCP) Patient Instructions: Chronic Pain Management Justicifation of Admission Dx: Justifications for Admission: Justification of Admission Dx: N/A DARCY HUMPHREYS MD Jun 03, 2020 02:38
[2020-06-03] MEDS ORDERED: CYCLOBENZAPRINE 10 MG TABLET. PO ONE (02:45)
[2020-06-03] MEDS ORDERED: ACETAMINOPHEN 325 MG TABLET. PO ONE (02:45)
== END 2020-06-03 05:17 | disposition home or self-care (01) ==
LOC: ER 02:26
DX: G89.29 Other chronic pain (principal); M54.9 Dorsalgia, unspecified; F11.20 Opioid dependence, uncomplicated; Z98.890 Other specified postprocedural states
CPT/HCPCS: 99284

== ENCOUNTER 2020-06-14 03:09 | Emergency (ER) | payer OTHER ==
[~2020-06-14] VITALS: Ht 170.2 cm; Wt 54.5 kg
[2020-06-14 03:15] VITALS: BP 152/88
[2020-06-14] MEDS ORDERED: CYCLOBENZAPRINE 10 MG TABLET. PO ONE (03:30)
[2020-06-14] MEDS ORDERED: ACETAMINOPHEN 500 MG TABLET PO ONE (03:30)
[2020-06-14] MEDS ORDERED: KETOROLAC 15 MG/ML VIAL. IVP ONE (03:30)
--- NOTE | 2020-06-14 03:37 | PHYS DOC ---
Past Medical History Past Medical History: Other Additional Past Medical Histor: SPINOCEREBELLAR ATAXIA; chronic back/leg pain Past Surgical History: No Surgical History, Smoking Status: Never Smoker Alcohol Use: None Drug Use: None General Adult EDM: Chief Complaint: BACK PAIN - NO INJURY HPI: HPI: The history was obtained from the patient. Patient is a 40-year-old female with PMH spinocerebellar ataxia, chronic leg pain, chronic back pain who presents with a chief complaint of low back pain. Patient states she has had left-sided low back pain seemed to worsen over the past day. She notes a longstanding history of low back pain. She states that she takes something similar to naproxen at home without relief. Denies any history of spinal surgeries. Denies any falls or trauma recently. States this pain is consistent with her chronic pain. Has never seen a pain specialist. Denies fevers. Denies dys uria, polyuria, hematuria. States she does not ambulate at baseline. States she lives at home with her sons who care for her. No other complaints. Patient denies any urinary retention, stool incontinence, saddle anesthesia, history of IV drug use, or history of cancer. Review of Systems: Review of Systems: Constitutional: Denies fever or chills. [] Eyes: Denies change in visual acuity. [] HENT: Denies nasal congestion or sore throat. [] Respiratory: Denies cough or shortness of breath. [] Cardiovascular: Denies chest pain or edema. [] GI: Denies abdominal pain, nausea, vomiting, bloody stools or diarrhea. [] : Denies dysuria. [] Musculoskeletal: D positive for back pain Integument: Denies rash. [] Neurologic: Denies headache, focal weakness or sensory changes. [] Endocrine: Denies polyuria or polydipsia. [] Lymphatic: Denies swollen glands. [] Psychiatric: Denies depression or anxiety. [] Heart Score: Risk Factors: Risk Factors: DM, Current or recent (<one month) smoker, HTN, HLP, family history of CAD, obesity. Risk Scores: Score 0 - 3: 2.5% MACE over next 6 weeks - Discharge Home Score 4 - 6: 20.3% MACE over next 6 weeks - Admit for Clinical Observation Score 7 - 10: 72.7% MACE over next 6 weeks - Early Invasive Strategies Current Medications: Current Medications Medications (Trade) Dose Ordered Sig/[facility] Start Time Stop Time Status Last Admin Dose Admin Acetaminophen (Tylenol) 1,000 mg 1X ONCE 06/14/20 03:30 06/14/20 03:31 UNV Cyclobenzaprine HCl (Flexeril) 10 mg 1X ONCE 06/14/20 03:30 06/14/20 03:31 UNV Ketorolac Tromethamine (Toradol 15mg Vial) 15 mg 1X ONCE 06/14/20 03:30 06/14/20 03:31 UNV Allergies: Allergies: Allergies Coded Allergies Type Severity Reaction Last Updated Verified No Known Drug Allergies 09/21/13 No Physical Exam: PE: Constitutional: Well developed, well nourished, no acute distress, non-toxic appearance. [] HENT: Normocephalic, atraumatic, bilateral external ears normal, oropharynx moist, no oral exudates, nose normal. [] Eyes: PERRLA, EOMI, conjunctiva normal, no discharge. [] Neck: Normal range of motion, no tenderness, supple, no stridor. [] Cardiovascular:Heart rate regular rhythm, no murmur [] Lungs & Thorax: Bilateral breath sounds clear to auscultation [] Abdomen: soft, no tenderness, no masses, no pulsatile masses. [] Skin: Warm, dry, no erythema, no rash. [] Back: + 5/5 motor strength in dorsiflexion and plantarflexion of the great toes bilaterally. Sensation intact between the webbing of the first and second toes bilaterally. Stage I sacral ulcer noted. No surrounding cellulitic skin changes. Hypertonic musculature noted to the left lumbar region. No step-offs or deformities or midline tenderness palpated. Extremities: No tenderness, no cyanosis, no clubbing, ROM intact, no edema. [] Neurologic: Alert and oriented X 3, normal motor function, normal sensory function, no focal deficits noted. [] Psychologic: Affect normal, judgement normal, mood normal. [] Current Patient Data: Vital Signs: Vital Signs Date Time Temp Pulse Resp B/P (MAP) Pulse Ox O2 Delivery O2 Flow Rate FiO2 06/14/20 03:15 97.8 98 20 152/88 (109) 98 Room Air 97.8 EKG: EKG: [] Radiology/Procedures: Radiology/Procedures: [] Course & Med Decision Making: Course & Med Decision Making Pertinent Labs and Imaging studies reviewed. (See chart for details) [] Patient is a 40-year-old female presents with chief complaint of acute on chronic back pain. She denies any red flag signs or or symptoms regarding her chronic back pain. Recent imaging has been obtained and was unremarkable. Given she denies any urinary symptoms urinalysis will be deferred. Repeat imaging will also be deferred as she denies any new trauma or injury. Patient's pain was well controlled with Toradol, Flexeril, and Tylenol. She was requesting a short course of muscle relaxant to go home with. She will be given Flexeril for home. She was encouraged to follow-up with her primary care physician and potential pain specialist regarding management of her chronic pain. Return precautions discussed and understood. Stable for discharge home. Dragon Disclaimer: Dragon Disclaimer: This electronic medical record was generated, in whole or in part, using a voice recognition dictation system. Departure Departure Impression: Primary Impression: Chronic back pain Qualified Codes: M54.42 - Lumbago with sciatica, left side; G89.29 - Other chronic pain Disposition: 01 HOME, SELF-CARE Condition: STABLE Referrals: JEAN-PIERRE EDMONDSON MD (PCP) Patient Instructions: Back Pain, Adult Additional Instructions: Aftercare Instructions For Chronic Pain Chronic pain is ongoing, or recurrent, pain that persists after healing from the original cause has taken place. It may be due to a prior trauma, surgery or ongoing medical condition. Acute pain arises from a recent trauma, surgery, or new medical condition that has not yet completely resolved. The important difference between the two is that the causes of acute pain may be physically dangerous to patients, whereas chronic, non-malignant pain is not physically dangerous. Here in the Emergency Department your pain has been determined to be chronic, nonmalignant pain and therefore not physically dangerous to you. The Emergency Department is best equipped to evaluate and treat acute pain and other emergent conditions. It is not designed to treat ongoing, non-malignant, chronic pain. Some exceptions do exist such as recurrent, malignant pain due to: cancer, MS or sickle cell disease. Chronic pain requires usp treatment and is best managed by a primary care physician and/or pain specialist. While your chronic pain may never completely go away, with a consistent and controlled treatment program, set up with your doctor, your pain can be improved so that you may be more functional in your daily life. In addition, due to the stress of chronic pain, counseling may also be helpful as chronic pain patients can also develop depression and/or anxiety. As such, professional counseling may be helpful too. You should follow up with your primary care physician or pain specialist to discuss which treatment options are best for you. If you do not have a physician you can call your insurance company, or the physician listed on the back of your medical card, to ?nd one in your area. Otherwise, we will supply you with the name of one who you can contact. What to Do? Avoid activities or situations that cause your pain to become worse or could otherwise cause you injury Take the medication prescribed for you as directed, or take over the counter pain medication as directed by the label or the pharmacist Ice or heat may be helpful. Place a towel between your skin and the ice. Apply the ice for approximately 20 minutes and then remove it for 20 minutes. Repeat this throughout the day for 24-48 hours. If you use a heating pad, do not sleep on it as it may cause fenton If your pain involves a limb, then elevate it above your heart while resting Return to the Emergency Department Return to the Emergency Department if you experience: A change in the type (or nature) of your pain that is different from your normal pain A change in the distribution of your pain (the part of your body that is affected) that is different from your normal distribution New neurologic symptoms such as: weakness, numbness, loss of bowel or bladder control New or unusual symptoms associated with your pain Medication Many medications are used for the management of chronic pain including: narcotics, anti-in?ammatories, anti-depressants, and anti-convulsants. Whichever medication you are prescribed, take it as directed. YOU MUST PLAN IN ADVANCE - If you think you are running low on your pain m edications, it is your responsibility to plan in advance and get a re?ll from your doctor. You should NEVER wait until night or weekends to try to get in contact with your doctor if are running out of pain medicine. CAUTION The following statement is provided for your information and protection. It is not intended to suggest any illegal activity on your part: It is a felony to obtain narcotic pain medications by intentionally deceiving the physician who is caring for you. This include, but is not limited to: obtaining multiple prescriptions for pain medication from more than one physician, providing any false information in order to obtain a prescription, providing false information about the nature or severity of your medical condition, and/or selling narcotic pain medication or providing it to someone other than who the medication was intended. Scripts Lidocaine (Lidocaine) 1 Each Adh..patch 1 EACH TP PRN BID PRN for PAIN, #6 PATCH Prov: SHANTE DAMON DO 06/14/20 Cyclobenzaprine Hcl (CYCLOBENZAPRINE HCL) 5 Mg Tablet 1 TAB PO QHS for 5 Days, #5 TAB Prov: SHANTE DAMON DO 06/14/20 Justicifation of Admission Dx: Justifications for Admission: Justification of Admission Dx: N/A SHANTE DAMON DO Jun 14, 2020 03:37
[2020-06-14] MEDS ORDERED: LIDO1ADH63 TP (03:42)
[2020-06-14] MEDS ORDERED: CYCL5TAB PO (03:42)
[2020-06-14] MEDS ORDERED: KETOROLAC 30 MG/ML VIAL. ONE (03:55)
[2020-06-14] MEDS ORDERED: KETOROLAC 30 MG/ML VIAL. IM ONE (04:00)
== END 2020-06-14 05:44 | disposition home or self-care (01) ==
LOC: ER 03:09
DX: G89.29 Other chronic pain (principal); M54.42 Lumbago with sciatica, left side; R20.2 Paresthesia of skin; Z98.890 Other specified postprocedural states
CPT/HCPCS: 96372; 99283; J1885

== ENCOUNTER 2020-10-25 09:43 | Emergency (ER) | payer OTHER ==
[~2020-10-25] VITALS: Ht 167.6 cm; Wt 56.8 kg
[~2020-10-25 09:43] MED LIST changes: +LIDO1ADH63 TP
[2020-10-25] MEDS ORDERED: KETOROLAC 30 MG/ML VIAL. IM ONE (09:45)
[2020-10-25] MEDS ORDERED: DEXAMETHASONE 4 MG TABLET PO ONE (10:30)
[2020-10-25] MEDS ORDERED: ORPHENADRINE CITRATE 60 MG/2 ML VIAL. IM ONE (10:30)
[2020-10-25 11:00] VITALS: BP 138/108
[2020-10-25 11:31] LABS: BASO % 1 % (0-3); EOS # 0.1 x10^3/uL (0.0-0.7); EOS % 2 % (0-3); HEMATOCRIT 39.4 % (36.0-47.0); HEMOGLOBIN 13.2 g/dL (12.0-15.5); LYMPH # 1.4 x10^3/uL (1.0-4.8); LYMPH % 23 % (24-48); MEAN CORPUSCULAR HEMOGLOBIN 30 pg (25-35); MEAN CORPUSCULAR HGB CONC 33 g/dL (31-37); MEAN CORPUSCULAR VOLUME 90 fL (79-100); MONO # 0.5 x10^3/uL (0.0-1.1); MONO % 8 % (0-9); NEUT # 3.8 x10^3/uL (1.8-7.7); NEUT % 66 % (31-73); PLATELET COUNT 271 x10^3/uL (140-400); RED BLOOD COUNT 4.39 x10^6/uL (3.50-5.40); RED CELL DISTRIBUTION WIDTH 13.8 % (11.5-14.5); WHITE BLOOD COUNT 5.8 x10^3/uL (4.0-11.0)
[2020-10-25 11:44] LABS: CALCIUM 9.2 mg/dL (8.5-10.1); CREATININE 0.6 mg/dL (0.6-1.0); GFR 134.7; POTASSIUM 4.2 mmol/L (3.5-5.1)
[2020-10-25 11:49] LABS: ALBUMIN 3.7 g/dL (3.4-5.0); ALBUMIN/GLOBULIN RATIO 1.1 (1.0-1.7); TOTAL BILIRUBIN 0.6 mg/dL (0.2-1.0); TOTAL PROTEIN 7.2 g/dL (6.4-8.2)
[2020-10-25] MEDS ORDERED: HYDR-2761 PO (12:08)
[2020-10-25] MEDS ORDERED: PRED20TA PO (12:08)
--- NOTE | 2020-10-25 12:08 | PHYS DOC ---
Past Medical History Past Medical History: Other Additional Past Medical Histor: SPINOCEREBELLAR ATAXIA; chronic back/leg pain Past Surgical History: No Surgical History, Smoking Status: Never Smoker Alcohol Use: None Drug Use: None General Adult EDM: Chief Complaint: BACK PAIN - NO INJURY HPI: HPI: Patient is a 40 year old [f__sex] who presents with [] Review of Systems: Review of Systems: Constitutional: Denies fever or chills. [] Eyes: Denies change in visual acuity. [] HENT: Denies nasal congestion or sore throat. [] Respiratory: Denies cough or shortness of breath. [] Cardiovascular: Denies chest pain or edema. [] GI: Denies abdominal pain, nausea, vomiting, bloody stools or diarrhea. [] : Denies dysuria. [] Musculoskeletal: Denies back pain or joint pain. [] Integument: Denies rash. [] Neurologic: Denies headache, focal weakness or sensory changes. [] Endocrine: Denies polyuria or polydipsia. [] Lymphatic: Denies swollen glands. [] Psychiatric: Denies depression or anxiety. [] Heart Score: Risk Factors: Risk Factors: DM, Current or recent (<one month) smoker, HTN, HLP, family history of CAD, obesity. Risk Scores: Score 0 - 3: 2.5% MACE over next 6 weeks - Discharge Home Score 4 - 6: 20.3% MACE over next 6 weeks - Admit for Clinical Observation Score 7 - 10: 72.7% MACE over next 6 weeks - Early Invasive Strategies Current Medications: Current Medications Medications (Trade) Dose Ordered Sig/[facility] Start Time Stop Time Status Last Admin Dose Admin Dexamethasone (Decadron) 10 mg 1X ONCE 10/25/20 10:30 10/25/20 10:31 DC 10/25/20 11:01 10 MG Ketorolac Tromethamine (Toradol 30mg Vial) 30 mg 1X ONCE 10/25/20 09:45 10/25/20 09:48 DC 10/25/20 09:53 30 MG Orphenadrine Citrate (Norflex) 60 mg 1X ONCE 10/25/20 10:30 10/25/20 10:31 DC 10/25/20 11:01 60 MG Allergies: Allergies: Allergies Coded Allergies Type Severity Reaction Last Updated Verified No Known Drug Allergies 09/21/13 No Physical Exam: PE: Constitutional: Well developed, well nourished, no acute distress, non-toxic appearance. [] HENT: Normocephalic, atraumatic, bilateral external ears normal, oropharynx moist, no oral exudates, nose normal. [] Eyes: PERRLA, EOMI, conjunctiva normal, no discharge. [] Neck: Normal range of motion, no tenderness, supple, no stridor. [] Cardiovascular:Heart rate regular rhythm, no murmur [] Lungs & Thorax: Bilateral breath sounds clear to auscultation [] Abdomen: Bowel sounds normal, soft, no tenderness, no masses, no pulsatile masses. [] Skin: Warm, dry, no erythema, no rash. [] Back: No tenderness, no CVA tenderness. [] Extremities: No tenderness, no cyanosis, no clubbing, ROM intact, no edema. [] Neurologic: Alert and oriented X 3, normal motor function, normal sensory function, no focal deficits noted. [] Psychologic: Affect normal, judgement normal, mood normal. [] Current Patient Data: Labs: Laboratory Tests Test 10/25/20 11:11 White Blood Count 5.8 x10^3/uL (4.0-11.0) Red Blood Count 4.39 x10^6/uL (3.50-5.40) Hemoglobin 13.2 g/dL (12.0-15.5) Hematocrit 39.4 % (36.0-47.0) Mean Corpuscular Volume 90 fL (79-100) Mean Corpuscular Hemoglobin 30 pg (25-35) Mean Corpuscular Hemoglobin Concent 33 g/dL (31-37) Red Cell Distribution Width 13.8 % (11.5-14.5) Platelet Count 271 x10^3/uL (140-400) Neutrophils (%) (Auto) 66 % (31-73) Lymphocytes (%) (Auto) 23 % (24-48) L Monocytes (%) (Auto) 8 % (0-9) Eosinophils (%) (Auto) 2 % (0-3) Basophils (%) (Auto) 1 % (0-3) Neutrophils # (Auto) 3.8 x10^3/uL (1.8-7.7) Lymphocytes # (Auto) 1.4 x10^3/uL (1.0-4.8) Monocytes # (Auto) 0.5 x10^3/uL (0.0-1.1) Eosinophils # (Auto) 0.1 x10^3/uL (0.0-0.7) Basophils # (Auto) 0.0 x10^3/uL (0.0-0.2) Sodium Level 141 mmol/L (136-145) Potassium Level 4.2 mmol/L (3.5-5.1) Chloride Level 108 mmol/L (98-107) H Carbon Dioxide Level 25 mmol/L (21-32) Anion Gap 8 (6-14) Blood Urea Nitrogen 16 mg/dL (7-20) Creatinine 0.6 mg/dL (0.6-1.0) Estimated GFR (Cockcroft-Gault) 134.7 BUN/Creatinine Ratio 27 (6-20) H Glucose Level 93 mg/dL (70-99) Calcium Level 9.2 mg/dL (8.5-10.1) Total Bilirubin 0.6 mg/dL (0.2-1.0) Aspartate Amino Transferase (AST) 11 U/L (15-37) L Alanine Aminotransferase (ALT) 18 U/L (14-59) Alkaline Phosphatase 51 U/L (46-116) Total Protein 7.2 g/dL (6.4-8.2) Albumin 3.7 g/dL (3.4-5.0) Albumin/Globulin Ratio 1.1 (1.0-1.7) Laboratory Tests 10/25/20 11:11 Laboratory Tests 10/25/20 11:11 Vital Signs: Vital Signs Date Time Temp Pulse Resp B/P (MAP) Pulse Ox O2 Delivery O2 Flow Rate FiO2 10/25/20 11:00 92 138/108 (118) 98 Room Air 10/25/20 09:43 98.1 16 98.1 EKG: EKG: [] Radiology/Procedures: Radiology/Procedures: [] Course & Med Decision Making: Course & Med Decision Making Pertinent Labs and Imaging studies reviewed. (See chart for details) [] Dragon Disclaimer: Dragon Disclaimer: This electronic medical record was generated, in whole or in part, using a voice recognition dictation system. Departure Departure Impression: Primary Impression: Chronic back pain Qualified Codes: M54.5 - Low back pain; G89.29 - Other chronic pain Disposition: 01 DC HOME SELF CARE/HOMELESS Condition: STABLE Referrals: JEAN-PIERRE EDMONDSON MD (PCP) PORSCHE VARGAS MD Patient Instructions: Chronic Back Pain, Chronic Pain Management Scripts Hydrocodone Bit/Acetaminophen (HYDROCODONE-APAP 5-325 ) 1 Tab Tablet 0.5-1 TAB PO PRN Q6HRS PRN for PAIN, #8 TAB 0 Refills Prov: DAVI KISER DO 10/25/20 Prednisone (PREDNISONE) 20 Mg Tablet 2 TAB PO DAILY, #8 TAB Start this medication tomorrow, Wednesday10/26/20 Prov: DAVI KISER DO 10/25/20 DAVI KISER DO Oct 25, 2020 12:08
== END 2020-10-25 13:15 | disposition home or self-care (01) ==
LOC: ER 09:43
DX: G89.29 Other chronic pain (principal); M54.5 Low back pain
CPT/HCPCS: 36415; 80053; 85025; 96372; 99284; J1885; J2360

== ENCOUNTER 2020-11-09 04:20 | Emergency (ER) | payer OTHER ==
[~2020-11-09] VITALS: Ht 170.2 cm; Wt 56.8 kg
[2020-11-09 05:22] VITALS: BP 131/80
[2020-11-09 06:20] LABS: BILIRUBIN,URINE NEGATIVE (NEG); CLARITY,URINE CLEAR; COLOR,URINE YELLOW; NITRITE,URINE NEGATIVE (NEG); PROTEIN,URINE NEGATIVE (NEG-TRACE)
--- NOTE | 2020-11-09 06:22 | ED.ADGEN ---
Past Medical History Past Medical History: Other Additional Past Medical Histor: SPINOCEREBELLAR ATAXIA; chronic back/leg pain Past Surgical History: No Surgical History, Smoking Status: Never Smoker Alcohol Use: None Drug Use: None General Adult EDM: Chief Complaint: BACK PAIN - NO INJURY HPI: HPI: Patient is a 40 year old female coming in via EMS for back pain that woke her from sleep about an hour prior to arrival. Patient has a history of chronic back pain and multiple ER visits for the same. She was last seen here 15 days ago and given a prescription for hydrocodone. Patient has a history of spinocerebellar ataxia. Patient denies any falls or recent trauma. States she felt fine when she went to bed. Pain is similar to her previous back pain. States she otherwise has been well and denies any urinary changes. Review of Systems: Review of Systems: All other systems within normal limits except for as noted in the HPI Current Medications: Current Medications Medications (Trade) Dose Ordered Sig/Garrett Start Time Stop Time Status Last Admin Dose Admin Ketorolac Tromethamine (Toradol Im) 60 mg 1X ONCE 11/09/20 06:30 11/09/20 06:31 DC 11/09/20 06:19 60 MG Orphenadrine Citrate (Norflex) 60 mg 1X ONCE 11/09/20 06:30 11/09/20 06:31 DC 11/09/20 06:18 60 MG Allergies: Allergies: Allergies Coded Allergies Type Severity Reaction Last Updated Verified No Known Drug Allergies 09/21/13 No Physical Exam: PE: Constitutional: Well developed, well nourished, no acute distress, non-toxic appearance. [] HENT: Normocephalic, atraumatic, bilateral external ears normal, nose normal. [] Eyes: PERRLA, conjunctiva normal, no discharge. [] Neck: No rigidity, supple, no stridor. [] Cardiovascular: Regular rate and rhythm, brisk cap refill [] Lungs & Thorax: Non labored symmetric respirations, no tachypnea or respiratory distress [] Abdomen: Soft, nondistended. Skin: Warm, dry, no erythema, no rash. [] Back: Unremarkable, no step-offs or deformities, tenderness to lateral left of lumbar spine. Extremities: No deformities, range of motion grossly intact, no lower extremity edema [] Neurologic: Alert and oriented X 3, no focal deficits noted. [] Psychologic: Affect normal, judgement normal, mood normal. [] Current Patient Data: Labs: Laboratory Tests Test 11/09/20 05:43 Urine Collection Type Unknown Urine Color Yellow Urine Clarity Clear Urine pH 6.0 (<5.0-8.0) Urine Specific [place] 1.025 (1.000-1.030) Urine Protein Negative mg/dL (NEG-TRACE) Urine Glucose (UA) Negative mg/dL (NEG) Urine Ketones (Stick) Negative mg/dL (NEG) Urine Blood Negative (NEG) Urine Nitrite Negative (NEG) Urine Bilirubin Negative (NEG) Urine Urobilinogen Dipstick 1.0 mg/dL (0.2 mg/dL) Urine Leukocyte Esterase Moderate (NEG) Urine RBC Rare /HPF (0-2) Urine WBC 20-40 /HPF (0-4) Urine Squamous Epithelial Cells Mod /LPF Urine Bacteria Moderate /HPF (0-FEW) Urine Mucus Mod /LPF Vital Signs: Vital Signs Date Time Temp Pulse Resp B/P (MAP) Pulse Ox O2 Delivery O2 Flow Rate FiO2 11/09/20 05:22 95 15 131/80 (97) 99 Room Air 11/09/20 04:20 99.0 99.0 EKG: EKG: [] Heart Score: Risk Factors: Risk Factors: DM, Current or recent (<one month) smoker, HTN, HLP, family h istory of CAD, obesity. Risk Scores: Score 0 - 3: 2.5% MACE over next 6 weeks - Discharge Home Score 4 - 6: 20.3% MACE over next 6 weeks - Admit for Clinical Observation Score 7 - 10: 72.7% MACE over next 6 weeks - Early Invasive Strategies Radiology/Procedures: Radiology/Procedures: [] Course & Med Decision Making: Course & Med Decision Making Pertinent Labs and Imaging studies reviewed. (See chart for details) Patient seen and reevaluated. Patient calm and resting, heart rate in the 90s. Patient afebrile and in no active distress. States her pain is in the lumbar region around L3 L5 and in her right paraspinal region, nonreproducible. Patient with no saddle anesthesia, urinary or bowel retention or incontinence or radiculopathy. Patient denies any fevers, nausea, vomiting or flulike sy mptoms. Patient is well-appearing and nontoxic/does not look septic. Will prescribe azo and macrobic. Will discharge home with strict ED return precautions were given for saddle anesthesia, urinary or bowel retention or incontinence, fever, nausea, vomiting, flulike symptoms or dehydration (cord compression and pyelonephritis/sepsis return instructions). Encouraged urgent outpatient follow-up with PMD to repeat urinalysis in 1 week and ortho to evaluate back pain -may need nonemergent MRI. Life-threatening processes were considered but are low suspicion at this time, given history, physical exam and ED workup. Pt was educated on all prescription medications and adverse effects. All patient's questions were answered and pt was stable at time of discharge. Life/limb-threatening differential includes but is not limited to, aortic dissection/aneurysm, cauda equina syndrome, transverse myelitis, spinal cord/epidural compression syndromes, discitis, spinal stenosis, epidural abscess or hematoma, osteomyelitis, disc herniation, surgical abdomen, stable or unstable fracture, renal/ureteral colic, sepsis, meningitis, musculoskeletal injury, traumatic injury, intraabdominal/retroperitoneal or pelvic bleeding. I spoken with the patient and her caregivers. I explained the patient's condition, diagnoses and treatment plan based on the information available to me at this time. I have answered the patient and her caregiver's questions and addressed any concerns. The patient and her caregivers have a good understanding of patient's diagnosis, condition and treatment plan as can be expected at this point. Vital signs have been stable. Patient's condition is stable and appropriate for discharge from the emergency department. Patient will pursue further outpatient evaluation with primary care physician or other designated or consulting physician as outlined in the discharge instructions. The patient and/or caregivers are agreeable to this plan of care and follow-up instructions have been explained in detail. The patient and/or caregivers have received these instructions in written form and have expressed an understanding of the discharge instructions. The patient and/or caregivers are aware that any significant change of condition or worsening of symptoms should prompt immediate return to this or the closest emergency department or call to 911. Howie Disclaimer: Howie Disclaimer: This electronic medical record was generated, in whole or in part, using a voice recognition dictation system. Departure Departure Impression: Primary Impression: Pain in right paraspinal region Additional Impressions: Lumbar back pain UTI (urinary tract infection) Disposition: 01 DC HOME SELF CARE/HOMELESS Condition: STABLE Referrals: JEAN-PIERRE EDMONDSON MD (PCP) repeat u/a in 1 week Patient Instructions: Back Pain, Adult, Urinary Tract Infection Additional Instructions: EMERGENCY DEPARTMENT GENERAL DISCHARGE INSTRUCTIONS Thank you for coming to [facility] Emergency Department (ED) today and trusting us with you care. We trust that you had a positive experience in our Emergency Department. If you wish to speak to the department management, you may call the Director at [phone]. YOUR FOLLOW UP INSTRUCTIONS ARE FOLLOWS: 1. Do you have a private Doctor? If you do not have a private doctor, please ask for a resource list of physicians or clinics that may be able to assist you with follow up care. 2. The Emergency Physicain has interpreted your x-rays. The X-Ray specialist will also review them. If there is a change in the findings, you will be notified in 48 hours when at all possible. 3. A lab test or culture has been done, your results will be reviewed and you will be notified if you need a change in treatment. ADDITIONAL INSTRUCTIONS AND INFORMATION: 1. Your care today has been supervised by a physician who is specially trained in emergency care. Many problems require more than one evaluation for a complete diagnosis and treatment. We recommend that you schedule your follow up appointment as recommended to ensure complete treatment of you illness or injury. If you are unable to obtain follow up care and continue to have a problem, or if your condition worsens, we recommend that you return to the ED. 2. We are not able to safely determine your condition over the phone nor are we able to give sound medical advice over the phone. For these safety reasons, if you call for medical advice we will ask you to come to the ED for further evaluation. 3. If you have any questions regarding these discharge instructions please call the ED at [phone]. SAFETY INFORMATION: In the interest of safety, wellness, and injury prevention; we encourage you to wear your sealbelt, if you smoke; quite smoking, and we encourage family to use a protective helmet for bicycling and other sporting events that present an increased risk for head injury. IF YOUR SYMPTOMS WORSEN OR NEW SYMPTOMS DEVELOP, OR YOU HAVE CONCERNS ABOUT YOUR CONDITION; OR IF YOUR CONDITION WORSENS WHILE YOU ARE WAITING FOR YOUR FOLLOW UP APPOINTMENT; EITHER CONTACT YOUR PRIMARY CARE DOCTOR, THE PHYSICIAN WHOSE NAME AND NUMBER YOU WERE GIVEN, OR RETURN TO THE ED IMMEDIATELY. Scripts Phenazopyridine Hcl (PHENAZOPYRIDINE HCL) 200 Mg Tablet 1 TAB PO TID for urinary discomfort for 3 Days, #9 TAB 0 Refills after food Prov: BENSON SUNG DO 11/09/20 Nitrofurantoin Monohyd/M-Cryst (MACROBID 100 MG CAPSULE) 100 Mg Capsule 1 CAP PO BID for 7 Days, #14 CAP 0 Refills Prov: BENSON SUNG DO 11/09/20 Problem Qualifiers CARIDAD MENDEZ MD Nov 09, 2020 06:22 BENSON SUNG DO Nov 09, 2020 07:36
[2020-11-09] MEDS ORDERED: ORPHENADRINE CITRATE 60 MG/2 ML VIAL. IM ONE (06:30)
[2020-11-09] MEDS ORDERED: KETOROLAC 60 MG/2 ML VIAL. IM ONE (06:30)
[2020-11-09 06:37] LABS: BACTERIA,URINE MODERATE /HPF (0-FEW); RBC,URINE RARE /HPF (0-2); WBC,URINE 20-40 /HPF (0-4)
[2020-11-09] MEDS ORDERED: PHEN-444 PO (07:33)
[2020-11-09] MEDS ORDERED: NITR100C62 PO (07:33)
== END 2020-11-09 08:45 | disposition home or self-care (01) ==
LOC: ER 04:20
DX: N39.0 Urinary tract infection, site not specified (principal); G89.29 Other chronic pain
CPT/HCPCS: 81001; 87086; 96372; 99284; J1885; J2360

== ENCOUNTER 2021-01-08 22:37 | Emergency (ER) | payer OTHER ==
[~2021-01-08] VITALS: Ht 167.6 cm; Wt 63.0 kg
[~2021-01-08 22:37] MED LIST changes: +PHEN-444 PO
--- NOTE | 2021-01-08 22:52 | PHYS DOC ---
Past Medical History Past Medical History: Other Additional Past Medical Histor: SPINOCEREBELLAR ATAXIA; chronic back/leg pain Past Surgical History: No Surgical History, Smoking Status: Never Smoker Alcohol Use: None Drug Use: None General Adult HPI: HPI: Patient is a 41 year old [f__sex] who presents with [] Wheelchair-bound back pains "a lot of weed tonight took 1 mg clonazepam was sleeping and her children wake her up. Back pain with known degenerative disc disease, no trauma Review of Systems: Review of Systems: Fourteen body systems of review of systems have been reviewed. See HPI for pertinent positives and negative responses, other jarquin all other systems are negative, non-pertinent or non-contributory Heart Score: Risk Factors: Risk Factors: DM, Current or recent (<one month) smoker, HTN, HLP, family history of CAD, obesity. Risk Scores: Score 0 - 3: 2.5% MACE over next 6 weeks - Discharge Home Score 4 - 6: 20.3% MACE over next 6 weeks - Admit for Clinical Observation Score 7 - 10: 72.7% MACE over next 6 weeks - Early Invasive Strategies Allergies: Allergies: Allergies Coded Allergies Type Severity Reaction Last Updated Verified No Known Drug Allergies 09/21/13 No Physical Exam: PE: Constitutional: Well developed, well nourished, no acute distress, non-toxic appearance. [] HENT: Normocephalic, atraumatic, bilateral external ears normal, oropharynx moist, no oral exudates, nose normal. [] Eyes: PERRLA, EOMI, conjunctiva normal, no discharge. [] Neck: Normal range of motion, no tenderness, supple, no stridor. [] Cardiovascular:Heart rate regular rhythm, no murmur [] Lungs & Thorax: Bilateral breath sounds clear to auscultation [] Abdomen: Bowel sounds normal, soft, no tenderness, no masses, no pulsatile masses. [] Skin: Warm, dry, no erythema, no rash. [] Back: No tenderness, no CVA tenderness. [] Extremities: No tenderness, no cyanosis, no clubbing, ROM intact, no edema. [] Neurologic: Alert and oriented X 3, normal motor function, normal sensory function, no focal deficits noted. [] Psychologic: Affect normal, judgement normal, mood normal. [] EKG: EKG: [] Radiology/Procedures: Radiology/Procedures: [] Course & Med Decision Making: Course & Med Decision Making Pertinent Labs and Imaging studies reviewed. (See chart for details) [] Howie Disclaimer: Howie Disclaimer: This electronic medical record was generated, in whole or in part, using a voice recognition dictation system. Departure Departure Impression: Primary Impression: Chronic back pain Additional Impressions: Marijuana use, continuous Narcotic dependency, continuous Disposition: 01 DC HOME SELF CARE/HOMELESS Condition: STABLE Referrals: JEAN-PIERRE EDMONDSON MD (PCP) Patient Instructions: Chronic Back Pain Additional Instructions: You were evaluated in the Emergency Department today for back pain. Your evaluation suggests no acute abnormalities which require further intervention at this time. Your pain is most likely due to known degenerative disc disease. - Move around as tolerated but avoiding heavy lifting. ``Bed rest is not recommended nor is it the best treatment for low back pain. - Utilized previously prescribed medications to control your discomfort - Please stop using marijuana Return to the ED immediately if you develop any of the following problems: - Leaking urine or difficulty urinating; - Inability to control your bowels; - New numbness or weakness in your legs or numbness between your legs; - Inability to walk - Fever BRENDON ULLOA DO Jan 08, 2021 22:52
[2021-01-09 00:12] VITALS: BP 142/87
== END 2021-01-09 00:42 | disposition home or self-care (01) ==
LOC: ER 22:37
DX: G89.29 Other chronic pain (principal); M54.9 Dorsalgia, unspecified; F12.90 Cannabis use, unspecified, uncomplicated; F11.20 Opioid dependence, uncomplicated; Z98.890 Other specified postprocedural states
CPT/HCPCS: 99284

== ENCOUNTER 2021-04-01 03:03 | Emergency (ER) | payer OTHER ==
[~2021-04-01] VITALS: Ht 170.2 cm; Wt 54.5 kg
--- NOTE | 2021-04-01 04:00 | PHYS DOC ---
Past Medical History Past Medical History: Other Additional Past Medical Histor: SPINOCEREBELLAR ATAXIA; chronic back/leg pain Past Surgical History: Smoking Status: Never Smoker Alcohol Use: None Drug Use: None General Adult EDM: Chief Complaint: BACK PAIN - NO INJURY HPI: HPI: Patient is a 41 year old female presents with the chief complaint of back pain. Patient has history of chronic back pain. She states pain is in her typical location. No radiation of pain with no paresthesia. States she normally takes naprosyn-- did not take today. Review of Systems: Review of Systems: Constitutional: Denies fever or chills. [] Eyes: Denies change in visual acuity. [] HENT: Denies nasal congestion or sore throat. [] Respiratory: Denies cough or shortness of breath. [] Cardiovascular: Denies chest pain or edema. [] GI: Denies abdominal pain, nausea, vomiting, bloody stools or diarrhea. [] : Denies dysuria. [] Musculoskeletal: Positive back pain Integument: Denies rash. [] Neurologic: Denies headache, focal weakness or sensory changes. [] Endocrine: Denies polyuria or polydipsia. [] Lymphatic: Denies swollen glands. [] Psychiatric: Denies depression or anxiety. [] Heart Score: C/O Chest Pain: N/A Risk Factors: Risk Factors: DM, Current or recent (<one month) smoker, HTN, HLP, family hist ory of CAD, obesity. Risk Scores: Score 0 - 3: 2.5% MACE over next 6 weeks - Discharge Home Score 4 - 6: 20.3% MACE over next 6 weeks - Admit for Clinical Observation Score 7 - 10: 72.7% MACE over next 6 weeks - Early Invasive Strategies Allergies: Allergies: Allergies Coded Allergies Type Severity Reaction Last Updated Verified No Known Drug Allergies 09/21/13 No Physical Exam: PE: Constitutional: Well developed, well nourished, no acute distress, non-toxic appearance. [] HENT: Normocephalic, atraumatic, bilateral external ears normal, oropharynx moist, no oral exudates, nose normal. [] Eyes: PERRLA, EOMI, conjunctiva normal, no discharge. [] Neck: Normal range of motion, no tenderness, supple, no stridor. [] Cardiovascular:Heart rate regular rhythm, no murmur [] Lungs & Thorax: Bilateral breath sounds clear to auscultation [] Abdomen: Bowel sounds normal, soft, no tenderness, no masses, no pulsatile masses. [] Skin: Warm, dry, no erythema, no rash. [] Back: No midline T / L spinetenderness, no CVA tenderness. [right paraspinal tenderness R1-4] Extremities: No tenderness, no cyanosis, no clubbing, ROM intact, no edema. [] Neurologic: Alert and oriented X 3, normal motor function, normal sensory function, no focal deficits noted. [] Psychologic: Affect normal, judgement normal, mood normal. [] Current Patient Data: Vital Signs: Vital Signs Date Time Temp Pulse Resp B/P (MAP) Pulse Ox O2 Delivery O2 Flow Rate FiO2 04/01/21 03:42 96 162/118 (133) 98 Room Air 04/01/21 03:19 98.0 18 98.0 EKG: EKG: [] Radiology/Procedures: Radiology/Procedures: [] Course & Med Decision Making: Course & Med Decision Making Pertinent Labs and Imaging studies reviewed. (See chart for details) []Patients Care and treatment plan provided by ER Nurse Practitioner. I was available for consult. Patient's chart reviewed. Treated with toradol and norco. Howie Disclaimer: Howie Disclaimer: This electronic medical record was generated, in whole or in part, using a voice recognition dictation system. Departure Departure Impression: Primary Impression: Chronic back pain Disposition: HOME / SELF CARE / HOMELESS Condition: STABLE Referrals: JEAN-PIERRE EDMONDSON MD (PCP) Patient Instructions: Chronic Back Pain Scripts Hydrocodone/Acetaminophen (Hydrocodone-Acetamin 5-325 mg) 1 Each Tablet 1 EACH PO Q4-6HRS, #20 TAB Prov: TAMMIE CORDOVA DO 04/01/21 TAMMIE CORDOVA DO Apr 01, 2021 04:00
[2021-04-01] MEDS ORDERED: HYDR-2759 PO (04:26)
[2021-04-01] MEDS ORDERED: KETOROLAC 60 MG/2 ML VIAL. IM ONE (04:30)
[2021-04-01] MEDS ORDERED: HYDROcodone/APAP 5/325MG 1 TAB TABLET PO ONE (04:30)
[2021-04-01 04:42] VITALS: BP 184/67
== END 2021-04-01 04:53 | disposition home or self-care (01) ==
LOC: ER 03:03
DX: G89.29 Other chronic pain (principal); M54.5 Low back pain; M54.6 Pain in thoracic spine
CPT/HCPCS: 96372; 99284; J1885

== ENCOUNTER 2021-04-04 04:39 | Emergency (ER) | payer OTHER ==
[~2021-04-04] VITALS: Ht 170.2 cm; Wt 54.5 kg
[~2021-04-04 04:39] MED LIST changes: +HYDR-2759 PO
[2021-04-04] MEDS ORDERED: KETOROLAC 30 MG/ML VIAL. IM ONE (05:00)
[2021-04-04] MEDS ORDERED: MORPHINE SULFATE 4 MG/ML VIAL. IM ONE (05:00)
--- NOTE | 2021-04-04 05:01 | PHYS DOC ---
Past Medical History Past Medical History: Other Additional Past Medical Histor: SPINOCEREBELLAR ATAXIA; chronic back/leg pain Past Surgical History: Smoking Status: Never Smoker Alcohol Use: None Drug Use: None General Adult EDM: Chief Complaint: BACK PAIN - NO INJURY HPI: HPI: Patient is a 41 year old female with history of spinocerebellar ataxia lower and chronic back pain presents emergency department for back pain. Patient is bedbound. She lives with her son who helps take care of her. She reports back pain for "a while." She reports this evening it is bothering her more so she came to the emergency department. Patient was seen here in the emergency department several days ago for similar symptoms. She is prescribed [place]. She reports that [place] does help but this evening it was not helping. Patient denies bowel or bladder incontinence. No saddle anesthesia. No new numbness in lower extremities. Patient did not fall or have any new injuries. She does report she has a bedsore. She denies chest pain shortness of breath fever abdominal pain vomiting diarrhea headache numbness weakness or syncope. Patient denies drugs or alcohol. Review of Systems: Review of Systems: Review of Systems: Constitutional: Denies fever or chills Eyes: Denies redness or eye pain HENT: Denies nasal congestion or sore throat Respiratory: Denies cough or shortness of breath Cardiovascular: Denies chest pain or palpitations GI: denies abdominal pain and nausea, denies vomiting or diarrhea : Denies dysuria or hematuria Musculoskeletal: Denies joint pain Integument: Denies rash or skin lesions Neurologic: Denies headache, focal weakness or sensory changes Heart Score: C/O Chest Pain: No Risk Factors: R Allergies: Allergies: Allergies Coded Allergies Type Severity Reaction Last Updated Verified No Known Drug Allergies 09/21/13 No Physical Exam: PE: *GENERAL APPEARANCE: Awake and alert. Cooperative. No acute distress. Non toxic appearing. HEAD: Normocephalic. Atraumatic. EYES: EOM's grossly intact. Sclera anicteric. Conjunctiva clear ENT:. Airway patent. Mucous membranes moist. No trismus. Tolerating secretions. NECK: Supple. Trachea midline. HEART: Regular rate and rhythm. Radial pulses 2+. Good capillary refill. LUNGS: Respirations unlabored. Clear to auscultation bilaterally. No rales, rhonchi, wheezing or retractions. ABDOMEN: Soft. Non-tender. No guarding or rebound. No CVA tenderness. No palpable or pulsatile mass. SKIN: Warm and dry. No rash. NEUROLOGICAL: Alert and oriented x3. Patient can move all 4 extremities equally. Contractures of the bilateral upper extremities. Sensation is intact diffusely. Back: Diffuse tenderness palpation over the lumbar spine. No midline cervical thoracic or lumbar tenderness. She does have a stage I pressure ulcer over the sacral area. No erythema or drainage. Lower extremity: Pulses 2/4, patient can lift legs bilaterally without difficulty. Muscle strength normal and equal. Good Capillary refill, Reflexes 2/4. Sensation is intact equally. PSYCHIATRIC: Normal mood. EKG: EKG: [] Radiology/Procedures: Radiology/Procedures: [] Course & Med Decision Making: Course & Med Decision Making Medical decision making: This is a 41-year-old female presents emergency department for back pain. This has been ongoing for a long time but feels like it has gotten worse. Patient was seen in the emergency department several days ago. She was given [place]. She does not feel like this is really helping. She denies bowel or bladder incontinence. No saddle anesthesia. No dysuria or hematuria. No new injuries. Upon arrival to the emergency department patient was tachycardic and hypertensive. I suspect this may be secondary to pain. She was given morphine and Flexeril and Toradol. On repeat evaluation patient reports this did help. Heart rate and blood pressure have improved. I discussion with patient about pain medication and reasons to return to the emergency department. She does feel comfortable with discharge. Mother is coming to pick her up. The patient is given strict emergency department return precautions and follow up information. They express a verbal understanding of my instructions. The patient is aware of any labs and imaging. All questions are answered and patient is stable at the time of discharge. I have spoken to the patient and/or caregivers. I have explained the patient's condition, diagnoses and treatment plan based on the information available to me at this time. I have answered the patient and/or caregiver's questions and addressed any concerns. The patient and/or caregiver has a good understanding of the patient's diagnosis, condition and treatment plan as can be expected at this point. The vital signs have been stable. The patient's condition is stable and appropriate for discharge from the emergency department. The patient will perfuse to further outpatient evaluation with primary care physician and/or other designated or consulting physicians as outlined in the discharge instructions. The patient and/or caregivers are agreeable to this plan and in the care follow-up instructions have been explained in detail. The patient and/or caregivers have received these instructions in written format and have expressed an understanding of the discharge instructions. The patient and/or caregivers are aware that any significant change in condition or worsening of symptoms should prompt an immediate return to this or the closest emergency department or a call to 911. Discharged to home Discharge time: 629 Date: April 04, 2021 Condition: Stable Dragon Disclaimer: Dragon Disclaimer: This electronic medical record was generated, in whole or in part, using a voice recognition dictation system. Departure Departure Impression: Primary Impression: Back pain Disposition: 01 HOME / SELF CARE / HOMELESS Referrals: JEAN-PIERRE EDMONDSON MD (PCP) Patient Instructions: Back Pain, Adult, Chronic Back Pain, Pressure Ulcer, Pressure Ulcer-Brief [facility] DO Apr 04, 2021 05:01
[2021-04-04 05:05] LABS: BILIRUBIN,URINE MODERATE (NEG); CLARITY,URINE CLEAR; COLOR,URINE AMBER; NITRITE,URINE NEGATIVE (NEG); PH,URINE 5.5 (<5.0-8.0); PROTEIN,URINE NEGATIVE (NEG-TRACE)
[2021-04-04 05:14] LABS: BACTERIA,URINE 0 /HPF (0-FEW)
[2021-04-04 05:41] VITALS: BP 148/100
[2021-04-04] MEDS: CYCLOBENZAPRINE 10 MG TABLET. PO ONE ×2 (05:41→05:48)
[2021-04-04] MEDS ORDERED: CYCLOBENZAPRINE 10 MG TABLET. PO ONE (06:30)
== END 2021-04-04 07:23 | disposition home or self-care (01) ==
LOC: ER 04:39
DX: M54.5 Low back pain (principal); L89.151 Pressure ulcer of sacral region, stage 1; G89.29 Other chronic pain; Z98.890 Other specified postprocedural states
CPT/HCPCS: 81001; 96372; 99284; J1885; J2270

== ENCOUNTER 2021-08-10 17:46 | Emergency (ER) | payer OTHER ==
[~2021-08-10 17:46] MED LIST changes: +CYCL10TA19 PO; -CYCL10TA2 PO
== END 2021-08-10 18:29 | disposition left against medical advice (07) ==
LOC: ER 17:46
DX: M79.2 Neuralgia and neuritis, unspecified (principal); Z53.21 Procedure and treatment not carried out due to patient leaving prior to being seen by health care provider